=== PATIENT | male | born 1955 | race Caucasian/White ===

== ENCOUNTER 2016-12-24 23:19 | Inpatient (IN) ==
[2016-12-25 00:11] LABS: Hematocrit 37.5 % (37.5-50.1); Hemoglobin 12.4 g/dL (12.9-16.9); Mean Corpuscular HGB Conc 33.1 g/dL (31.6-35.5); Mean Corpuscular Hemoglobin 27.1 pg (28.0-33.3); Mean Corpuscular Volume 82.1 fL (83.0-100.0); Platelet Count 209 K/mcL (140-400); Red Blood Count 4.57 M/mcL (4.19-5.50); Red Cell Distribution Width 14.5 % (11.5-14.5)
[2016-12-25 00:23] LABS: BUN/Creatinine Ratio 11 (6-26); Blood Urea Nitrogen 16 mg/dL (8-26); Calcium 9.5 mg/dL (8.6-10.8); Carbon Dioxide 25 mEq/L (19-29); Chloride 90 mEq/L (98-109); Osmolality,Calculated 300 (280-300); Potassium 3.7 mEq/L (3.5-4.5); Sodium 126 mEq/L (136-145); eGFR For African Americans > 60 (> 60); eGFR For Non-African Americans 50 (> 60)
[2016-12-25 00:27] LABS: Glucose 763 mg/dL (70-99)
[2016-12-25] MEDS ORDERED: 0.9 % Sodium Chloride 1,000 ML IVC ONE ×3 (00:30→02:14)
[2016-12-25 00:31] LABS: Lymphocytes # 2.2 K/mcL (0.6-4.6); Monocytes # 1.8 K/mcL (0.0-1.3); Neutrophils # 14.2 K/mcL (1.6-8.9); Platelet Estimate Normal (Normal)
[2016-12-25 00:37] LABS: Bilirubin,Urine Negative (Negative); Blood,Urine Small (Negative); Clarity,Urine Cloudy (Clear); Color,Urine Yellow (Yellow); Glucose,Urine (UA) >=1000 mg/dL (Normal); Ketones,Urine Negative (Negative); Leukocyte Esterase,Urine Moderate (Negative); Nitrite,Urine Positive (Negative); Protein,Urine 30 mg/dL (Neg-Trace); Specific Gravity,Urine > 1.030 (1.010-1.025); Urobilinogen,Urine Normal (Normal)
[2016-12-25 00:40] LABS: Bacteria,Urine Many per hpf (None-Few); Hyaline Casts,Urine None Seen per lpf (None-Few); Squamous Epithelial Cell,Urine Many per lpf (None-Few); WBC,Urine TNTC per hpf (0-3)
--- NOTE | 2016-12-25 00:43 | Emergency Department Note ---
Disposition Clinical Impression: Candidiasis of scrotum, Candidiasis of perineum, Diabetic ketosis, Acute renal insufficiency Postoperative wound infection Qualifiers: Encounter type: initial encounter Qualified Code(s): T81.4XXA - Infection following a procedure, initial encounter UTI (urinary tract infection) Qualifiers: Urinary tract infection type: acute cystitis Hematuria presence: with hematuria Qualified Code(s): N30.01 - Acute cystitis with hematuria Disposition: Admitted As Inpatient Condition: Fair Referrals: NO,PCP [Primary Care Provider] - Forms: ED Satisfaction Letter Extremity Problem HPI - General Chief complaint: ED Extremity Problem,Nontraumatic Stated complaint: R Heel Pain s/p surgery 2 weeks w/Dr Drake Time Seen by Provider: 12/24/16 23:32 Source: patient Mode of arrival: private vehicle Limitations: no limitations Nursing Notes Reviewed: Yes Vital Signs Reviewed: Yes - History of Present Illness Pt Subjective Complaint: extremity pain Onset (ago): day(s) Consistency: constant Injury Location: right Pain Scale: 9 Quality: aching, dull Radiation: none Improves with: medication Worsens with: weight bearing, walking, palpation Associated symptoms: Denies: chest pain, shortness of breath, abdominal pain, back pain, fever, myalgias, arthralgias, rash, change in appearance, swelling, redness Context: recent surgery/procedure (12/14/16 Dr. Drake removed the toenail from the right great toe because of a fungal infection), history of peripheral vascular disease, other (Patient c/o increasing pain in his great toe for the past 3 days. He also has hx of urethral stricture and reconstruction and has noticed a change in his urine stream lately. ) - Related Data Previous Rx's Medication Instructions Recorded Cephalexin 500 mg PO QID #40 tablet 11/27/16 Sulfamethoxazole/Trimeth DS 1 each PO BID #20 tablet 11/27/16 [Bactrim DS] Allergies Allergy/AdvReac Type Severity Reaction Status Date / Time codeine Allergy Mild See Verified 12/24/16 23:22 Comments All systems ED: reviewed and negative except as stated. Constitutional: Denies: fever, chills, weakness, weight change, night sweats Eyes: Denies: eye pain, eye discharge, vision change ENT ED: Denies: ear pain, throat pain, congestion, dysphagia Cardiovascular: Denies: chest pain, palpitations, dyspnea on exertion, orthopnea , edema, syncope Respiratory: Denies: cough, dyspnea, wheezes Gastrointestinal: Denies: abdominal pain, nausea, vomiting, diarrhea, constipation Genitourinary: Reports: dysuria. Denies: urgency, frequency, hematuria, discharge, testicular pain, testicular mass, genital lesions Musculoskeletal: Denies: back pain, neck pain, joint swelling, arthralgia Integumentary: Denies: rash, abrasion, lesions Neurological: Denies: headache, weakness, numbness, paresthesias Endocrine: Denies: fatigue Hematological/Lymphatic: Denies: easy bleeding, easy bruising, lymphadenopathy Allergic/Immunologic: Denies: facial swelling, urticaria, itchy eyes Past Medical History - Past Medical History Attestation: Yes The following information was validated with the patient. Source: patient Medical history: Reports: coronary artery disease, diabetes, myocardial infarction, other Psychiatric history: Reports: no psych history - Social History Smoking Status: Current every day smoker Smokeless Tobacco Status: No Alcohol use: Reports: none Drug use: Reports: none Physical Exam - General Limitations: no limitations General appearance: alert, in no apparent distress - Head Head exam: atraumatic, normocephalic, normal inspection - Eye Eye exam: Present: normal appearance, PERRL. Absent: scleral icterus, conjunctival injection, periorbital swelling - ENT ENT exam: normal exam, mucous membranes moist - Neck Neck exam: Present: normal inspection, full ROM, trachea midline - Chest Chest inspection: Present: normal inspection, symmetric chest wall rise - Respiratory Respiratory exam: Present: normal lung sounds bilaterally. Absent: respiratory distress, wheezes, stridor, accessory muscle use, prolonged expiratory phase - Cardiovascular Cardiovascular exam: Present: normal rhythm, tachycardia, normal heart sounds - Abdominal Exam Abdominal exam: Present: soft, Non-Tender. Absent: distention, guarding, rebound, rigidity, mass - Female Paper Conservator present during exam: Yes (Dr. Conde present during exam) - Male exam: Present: normal testicular lie, circumcised, erythema (scrotal and bilateral inguinal areas ), other (severe candidal appearing infection in groin - scrotum and bilateral inguinal areas - no rash on penis). Absent: phimosis, paraphimosis, penile swelling, balanitis, priapism, ulcerations, inguinal lymphadenopathy, testicular tenderness, scrotal swelling - Extremities Exam Extremities exam: Present: full ROM, tenderness, normal capillary refill - Expanded Lower Extremity Exam Lower leg exam: Present: normal inspection, Achilles tendon intact. Absent: tenderness, swelling, Homans' sign Ankle exam: Present: normal inspection, full ROM. Absent: tenderness, swelling Foot/toe exam: Present: full ROM, tenderness (tip of right great toe). Absent: swelling, erythema 1 - tender, 1cm area of skin desquammation and slight blanching 2 - post-op changes - mild granulation tissue, no edema, minimal tenderness Neurovascular/Tendon exam: Present: normal capillary refill. Absent: pulse deficit, motor deficit, sensory deficit, tendon deficit, extremity cold to touch , pallor, foot drop Gait: antalgic - Neurological Exam Neurological exam: Present: alert, oriented X3, CN II-XII intact - Psychiatric Psychiatric exam: Present: normal affect, normal mood - Skin Skin exam: Present: warm, dry, normal color Course Course Narrative: Patient presents for evaluation of right great toe pain. He had his toe nail removed 11 days ago as treatment of a fungal infection, and has a follow up appointment with Dr. Drake tomorrow. The pain has increased significantly over the past 3 days however so he came in for evaluation. He also has had dysuria and a change in his urine stream. This concerns him because he had a urethral reconstruction done two years ago. He has had no complications since then. Patient is a type II diabetic who takes metformin only. He has been out of this medication for 4 days. On exam, he is tachycardic, mildly hypotensive, but is able to ambulate, is polite and conversant, A&Ox3. He was initially accompanied by his daughter. She is no longer here. PAtient has poor dentition and sub-optimal hygiene. He has significant perineal and scrotal candidiasis. He states that it always looks this bad and that it does not hurt. He does not appear to be tender. His abdominal exam is normal. The exam is normal except for the skin rash. He has exquisite tenderness to palpation of the distal tip of the right great toe. There is a small area of blanched skin and desquammation. There is some granulation tissue in the nail bed. There is no bleeding, no cellulitis, no lymphangitis and no edema. Patient has a glucose >700 with high serum ketones, normal gap. His WBC count is >18 with a bandemia. He has acute renal insufficiency. Lactic acid is normal. U/A is positive for nitrates, WBC's RBC's and Bacteria. Blood cultures have been drawn. Vanc and Zosyn have been started and pain meds given. Xray does not show osteomyelitis or other abnormality. Patient has also received 3 liters of NS so far. Insulin has been ordered - [address] Conde. Patient will require admission. Hospitalist has accepted. Case was staffed with Dr. Conde - ED attending. He has examined the patient, reviewed all test results , and agrees with the plan to admit. Vital Signs Temperature 98.2 F 12/24/16 23:22 Pulse Rate 124 12/24/16 23:22 Respiratory Rate 20 12/24/16 23:22 Blood Pressure 94/68 12/24/16 23:22 O2 Sat by Pulse Oximetry 96 12/24/16 23:22 Temperature 98.2 F 12/24/16 23:22 Pulse Rate 124 12/24/16 23:22 Respiratory Rate 20 12/24/16 23:22 Blood Pressure 94/68 12/24/16 23:22 O2 Sat by Pulse Oximetry 96 12/24/16 23:22 Oxygen Delivery Oxygen Delivery Room Air Extremity Problem, Nontraumati - Medical Records Medical records reviewed: Yes I reviewed the patient's medical records. - Lab Data Lab results reviewed: Yes I reviewed the patient's lab results. Lab results narrative: Laboratory Last Values WBC 18.2 K/mcL (4.3-11.1) H 12/25/16 00:03 RBC 4.57 M/mcL (4.19-5.50) 12/25/16 00:03 Hgb 12.4 g/dL (12.9-16.9) L 12/25/16 00:03 Hct 37.5 % (37.5-50.1) 12/25/16 00:03 MCV 82.1 fL (83.0-100.0) L 12/25/16 00:03 MCH 27.1 pg (28.0-33.3) L 12/25/16 00:03 MCHC 33.1 g/dL (31.6-35.5) 12/25/16 00:03 RDW 14.5 % (11.5-14.5) 12/25/16 00:03 Plt Count 209 K/mcL (140-400) 12/25/16 00:03 MPV 10.0 fL (9.4-12.4) 12/25/16 00:03 Seg Neutrophils % 50.0 % 12/25/16 00:03 Band Neutrophils % 28.0 % (0-4) H 12/25/16 00:03 Lymphocytes % 12.0 % 12/25/16 00:03 Monocytes % 10.0 % 12/25/16 00:03 Neutrophils # 14.2 K/mcL (1.6-8.9) H 12/25/16 00:03 Lymphocytes # 2.2 K/mcL (0.6-4.6) 12/25/16 00:03 Monocytes # 1.8 K/mcL (0.0-1.3) H 12/25/16 00:03 Platelet Estimate Normal (Normal) 12/25/16 00:03 Sodium 126 mEq/L (136-145) L 12/25/16 00:03 Potassium 3.7 mEq/L (3.5-4.5) 12/25/16 00:03 Chloride 90 mEq/L (98-109) L 12/25/16 00:03 Carbon Dioxide 25 mEq/L (19-29) 12/25/16 00:03 BUN 16 mg/dL (8-26) 12/25/16 00:03 Creatinine 1.45 mg/dL (0.72-1.25) H 12/25/16 00:03 Est GFR ( Amer) > 60 (> 60) 12/25/16 00:03 Est GFR (Non-Af Amer) 50 (> 60) L 12/25/16 00:03 BUN/Creatinine Ratio 11 (6-26) 12/25/16 00:03 Glucose 763 mg/dL (70-99) H* 12/25/16 00:03 Calculated Osmolality 300 (280-300) 12/25/16 00:03 Lactic Acid 1.5 mmol/L (0.5-2.2) 12/25/16 00:30 Calcium 9.5 mg/dL (8.6-10.8) 12/25/16 00:03 Beta-Hydroxybutyric Acd 0.93 mmol/L (0.02-0.27) H 12/25/16 00:03 Urine Color Yellow (Yellow) 12/25/16 00:30 Urine Clarity Cloudy (Clear) A 12/25/16 00:30 Urine pH 6.0 pH Units (5.0-8.0) 12/25/16 00:[address] [place] > 1.030 (1.010-1.025) H 12/25/16 00:30 Urine Protein 30 mg/dL (Neg-Trace) H 12/25/16 00:30 Urine Glucose (UA) >=1000 mg/dL (Normal) H 12/25/16 00:30 Urine Ketones Negative mg/dL (Negative) 12/25/16 00:30 Urine Blood Small (Negative) H 12/25/16 00:30 Urine Nitrite Positive (Negative) A 12/25/16 00:30 Urine Bilirubin Negative (Negative) 12/25/16 00:30 Urine Urobilinogen Normal mg/dL (Normal) 12/25/16 00:30 Ur Leukocyte Esterase Moderate (Negative) H 12/25/16 00:30 Urine Microscopic RBC 5-15 per hpf (0-3) H 12/25/16 00:30 Urine Microscopic WBC TNTC per hpf (0-3) H 12/25/16 00:30 Ur Squamous Epith Cells Many per lpf (None-Few) H 12/25/16 00:30 Urine Bacteria Many per hpf (None-Few) H 12/25/16 00:30 Hyaline Casts None Seen per lpf (None-Few) 12/25/16 00:30 Urine Yeast Few per hpf (None Seen) H 12/25/16 00:30 Ur Culture Indicated? YES (NO) A 12/25/16 00:30 Result diagrams: 12/25/16 00:03 12/25/16 00:03 Lab Results 12/25/16 12/25/16 Range/Units 00:03 00:03 WBC 18.2 H (4.3-11.1) K/mcL RBC 4.57 (4.19-5.50) M/mcL Hgb 12.4 L (12.9-16.9) g/dL Hct 37.5 (37.5-50.1) % MCV 82.1 L (83.0-100.0) fL MCH 27.1 L (28.0-33.3) pg MCHC 33.1 (31.6-35.5) g/dL RDW 14.5 (11.5-14.5) % Plt Count 209 (140-400) K/mcL MPV 10.0 (9.4-12.4) fL Seg Neutrophils % 50.0 % Band Neutrophils % 28.0 H (0-4) % Lymphocytes % 12.0 % Monocytes % 10.0 % Neutrophils # 14.2 H (1.6-8.9) K/mcL Lymphocytes # 2.2 (0.6-4.6) K/mcL Monocytes # 1.8 H (0.0-1.3) K/mcL Platelet Estimate Normal (Normal) Sodium 126 L (136-145) mEq/L Potassium 3.7 (3.5-4.5) mEq/L Chloride 90 L (98-109) mEq/L Carbon Dioxide 25 (19-29) mEq/L BUN 16 (8-26) mg/dL Creatinine 1.45 H (0.72-1.25) mg/dL Est GFR ( Amer) > 60 (> 60) Est GFR (Non-Af Amer) 50 L (> 60) BUN/Creatinine Ratio 11 (6-26) Glucose 763 H* (70-99) mg/dL Calculated Osmolality 300 (280-300) Calcium 9.5 (8.6-10.8) mg/dL - Radiology Data Radiology results reviewed: Yes I reviewed the patient's radiology results. Foot X-Ray 12/24/16 23:44 IMPRESSION: No acute or focal bony abnormality. D/ / Katelynn Lea Cha, MD / Katelynn Lea Cha, MD Interpreting Provider: Katelynn Lea Cha, MD
[2016-12-25 00:49] LABS: Yeast,Urine Few per hpf (None Seen)
[2016-12-25] MEDS ORDERED: traMADol 50 MG TABLET PO ONE (00:52)
[2016-12-25 01:01] LABS: Beta-Hydroxybutyric Acid 0.93 mmol/L (0.02-0.27)
[2016-12-25] MEDS ORDERED: Clotrimazole 1% CRM 15 GM TUBE TP ONE (02:14)
[2016-12-25] MEDS ORDERED: Vancomycin 1,000 MG in D5% in Water 250 ML IVPB ONE (02:14)
[2016-12-25] MEDS ORDERED: Piperacillin/Tazobactam 3.375 GM in D5% in Water (Mini-Bag+) 100 ML IVPB ONE (02:14)
[2016-12-25] MEDS ORDERED: *HR* Morphine 2 MG/ML SYRINGE IVP ONE (02:14)
[2016-12-25] MEDS: Ondansetron 4 MG/2 ML VIAL IVP ONE (02:26)
[2016-12-25] MEDS ORDERED: Insulin Human Regular 10 UNIT in 0.9 % Sodium Chloride 10 ML IV ONE (02:27)
[2016-12-25] MEDS ORDERED: Insulin Regular, Human 100 UNIT/ML ONE (02:40)
[2016-12-25] MEDS ORDERED: Fluconazole 100 MG TABLET PO ONE (03:05)
[2016-12-25] MEDS ORDERED: *HR* HYDROcodone/Acet 5/325 mg TABLET PO PRN (04:00)
[2016-12-25] MEDS ORDERED: Naloxone 0.4 MG/ML INJ IVP PRN (04:00)
[2016-12-25] MEDS ORDERED: Acetaminophen 325 MG TABLET PO PRN (04:00)
[2016-12-25] MEDS ORDERED: *HR* Dextrose 50 % in Water (Syg) 50 ML SYRINGE IVP PRN (04:10)
[2016-12-25] MEDS ORDERED: Dextrose Gel 15 GM PO PRN ×2 (04:10)
[2016-12-25] MEDS ORDERED: D5% in Water 1,000 ML IVC PRN (04:10)
[2016-12-25] MEDS ORDERED: Insulin LISPRO 300 UNITS/3 ML VIAL SQ ONE (04:15)
--- NOTE | 2016-12-25 04:28 | Internal Med History&Physical ---
Date of Encounter: 12/25/16 Time of Encounter: 03:00 Assessment and Plan (1) Sepsis Current visit: Yes Status: Acute Patient has elevated white count and tachycardia. With foot infection and UTI. Meet criteria of sepsis. - Early goal directed resuscitation started in ER - Continue IV fluid. - Initial Lactate 1.5, no need to follow. - Continue antibiotic treatment. Patient is at high risk because of he is on vancomycin, need close monitoring Qualifiers: Sepsis type: sepsis due to unspecified organism Qualified Code(s): A41.9 - Sepsis, unspecified organism (2) Uncontrolled diabetes mellitus Current visit: Yes Status: Acute Patient has hyperglycemia up to 700. AG 11, Osmo 300. - Glu get down to 460 after 10 units insulin iv by ER. - Another 10 units insulin lispro sc - We will place patient on basal and sliding-scale insulin. - Closely monitor patient - Continue IV fluid with potassium because expecting potassium will decrease when hyperglycemia corrected by insulin. Qualifiers: Diabetes mellitus type: type 2 Diabetes mellitus complication status: without complication Diabetes mellitus detention insulin use: without detention use Qualified Code(s): E11.65 - Type 2 diabetes mellitus with hyperglycemia (3) Postoperative wound infection Current visit: Yes Status: Acute We will continue antibiotic treatment. Podiatry consult. Qualifiers: Encounter type: initial encounter Qualified Code(s): T81.4XXA - Infection following a procedure, initial encounter (4) UTI (urinary tract infection) Current visit: Yes Status: Acute Continue antibiotic treatment. Follow urine culture. Qualifiers: Urinary tract infection type: acute cystitis Hematuria presence: without hematuria Qualified Code(s): N30.00 - Acute cystitis without hematuria (5) Acute renal insufficiency Current visit: Yes Status: Acute Continue IV fluid and follow-up renal function. (6) DVT prophylaxis Current visit: Yes Status: Acute Heparin subcutaneously Internal Medicine - H&P: HPI Chief complaint: Right toe pain Admitted From: Home Plans for Post Hospital Care: Home History of present illness: Mr. Bolden is a 61 year old male with history of diabetes, CAD S/P CABG, presented to ER for right toe pain for one week. Patient has right toe infection, seen by podiatry and did nail removal 1 week ago. Patient feels the pain is getting worse. He denies fever, shortness of breath, chest pain, abdominal pain, nausea, vomiting, or diarrhea. Patient also has history of urethral stenosis and a urinary through a changed way. He complained of dysuria and burning. In emergency room, he also was found glucose high to 700s. Patient was on metformin 1,000 mg by mouth twice a day. He said he ran out of medication for 3 days. Patient was admitted for foot infection, UTI, and uncontrolled diabetes. I discussed the CODE STATUS with patient, he is a full code. Past Med Surg Social Fam HX - Past Medical History Medical history: coronary artery disease, diabetes, myocardial infarction, other Psychiatric history: no psych history - Social History Smoking Status: Current every day smoker Smokeless Tobacco Status: No Alcohol use: none Drug use: none Internal Medicine - H&P: Meds Cephalexin 500 mg PO QID #40 tablet 11/27/16 [Rx] Sulfamethoxazole/Trimeth DS [Bactrim DS] 1 each PO BID #20 tablet 11/27/16 [Rx] Allergies codeine Allergy (Mild, Verified 12/24/16 23:22) See Comments chest heaviness All Systems PM: A 10-system review of systems was performed and is negative for pertinent findings except as documented above in the HPI. - Constitutional Vitals: Temp Pulse Resp BP Pulse Ox 98.6 F 98 18 99/64 95 12/25/16 04:20 12/25/16 04:20 12/25/16 04:20 12/25/16 04:20 12/25/16 04:20 General appearance: Present: A&O X 3, no acute distress, answers questions appropriately - Head Head exam: Present: atraumatic, normocephalic - Eye Eye exam: Present: PERRL, conjuntiva pink, sclera anicteric Pupils: Present: PERRL - Neck Neck exam general surgery: Present: supple, trachea midline. Absent: lymphadenopathy - Respiratory Respiratory exam: Present: CTAB. Absent: accessory muscle use, rales, rhonchi, wheezes - Cardiovascular Cardiovascular exam: Present: RRR, +S1, +S2. Absent: diastolic murmur, gallop, rubs, systolic murmur - GI/Abdominal GI/Abdominal exam: Present: normal bowel sounds, soft, no peritoneal signs. Absent: distended, tenderness - Extremities Exam Extremities exam: Present: warm, radial pulses palpable and symetrical. Absent : calf tenderness, cyanotic, pedal edema Additional comments: Right toe infection with ulcer - Neurological Exam Neurological exam: Present: CN II-XII intact, oriented X3, no focal deficits. Absent: pronater drift, facial droop, speech deficit - Skin Skin exam: Present: dry, intact Internal Med - H&P Results - Labs CBC & Chem 7: 12/25/16 00:03 12/25/16 00:03
[2016-12-25] MEDS: *HR* Heparin 5,000 UNIT/ML VIAL SQ SCH ×2 (05:13→16:34)
[2016-12-25 05:49] LABS: Basophils % 0.3 %; Eosinophils % 0.1 %; Hematocrit 31.6 % (37.5-50.1); Immature Granulocytes % 0.4 % (0-4); Lymphocytes # 0.7 K/mcL (0.6-4.6); Lymphocytes % 4.9 %; Mean Corpuscular HGB Conc 33.5 g/dL (31.6-35.5); Mean Corpuscular Volume 83.4 fL (83.0-100.0); Mean Platelet Volume 10.2 fL (9.4-12.4); Monocytes # 0.5 K/mcL (0.0-1.3); Monocytes % 3.1 %; Platelet Count 187 K/mcL (140-400); Red Blood Count 3.79 M/mcL (4.19-5.50); Red Cell Distribution Width 14.6 % (11.5-14.5); Segmented Neutrophils % 91.2 %
[2016-12-25 05:59] LABS: BUN/Creatinine Ratio 13 (6-26); Blood Urea Nitrogen 14 mg/dL (8-26); Calcium 8.4 mg/dL (8.6-10.8); Carbon Dioxide 23 mEq/L (19-29); Chloride 99 mEq/L (98-109); Glucose 453 mg/dL (70-99); Osmolality,Calculated 290 (280-300); Potassium 3.9 mEq/L (3.5-4.5); Sodium 130 mEq/L (136-145); eGFR For African Americans > 60 (> 60); eGFR For Non-African Americans > 60 (> 60)
[2016-12-25] MEDS ORDERED: Vancomycin 1,500 MG in D5% in Water 250 ML IVPB SCH (06:00)
[2016-12-25] MEDS: 0.9 % Sodium Chloride w KCl 40 MEQ/1,000 ML MLS IVC SCH ×3 (06:01→21:10)
[2016-12-25 06:02] LABS: BUN/Creatinine Ratio 12 (6-26); Blood Urea Nitrogen 14 mg/dL (8-26); Calcium 8.3 mg/dL (8.6-10.8); Carbon Dioxide 25 mEq/L (19-29); Chloride 99 mEq/L (98-109); Chol/HDL Ratio 5.9 (0-4.9); Cholesterol 112 mg/dL (< 200); Glucose 446 mg/dL (70-99); HDL Cholesterol 19 mg/dL (40-59); LDL Cholesterol,Calculated 42 mg/dL (0-99); Magnesium 1.1 mg/dL (1.6-2.6); Osmolality,Calculated 294 (280-300); Phosphorous 2.7 mg/dL (2.3-4.7); Potassium 3.9 mEq/L (3.5-4.5); Sodium 132 mEq/L (136-145); Triglycerides 255 mg/dL (< 150); eGFR For African Americans > 60 (> 60); eGFR For Non-African Americans > 60 (> 60)
[2016-12-25 06:10] LABS: Estimated Average Glucose > 355 mg/dl; Hemoglobin A1C >= 14.1 %
[2016-12-25 06:14] LABS: Basophils # 0.1 K/mcL (0.0-0.2); Hemoglobin 10.6 g/dL (12.9-16.9); Neutrophils # 13.9 K/mcL (1.6-8.9)
[2016-12-25 06:15] LABS: Platelet Estimate Normal (Normal)
[2016-12-25] MEDS: Insulin LISPRO 300 UNITS/3 ML VIAL SQ SCH ×4 (07:50→21:21)
[2016-12-25] MEDS: Nystatin POWDER 30 GM BOTTLE TP SCH ×2 (07:50→21:11)
[2016-12-25] MEDS: Insulin DETEMIR 100 UNIT/ML X5UNITS SQ SCH (07:50)
[2016-12-25] MEDS ORDERED: Aminoglycoside Consult 1 EACH MC ONE (12:00)
--- NOTE | 2016-12-25 12:40 | Event Note ---
Date of Encounter: 12/25/16 Time of Encounter: 12:02 Patient admitted for sepsis secondary to right great toe infection, status post removal of the great toenail of the right foot by podiatry. Also has evidence of UTI. Blood sugar noted to be more than 700, and A1c more than 14. Patient was seen in the bedside, complaining of severe pain on the right foot, unable to bear weight. He has temperature 102, leukocytosis with tachycardia. He has been started on Vanco and Zosyn yesterday, serology was positive for staph aureus on November and was taking Bactrim at home. Will continue vancomycin and Zosyn, follow cultures, podiatry has been consulted. Will follow recommendations from podiatry. History of the foot did not show any bony instructions or signs of osteomyelitis. We will also consult wound care.
[2016-12-25 12:56] LABS: BUN/Creatinine Ratio 13 (6-26); Blood Urea Nitrogen 13 mg/dL (8-26); Calcium 8.2 mg/dL (8.6-10.8); Carbon Dioxide 22 mEq/L (19-29); Chloride 104 mEq/L (98-109); Glucose 110 mg/dL (70-99); Osmolality,Calculated 279 (280-300); Sodium 134 mEq/L (136-145); eGFR For African Americans > 60 (> 60); eGFR For Non-African Americans > 60 (> 60)
[2016-12-25] MEDS: Piperacillin/Tazobactam 3.375 GM in D5% in Water (Mini-Bag+) 100 ML IVPB SCH ×2 (13:27→21:09)
[2016-12-25] MEDS: Vancomycin 1,000 MG in D5% in Water 250 ML IVPB SCH (14:50)
[2016-12-25 17:32] LABS: blaKPC Carbapenem-Resist Gene Not Detected (Not Detect)
[2016-12-25 17:33] LABS: Acinetobacter baumannii by PCR Not Detected (Not Detect); Candida albicans by PCR Not Detected (Not Detect); Candida glabrata by PCR Not Detected (Not Detect); Candida krusei by PCR Not Detected (Not Detect); Candida parapsilosis by PCR Not Detected (Not Detect); Candida tropicalis by PCR Not Detected (Not Detect); Enterococcus by PCR Not Detected (Not Detect); Escherichia coli by PCR Not Detected (Not Detect); Klebsiella oxytoca by PCR Not Detected (Not Detect); Klebsiella pneumoniae by PCR Not Detected (Not Detect); Pseudomonas aeruginosa by PCR Not Detected (Not Detect); Serratia marcescens by PCR ***DETECTED*** (Not Detect); Staphylococcus aureus by PCR Not Detected (Not Detect); Streptococcus agalactiae(B)PCR Not Detected (Not Detect); Streptococcus by PCR Not Detected (Not Detect); Streptococcus pneumoniae PCR Not Detected (Not Detect); Streptococcus pyogenes (A) PCR Not Detected (Not Detect)
--- NOTE | 2016-12-25 17:51 | Arterial Study Report ---
LE Arterial Physiologic Study Patient Name:Inocencio Bolden Order Number:[id number] Procedure Date:12/25/2016 Date:1955ge:61 yrs Gender:Male Lt BP:115 / mmHg Location:[facility] Room #: 2A62 Sock Lining Examiner:Margoth Rahman, STEPHANIE Referring MD:Wyatt Tang DPM sliver cutter:None Reading MD:Miky Gomes MD , FACS Primary Indications:Wound Right Foot Risk Factors Yes/No Diabetes Yes Smoking Current Yes Impressions: 1) Bilateral lower extremities waveform demonstrates moderately diminished hemodynamics. 2) Bilateral Ankle Brachial Index demonstrates moderately occlusive disease. Recommendations: Preliminary noted in pt EMR. Findings LE Arterial Physiologic Exam: Segmental Pressures: Right: The right above knee pressure is 102 mmHg with an index of 0.89. The right below knee pressure is 87 mmHg with an index of 0.76. The right posterior tibial pressure is 78 mmHg with an index of 0.68. The right dorsalis pedis pressure is 77 mmHg with an index of 0.67. Left: The left above knee pressure is 153 mmHg with an index of 1.33. The left below knee pressure is 94 mmHg with an index of 0.82. The left posterior tibial pressure is 83 mmHg with an index of 0.72. The left dorsalis pedis pressure is 82 mmHg with an index of 0.71. PVR: Right: The PVR waveforms are mildly diminished in the right lower thigh and moderately diminished in the right calf and right ankle. Left: The PVR waveforms are normal in the left lower thigh, mildly diminished in the left calf and moderately diminished in the left ankle. Prior Study: No prior study available for comparison. Segmental Pressures Side Location Pressure Index Result Right Above Knee 102 0.89 Mildly Diminished Right Below Knee 87 0.76 Moderately Diminished Right Posterior Tibial 78 0.68 Moderately Diminished Right Dorsalis Pedis 77 0.67 Moderately Diminished Left Above Knee 153 1.33 Normal Left Below Knee 94 0.82 Mildly Diminished Left Posterior Tibial 83 0.72 Moderately Diminished Left Dorsalis Pedis 82 0.71 Moderately Diminished Ankle Brachial Index Right Systolic Diastolic LANDRY Brachial 0.68 Dorsalis Pedis 77 0.67 Posterior Tibial 78 0.68 Left Systolic Diastolic LANDRY Brachial 115 0.72 Dorsalis Pedis 82 0.71 Posterior Tibial 83 0.72 Updated by Miky Gomes MD, FACS on 12/25/2016 5:44:33 PM with Status of Final Miky Gomes MD electronically signed on 12/25/2016 5:45:08 PM with status of Final
[2016-12-25] MEDS: *HR* OxyCODONE/APAP 7.5/325 TABLET PO PRN (21:09)
--- NOTE | 2016-12-25 22:11 | Podiatry Consult Note ---
Date of Encounter: 12/25/16 Time of Encounter: 13:00 Assessment and Plan (1) Cellulitis of toe of right foot Current visit: Yes Status: Acute see above A/P History of Present Illness HPI: Mr. Bolden is a 61 year old diabetic male who came to the ER with right great toe pain. He presented to our office two weeks ago with an infected ingrown toenail which was lifted off the nail bed with drainage underneath and the distal aspect of the nail was encompassed by a superficial blister. The nail was avulsed in the office and flushed out with saline. He was on keflex and bactrim at that time and says he continued it. He reports still having bactrim left at home which he did not take. He did not get the drops prescribed to put on the toe. denies feeling like he had f/c/n/v/sob/cp. he has had one recorded fever since he has been in the hospital. His A1c is over 14%. He currently has a UTI. He is an active smoker. A/P hallux is not impressively cellulitic, no signs of osteomyelitis on the xray, there is no edema of the hallux. is concern for vascular compromise of the toe causing his pain vs diabetic neuropathic pain. holli/pvr b/l and toe pressures on the right were ordered. there was some drainage on the dorsal surface of the nail bed which was cultured and given to the nurse to be sent for aerobic culture and gram stain. c/w antibiotics per primary team. betadine applied to hallux with a small amount of asportive silver dressing. ordered surgical shoe. encouraged smoking cessation. will follow. Past Med Surg Social Fam HX - Past Medical History Medical history: coronary artery disease, diabetes, myocardial infarction, other Psychiatric history: no psych history - Social History Smoking Status: Current every day smoker Packs per day: 1 Smokeless Tobacco Status: No Alcohol use: none Drug use: none - Family History Mother Family Member Ethnicity: Non- Living Status: Age at : 54 Cause of : Cancer Hx Family Cancer: Yes Hx Family Endocrine Disorder: Yes (Diabetic) Father Family Member Ethnicity: Non- Living Status: Age at : 56 Cause of : Heart Attack Hx Family Cardiac Disorders: Yes ([place]) Medications and Allergies Aspirin 81 mg PO DAILY 12/25/16 [History] Metformin HCl [Glucophage] 1,000 mg PO BID 12/25/16 [History] Tramadol HCl [Ultram] 50 mg PO TID PRN 12/25/16 [History] Allergies codeine Allergy (Mild, Verified 12/24/16 23:22) See Comments chest heaviness All Systems Reviewed: A 10-system review of systems was performed and is negative for pertinent findings except as documented above in the HPI. Physical Exam - Constitutional Vitals: Temp Pulse Resp BP Pulse Ox 98.3 F 97 18 111/62 96 12/25/16 21:18 12/25/16 21:18 12/25/16 21:18 12/25/16 21:18 12/25/16 21:18 General appearance: no acute distress - Ankle & Foot Exam: foot is cool to touch as are all digits of the right foot. CFT is about 3 sec on the right hallux. macerated dorsal aspect of the nail bed with clear drainage. no purulence expressed. there is no fluctuance, there is some minimal non-intense erythema of the distal hallux, no ascending erythema. no edema. no increase in temp of hallux compared to adjacent digits. diminished protective sensation. pain with palpation of the right hallux distal phalanx. x-ray-no erosive changes or cortical destruction of the hallux. Results - Labs Result Diagrams: 12/25/16 05:27 12/25/16 12:27 Labs: Abnormal lab results WBC 15.2 K/mcL (4.3-11.1) H 12/25/16 05:27 RBC 3.79 M/mcL (4.19-5.50) L 12/25/16 05:27 Hgb 10.6 g/dL (12.9-16.9) L D 12/25/16 05:27 Hct 31.6 % (37.5-50.1) L 12/25/16 05:27 RDW 14.6 % (11.5-14.5) H 12/25/16 05:27 Band Neutrophils % 28.0 % (0-4) H 12/25/16 00:03 Neutrophils # 13.9 K/mcL (1.6-8.9) H 12/25/16 05:27 Sodium 134 mEq/L (136-145) L 12/25/16 12:27 Glucose 110 mg/dL (70-99) H 12/25/16 12:27 POC Glucose 178 (58-89) H 12/25/16 21:15 Hemoglobin A1c >= 14.1 % (-5.6) H 12/25/16 05:27 Calculated Osmolality 279 (280-300) L 12/25/16 12:27 Calcium 8.2 mg/dL (8.6-10.8) L 12/25/16 12:27 Magnesium 1.1 mg/dL (1.6-2.6) L 12/25/16 05:27 Triglycerides 255 mg/dL (< 150) H 12/25/16 05:27 VLDL Cholesterol, Calc 51 mg/dL (< 31) H 12/25/16 05: HDL Cholesterol 19 mg/dL (40-59) L 12/25/16 05: Cholesterol/HDL Ratio 5.9 (0-4.9) H 12/25/16 05:27 Beta-Hydroxybutyric Acd 0.93 mmol/L (0.02-0.27) H 12/25/16 00:03 Urine Clarity Cloudy (Clear) A 12/25/16 00:30 Ur Specific [place] > 1.030 (1.010-1.025) H 12/25/16 00:30 Urine Protein 30 mg/dL (Neg-Trace) H 12/25/16 00:30 Urine Glucose (UA) >=1000 mg/dL (Normal) H 12/25/16 00:30 Urine Blood Small (Negative) H 12/25/16 00:30 Urine Nitrite Positive (Negative) A 12/25/16 00:30 Ur Leukocyte Esterase Moderate (Negative) H 12/25/16 00:30 Urine Microscopic RBC 5-15 per hpf (0-3) H 12/25/16 00:30 Urine Microscopic WBC TNTC per hpf (0-3) H 12/25/16 00:30 Ur Squamous Epith Cells Many per lpf (None-Few) H 12/25/16 00:30 Urine Bacteria Many per hpf (None-Few) H 12/25/16 00:30 Urine Yeast Few per hpf (None Seen) H 12/25/16 00:30 Ur Culture Indicated? YES (NO) A 12/25/16 00:30 Enterobacteriac sp PCR DETECTED (Not Detect) A 12/25/16 00:03 Serratia marcescens PCR DETECTED (Not Detect) A 12/25/16 00:03 H & H 12/25/16 Range/Units 05:27 Hgb 10.6 L D (12.9-16.9) g/dL Hct 31.6 L (37.5-50.1) % All other labs normal. Consult Discharge Plan - Plan Referrals: NO,PCP [Primary Care Provider] -
[2016-12-26] MEDS: Vancomycin 1,000 MG in D5% in Water 250 ML IVPB SCH (02:14)
[2016-12-26] MEDS ORDERED: Vancomycin 1,000 MG in D5% in Water 250 ML IVPB SCH (05:00)
[2016-12-26] MEDS: 0.9 % Sodium Chloride w KCl 40 MEQ/1,000 ML MLS IVC SCH (05:42)
[2016-12-26] MEDS: *HR* OxyCODONE/APAP 7.5/325 TABLET PO PRN ×4 (05:42→22:53)
[2016-12-26] MEDS: Piperacillin/Tazobactam 3.375 GM in D5% in Water (Mini-Bag+) 100 ML IVPB SCH ×3 (05:43→22:53)
[2016-12-26] MEDS: *HR* Heparin 5,000 UNIT/ML VIAL SQ SCH ×2 (05:43→17:50)
[2016-12-26] MEDS: Insulin DETEMIR 100 UNIT/ML X5UNITS SQ SCH (07:56)
[2016-12-26] MEDS: Nystatin POWDER 30 GM BOTTLE TP SCH (07:57)
[2016-12-26] MEDS: Insulin LISPRO 300 UNITS/3 ML VIAL SQ SCH ×4 (07:57→21:00)
[2016-12-26 11:52] LABS: BUN/Creatinine Ratio 16 (6-26); Blood Urea Nitrogen 15 mg/dL (8-26); Calcium 7.6 mg/dL (8.6-10.8); Carbon Dioxide 20 mEq/L (19-29); Chloride 107 mEq/L (98-109); Glucose 278 mg/dL (70-99); Osmolality,Calculated 285 (280-300); Potassium 4.4 mEq/L (3.5-4.5); Sodium 132 mEq/L (136-145); eGFR For African Americans > 60 (> 60); eGFR For Non-African Americans > 60 (> 60)
[2016-12-26 13:03] LABS: Basophils % 0.6 %; Eosinophils # 0.1 K/mcL (0.0-0.6); Hematocrit 31.4 % (37.5-50.1); Hemoglobin 10.2 g/dL (12.9-16.9); Immature Granulocytes % 0.4 % (0-4); Lymphocytes # 0.8 K/mcL (0.6-4.6); Lymphocytes % 15.5 %; Mean Corpuscular HGB Conc 32.5 g/dL (31.6-35.5); Mean Corpuscular Hemoglobin 27.6 pg (28.0-33.3); Mean Corpuscular Volume 84.9 fL (83.0-100.0); Mean Platelet Volume 9.8 fL (9.4-12.4); Monocytes # 0.4 K/mcL (0.0-1.3); Monocytes % 7.4 %; Neutrophils # 3.9 K/mcL (1.6-8.9); Platelet Count 154 K/mcL (140-400); Red Cell Distribution Width 14.9 % (11.5-14.5); Segmented Neutrophils % 75.1 %
--- NOTE | 2016-12-26 14:41 | Podiatry Progress Note ---
Date of Encounter: 12/26/16 Time of Encounter: 02:45 - Assessment and Plan (1) Cellulitis of toe of right foot Current Visit: Yes Status: Acute erythema of the digit not very impressive for an infection. his gram stain is GPCs which could be skin dina. His toe is not swollen. I think a lot of his symptoms specifically the pain he has in the toe could be vascular in nature. (2) PVD (peripheral vascular disease) Current Visit: Yes Status: Acute LANDRY/PVR results reviewed and discussed with patient. he has some early dusky/ necrosis at the distal tip of the right hallux. His toe is not overly impressive for infection and his pain improves when the foot is in a dependent position. encouraged smoking sessation. ambulate in surgical shoe. vascular () Dr. Gomes) called will see patient. Subjective Interval history: patient has bandage on right big toe. He says the pain is the same. He says when he hangs his foot off the bed the pain is less but it still hurts. Objective - Vital Signs Vital Signs: Vital Signs Temp Pulse Resp BP Pulse Ox 12/26/16 11:29 98.2 F 78 16 112/71 97 12/26/16 07:33 98.2 F 81 15 118/70 96 12/26/16 05:59 97.2 F L 86 18 111/62 96 12/26/16 01:38 98.5 F 81 18 98/62 95 12/25/16 21:18 98.3 F 97 18 111/62 96 12/25/16 15:25 98.4 F 80 15 101/64 98 Intake and Output 12/25/16 12/26/16 12/26/16 23:59 07:59 15:59 Intake Total 1164 / 1164 477 / 477 315 / 315 Balance 1164 / 1164 477 / 477 315 / 315 Intake: IV Fluids 1164 / 1164 477 / 477 KCl 40mEq in 0.9% Sodium 814 / 814 127 / 127 Chloride 40 meq In 1,000 ml @ 125 mls/hr IVC .Q8H NAKUL Rx#:[id number] Zosyn 3.375 GM In 100 / 100 100 / 100 Dextrose 5% (Minibag+) 100 ML 100 ML @ 25 mls/hr IVPB Q8H NAKUL Rx#: [id number] Vancocin 1,000 MG In 250 / 250 250 / 250 Dextrose 5% 250 ML @ 166. 667 mls/hr IVPB Q12H NAKUL Rx#:[id number] Oral 315 / 315 Other: Meal Lunch Percent of Meal Consumed 95% # Voids 1 1 1 Weight 73.437 kg Blood Glucose* 178 280 310 Patient Weight 12/26/16 23:59 Weight 73.437 kg - Lab Result Diagrams: 12/26/16 12:44 12/26/16 11:32 Labs: Abnormal lab results RBC 3.70 M/mcL (4.19-5.50) L 12/26/16 12:44 Hgb 10.2 g/dL (12.9-16.9) L 12/26/16 12:44 Hct 31.4 % (37.5-50.1) L 12/26/16 12:44 MCH 27.6 pg (28.0-33.3) L 12/26/16 12:44 RDW 14.9 % (11.5-14.5) H 12/26/16 12:44 Band Neutrophils % 28.0 % (0-4) H 12/25/16 00:03 Sodium 132 mEq/L (136-145) L 12/26/16 11:32 Glucose 278 mg/dL (70-99) H 12/26/16 11:32 POC Glucose 178 (58-89) H 12/25/16 21:15 Hemoglobin A1c >= 14.1 % (-5.6) H 12/25/16 05:27 Calcium 7.6 mg/dL (8.6-10.8) L 12/26/16 11:32 Magnesium 1.1 mg/dL (1.6-2.6) L 12/25/16 05:27 Triglycerides 255 mg/dL (< 150) H 12/25/16 05:27 VLDL Cholesterol, Calc 51 mg/dL (< 31) H 12/25/16 05:27 HDL Cholesterol 19 mg/dL (40-59) L 12/25/16 05:27 Cholesterol/HDL Ratio 5.9 (0-4.9) H 12/25/16 05:27 Beta-Hydroxybutyric Acd 0.93 mmol/L (0.02-0.27) H 12/25/16 00:03 Urine Clarity Cloudy (Clear) A 12/25/16 00:30 Ur Specific [place] > 1.030 (1.010-1.025) H 12/25/16 00:30 Urine Protein 30 mg/dL (Neg-Trace) H 12/25/16 00:30 Urine Glucose (UA) >=1000 mg/dL (Normal) H 12/25/16 00:30 Urine Blood Small (Negative) H 12/25/16 00:30 Urine Nitrite Positive (Negative) A 12/25/16 00:30 Ur Leukocyte Esterase Moderate (Negative) H 12/25/16 00:30 Urine Microscopic RBC 5-15 per hpf (0-3) H 12/25/16 00:30 Urine Microscopic WBC TNTC per hpf (0-3) H 12/25/16 00:30 Ur Squamous Epith Cells Many per lpf (None-Few) H 12/25/16 00:30 Urine Bacteria Many per hpf (None-Few) H 12/25/16 00:30 Urine Yeast Few per hpf (None Seen) H 12/25/16 00:30 Ur Culture Indicated? YES (NO) A 12/25/16 00:30 Enterobacteriac sp PCR DETECTED (Not Detect) A 12/25/16 00:03 Serratia marcescens PCR DETECTED (Not Detect) A 12/25/16 00:03 Microbiology, Last 48 Hours 12/25/16 13:00 Gram Stain - Preliminary Right Great Toe absent DP/PT. sluggish capillary refill time 3-4 seconds right hallux. right hallux very mild erythema. it is slightly warmer to touch than yesterday but there is a dusky area of possible early necrosis at the distal tip of the right hallux. absent sensation. pain with palpation of the hallux. dorsal nail bed of the hallux appears dry. no purulence expressed. LANDRY/PVR reviewed. Consult Discharge Plan - Plan Referrals: NO,PCP [Primary Care Provider] -
--- NOTE | 2016-12-26 16:13 | Internal Med Progress Note ---
Date of Encounter: 12/26/16 Time of Encounter: 16:07 - Assessment and plan (1) UTI (urinary tract infection) Current Visit: Yes Status: Acute Assessment and plan: urine cx grwoing gram neg rods. will contnue zosyn for now until final cx results. Qualifiers: Urinary tract infection type: acute cystitis Hematuria presence: without hematuria Qualified Code(s): N30.00 - Acute cystitis without hematuria (2) Sepsis Current Visit: Yes Status: Acute Assessment and plan: has bacteremia possible 2/2 UTI, culture growing gram-negative rods. No fever spike today, white count has improved. Will continue Zosyn, DC Vanco today. Clinically improving, given bacteremia, will need IV antibiotics for 2 weeks after negative set of blood cultures. will repeat blood cx tomm. Qualifiers: Sepsis type: sepsis due to unspecified organism Qualified Code(s): A41.9 - Sepsis, unspecified organism (3) Uncontrolled diabetes mellitus Current Visit: Yes Status: Acute Assessment and plan: Continue long-acting and insulin sliding scale. Qualifiers: Diabetes mellitus type: type 2 Diabetes mellitus complication status: without complication Diabetes mellitus long-term insulin use: without long-term use Qualified Code(s): E11.65 - Type 2 diabetes mellitus with hyperglycemia (4) Cellulitis of toe of right foot Current Visit: Yes Status: Acute Assessment and plan: as per podiatry, erythema of the digit not very impressive for an infection . his gram stain is GPCs which could be skin dina. His toe is not swollen. his symptoms specifically the pain he has in the toe could be vascular in nature. vascular has been consulted, will follow recommendation (5) PVD (peripheral vascular disease) Current Visit: Yes Status: Acute Assessment and plan: will follow vascular recommnedtaion continue pain meds for current pain ocntrol. - Time Spent With Patient 25 - 35 minutes - Subjective Interval history: Patient seen at the bedside reports that the pain on the right foot is much better than yesterday. Reports burning micturition, denies nausea or vomiting. - Constitutional Vitals: Temp Pulse Resp BP Pulse Ox 98.0 F 79 14 134/85 97 12/26/16 15:17 12/26/16 15:17 12/26/16 15:17 12/26/16 15:17 12/26/16 15:17 General appearance: Present: A&O X 3, no acute distress, answers questions appropriately Exam: Head exam: Present: atraumatic, normocephalic - Eye Eye exam: Present: PERRL, conjuntiva pink, sclera anicteric Pupils: Present: PERRL - Neck Neck exam general surgery: Present: supple, trachea midline. Absent: lymphadenopathy - Respiratory Respiratory exam: Present: CTAB. Absent: accessory muscle use, rales, rhonchi, wheezes - Cardiovascular Cardiovascular exam: Present: RRR, +S1, +S2. Absent: diastolic murmur, gallop, rubs, systolic murmur - GI/Abdominal GI/Abdominal exam: Present: normal bowel sounds, soft, no peritoneal signs. Absent: distended, tenderness - Extremities Exam Extremities exam: Present: warm, radial pulses palpable and symetrical, mild erythema Absent: calf tenderness, cyanotic, pedal edema - Neurological Exam Neurological exam: Present: CN II-XII intact, oriented X3, no focal deficits. Absent: pronater drift, facial droop, speech deficit - Skin Skin exam: Present: dry, intact Internal Medicine: Result - Labs CBC & Chem 7: 12/26/16 12:44 12/26/16 11:32 Labs: Short CBC 12/26/16 Range/Units 12:44 WBC 5.2 D (4.3-11.1) K/mcL Hgb 10.2 L (12.9-16.9) g/dL Hct 31.4 L (37.5-50.1) % Plt Count 154 (140-400) K/mcL Neutrophils # 3.9 (1.6-8.9) K/mcL BMP 12/26/16 11:32 Sodium 132 L Potassium 4.4 Chloride 107 Carbon Dioxide 20 BUN 15 Creatinine 0.96 Glucose 278 H Calcium 7.6 L Consult Discharge Plan - Plan Referrals: NO,PCP [Primary Care Provider] -
--- NOTE | 2016-12-26 18:04 | Vascular/Endovasc Consult Note ---
Date of Encounter: 12/26/16 Time of Encounter: 18:01 Assessment and Plan (1) PAD (peripheral artery disease) Current Visit: Yes Status: Acute Patient has absent popliteal and pedal pulses and abnormal noninvasive exam in light of a ischemic toe and infection. Patient has risk factors of diabetes is poorly controlled and tobacco abuse. He also status post open heart bypass grafting approximately 9 years ago. Because of these issues I recommended the patient undergo angiography with possible right lower extremity endovascular intervention tomorrow. The potential risks and benefits as well as complications and alternatives were reviewed with the patient. He agrees to proceed as recommended. (2) Cellulitis of toe of right foot Current Visit: Yes Status: Acute Patient is receiving intravenous antibiotics. - History of Present Illness Consult date: 12/26/16 Requesting physician: Wyatt Tang Consult reason: Ischemic right first toe Chief complaint: Right toe and foot pain History of present illness: Mr. Bolden is a 61 year old male Who was admitted on Saturday evening via the emergency room with significant right foot pain and a right toe ulceration. Patient had a great deal of difficulty walking on his foot. He is status post a ingrown toenail removal removal about [address] Drake. He had had purulent drainage from the toenail at that time. When he was admitted he was found to have an elevated white count and findings to suggest sepsis. He was then placed on intravenous antibiotics and was also discovered to have a urinary tract infection. The patient states that he has been having "soreness" in the toe for at least 3- 4 weeks. His overall ambulation is limited for a distance of about 1 block. He has a dull sensation in his back that causes him to stop as well as a cramping sensation in his calf. He also has nocturnal cramps. He has risk factors of long -term diabetes and long-term tobacco abuse. He has no family history of vascular disease. Patient has a history of open heart bypass grafting that was performed in [facility] in 2007. Recent noninvasive testing performed yesterday shows an ankle-brachial index of 0.68 on the right and 0.72 on the left. The patient also has diminished waveforms of both lower extremities. Past Med Surg Social Fam HX - Past Medical History Medical history: coronary artery disease, diabetes, myocardial infarction, other Psychiatric history: no psych history - Past Surgical History Surgical History: coronary bypass (CABG) (Status post open heart bypass grafting in [facility] 2007) - Social History Smoking Status: Current every day smoker Packs per day: 1 Smokeless Tobacco Status: No Alcohol use: none Drug use: none - Family History Mother Family Member Ethnicity: Non- Living Status: Age at : 54 Cause of : Cancer Hx Family Cancer: Yes Hx Family Endocrine Disorder: Yes (Diabetic) Father Family Member Ethnicity: Non- Living Status: Age at : 56 Cause of : Heart Attack Hx Family Cardiac Disorders: Yes ([place]) Medications and Allergies Aspirin 81 mg PO DAILY 12/25/16 [History] Metformin HCl [Glucophage] 1,000 mg PO BID 12/25/16 [History] Tramadol HCl [Ultram] 50 mg PO TID PRN 12/25/16 [History] Allergies codeine Allergy (Mild, Verified 12/24/16 23:22) See Comments chest heaviness All Systems Review: A 10-system review of systems was performed and is negative for pertinent findings except as documented above in the HPI. Exam Vital Signs, Last 4 Hours Temp Pulse Resp BP Pulse Ox 12/26/16 15:17 98.0 F 79 14 134/85 97 General: Present: Conversant, No Apparent Distress, Well developed, Well nourished HEENT: Present: Atraumatic, Normocephaly, Trachea midline Neck: Absent: JVD, Lymphadenopathy, Left Carotid bruit, Right Carotid bruit, Midline deformity, Tracheal deviation Cardiac: Present: Reg Rate and Rhythm, Normal S1 and S2 Lungs: Present: Normal Breath Sounds Neuro: Present: Alert and responsive, No focal deficits noted, Cranial nerves grossly intact Abdomen: Present: Soft, Non-tender. Absent: Hepatosplenomegaly, Masses Vascular: Present: Capillary refill delayed, Bruit (Bilateral femoral bruits.), Pulse, absent (Absent popliteal and pedal pulses bilaterally.), Edema (Low- grade edema both lower extremities.), Other (Skin is dry and scaly. There is loss of hair on the dorsum of the foot and toes.There is an ulceration on the distal aspect of the right first toe. This toe is pale with a grade 2 brown discoloration of the distal phalanx. The toenail is absent and he has an open wound at the nail bed. The patient has markedly thickened nails over the left first toe as well.) Skin: Present: No rashes noted on visualized skin Consult Discharge Plan - Plan Referrals: NO,PCP [Primary Care Provider] -
[2016-12-27] MEDS: *HR* OxyCODONE/APAP 7.5/325 TABLET PO PRN ×3 (02:50→18:59)
[2016-12-27 05:43] LABS: INR 1.1; Prothrombin Time 12.2 Seconds (9.4-12.1)
[2016-12-27 05:46] LABS: Activated Partial Thrombo Time 27.2 Seconds (26.0-36.0)
[2016-12-27] MEDS: *HR* Heparin 5,000 UNIT/ML VIAL SQ SCH ×2 (05:55→17:10)
[2016-12-27] MEDS: Piperacillin/Tazobactam 3.375 GM in D5% in Water (Mini-Bag+) 100 ML IVPB SCH ×3 (05:55→21:37)
[2016-12-27] MEDS: Nystatin POWDER 30 GM BOTTLE TP SCH ×3 (07:26→21:39)
[2016-12-27] MEDS ORDERED: *HR* Heparin 10,000 UNIT/10 ML VIAL ONE ×2 (07:28→10:09)
[2016-12-27] MEDS ORDERED: Heparin 1,000 UNITS/500 mL NS 500 ML ONE ×2 (07:28→09:45)
[2016-12-27] MEDS ORDERED: 0.9 % Sodium Chloride 1,000 ML ONE ×2 (07:28→07:59)
[2016-12-27] MEDS: Insulin LISPRO 300 UNITS/3 ML VIAL SQ SCH ×4 (07:46→21:40)
[2016-12-27] MEDS ORDERED: *HR* FentaNYL (PF) 100 MCG/2 ML VIAL ONE ×4 (07:58→09:13)
[2016-12-27] MEDS ORDERED: *HR* Midazolam HCl 2 MG/2 ML VIAL ONE ×3 (07:59→09:01)
--- NOTE | 2016-12-27 08:03 | Pre-Sedation Evaluation ---
Pre-sedation evaluation - Pre-sedation checklist Date of procedure: 12/27/16 Procedure: RLE Angiogram Recent Vitals: Last Vital Signs Temp 98.3 F 12/27/16 05:40 Pulse 79 12/27/16 05:40 Resp 16 12/27/16 05:40 BP 109/67 12/27/16 05:40 Pulse Ox 98 12/27/16 05:40 H&P (including ROS) documented in medical record: Yes Previous reaction to sedatives/anesthetics: No Dietary Status: NPO after Midnight Dentition: No loose teeth or bridges Possible difficult airway: No ASA Classification *see protocol: CLASS III-Severe systemic disease Plan of Care: Pt appropriate candidate for procedure/moderate/conscious sedation , Risks/benefits of procedure/sedation discussed w/ patient/family
[2016-12-27] MEDS ORDERED: *HR* OxyCODONE/APAP 5/325 TABLET PO PRN (10:07)
[2016-12-27] MEDS ORDERED: Ondansetron 4 MG/2 ML VIAL IVP PRN (10:07)
--- NOTE | 2016-12-27 10:07 | Procedure Note ---
Date of procedure: 12/27/16 Pre-op diagnosis: Ischemic right foot/PAD Post-op diagnosis: same Procedure: Abdominal aortogram Aortogram with bilateral lower extremity runoff Right superficial femoral artery SOCIAL MEDIA ANALYST balloon angioplasty with 3 and 6 mm diameter balloons Right tibial peroneal trunk balloon angioplasty with 3 mm diameter balloon Anesthesia: MAC Surgeon: Miky Gomes Condition: stable Disposition: floor
[2016-12-27] MEDS: Insulin DETEMIR 100 UNIT/ML X5UNITS SQ SCH (10:41)
[2016-12-27 11:32] LABS: Basophils % 0.3 %; Eosinophils % 0.5 %; Hematocrit 31.8 % (37.5-50.1); Hemoglobin 10.3 g/dL (12.9-16.9); Immature Granulocytes % 0.7 % (0-4); Lymphocytes # 0.7 K/mcL (0.6-4.6); Lymphocytes % 11.2 %; Mean Corpuscular HGB Conc 32.4 g/dL (31.6-35.5); Mean Corpuscular Volume 83.5 fL (83.0-100.0); Mean Platelet Volume 9.2 fL (9.4-12.4); Monocytes # 0.3 K/mcL (0.0-1.3); Platelet Count 156 K/mcL (140-400); Red Blood Count 3.81 M/mcL (4.19-5.50); Segmented Neutrophils % 82.3 %
--- NOTE | 2016-12-27 11:41 | Invasive Diagnostic Lab ---
Name: Inocencio Hernandezover Date of Study: 12/26/2016 Date: 1955 Ht: 165.0 in Medical Record#: [id number] Age: 61 Wt: 73 lb Gender: Male BSA: 1.8 Order #: [id number] Fluoro: 207 mGy BMI: 26.81 Procedure MD: Miky Gomes MD, FACS Referring MD: Wyatt Tang DPM Referring MD: Nely Stock CNP Procedures Performed: AORTOGRAPHY, ABDOMINAL S\T\I AORTOGRAPHY EXT Bilat S\T\I TIB/PER REVASC W/TLA FEM/POPL REVAS W/TLA Indications: Peripheral Vasc Disease Impressions: The Abdominal aorta is normal in appearance and free of obstructive disease. The bilateral renals have non-significant disease. The Left Common Iliac, Right Common Iliac, Left External Iliac, and Right External Iliac are normal in appearance and patent. The right Superficial Femoral and left Superficial Femoral are occluded. The Right Tibioperoneal Trunk has significant, flow limiting disease. The Right Ant. Tibial and Right Dorsalis Pedis are occluded. Recommendations: Optimize medical therapy of patient's disease, including DM . Aggressive risk factor modification to include, tobacco abuse. 75 mg Plavix PO daily. Patient recommended for percutaneous intervention of Left SFA occlusion as outpatient. History/ Risk Factors: Diabetes Recent CT Technique: The puncture of the left groin was difficult and required Doppler-tipped smart-needle in order to identify the femoral vessel and advance the wire. After informed consent was obtained the patient was placed on the angiographic table. The access areas were prepped and draped in the usual sterile fashion. A timeout protocol was observed. Access was obtained in the left femoral artery. The catheter was advanced over a wire to the suprarenal aorta and an abdominal aortogram was obtained. The injection catheter was then repositioned at the distal infrarenal aorta. An aortogram with bilateral lower extremity runoff was then performed. Critical lesions were seen on the angiogram and a decision was made to proceed to intervention. Diagnostic sheath was exchanged for a 6 Fr. 45 cm. A wire was advanced through the sheath and successfully advanced through the right SFA MINING CAPTAIN lesion. Heparin was administered. 3 mm x 100 and 6 mm x 200 and 6 x 40 mm balloons were advanced over a wire and placed in the right SFA MINING CAPTAIN lesion. Several inflations were then made. A completion angiogram was performed which demonstrated successful results. The wire was repositioned and an angiogram performed of the right calf. A significant right TPT stenosis was identified. A 3 x 100 mm balloon was positioned in the TPT vessel and several inflations were then made. A completion angiogram was performed which demonstrated successful results. The sheath will be removed once an appropriate ACT is achieved. Vessel Findings: * Lower Extremity Arteries There is a lesion present with 100% stenosis, in the Right Superficial Femoral. The lesion has mild calcification present. An intervention was performed on the Right Superficial Femoral, with a final stenosis of 0%. There were no complications in the vessel segment during the procedure. There is a lesion present with 75% stenosis, in the Proximal Right Tibioperoneal Trunk. The lesion has no calcification noted. An intervention was performed on the Right Tibioperoneal Trunk, with a final stenosis of 0%. There were no complications in the vessel segment during the procedure. There is a lesion present with 100% stenosis, in the Distal Right Ant. Tibial. No intervention was performed on this Lesion. There is a lesion present with 100% stenosis, in the Left Superficial Femoral. The lesion has moderate calcification present. No intervention was performed on this Lesion. Lesions: Left Superficial Femoral Stenosis: 100% Right Superficial Femoral Stenosis: 100% Residual Stenosis: 0% Proximal Right Tibioperoneal Trunk Stenosis: 75% Residual Stenosis: 0% Distal Right Ant. Tibial Stenosis: 100% Total Contrast: Isovue 300- 150ml 97mls Updated by Miky Gomes MD, FACS on 12/27/2016 11:31:36 AM Miky Gomes MD electronically signed on 12/27/2016 12:07:13 PM with status of Final
[2016-12-27] MEDS: *HR* Morphine 2 MG/ML SYRINGE IVP PRN ×3 (11:42→21:40)
[2016-12-27 11:43] LABS: BUN/Creatinine Ratio 11 (6-26); Blood Urea Nitrogen 10 mg/dL (8-26); Calcium 7.7 mg/dL (8.6-10.8); Carbon Dioxide 20 mEq/L (19-29); Chloride 105 mEq/L (98-109); Glucose 201 mg/dL (70-99); Osmolality,Calculated 281 (280-300); Sodium 133 mEq/L (136-145); eGFR For African Americans > 60 (> 60); eGFR For Non-African Americans > 60 (> 60)
--- NOTE | 2016-12-27 11:52 | Invasive Diagnostic Lab Proc ---
Name: Inocencio Bolden Date of Study: 12/27/2016 Date: 1955 Ht: 165.1 in Medical Record#: [id number] Age: 61 Wt: 73.1 lb Gender: Male BSA: 1.8 Order #: [id number] BMI: 26.81 Physicians Performing MD: Miky Gomes MD, FACS Referring MD: Wyatt Tang DPM Referring MD: Nely Stock CNP Staff Name Position Time In Crystal Sarmiento RT (R) Scrub Marie Pabon RN Director Fraud Kimberly Pérez RN Monitor Indications Peripheral Vasc Disease Procedures Performed AORTOGRAPHY, ABDOMINAL S\\T\\I AORTOGRAPHY EXT Bilat S\\T\\I TIB/PER REVASC W/TLA FEM/POPL REVAS W/TLA Pre-Procedure Checklist Informed consent is complete signed and on chart. H\\T\\P is on chart. ID band is on and ID verified with patient. Patient NPO for procedure The procedure was described for the patient and questions were answered. Blood Pressure: 137/71 ECG is on chart. Rhythm: NSR Plan of Care Patient will tolerate the procedure without complications. Adequate level of comfort will be maintained. Hemodynamics will remain stable Patient will recover from procedure without complications. Respiratory function will be maintained. Cardiac rhythm will remain stable. Patient temperature will be maintained. Patient and/or family have verbalized understanding of the procedure. Patient Education Chief Complaint/Reason for Test: Peripheral angiogram Developmental Category: Geriatric (65+ years) Learning Barriers: None Education Needs: Procedure Education Method: Verbal Information Taught: Peripheral angiogram Educational Evaluation: Able to repeat information Intravenous Access Time IV Size Location DC'd Fluid/Drip Rate Units RN 07:52 22g 1" Patent On Arrival Rt Wrist 0.9NaCl 25 ml/hr Afsaneh Alvarez RN Allergies codeine Vital Signs Time BP Systolic BP Diastolic HR O2 Sats ASA 08:08 AM 08:08 AM 08:24 AM 08:39 AM 08:54 AM 09:09 AM 09:24 AM 09:39 AM 09:54 AM 10:09 AM 08:15 AM 137 71 91 96 08:20 AM 143 85 94 99 08:25 AM 146 79 94 99 08:30 AM 149 83 99 98 08:35 AM 143 74 91 97 08:40 AM 150 77 99 97 08:45 AM 144 82 100 97 08:50 AM 144 81 94 97 08:55 AM 144 67 96 97 09:00 AM 157 81 98 99 09:55 AM 158 90 104 91 10:00 AM 160 84 103 89 10:05 AM 162 84 102 90 10:10 AM 158 88 102 91 08:05 AM 153 80 95 96 08:10 AM 146 80 94 97 09:05 AM 151 81 91 97 09:10 AM 152 92 94 97 09:15 AM 146 85 92 96 09:20 AM 149 80 93 95 09:25 AM 169 90 97 91 09:30 AM 157 93 97 89 09:35 AM 163 93 104 90 09:40 AM 160 89 102 90 09:45 AM 158 89 100 90 09:50 AM 168 90 103 90 Procedure Medications Time Medication Dose Units Method Route 08:09 AM Versed 1 mg Intravenous 08:09 AM Fentanyl 50 mcg Intravenous 08:19 AM Versed 1 mg Intravenous 08:19 AM Fentanyl 50 mcg Intravenous 08:21 AM Lidocaine 2% 10 ml Subcutaneous 08:24 AM Lidocaine 2% 10 ml Subcutaneous 08:30 AM Fentanyl 50 mcg Intravenous 08:40 AM Versed 1 mg Intravenous 08:47 AM Versed 1 mg Intravenous 08:52 AM Heparin 5000 units Intravenous 08:57 AM Fentanyl 100 mcg Intravenous 09:01 AM Versed 1 mg Intravenous 09:14 AM Fentanyl 100 mcg Intravenous 09:17 AM Benadryl 50 mg Intravenous 09:25 AM Oxygen 4 L/min nasal cannula 09:50 AM Versed 1 mg Intravenous 10:05 AM Plavix 150 mg Orally 10:08 AM Heparin 1000 units Intravenous ASA Classification: CLASS III- Severe systemic disease (i.e. prior AMI, diabetes with vascular complications, morbid obesity) Jorge Score Preprocedure Postprocedure Activity 2- Moves 4 extremities sustained head lift Activity 2- Moves 4 extremities sustained head lift Circulation 2- SBP +/= 20 points of pre-anesthetic level Circulation 2- SBP +/= 20 points of pre-anesthetic level Consciousness 2- Awake and alert oriented x 3 Consciousness 2- Awake and alert oriented x 3 O2 Saturation 2- Able to maintain O2 satruation of 92% on room air O2 Saturation 2- Able to maintain O2 satruation of 92% on room air Respiratory 2- Able to deep breathe and cough well Respiratory 2- Able to deep breathe and cough well Total Score 10 Total Score 10 Contrast: Isovue 300- 150ml Contrast Amount: 97 ml Fluoro Dose: 207 mGy Procedure Log Time Note Entered By 08:04 AM Pt arrived to laboratory apparatus glass blower 1 at 08:04 [email or web address] 08:05 AM Crystal Sarmiento RT (R) Position: Scrub Time in: 08:05 [email or web address] 08:05 AM Marie Pabon RN Position: Director Fraud Time in: 08:05 [email or web address] 08:05 AM Case delayed: No [email or web address] 08:05 AM Hair removed from procedure site in procedure lab using clippers. Bilateral groin prepped with Chloraprep by Marie Pabon RN, safety strap applied then patient was draped. Skin intact. [email or web address] 08:05 AM Physician arrived 08:05 [email or web address] 08:05 AM ASA Class CLASS III- Severe systemic disease (i.e. prior AMI, diabetes with vascular complications, morbid obesity) [email or web address] 08:05 AM Meet and greet completed [email or web address] 08:05 AM Sign in performed according to hospital policy. [email or web address] 08:05 AM Procedure start 08:05 [email or web address] 08:06 AM Kimberly Pérez RN Position: Monitor Time in: 08:06 [email or web address] 08:08 AM Time: 08:08 Is patient comfortable and pain free?: Yes scoates 08:08 AM Time: 08:08LOC: 5 = Fully awake and oriented or at pre-proc level scoates 08:09 AM 08:09 Versed 1 mg Intravenous Given by Marie Pabon RN scoates 08:09 AM 08:09 Fentanyl 50 mcg Intravenous Given by Marie Pabon RN scoates 08:11 AM ASA Class CLASS III- Severe systemic disease (i.e. prior AMI, diabetes with vascular complications, morbid obesity) scoates 08:12 AM Patient charges- Angio tray pack, Pulse Oximetry and ACIST tubing and transducer scoates 08:19 AM 08:19 Versed 1 mg Intravenous Given by Marie Pabon RN scoates 08:19 AM 08:19 Fentanyl 50 mcg Intravenous Given by Marie Pabon RN scoates 08:21 AM 08:21 10 ml Lidocaine 2% to right groin Subcutaneous Given By Miky Gomes MD, FACS scoates 08:23 AM Time: 08:08 Is patient comfortable and pain free?: Yes scoates 08:24 AM Time: 08:08LOC: 4 = Oriented but drowsy scoates 08:24 AM 08:24 10 ml Lidocaine 2% to left groin Subcutaneous Given By Miky Gomes MD, DELMY scoates 08:24 AM Unsuccessful access attempt # 1 into the left Femoral artery. Manual pressure applied to achieve hemostasis.. scoates 08:24 AM Smart Needle utilized for vascular access at this time scoates 08:27 AM Access obtained in the left femoral artery by percutaneous puncture. 5 Fr. 10 cm Terumo [place] sheath placed in left femoral artery scoates 08:28 AM 5Fr Short pigtail catheter inserted scoates 08:28 AM 5mls of contrast hand injected scoates 08:30 AM 08:30 Fentanyl 50 mcg Intravenous Given by Marie Pabon RN scoates 08:31 AM Abdominal aorta angiography performed in AP contrast injected 10/25 mls. scoates 08:33 AM Abdominal angiogram with runoff completed: 6 ml/sec for a total of 60 mls scoates 08:34 AM Setting up for stepping scoates 08:39 AM Time: 08:23 Is patient comfortable and pain free?: Yes scoates 08:39 AM Time: 08:24LOC: 4 = Oriented but drowsy scoates 08:39 AM Catheter removed scoates 08:40 AM 5Fr Omniflush catheter inserted scoates 08:40 AM 08:40 Versed 1 mg Intravenous Given by Marie Pabon RN scoates 08:40 AM Catheter removed scoates 08:41 AM Sheath exchanged for a 6 Fr 45 cm Terumo [place]ination sheath inserted into left femoral artery scoates 08:46 AM 4Fr 100cm Glidecath Non-Taper Angle guide catheter advanced to target vessel scoates 08:47 AM 0.035 Glidewire Angled 260cm guidewire advanced. Rt. SFA scoates 08:47 AM 3mls of contrast hand injected in to the Rt. SFA scoates 08:48 AM 08:47 Versed 1 mg Intravenous Given by Marie Pabon RN scoates 08:51 AM glide wire remove intact scoates 08:52 AM 1ml contrast hand injected scoates 08:52 AM glide wire reinserted scoates 08:52 AM 08:52 Heparin 5000 units Intravenous by Marie Pabon RN scoates 08:54 AM Time: 08:39LOC: 4 = Oriented but drowsy scoates 08:54 AM Time: 08:39 Is patient comfortable and pain free?: Yes scoates 08:57 AM 6 mm x 200 mm Weed Control Inspector balloon catheter placed into right superficial femoral scoates 08:57 AM Diagram Region: Lower Extremity Arteries Anatomical Region: [id number]% Lesion in Proximal Left Superficial Femoral Intervention done: 0 (1=yes, 0=no) scoates 08:57 AM Diagram Region: Lower Extremity Arteries Anatomical Region: [id number]% Lesion in Proximal Right Superficial Femoral Intervention done: 1 (1=yes, 0=no) scoates 08:58 AM 08:57 Fentanyl 100 mcg Intravenous Given by Marie Pabon RN scoates 09:00 AM Inflation device scoates 09:00 AM Balloon inflated @ 8 blake for 60 seconds scoates 09:02 AM 09:01 Versed 1 mg Intravenous Given by Marie Pabon RN scoates 09:02 AM Balloon removed intact scoates 09:03 AM 3 mm x 100 mm Weed Control Inspector balloon catheter placed into right superficial femoral scoates 09:05 AM Balloon inflated @ 12 blake for 60 seconds scoates 09:08 AM Balloon removed intact scoates 09:09 AM Time: 08:54 Is patient comfortable and pain free?: Yes scoates 09:09 AM Time: 08:54LOC: 4 = Oriented but drowsy scoates 09:09 AM glide catheter reinserted scoates 09:10 AM .014 Journey 300cm guidewire advanced to target vessel. scoates 09:11 AM Journey removed scoates 09:12 AM 0.035 260cm J-wire wire utilized to assist with catheter placement scoates 09:13 AM glide catheter removed intact scoates 09:13 AM 3x100 balloon reinserted to rt SFA scoates 09:14 AM 09:14 Fentanyl 100 mcg Intravenous Given by Marie Pabon RN scoates 09:15 AM Balloon inflated @ 14 blake for 60 seconds scoates 09:17 AM balloon repositioned to the more proximal portion of the SFA scoates 09:18 AM 09:17 Benadryl 50 mg Intravenous Given by Marie Pabon RN scoates 09:19 AM balloon removed intact scoates 09:20 AM 6x200 balloon reinserted to the rt SFA scoates 09:23 AM Balloon inflated @ 10 blake for 120 seconds scoates 09:24 AM Time: 09:09LOC: 4 = Oriented but drowsy scoates 09:24 AM Time: 09:09 Is patient comfortable and pain free?: Yes scoates 09:25 AM 09:25 Oxygen at 4 L/min per nasal cannula by Marie Pabon RN scoates 09:26 AM balloon removed intact scoates 09:30 AM 5mls of contrast hand injected scoates 09:30 AM 6 mm x 40 mm Weed Control Inspector balloon catheter placed into right SFA scoates 09:34 AM Balloon inflated @ 12 blake for 120 seconds scoates 09:37 AM 3mls of contrast hand injected scoates 09:37 AM glide catheter reinserted scoates 09:39 AM wire removed intact scoates 09:39 AM Time: 09:24 Is patient comfortable and pain free?: Yes scoates 09:39 AM Time: 09:24LOC: 4 = Oriented but drowsy scoates 09:40 AM glide wire reinserted scoates 09:43 AM 4mls of contrast hand injected scoates 09:44 AM 4mls of contrast hand injected scoates 09:42 AM wire removed intact scoates 09:47 AM 3mls of contrast hand injected scoates 09:49 AM glide wire reinserted for repositioning of glide catheter scoates 09:48 AM 3mls of contrast hand injected into the tibials scoates 09:50 AM 09:50 Versed 1 mg Intravenous Given by Marie Pabon RN scoates 09:51 AM glide catheter removed intact scoates 09:52 AM 3.0x100 balloon reinserted to the proximal right tibial-peroneal trunk scoates 09:54 AM Time: 09:39 Is patient comfortable and pain free?: Yes scoates 09:54 AM Time: 09:39LOC: 4 = Oriented but drowsy scoates 09:54 AM Balloon inflated @ 12 blake for 120 seconds scoates 09:57 AM balloon removed intact scoates 09:58 AM 3mls of contrast hand injected scoates 10:02 AM Procedure completed at 10:02 scoates 10:03 AM Sign Out completed: Radiation Dose 207 mGy Fluoro Time: 17.6 minutes. Isovue 300- 150ml contrast 97 ml given by Mkiy Gomes MD, FACS. Complications: None. Confirmed administered medications:Yes scoates 10:03 AM Isovue 300- 150ml,2 bottle(s) used. scoates 10:04 AM Sheath left in place to be pulled on floor/holding area scoates 10:04 AM Post Blood Pressure: 160/84 scoates 10:04 AM Post EKG: NSR scoates 10:04 AM 10:04 Post Pulses: Bilateral DP \\T\\ PT 2+. scoates 10:05 AM Time: 10:05 Plavix 150 mg Orally Given by Marie Pabon RN scoates 10:06 AM Information taught: Peripheral angiogram and RETAIL ASSOCIATE MANAGER BILINGUAL scoates 10:06 AM Education needs: Procedure, Plan of Care, and Responsibilities of Patient in Care scoates 10:06 AM Learning barriers: None scoates 10:06 AM Education methods: Verbal scoates 10:06 AM Education evaluation: Able to repeat information scoates 10:06 AM Patient pain level 0/10 scoates 10:06 AM Site status No bleeding/hematoma - Lt Groin as reported by Crystal Sarmiento RT (R) at 10:06 scoates 10:06 AM Opsite applied scoates 10:06 AM Delay to floor: No scoates 10:06 AM Pt taken to 2N Room# 2 scoates 10:06 AM no family present at this time scoates 10:06 AM Complications: None scoates 10:07 AM Isovue 300- 150ml contrast 97 ml given by Miky Gomes MD, FACS scoates 10:07 AM Radiation Dose 207 mGy scoates 10:08 AM Diagram Region: Lower Extremity Arteries Anatomical Region: [id number]% Lesion in Proximal Left Peroneal- tibial trunk Intervention done: 1 (1=yes, 0=no) scoates 10:08 AM 10:08 Heparin 1000 units Intravenous by Marie Pabon RN scoates 10:09 AM Diagram Region: Lower Extremity Arteries Anatomical Region: [id number]% Lesion in Distal Left Ant. Tibial Intervention done: 0 (1=yes, 0=no) scoates 10:09 AM Time: 09:54LOC: 4 = Oriented but drowsy scoates 10:09 AM Time: 09:54 Is patient comfortable and pain free?: Yes scoates 10:13 AM Report given to nitza SPENCE Pt taken to , Room # 2 10:13 scoates 10:26 AM Time: 10:09 Is patient comfortable and pain free?: Yes scoates 10:26 AM Time: 10:09LOC: 5 = Fully awake and oriented or at pre-proc level scoates 10:20 AM Patient out of room 10:20 scoates 08:04 AM PVIStat 08:04 AM Vitals capture started with the following parameters, Patient=Adult, Interval=5 min, Initial Ojovqcdz=731 mmHg, Deflation Rate=5 mmHg, Cuff placed on Left Leg 08:05 AM HR=95 bpm, ODRB=727/80 mmhg, SpO2=96.0 %, Resp=16 B/min, Comment=sr 08:10 AM HR=94 bpm, FZEN=312/80 mmhg, SpO2=97.0 %, Resp=21 B/min, Comment=sr 08:15 AM HR=91 bpm, HSVP=111/71 mmhg, SpO2=96.0 %, Resp=19 B/min, Comment=sr 08:20 AM HR=94 bpm, HMJV=503/85 mmhg, SpO2=99.0 %, Resp=20 B/min, Comment=sr 08:25 AM HR=94 bpm, WOLF=173/79 mmhg, SpO2=99.0 %, Resp=12 B/min, Comment=sr 08:30 AM HR=99 bpm, EVQQ=792/83 mmhg, SpO2=98.0 %, Resp=13 B/min, Comment=sr 08:31 AM Recorded Pressure: Ao, HR=97, Condition=Condition 1 (Aorta) Ao 160/76/110 08:33 AM Recorded Pressure: Ao, HR=99, Condition=Condition 1 (Aorta) Ao 150/79/110 08:35 AM HR=91 bpm, WCXL=225/74 mmhg, SpO2=97.0 %, Resp=19 B/min, Comment=sr 08:40 AM HR=99 bpm, JTDO=498/77 mmhg, SpO2=97.0 %, Resp=10 B/min, Comment=sr 08:45 AM JV=378 bpm, FAYI=610/82 mmhg, SpO2=97.0 %, Resp=19 B/min, Comment=sr 08:50 AM HR=94 bpm, TAWS=339/81 mmhg, SpO2=97.0 %, Resp=12 B/min, Comment=sr 08:55 AM HR=96 bpm, ZWOJ=780/67 mmhg, SpO2=97.0 %, Resp=13 B/min, Comment=sr 09:00 AM HR=98 bpm, JINV=749/81 mmhg, SpO2=99.0 %, Resp=20 B/min, Comment=sr 09:05 AM HR=91 bpm, WSRB=370/81 mmhg, SpO2=97.0 %, Resp=13 B/min, Comment=sr 09:10 AM HR=94 bpm, AEFJ=660/92 mmhg, SpO2=97.0 %, Resp=18 B/min, Comment=sr 09:15 AM HR=92 bpm, UZBU=326/85 mmhg, SpO2=96.0 %, Resp=18 B/min, Comment=sr 09:20 AM HR=93 bpm, ZKPD=594/80 mmhg, SpO2=95.0 %, Resp=22 B/min, Comment=sr 09:25 AM HR=97 bpm, NHCE=711/90 mmhg, SpO2=91.0 %, Resp=25 B/min, Comment=sr 09:30 AM HR=97 bpm, YQLF=724/93 mmhg, SpO2=89.0 %, Resp=19 B/min, Comment=sr 09:35 AM AU=922 bpm, UWGC=722/93 mmhg, SpO2=90.0 %, Resp=25 B/min, Comment=sr 09:40 AM JW=566 bpm, THYZ=324/89 mmhg, SpO2=90.0 %, Resp=15 B/min, Comment=sr 09:45 AM TO=537 bpm, XSIR=319/89 mmhg, SpO2=90.0 %, Resp=31 B/min, Comment=sr 09:50 AM KG=306 bpm, CLYL=831/90 mmhg, SpO2=90.0 %, Resp=13 B/min, Comment=sr 09:55 AM ET=455 bpm, WTAV=587/90 mmhg, SpO2=91.0 %, Resp=22 B/min, Comment=sr 10:00 AM PQ=143 bpm, UKVC=280/84 mmhg, SpO2=89.0 %, Resp=19 B/min 10:05 AM VR=134 bpm, IPHZ=977/84 mmhg, SpO2=90 %, Resp=20 B/min 10:10 AM WB=609 bpm, IWGB=992/88 mmhg, SpO2=91.0 %, Resp=22 B/min, Comment=sr Hemodynamic Results Site Systolic Diastolic Mean Location Timing Ao 160 76 110 Ao 150 79 110 Peripheral Anatomy Vessel Pathology Lesion Stenosis Aneurysm Diameter Thrombus Type Left Superficial Femoral Lesion 100 Right Superficial Femoral Lesion 100 Right Tibioperoneal Trunk Lesion 75 Right Ant. Tibial Lesion 100 Peripheral Intervention Anatomical Region:LE-Art Vessel Segment:Undefined Bookmark: [email or web address] Pathology Type:Lesion Pre-Stenosis:100 Post-Stenosis:0 Peripheral Intervention Anatomical Region:LE-Art Vessel Segment:Undefined Bookmark: [email or web address] Pathology Type:Lesion Pre-Stenosis:75 Post-Stenosis:0 Post Procedure Information Blood Pressure: 160/84 mmHg Rhythm: NSR Post procedure instructions given Site Checks Time Location Status Staff Sheath In? Note 10:06:00 AM Crystal Mishra (R) Pulses Time Site Pre Procedure Post Procedure Note 12/27/2016 7:52:00 AM Bilateral DP \\T\\ PT Doppler 10:04:00 AM Bilateral DP \\T\\ PT 2+ Updated by RT Jabier (R) on 12/27/2016 11:39:00 AM RT Leah electronically signed on 12/27/2016 11:47:18 AM with status of Final
--- NOTE | 2016-12-27 15:50 | Internal Med Progress Note ---
Date of Encounter: 12/27/16 Time of Encounter: 15:46 - Assessment and plan (1) UTI (urinary tract infection) Current Visit: Yes Status: Acute Assessment and plan: urine cx grwoing gram neg rods, serratia will contnue zosyn . Qualifiers: Urinary tract infection type: acute cystitis Hematuria presence: without hematuria Qualified Code(s): N30.00 - Acute cystitis without hematuria (2) Sepsis Current Visit: Yes Status: Acute Assessment and plan: has bacteremia possible 2/2 UTI, culture growing serratia No fever spike today, white count has improved. Will continue Zosyn, Clinically improving, given bacteremia, will need IV antibiotics for 2 weeks after negative set of blood cultures. will repeat blood cx today Qualifiers: Sepsis type: sepsis due to unspecified organism Qualified Code(s): A41.9 - Sepsis, unspecified organism (3) Uncontrolled diabetes mellitus Current Visit: Yes Status: Acute Assessment and plan: Continue long-acting and insulin sliding scale. Qualifiers: Diabetes mellitus type: type 2 Diabetes mellitus complication status: without complication Diabetes mellitus vermin exterminator insulin use: without residential use Qualified Code(s): E11.65 - Type 2 diabetes mellitus with hyperglycemia (4) Cellulitis of toe of right foot Current Visit: Yes Status: Acute Assessment and plan: as per podiatry, erythema of the digit not very impressive for an infection . his gram stain is GPCs which could be skin dina. His toe is not swollen. his symptoms specifically the pain he has in the toe could be vascular in nature. vascular has been consulted, s/p balloon angioplasty today with DR. Gomes. (5) PVD (peripheral vascular disease) Current Visit: Yes Status: Acute Assessment and plan: will follow vascular recommnedtaion continue pain meds for current pain ocntrol. - Time Spent With Patient 25 - 35 minutes - Subjective Interval history: Patient seen at the bedside , s/p Right superficial femoral artery BRAIDER TENDER balloon angioplasty and Right tibial peroneal trunk balloon angioplasty Reports improvement in pain , denies nausea or vomiting. - Constitutional Vitals: Temp Pulse Resp BP Pulse Ox 99.7 F H 99 21 156/78 96 12/27/16 10:40 12/27/16 13:00 12/27/16 11:00 12/27/16 13:00 12/27/16 13:00 General appearance: Present: A&O X 3, no acute distress, answers questions appropriately Exam: neck- supple chest- b/l clear, no added sounds CVS-s1 and s2, no mr//g abd-soft, non tender, bs are present ext- no edema, mild redness, rt. great toe wrapped in gauze. Internal Medicine: Result - Labs CBC & Chem 7: 12/27/16 11:21 12/27/16 11:21 Labs: Short CBC 12/27/16 Range/Units 11:21 WBC 6.1 (4.3-11.1) K/mcL Hgb 10.3 L (12.9-16.9) g/dL Hct 31.8 L (37.5-50.1) % Plt Count 156 (140-400) K/mcL Neutrophils # 5.0 (1.6-8.9) K/mcL BMP 12/27/16 11:21 Sodium 133 L Potassium 4.0 Chloride 105 Carbon Dioxide 20 BUN 10 Creatinine 0.87 Glucose 201 H Calcium 7.7 L - ABG Interpretation ABG results: PT/INR, D-dimer PT 12.2 Seconds (9.4-12.1) H 12/27/16 05:00 Consult Discharge Plan - Plan Referrals: NO,PCP [Primary Care Provider] - (Pt has an appointment on the with new physician. States that he should be receiving a packet in the mail soon.)
[2016-12-28] MEDS: *HR* OxyCODONE/APAP 7.5/325 TABLET PO PRN ×4 (01:33→20:04)
[2016-12-28 04:12] LABS: BUN/Creatinine Ratio 11 (6-26); Blood Urea Nitrogen 10 mg/dL (8-26); Calcium 7.9 mg/dL (8.6-10.8); Carbon Dioxide 19 mEq/L (19-29); Chloride 105 mEq/L (98-109); Glucose 164 mg/dL (70-99); Osmolality,Calculated 281 (280-300); Potassium 3.4 mEq/L (3.5-4.5); Sodium 134 mEq/L (136-145); eGFR For African Americans > 60 (> 60); eGFR For Non-African Americans > 60 (> 60)
[2016-12-28] MEDS: *HR* Heparin 5,000 UNIT/ML VIAL SQ SCH ×2 (06:41→16:29)
[2016-12-28] MEDS: Piperacillin/Tazobactam 3.375 GM in D5% in Water (Mini-Bag+) 100 ML IVPB SCH ×3 (06:41→22:25)
--- NOTE | 2016-12-28 07:59 | Podiatry Progress Note ---
Date of Encounter: 12/28/16 Time of Encounter: 07:40 - Assessment and Plan (1) Cellulitis of toe of right foot Current Visit: Yes Status: Acute erythema not impressive for cellulitis or infection and is likely vascular related, toe does not have drainage and is dry and can be covered with a bandaid at this point. ambulate in surgical shoe. (2) PVD (peripheral vascular disease) Current Visit: Yes Status: Acute he is s/p R angioplasty and foot and hallux is warmer to touch and patient reports more feeling and less pain in the right foot. will monitor right hallux , discussed with patient it is possible that the toe could require an amputation if it became infected or developed significant necrosis. spoke with Dr. Gomes patient will f/u with him in 3 weeks and should be discharged on plavix. he should follow up with me in 2 weeks. Will require pain control during this time due to ischemic pain and neuropathic pain. stable from a podiatric and vascular standpoint for discharge. management of UTI/bacteremia per medicine. Subjective Interval history: patient states his pain in the big toe is less after the procedure yesterday and that he has more feeling in his foot than he has had in a long time. he says his foot is less sore and painful to walk on. Objective - Vital Signs Vital Signs: Vital Signs Temp Pulse Pulse Resp BP Pulse Ox 12/28/16 04:35 76 12/28/16 04:09 99.3 F 79 14 125/65 95 12/27/16 23:55 88 12/27/16 23:21 98.2 F 91 18 133/64 97 12/27/16 19:40 104 12/27/16 19:17 99.8 F H 101 24 144/73 91 12/27/16 17:45 142/65 96 12/27/16 16:45 112 153/72 94 12/27/16 16:23 100.0 F H 94 18 153/72 92 12/27/16 15:45 97 160/93 95 12/27/16 15:16 97 12/27/16 14:45 167/82 94 12/27/16 13:45 91 151/70 94 12/27/16 13:30 91 22 147/73 95 12/27/16 13:15 87 152/73 97 12/27/16 13:00 99 156/78 96 12/27/16 12:46 96 156/78 93 12/27/16 12:41 146/78 12/27/16 12:31 144/73 12/27/16 12:26 90 90 144/79 96 12/27/16 12:20 91 91 144/73 96 12/27/16 12:15 92 92 146/73 96 12/27/16 12:07 91 91 137/71 98 12/27/16 12:05 92 92 142/78 12/27/16 12:00 142/68 12/27/16 11:45 140/71 12/27/16 11:30 89 89 140/71 96 12/27/16 11:15 147/71 12/27/16 11:00 94 94 21 142/84 94 12/27/16 10:45 92 92 18 137/74 94 12/27/16 10:40 99.7 F H 96 25 144/74 91 12/27/16 10:30 101 97 20 144/74 90 Intake and Output 12/27/16 12/27/16 12/28/16 15:59 23:59 07:59 Intake Total 420 / 420 100 / 100 Output Total 400 / 400 150 / 150 350 / 350 Balance -400 / -400 270 / 270 -250 / -250 Intake: IV Fluids 100 / 100 100 / 100 Zosyn 3.375 GM In 100 / 100 100 / 100 Dextrose 5% (Minibag+) 100 ML 100 ML @ 25 mls/hr IVPB Q8H [facility] Rx#: [id number] Oral 320 / 320 Output: Urine 400 / 400 150 / 150 350 / 350 Other: Meal Dinner Percent of Meal Consumed 75% # Voids 1 # Urine Diapers 1 Weight 72.6 kg Blood Glucose* 193 232 Patient Weight 12/28/16 23:59 Weight 72.6 kg - Exam Exam: foot feels warmer to touch than previous. tip of the distal hallux is dusky with possible early necrosis. CFT 3 sec x right hallux. no bleeding from the groin. less painful hallux ROM right foot. very mild erythema of the hallux. absent sensation to light touch. dorsal nail bed is dry, no drainage. no fluctuance and no purulence expressed. no edema. - Lab Result Diagrams: 12/27/16 11:21 12/28/16 02:57 Labs: Abnormal lab results RBC 3.81 M/mcL (4.19-5.50) L 12/27/16 11:21 Hgb 10.3 g/dL (12.9-16.9) L 12/27/16 11:21 Hct 31.8 % (37.5-50.1) L 12/27/16 11:21 MCH 27.0 pg (28.0-33.3) L 12/27/16 11:21 RDW 15.0 % (11.5-14.5) H 12/27/16 11:21 MPV 9.2 fL (9.4-12.4) L 12/27/16 11:21 Band Neutrophils % 28.0 % (0-4) H 12/25/16 00:03 PT 12.2 Seconds (9.4-12.1) H 12/27/16 05:00 Sodium 134 mEq/L (136-145) L 12/28/16 02:57 Potassium 3.4 mEq/L (3.5-4.5) L 12/28/16 02:57 Glucose 164 mg/dL (70-99) H 12/28/16 02:57 POC Glucose 232 (58-89) H 12/27/16 20:18 Hemoglobin A1c >= 14.1 % (-5.6) H 12/25/16 05:27 Calcium 7.9 mg/dL (8.6-10.8) L 12/28/16 02:57 Magnesium 1.1 mg/dL (1.6-2.6) L 12/25/16 05:27 Triglycerides 255 mg/dL (< 150) H 12/25/16 05:27 VLDL Cholesterol, Calc 51 mg/dL (< 31) H 12/25/16 05:27 HDL Cholesterol 19 mg/dL (40-59) L 12/25/16 05:27 Cholesterol/HDL Ratio 5.9 (0-4.9) H 12/25/16 05:27 Beta-Hydroxybutyric Acd 0.93 mmol/L (0.02-0.27) H 12/25/16 00:03 Urine Clarity Cloudy (Clear) A 12/25/16 00:30 Ur Specific Vancleave > 1.030 (1.010-1.025) H 12/25/16 00:30 Urine Protein 30 mg/dL (Neg-Trace) H 12/25/16 00:30 Urine Glucose (UA) >=1000 mg/dL (Normal) H 12/25/16 00:30 Urine Blood Small (Negative) H 12/25/16 00:30 Urine Nitrite Positive (Negative) A 12/25/16 00:30 Ur Leukocyte Esterase Moderate (Negative) H 12/25/16 00:30 Urine Microscopic RBC 5-15 per hpf (0-3) H 12/25/16 00:30 Urine Microscopic WBC TNTC per hpf (0-3) H 12/25/16 00:30 Ur Squamous Epith Cells Many per lpf (None-Few) H 12/25/16 00:30 Urine Bacteria Many per hpf (None-Few) H 12/25/16 00:30 Urine Yeast Few per hpf (None Seen) H 12/25/16 00:30 Ur Culture Indicated? YES (NO) A 12/25/16 00:30 Enterobacteriac sp PCR DETECTED (Not Detect) A 12/25/16 00:03 Serratia marcescens PCR DETECTED (Not Detect) A 12/25/16 00:03 Microbiology, Last 48 Hours 12/25/16 13:00 Wound Culture - Preliminary Right Great Toe Staphylococcus epidermidis Yeast Species 12/25/16 13:00 Gram Stain - Final Right Great Toe Consult Discharge Plan - Plan Referrals: NO,PCP [Primary Care Provider] - (Pt has an appointment on the with new physician. States that he should be receiving a packet in the mail soon.)
[2016-12-28] MEDS: Insulin LISPRO 300 UNITS/3 ML VIAL SQ SCH ×4 (08:35→22:25)
[2016-12-28] MEDS: Nystatin POWDER 30 GM BOTTLE TP SCH (08:35)
[2016-12-28] MEDS: Insulin DETEMIR 100 UNIT/ML X5UNITS SQ SCH (08:35)
[2016-12-28] MEDS: *HR* Morphine 2 MG/ML SYRINGE IVP PRN ×2 (08:38→16:29)
--- NOTE | 2016-12-28 10:00 | Vascular/[facility] Progress Note ---
Date of Encounter: 12/28/16 Time of Encounter: 09:58 - Assessment and plan (1) PAD (peripheral artery disease) Current Visit: Yes Status: Acute Patient has absent popliteal and pedal pulses and abnormal noninvasive exam in light of a ischemic toe and infection. Patient has risk factors of diabetes is poorly controlled and tobacco abuse. He also status post open heart bypass grafting approximately 9 years ago. Because of these issues I recommended the patient undergo angiography with possible right lower extremity endovascular intervention tomorrow. The potential risks and benefits as well as complications and alternatives were reviewed with the patient. He agrees to proceed as recommended. S/p right SFA SHOTBLASTER. Right foot is well perfused. Foot is warm and pink. (2) Cellulitis of toe of right foot Current Visit: Yes Status: Acute Patient is receiving intravenous antibiotics. - Subjective Interval history: no complaints Vital Signs, Last 4 Hours Temp Pulse Resp BP Pulse Ox 12/28/16 08:45 78 12/28/16 08:00 97.7 F 84 16 145/74 97 - Physical Examination General: Present: Conversant, No Apparent Distress Vascular: Present: Normal capillary refill, Pulse, normal. Absent: Cyanosis, Edema Results 12/27/16 11:21 12/28/16 02:57 Lab Results, Last 24 hours 12/27/16 12/27/16 12/28/16 11:21 11:21 02:57 WBC 6.1 Hgb 10.3 L Hct 31.8 L Plt Count 156 Sodium 133 L 134 L Potassium 4.0 3.4 L Chloride 105 105 Carbon Dioxide 20 19 BUN 10 10 Creatinine 0.87 0.91 Glucose 201 H 164 H Calcium 7.7 L 7.9 L Consult Discharge Plan - Plan Referrals: NO,PCP [Primary Care Provider] - (Pt has an appointment on the with new physician. States that he should be receiving a packet in the mail soon.) Miky Gomes MD [Partnered Physician] - 01/16/17 11:45 am
--- NOTE | 2016-12-28 13:37 | Internal Med Progress Note ---
Date of Encounter: 12/28/16 Time of Encounter: 13:34 - Assessment and plan (1) UTI (urinary tract infection) Current Visit: Yes Status: Acute Assessment and plan: urine cx grwoing gram neg rods, serratia will contnue zosyn .unitl repeat blood cx comes back negative Qualifiers: Urinary tract infection type: acute cystitis Hematuria presence: without hematuria Qualified Code(s): N30.00 - Acute cystitis without hematuria (2) Sepsis Current Visit: Yes Status: Acute Assessment and plan: has bacteremia possible 2/2 UTI, culture growing serratia No fever spike , white count has improved. Will continue Zosyn until repeat blood cx is negative Clinically improving, given bacteremia, will need IV antibiotics for 2 weeks after negative set of blood cultures. can dc on IV ceftriaxone 1 gram bid once ready Qualifiers: Sepsis type: sepsis due to unspecified organism Qualified Code(s): A41.9 - Sepsis, unspecified organism (3) Uncontrolled diabetes mellitus Current Visit: Yes Status: Acute Assessment and plan: Continue long-acting and insulin sliding scale. Qualifiers: Diabetes mellitus type: type 2 Diabetes mellitus complication status: without complication Diabetes mellitus adjunct faculty for medical terminology insulin use: without detention use Qualified Code(s): E11.65 - Type 2 diabetes mellitus with hyperglycemia (4) Cellulitis of toe of right foot Current Visit: Yes Status: Acute Assessment and plan: as per podiatry, erythema of the digit not very impressive for an infection . his gram stain is GPCs which could be skin dina. His toe is not swollen. his symptoms specifically the pain he has in the toe could be vascular in nature. vascular has been consulted, s/p balloon angioplasty today with DR. Gomes. (5) PVD (peripheral vascular disease) Current Visit: Yes Status: Acute Assessment and plan: will follow vascular recommnedtaion, perfusion better, pain and sensation better today. continue pain meds for current pain ocntrol. - Subjective Interval history: Patient seen at the bedside , s/p Right superficial femoral artery STATEMENT DISTRIBUTION CLERK balloon angioplasty and Right tibial peroneal trunk balloon angioplasty Reports improvement in pain and feelling much better, denies nausea or vomiting. - Constitutional Vitals: Temp Pulse Resp BP Pulse Ox 97.5 F L 82 18 140/69 98 12/28/16 11:21 12/28/16 11:21 12/28/16 11:21 12/28/16 11:21 12/28/16 11:21 General appearance: Present: A&O X 3, no acute distress, answers questions appropriately Exam: neck- supple chest- b/l clear, no added sounds CVS-s1 and s2, no mr//g abd-soft, non tender, bs are present ext- no edema, mild redness, rt. great toe wrapped in gauze. Internal Medicine: Result - Labs CBC & Chem 7: 12/27/16 11:21 12/28/16 02:57 Labs: BMP 12/28/16 02:57 Sodium 134 L Potassium 3.4 L Chloride 105 Carbon Dioxide 19 BUN 10 Creatinine 0.91 Glucose 164 H Calcium 7.9 L - ABG Interpretation ABG results: PT/INR, D-dimer PT 12.2 Seconds (9.4-12.1) H 12/27/16 05:00 Consult Discharge Plan - Plan Referrals: NO,PCP [Primary Care Provider] - (Pt has an appointment on the with new physician. States that he should be receiving a packet in the mail soon.) Miky Gomes MD [Partnered Physician] - 01/16/17 11:45 am
[2016-12-29] MEDS: Nystatin POWDER 30 GM BOTTLE TP SCH ×3 (00:05→20:20)
[2016-12-29] MEDS: *HR* OxyCODONE/APAP 7.5/325 TABLET PO PRN ×5 (00:12→20:20)
[2016-12-29] MEDS: Piperacillin/Tazobactam 3.375 GM in D5% in Water (Mini-Bag+) 100 ML IVPB SCH ×3 (06:32→22:29)
[2016-12-29] MEDS: *HR* Heparin 5,000 UNIT/ML VIAL SQ SCH ×2 (06:32→17:05)
[2016-12-29] MEDS: Insulin LISPRO 300 UNITS/3 ML VIAL SQ SCH ×4 (08:07→20:22)
[2016-12-29] MEDS: Insulin DETEMIR 100 UNIT/ML X5UNITS SQ SCH (08:59)
[2016-12-29 09:20] LABS: Basophils % 0.8 %; Eosinophils # 0.1 K/mcL (0.0-0.6); Eosinophils % 2.5 %; Hematocrit 32.1 % (37.5-50.1); Hemoglobin 10.4 g/dL (12.9-16.9); Immature Granulocytes % 0.2 % (0-4); Lymphocytes # 1.1 K/mcL (0.6-4.6); Lymphocytes % 21.2 %; Mean Corpuscular HGB Conc 32.4 g/dL (31.6-35.5); Mean Corpuscular Hemoglobin 27.2 pg (28.0-33.3); Mean Platelet Volume 9.4 fL (9.4-12.4); Monocytes # 0.4 K/mcL (0.0-1.3); Monocytes % 8.1 %; Neutrophils # 3.5 K/mcL (1.6-8.9); Platelet Count 185 K/mcL (140-400); Red Blood Count 3.82 M/mcL (4.19-5.50); Red Cell Distribution Width 14.8 % (11.5-14.5); Segmented Neutrophils % 67.2 %
[2016-12-29 09:33] LABS: Platelet Estimate Normal (Normal); Reactive Lymphocytes Present (Not Present)
[2016-12-29 09:34] LABS: BUN/Creatinine Ratio 10 (6-26); Blood Urea Nitrogen 11 mg/dL (8-26); Carbon Dioxide 22 mEq/L (19-29); Chloride 103 mEq/L (98-109); Glucose 271 mg/dL (70-99); Osmolality,Calculated 287 (280-300); Potassium 3.4 mEq/L (3.5-4.5); Sodium 134 mEq/L (136-145); eGFR For African Americans > 60 (> 60); eGFR For Non-African Americans > 60 (> 60)
--- NOTE | 2016-12-29 09:47 | Vascular/[facility] Progress Note ---
Date of Encounter: 12/29/16 Time of Encounter: 09:45 - Assessment and plan (1) PAD (peripheral artery disease) Current Visit: Yes Status: Acute Right foot is warm and pink. The distal tip of the right first toe has a ischemic scab area. The foot itself is dramatically improved from prior to angioplasty. Patient will be discharged in the relatively near future. Patient was asked to follow up with me in 3 weeks and to continue his antiplatelet therapy with Plavix. Anticipate outpatient and a vascular intervention for left lower extremity superficial femoral artery disease. (2) Cellulitis of toe of right foot Current Visit: Yes Status: Acute Patient is receiving intravenous antibiotics. - Subjective Interval history: no complaints the patient is feeling well. The right foot is feeling better and has less pain. Vital Signs, Last 4 Hours Temp Pulse Resp BP Pulse Ox 12/29/16 08:02 98.7 F 77 18 136/83 97 12/29/16 08:00 79 12 136/83 96 - Physical Examination General: Present: Conversant, No Apparent Distress Vascular: Present: Normal capillary refill, Color/Temperature, Other (Patient has Doppler signals at left ankle particularly triphasic signals that are very strong at the posterior tibial artery.) Results 12/29/16 09:10 12/29/16 09:10 Lab Results, Last 24 hours 12/29/16 12/29/16 09:10 09:10 WBC 5.2 Hgb 10.4 L Hct 32.1 L Plt Count 185 Sodium 134 L Potassium 3.4 L Chloride 103 Carbon Dioxide 22 BUN 11 Creatinine 1.06 Glucose 271 H Calcium 8.0 L Consult Discharge Plan - Plan Referrals: NO,PCP [Primary Care Provider] - (Pt has an appointment on the with new physician. States that he should be receiving a packet in the mail soon.) Miky Gomes MD [Partnered Physician] - 01/16/17 11:45 am
[2016-12-29] MEDS: *HR* Morphine 2 MG/ML SYRINGE IVP PRN (22:31)
[2016-12-30] MEDS: *HR* OxyCODONE/APAP 7.5/325 TABLET PO PRN ×3 (01:22→10:24)
[2016-12-30] MEDS: *HR* Heparin 5,000 UNIT/ML VIAL SQ SCH (06:01)
[2016-12-30] MEDS: Piperacillin/Tazobactam 3.375 GM in D5% in Water (Mini-Bag+) 100 ML IVPB SCH (06:01)
--- NOTE | 2016-12-30 08:14 | Internal Med Progress Note ---
Date of Encounter: 12/30/16 Time of Encounter: 08:13 - Assessment and plan (1) UTI (urinary tract infection) Status: Acute Assessment and plan: urine cx grwoing gram neg rods, serratia will contnue zosyn . awaiting blood cx to come back negative, will dc tomm with IV ceftriaxone bid Qualifiers: Urinary tract infection type: acute cystitis Hematuria presence: without hematuria Qualified Code(s): N30.00 - Acute cystitis without hematuria (2) Sepsis Status: Acute Assessment and plan: has bacteremia possible 2/2 UTI, culture growing serratia No fever spike , white count has improved. repeat blood cx is pre griffith negative, will dc tomm with IV ceftriaxone q12 for 14 days starting the day from negative blood culture. Clinically improved. Qualifiers: Sepsis type: sepsis due to unspecified organism Qualified Code(s): A41.9 - Sepsis, unspecified organism (3) Uncontrolled diabetes mellitus Status: Acute Assessment and plan: Cgiven high a1c, will dc with levemir and metformin. Qualifiers: Diabetes mellitus type: type 2 Diabetes mellitus complication status: without complication Diabetes mellitus skilled nursing insulin use: without skilled nursing use Qualified Code(s): E11.65 - Type 2 diabetes mellitus with hyperglycemia (4) Cellulitis of toe of right foot Status: Acute Assessment and plan: as per podiatry, erythema of the digit not very impressive for an infection . his gram stain is GPCs which could be skin dina. His toe is not swollen. his symptoms specifically the pain he has in the toe could be vascular in nature. vascular has been consulted, s/p balloon angioplasty today with DR. Gomes. (5) PVD (peripheral vascular disease) Status: Acute Assessment and plan: will follow vascular recommnedtaion, perfusion better, pain and sensation better today. continue pain meds for current pain ocntrol. - Subjective Interval history: late entry for 12/29/16 Patient seen at the bedside , s/p Right superficial femoral artery DEVELOPMENT REPRESENTATIVE balloon angioplasty and Right tibial peroneal trunk balloon angioplasty Reports improvement in pain and feelling much better, denies nausea or vomiting. repeat blood cx negative - Constitutional Vitals: Temp Pulse Resp BP Pulse Ox 98.1 F 74 15 124/78 97 12/30/16 04:30 12/30/16 07:43 12/30/16 04:30 12/30/16 04:30 12/30/16 04:30 General appearance: Present: A&O X 3, no acute distress, answers questions appropriately Exam: neck- supple chest- b/l clear, no added sounds CVS-s1 and s2, no mr//g abd-soft, non tender, bs are present ext- no edema, mild redness, rt. great toe wrapped in gauze. Internal Medicine: Result - Labs CBC & Chem 7: 12/29/16 09:10 12/29/16 09:10 Labs: Short CBC 12/29/16 Range/Units 09:10 WBC 5.2 (4.3-11.1) K/mcL Hgb 10.4 L (12.9-16.9) g/dL Hct 32.1 L (37.5-50.1) % Plt Count 185 (140-400) K/mcL Neutrophils # 3.5 (1.6-8.9) K/mcL BMP 12/29/16 09:10 Sodium 134 L Potassium 3.4 L Chloride 103 Carbon Dioxide 22 BUN 11 Creatinine 1.06 Glucose 271 H Calcium 8.0 L - ABG Interpretation ABG results: PT/INR, D-dimer PT 12.2 Seconds (9.4-12.1) H 12/27/16 05:00 Consult Discharge Plan - Plan Instructions: Urinary Tract Infection in Men (DC), Cellulitis (DC), Peripheral Vascular Disorders (DC), Sepsis (DC) Referrals: NO,PCP [Primary Care Provider] - (Pt has an appointment on the with new physician. States that he should be receiving a packet in the mail soon.) Miky Gomes MD [Partnered Physician] - 01/16/17 11:45 am Prescriptions: OxyCODONE/APAP 7.5/325 [Percocet 7.5/325 MG] 1 each PO Q4HR PRN #60 tablet PRN Reason: Moderate Pain Ceftriaxone Sodium [Ceftriaxone] 1 gm IV Q12H 11 Days Clopidogrel [Plavix] 75 mg PO DAILY #30 tablet Insulin DETEMIR [Levemir] 10 unit SQ DAILY 30 Days Simvastatin [Zocor] 20 mg PO QPM #30 tablet
--- NOTE | 2016-12-30 08:17 | Discharge Summary ---
Date of Encounter: 12/30/16 Time of Encounter: 08:14 - Discharge Diagnosis (1) UTI (urinary tract infection) Priority: Primary Status: Acute Qualifiers: Urinary tract infection type: acute cystitis Hematuria presence: without hematuria Qualified Code(s): N30.00 - Acute cystitis without hematuria (2) Sepsis Priority: Primary Status: Acute Qualifiers: Sepsis type: sepsis due to unspecified organism Qualified Code(s): A41.9 - Sepsis, unspecified organism (3) Uncontrolled diabetes mellitus Priority: Secondary Status: Acute Qualifiers: Diabetes mellitus type: type 2 Diabetes mellitus complication status: without complication Diabetes mellitus terminal gauger supervisor insulin use: without terminal gauger supervisor use Qualified Code(s): E11.65 - Type 2 diabetes mellitus with hyperglycemia (4) Cellulitis of toe of right foot Priority: Primary Status: Acute (5) PVD (peripheral vascular disease) Priority: Secondary Status: Acute - Discharge Medications Prescriptions: OxyCODONE/APAP 7.5/325 [Percocet 7.5/325 MG] 1 each PO Q4HR PRN #60 tablet PRN Reason: Moderate Pain Ceftriaxone Sodium [Ceftriaxone] 1 gm IV Q12H 11 Days Clopidogrel [Plavix] 75 mg PO DAILY #30 tablet Insulin DETEMIR [Levemir] 10 unit SQ DAILY 30 Days Simvastatin [Zocor] 20 mg PO QPM #30 tablet Home Medications: Aspirin 81 mg PO DAILY 12/25/16 [History] Metformin HCl [Glucophage] 1,000 mg PO BID 12/25/16 [History] Tramadol HCl [Ultram] 50 mg PO TID PRN 12/25/16 [History] Ceftriaxone Sodium [Ceftriaxone] 1 gm IV Q12H 11 Days 12/30/16 [Rx] Clopidogrel [Plavix] 75 mg PO DAILY #30 tablet 12/30/16 [Rx] Insulin DETEMIR [Levemir] 10 unit SQ DAILY 30 Days 12/30/16 [Rx] OxyCODONE/APAP 7.5/325 [Percocet 7.5/325 MG] 1 each PO Q4HR PRN #60 tablet 12/30 [Rx] Simvastatin [Zocor] 20 mg PO QPM #30 tablet 12/30/16 [Rx] Allergies/Adverse Reactions: Allergies codeine Allergy (Mild, Verified 12/24/16 23:22) See Comments chest heaviness Date of admission: 12/25/16 04:10 Primary care physician: PCP NO Consults: 12/25/16 04:21 Consult to Podiatry [CONS] Routine Consulting Provider: Podiatrana cristina [facility] Reason for Consult: Right toe infection Call Completed: No 12/25/16 13:40 Consult to Wound Care [CONS] Routine Reason for Consult: rt. foot wound, please evaluate and advise Call Completed: No 12/26/16 14:48 Consult to Vascular Surgery [CONS] Routine Consulting Provider: Vascular Surgery [facility] Reason for Consult: moderate vascular disease R LE, pain hallux. non- invasive vascular tests done. Call Completed: Yes 12/27/16 10:53 Consult to Invasive Line Access Team [CONS] Routine Reason for Consult: LIMITED IV ACCESS Line Type: EPIV Discharging clinician: Juliette Colby Anticipated date of discharge: 12/30/16 - Patient Status Disposition: Transfer SNF Condition: Fair Functional capacity at discharge: uses cane/walker Overall status at discharge: patient is progressing back to baseline - Discharge Instructions Instructions: Urinary Tract Infection in Men (DC), Cellulitis (DC), Peripheral Vascular Disorders (DC), Sepsis (DC) Follow Up With: NO,PCP [Primary Care Provider] - (Pt has an appointment on the with new physician. States that he should be receiving a packet in the mail soon.) Miky Gomes MD [Partnered Physician] - 01/16/17 11:45 am - Diet and Activity Activity: as per physical therapy Diet: diabetic diet Interval History: Mr. Bolden is a 61 year old male Who was admitted with significant right foot pain and a right toe ulceration. Patient had a great deal of difficulty walking on his foot. He is status post a ingrown toenail removal removal about [address] Drake. He had had purulent drainage from the toenail at that time. When he was admitted he was found to have an elevated white count and findings to suggest sepsis. He was then placed on intravenous antibiotics and was also discovered to have a urinary tract infection. podiatry was consulted and they thought the pain is more from possible vascular insufficiency than infection, vascular sx was consulted. Recent noninvasive testing performed yesterday shows an ankle-brachial index of 0.68 on the right and 0.72 on the left. The patient also has diminished waveforms of both lower extremities.Patient has risk factors of diabetes is poorly controlled and tobacco abuse. He also status post open heart bypass grafting approximately 9 years ago HE underwent angiogram and Right superficial femoral artery ECONOMICS DEPARTMENT CHAIR balloon angioplasty with 3 and 6 mm diameter balloons Right tibial peroneal trunk balloon angioplasty with 3 mm diameter balloon post procedure he did well, he was also noted to be bacteremic most likely secondary to UTI, urine culture growing Serratia. He was initially treated with vancomycin and Zosyn, vancomycin was discontinued and he was continued on Zosyn. The final culture results showed sensitivity to ceftriaxone, patient is being discharged to senior care facility. At this time we will discharge him with IV antibiotics given bacteremia, will treat for 14 days starting the last year negative blood culture. Patient is being discharged in stable condition. Patient will follow-up with vascular surgery as outpatient Hospital course: Mr. Bolden is a 61 year old male Time spent discussing smoking cessation with patient: more than 10 minutes - Time Spent with Patient Total time spent providing and/or coordinating discharge services: Greater than 30 minutes - Constitutional Vitals: Temp Pulse Resp BP Pulse Ox 98.1 F 74 15 124/78 97 12/30/16 04:30 12/30/16 07:43 12/30/16 04:30 12/30/16 04:30 12/30/16 04:30 General appearance: Present: A&O X 3, no acute distress, answers questions appropriately Exam: neck- supple chest- b/l clear, no added sounds CVS-s1 and s2, no mr//g abd-soft, non tender, bs are present ext- no edema, mild redness, rt. great toe wrapped in gauze.
[2016-12-30 08:44] VITALS: BP 141/76
[2016-12-30] MEDS: Insulin DETEMIR 100 UNIT/ML X5UNITS SQ SCH (08:58)
[2016-12-30] MEDS: Nystatin POWDER 30 GM BOTTLE TP SCH (08:58)
[2016-12-30] MEDS: Insulin LISPRO 300 UNITS/3 ML VIAL SQ SCH (08:58)
--- NOTE | 2016-12-30 10:51 | Physician Discharge Referral ---
ExtendedCare Referral Info Transfer To: SNF Provider in Charge: jennifer caballero Institutional Level of Care: Intermediate - MR - Diagnosis (1) UTI (urinary tract infection) Status: Acute (2) Sepsis Status: Acute (3) Uncontrolled diabetes mellitus Status: Acute (4) Cellulitis of toe of right foot Status: Acute (5) PVD (peripheral vascular disease) Status: Acute - Transfer Medications Prescriptions: OxyCODONE/APAP 7.5/325 [Percocet 7.5/325 MG] 1 each PO Q4HR PRN #60 tablet PRN Reason: Moderate Pain Ceftriaxone Sodium [Ceftriaxone] 1 gm IV Q12H 11 Days Clopidogrel [Plavix] 75 mg PO DAILY #30 tablet Insulin DETEMIR [Levemir] 10 unit SQ DAILY 30 Days Simvastatin [Zocor] 20 mg PO QPM #30 tablet Home Medications: Aspirin 81 mg PO DAILY 12/25/16 [History] Metformin HCl [Glucophage] 1,000 mg PO BID 12/25/16 [History] Tramadol HCl [Ultram] 50 mg PO TID PRN 12/25/16 [History] Ceftriaxone Sodium [Ceftriaxone] 1 gm IV Q12H 11 Days 12/30/16 [Rx] Clopidogrel [Plavix] 75 mg PO DAILY #30 tablet 12/30/16 [Rx] Insulin DETEMIR [Levemir] 10 unit SQ DAILY 30 Days 12/30/16 [Rx] OxyCODONE/APAP 7.5/325 [Percocet 7.5/325 MG] 1 each PO Q4HR PRN #60 tablet 12/30 [Rx] Simvastatin [Zocor] 20 mg PO QPM #30 tablet 12/30/16 [Rx] Allergies/Adverse Reactions: Allergies codeine Allergy (Mild, Verified 12/24/16 23:22) See Comments chest heaviness - Respiratory Orders Smoking Cessation: Smoking cessation has been advised. For more information, call the [place] Tobacco Quit Line at 0-072-IVSR-NOW. - Advance Directives Code Status: Full Code - Mobility Orders Ambulate - Rehabiliation Orders Rehab Potential: Fair Rehab Orders: Evaluation for Physical Therapy, Evaluation for Occupational Therapy - Diet Orders Regular, No Concentrated Sweets CERTIFICATION: I certify that the transfer of the above named patient to an Extended Care Facility is necessary for the continuing treatment of the diagnosis listed. The above information is true and accurate reflection of patient's current condition. Confidential - Redisclosure prohibited without a patient's written consent.
== END 2016-12-30 11:40 | DRG 854 ==
LOC: 2NNU 23:19 → EMEROO 23:19 → 2ANU 12-25 03:39 → 2NNU 12-27 10:25
PROVIDERS: ADMIT Internal Medicine; ATTEND Internal Medicine

== ENCOUNTER 2017-11-28 18:39 | Inpatient (IN) ==
--- NOTE | 2017-11-28 18:47 | Emergency Department Note ---
Disposition Clinical Impression: Cellulitis of perineum, Sepsis Disposition: Admitted As Inpatient Condition: Good General Adult HPI - General Chief complaint: ED Fever Stated complaint: fever Time Seen by Provider: 11/28/17 18:42 - Related Data Home Medications Medication Instructions Recorded Confirmed Gabapentin [Neurontin] 300 mg PO 11/28/17 Tramadol HCl [Ultram] 50 mg PO 11/28/17 Allergies Allergy/AdvReac Type Severity Reaction Status Date / Time codeine Allergy Mild See Verified 05/03/17 09:56 Comments Past Medical History - Past Medical History Medical history: Reports: coronary artery disease, diabetes, myocardial infarction, other (urethral stricture) Surgical history: Reports: coronary bypass (CABG) (Status post open heart bypass grafting in [facility] 2007), other (urethral reconstruction) Psychiatric history: Reports: no psych history - Social History Smoking Status: Current every day smoker Smokeless Tobacco Status: No Alcohol use: Reports: none Drug use: Reports: none Course Vital Signs Temperature 102.5 F H 11/28/17 18:46 Pulse Rate 120 11/28/17 18:46 Respiratory Rate 16 11/28/17 18:46 Blood Pressure 142/68 11/28/17 18:46 O2 Sat by Pulse Oximetry 100 11/28/17 18:46 Temperature 102.5 F H 11/28/17 18:46 Pulse Rate 120 11/28/17 18:46 Respiratory Rate 16 11/28/17 18:46 Blood Pressure 142/68 11/28/17 18:46 O2 Sat by Pulse Oximetry 100 11/28/17 18:46 Oxygen Delivery Oxygen Delivery Room Air Medical Decision Making - Lab Data Result diagrams: 11/28/17 20:13 11/28/17 20:13 Lab Results 11/28/17 11/28/17 11/28/17 Range/Units 20:13 20:13 20:13 WBC 13.2 H (4.3-11.1) K/mcL RBC 4.38 (4.19-5.50) M/mcL Hgb 11.4 L (12.9-16.9) g/dL Hct 34.5 L (37.5-50.1) % MCV 78.8 L (83.0-100.0) fL MCH 26.0 L (28.0-33.3) pg MCHC 33.0 (31.6-35.5) g/dL RDW 15.6 H (11.5-14.5) % Plt Count 340 (140-400) K/mcL MPV 9.3 L (9.4-12.4) fL Immature Gran % 0.4 (0-4) % Seg Neutrophils % 89.1 % Lymphocytes % 6.0 % Monocytes % 4.2 % Eosinophils % 0.1 % Basophils % 0.2 % Neutrophils # 11.8 H (1.6-8.9) K/mcL Lymphocytes # 0.8 (0.6-4.6) K/mcL Monocytes # 0.6 (0.0-1.3) K/mcL Eosinophils # 0.0 (0.0-0.6) K/mcL Basophils # 0.0 (0.0-0.2) K/mcL PT 14.7 H (9.4-12.1) Seconds INR 1.4 Sodium 130 L (136-145) mEq/L Potassium 3.4 L (3.5-5.1) mEq/L Chloride 97 L (98-107) mEq/L Carbon Dioxide 24 (23-29) mEq/L BUN 16 (8-23) mg/dL Creatinine 1.10 (0.70-1.30) mg/dL Est GFR ( Amer) > 60 (> 60) Est GFR (Non-Af Amer) > 60 (> 60) BUN/Creatinine Ratio 15 (6-26) Glucose 272 H (70-105) mg/dL Calculated Osmolality 281 (280-300) Lactic Acid (0.5-2.2) mmol/L Calcium 8.8 (8.6-10.3) mg/dL Magnesium 1.5 L (1.6-2.6) mg/dL Total Bilirubin 0.3 (0.3-1.0) mg/dL Direct Bilirubin 0.2 (0.0-0.2) mg/dL Indirect Bilirubin 0.1 (0.0-1.2) mg/dL AST 12 L (13-39) Units/L ALT 13 (7-52) Units/L Alkaline Phosphatase 116 H (34-104) Units/L Serum Total Protein 7.3 (6.4-8.9) g/dL Albumin 3.2 L (3.5-5.7) g/dL Globulin 4.1 H (2.4-3.5) g/dL Albumin/Globulin Ratio 0.8 L (1.1-2.2) Ur Specimen Adequacy Urine Color (Yellow) Urine Clarity (Clear) Urine pH (5.0-8.0) pH Units Ur Specific [place] (1.010-1.025) Urine Protein (Neg-Trace) mg/dL Urine Glucose (UA) (Normal) mg/dL Urine Ketones (Negative) mg/dL Urine Blood (Negative) Urine Nitrite (Negative) Urine Bilirubin (Negative) Urine Urobilinogen (Normal) mg/dL Ur Leukocyte Esterase (Negative) Urine Microscopic RBC (0-3) per hpf Urine Microscopic WBC (0-3) per hpf Ur Squamous Epith Cells (None-Few) per lpf Urine Bacteria (None-Few) per hpf Hyaline Casts (None-Few) per lpf Urine Yeast (None Seen) per hpf Ur Culture Indicated? (NO) 11/28/17 11/28/17 Range/Units 20:13 21:42 WBC (4.3-11.1) K/mcL RBC (4.19-5.50) M/mcL Hgb (12.9-16.9) g/dL Hct (37.5-50.1) % MCV (83.0-100.0) fL MCH (28.0-33.3) pg MCHC (31.6-35.5) g/dL RDW (11.5-14.5) % Plt Count (140-400) K/mcL MPV (9.4-12.4) fL Immature Gran % (0-4) % Seg Neutrophils % % Lymphocytes % % Monocytes % % Eosinophils % % Basophils % % Neutrophils # (1.6-8.9) K/mcL Lymphocytes # (0.6-4.6) K/mcL Monocytes # (0.0-1.3) K/mcL Eosinophils # (0.0-0.6) K/mcL Basophils # (0.0-0.2) K/mcL PT (9.4-12.1) Seconds INR Sodium (136-145) mEq/L Potassium (3.5-5.1) mEq/L Chloride (98-107) mEq/L Carbon Dioxide (23-29) mEq/L BUN (8-23) mg/dL Creatinine (0.70-1.30) mg/dL Est GFR ( Amer) (> 60) Est GFR (Non-Af Amer) (> 60) BUN/Creatinine Ratio (6-26) Glucose (70-105) mg/dL Calculated Osmolality (280-300) Lactic Acid 1.0 (0.5-2.2) mmol/L Calcium (8.6-10.3) mg/dL Magnesium (1.6-2.6) mg/dL Total Bilirubin (0.3-1.0) mg/dL Direct Bilirubin (0.0-0.2) mg/dL Indirect Bilirubin (0.0-1.2) mg/dL AST (13-39) Units/L ALT (7-52) Units/L Alkaline Phosphatase (34-104) Units/L Serum Total Protein (6.4-8.9) g/dL Albumin (3.5-5.7) g/dL Globulin (2.4-3.5) g/dL Albumin/Globulin Ratio (1.1-2.2) Ur Specimen Adequacy See below A Urine Color Yellow (Yellow) Urine Clarity Turbid A (Clear) Urine pH 5.0 (5.0-8.0) pH Units Ur Specific [place] 1.027 H (1.010-1.025) Urine Protein >=300 H (Neg-Trace) mg/dL Urine Glucose (UA) 100 H (Normal) mg/dL Urine Ketones Trace H (Negative) mg/dL Urine Blood Large H (Negative) Urine Nitrite Negative (Negative) Urine Bilirubin Negative (Negative) Urine Urobilinogen Normal (Normal) mg/dL Ur Leukocyte Esterase Large H (Negative) Urine Microscopic RBC TNTC H (0-3) per hpf Urine Microscopic WBC TNTC H (0-3) per hpf Ur Squamous Epith Cells Many H (None-Few) per lpf Urine Bacteria Many H (None-Few) per hpf Hyaline Casts None Seen (None-Few) per lpf Urine Yeast Many H (None Seen) per hpf Ur Culture Indicated? NO. (NO) Critical Care Time Critical Care Time: Yes Total Critical Care Time: 30 Attestation: The high probability of a clinically significant, sudden or life threatening deterioration of the [] system(s) required my full and direct attention, intervention and personal management. The aggregate critical care time was [] minutes. This time is in addition to time spent performing reported procedures but includes the following: [] Data Review and interpretation [] Patient assessment and monitoring of vital signs [] Documentation [] Medication orders and management Attestation Statement - Attestation Attestation: I examined this patient and my medical decision-making was reviewed with the Resident Physician. I agree with the documented findings, disposition and treatment plan as described except to the extent set forth below. [id number] time provided Patient arrives by EMS with fever and tachycardia. He verbally reports he feels as if he has a urinary tract infection. Concern for Sirs/sepsis. Workup initiated 20:45: The patient has a friable, erythematous perineum. There is visible purulent drainage. There is excoriation in his inguinal creases. I suspect this to be the source of the patient's fever. We will discuss this with on- call urology and admitted to medicine for broad-spectrum antibiotics
--- NOTE | 2017-11-28 18:55 | Emergency Department Note ---
Disposition Clinical Impression: Cellulitis of perineum Sepsis Qualifiers: Sepsis type: sepsis due to unspecified organism Qualified Code(s): A41.9 - Sepsis, unspecified organism Disposition: Admitted As Inpatient Condition: Good Referrals: Nely Stock CNP [Primary Care Provider] - Forms: ED Satisfaction Letter Time of Disposition: 20:51 General Adult HPI - General Chief complaint: ED Fever Stated complaint: fever Time Seen by Provider: 11/28/17 18:42 Nursing Notes Reviewed: Yes Vital Signs Reviewed: Yes - History of Present Illness HPI Narrative: Mr. Bolden is a very pleasant 62-year-old gentleman with past history of hypertension, CAD, diabetes, tobacco abuse and history of urethral reconstruction who presents to the [facility] emergency department with a chief complaint of weakness and dysuria for 1 day duration. He arrived via EMS that reports he had a fever and was tachycardic in the 110s en route. Patient states that his symptoms started this morning. He reports that he has been unable to void throughout the day and when he does feel like he has to void, he often is not able to the bathroom in time. Roughly 3 years ago up at [facility], he underwent urethral reduction surgery for unknown reasons. Since his surgery, he has multiple UTIs. No recent hospitalizations. He is getting an adequate amount of water. He is a current everyday smoker of 4-5 cigarettes per day for the last 30-40 years. He denies any abdominal pain, nocturia, flank pain. - Related Data Home Medications Medication Instructions Recorded Confirmed Gabapentin [Neurontin] 300 mg PO 11/28/17 Tramadol HCl [Ultram] 50 mg PO 11/28/17 Allergies Allergy/AdvReac Type Severity Reaction Status Date / Time codeine Allergy Mild See Verified 05/03/17 09:56 Comments Review of Systems: Constitutional: fever Vision: No blurred vision ENT: No rhinorrhea Respiratory: No cough Cardiovascular: No chest pain Allergic: No allergies : No blood in urine GI: No blood in stool Hematologic: No bruising Dermatologic: No skin rash Musculoskeletal: No pain in the extremities Neuro: No numbness of the extremities Past Medical History - Past Medical History Medical history: Reports: coronary artery disease, diabetes, myocardial infarction, other (urethral stricture) Surgical history: Reports: coronary bypass (CABG) (Status post open heart bypass grafting in [facility] 2007), other (urethral reconstruction) Psychiatric history: Reports: no psych history - Social History Smoking Status: Current every day smoker Smokeless Tobacco Status: No Alcohol use: Reports: none Drug use: Reports: none Physical Exam CONSTITUTIONAL: Alert and oriented X3 in no apparent distress HEAD: Normocephalic; atraumatic. EYES: Ocular movements grossly intact Oropharynx: pink/moist, poor dentition RESP: NRD without use of accessory musculature, CTA b/l with no wheezes/rales/ rhonchi CARD: Regular rhythm, without murmurs, rubs, or gallop ABD: grossly normal, soft, non-tender, no guarding/distention/rigidity SKIN: normal appearance, no pallor/diaphoresis,mottling,jaundice,cyanosis PSYCH: appropriate mood/affect Course Course Narrative: Patient was seen and examined at 1840. Patient appears nontoxic and is in no acute distress. Vitals were reviewed and show pulse of 120 with temperature of 102.5. High suspicion for UTI with possible sepsis given his SIRS criteria. Initial workup was started with BMP, CBC, hepatic panel, lactic, blood cultures , chest x-ray, EKG, UA and mag. Tylenol and fluid bolus was given. Disposition pending. 2030: CXR with no acute process. CBC showing mild leukocytosis of 13.2. Hepatic panel, UA, Lactic acid and BMP pending. Offered further pain control with fentanyl. 2039: Patient attempted to urinate and on examination of perineum, there was extensive erythema with fissuring and friabiliaty. There is purulent drainage. I suspect this the reason for his fever and will admit via medicine for perineal cellulitis, sepsis and consult urology. Spoke with Dr. Calero who will come in to see patient. Started on Vanc and Zosyn and Diflucan for broad coverage. 2129: Spoke with Hospitalist, Dr. Bhatti who accepted patient for hospital admission for perineal cellulitis and sepsis. Patient aware and agrees to plan. 2209: Dr. Calero performed SP tube placement successfully. Vital Signs Temperature 102.5 F H 11/28/17 18:46 Pulse Rate 120 11/28/17 18:46 Respiratory Rate 16 11/28/17 18:46 Blood Pressure 142/68 11/28/17 18:46 O2 Sat by Pulse Oximetry 100 11/28/17 18:46 Temperature 102.5 F H 11/28/17 18:46 Pulse Rate 120 11/28/17 18:46 Respiratory Rate 16 11/28/17 18:46 Blood Pressure 142/68 11/28/17 18:46 O2 Sat by Pulse Oximetry 100 11/28/17 18:46 Oxygen Delivery Oxygen Delivery Room Air Medical Decision Making - Medical Records Medical records reviewed: Yes I reviewed the patient's medical records. - Lab Data Lab results reviewed: Yes I reviewed the patient's lab results. Result diagrams: 11/28/17 20:13 11/28/17 20:13 Lab Results 11/28/17 11/28/17 11/28/17 Range/Units 20:13 20:13 20:13 WBC 13.2 H (4.3-11.1) K/mcL RBC 4.38 (4.19-5.50) M/mcL Hgb 11.4 L (12.9-16.9) g/dL Hct 34.5 L (37.5-50.1) % MCV 78.8 L (83.0-100.0) fL MCH 26.0 L (28.0-33.3) pg MCHC 33.0 (31.6-35.5) g/dL RDW 15.6 H (11.5-14.5) % Plt Count 340 (140-400) K/mcL MPV 9.3 L (9.4-12.4) fL Immature Gran % 0.4 (0-4) % Seg Neutrophils % 89.1 % Lymphocytes % 6.0 % Monocytes % 4.2 % Eosinophils % 0.1 % Basophils % 0.2 % Neutrophils # 11.8 H (1.6-8.9) K/mcL Lymphocytes # 0.8 (0.6-4.6) K/mcL Monocytes # 0.6 (0.0-1.3) K/mcL Eosinophils # 0.0 (0.0-0.6) K/mcL Basophils # 0.0 (0.0-0.2) K/mcL PT 14.7 H (9.4-12.1) Seconds INR 1.4 Sodium 130 L (136-145) mEq/L Potassium 3.4 L (3.5-5.1) mEq/L Chloride 97 L (98-107) mEq/L Carbon Dioxide 24 (23-29) mEq/L BUN 16 (8-23) mg/dL Creatinine 1.10 (0.70-1.30) mg/dL Est GFR ( Amer) > 60 (> 60) Est GFR (Non-Af Amer) > 60 (> 60) BUN/Creatinine Ratio 15 (6-26) Glucose 272 H (70-105) mg/dL Calculated Osmolality 281 (280-300) Lactic Acid (0.5-2.2) mmol/L Calcium 8.8 (8.6-10.3) mg/dL Magnesium 1.5 L (1.6-2.6) mg/dL Total Bilirubin 0.3 (0.3-1.0) mg/dL Direct Bilirubin 0.2 (0.0-0.2) mg/dL Indirect Bilirubin 0.1 (0.0-1.2) mg/dL AST 12 L (13-39) Units/L ALT 13 (7-52) Units/L Alkaline Phosphatase 116 H (34-104) Units/L Serum Total Protein 7.3 (6.4-8.9) g/dL Albumin 3.2 L (3.5-5.7) g/dL Globulin 4.1 H (2.4-3.5) g/dL Albumin/Globulin Ratio 0.8 L (1.1-2.2) Ur Specimen Adequacy Urine Color (Yellow) Urine Clarity (Clear) Urine pH (5.0-8.0) pH Units Ur Specific [place] (1.010-1.025) Urine Protein (Neg-Trace) mg/dL Urine Glucose (UA) (Normal) mg/dL Urine Ketones (Negative) mg/dL Urine Blood (Negative) Urine Nitrite (Negative) Urine Bilirubin (Negative) Urine Urobilinogen (Normal) mg/dL Ur Leukocyte Esterase (Negative) Urine Microscopic RBC (0-3) per hpf Urine Microscopic WBC (0-3) per hpf Ur Squamous Epith Cells (None-Few) per lpf Urine Bacteria (None-Few) per hpf Hyaline Casts (None-Few) per lpf Urine Yeast (None Seen) per hpf Ur Culture Indicated? (NO) 11/28/17 11/28/17 Range/Units 20:13 21:42 WBC (4.3-11.1) K/mcL RBC (4.19-5.50) M/mcL Hgb (12.9-16.9) g/dL Hct (37.5-50.1) % MCV (83.0-100.0) fL MCH (28.0-33.3) pg MCHC (31.6-35.5) g/dL RDW (11.5-14.5) % Plt Count (140-400) K/mcL MPV (9.4-12.4) fL Immature Gran % (0-4) % Seg Neutrophils % % Lymphocytes % % Monocytes % % Eosinophils % % Basophils % % Neutrophils # (1.6-8.9) K/mcL Lymphocytes # (0.6-4.6) K/mcL Monocytes # (0.0-1.3) K/mcL Eosinophils # (0.0-0.6) K/mcL Basophils # (0.0-0.2) K/mcL PT (9.4-12.1) Seconds INR Sodium (136-145) mEq/L Potassium (3.5-5.1) mEq/L Chloride (98-107) mEq/L Carbon Dioxide (23-29) mEq/L BUN (8-23) mg/dL Creatinine (0.70-1.30) mg/dL Est GFR ( Amer) (> 60) Est GFR (Non-Af Amer) (> 60) BUN/Creatinine Ratio (6-26) Glucose (70-105) mg/dL Calculated Osmolality (280-300) Lactic Acid 1.0 (0.5-2.2) mmol/L Calcium (8.6-10.3) mg/dL Magnesium (1.6-2.6) mg/dL Total Bilirubin (0.3-1.0) mg/dL Direct Bilirubin (0.0-0.2) mg/dL Indirect Bilirubin (0.0-1.2) mg/dL AST (13-39) Units/L ALT (7-52) Units/L Alkaline Phosphatase (34-104) Units/L Serum Total Protein (6.4-8.9) g/dL Albumin (3.5-5.7) g/dL Globulin (2.4-3.5) g/dL Albumin/Globulin Ratio (1.1-2.2) Ur Specimen Adequacy See below A Urine Color Yellow (Yellow) Urine Clarity Turbid A (Clear) Urine pH 5.0 (5.0-8.0) pH Units Ur Specific [place] 1.027 H (1.010-1.025) Urine Protein >=300 H (Neg-Trace) mg/dL Urine Glucose (UA) 100 H (Normal) mg/dL Urine Ketones Trace H (Negative) mg/dL Urine Blood Large H (Negative) Urine Nitrite Negative (Negative) Urine Bilirubin Negative (Negative) Urine Urobilinogen Normal (Normal) mg/dL Ur Leukocyte Esterase Large H (Negative) Urine Microscopic RBC TNTC H (0-3) per hpf Urine Microscopic WBC TNTC H (0-3) per hpf Ur Squamous Epith Cells Many H (None-Few) per lpf Urine Bacteria Many H (None-Few) per hpf Hyaline Casts None Seen (None-Few) per lpf Urine Yeast Many H (None Seen) per hpf Ur Culture Indicated? NO. (NO) - Radiology Data Radiology results reviewed: Yes I reviewed the patient's radiology results. - EKG Data EKG #1 EKG attestation: Yes I reviewed and interpreted this EKG. EKG results narrative: Heart rate 117, OR 147, QRS 89, QTc 380 consistent with sinus tachycardia. There are no ischemic changes.
[2017-11-28] MEDS ORDERED: *HR* FentaNYL (PF) 100 MCG/2 ML VIAL IVP ONE ×2 (20:16→21:48)
[2017-11-28] MEDS: 0.9 % Sodium Chloride 1,000 ML IVC SCH (20:22)
[2017-11-28 20:25] LABS: Basophils % 0.2 %; Eosinophils % 0.1 %; Hematocrit 34.5 % (37.5-50.1); Hemoglobin 11.4 g/dL (12.9-16.9); Immature Granulocytes % 0.4 % (0-4); Lymphocytes # 0.8 K/mcL (0.6-4.6); Mean Corpuscular Volume 78.8 fL (83.0-100.0); Mean Platelet Volume 9.3 fL (9.4-12.4); Monocytes # 0.6 K/mcL (0.0-1.3); Monocytes % 4.2 %; Neutrophils # 11.8 K/mcL (1.6-8.9); Platelet Count 340 K/mcL (140-400); Red Blood Count 4.38 M/mcL (4.19-5.50); Red Cell Distribution Width 15.6 % (11.5-14.5); Segmented Neutrophils % 89.1 %
[2017-11-28 20:31] LABS: INR 1.4; Prothrombin Time 14.7 Seconds (9.4-12.1)
[2017-11-28 20:46] LABS: Alanine Aminotransferase 13 Units/L (7-52); Albumin 3.2 g/dL (3.5-5.7); Albumin/Globulin Ratio 0.8 (1.1-2.2); Alkaline Phosphatase 116 Units/L (34-104); Aspartate Amino Transferase 12 Units/L (13-39); BUN/Creatinine Ratio 15 (6-26); Bilirubin,Direct 0.2 mg/dL (0.0-0.2); Bilirubin,Indirect 0.1 mg/dL (0.0-1.2); Bilirubin,Total 0.3 mg/dL (0.3-1.0); Blood Urea Nitrogen 16 mg/dL (8-23); Calcium 8.8 mg/dL (8.6-10.3); Carbon Dioxide 24 mEq/L (23-29); Chloride 97 mEq/L (98-107); Globulin 4.1 g/dL (2.4-3.5); Glucose 272 mg/dL (70-105); Magnesium 1.5 mg/dL (1.6-2.6); Osmolality,Calculated 281 (280-300); Potassium 3.4 mEq/L (3.5-5.1); Sodium 130 mEq/L (136-145); Total Protein 7.3 g/dL (6.4-8.9); eGFR For African Americans > 60 (> 60); eGFR For Non-African Americans > 60 (> 60)
[2017-11-28 21:54] LABS: Bilirubin,Urine Negative (Negative); Blood,Urine Large (Negative); Color,Urine Yellow (Yellow); Glucose,Urine (UA) 100 mg/dL (Normal); Ketones,Urine Trace mg/dL (Negative); Leukocyte Esterase,Urine Large (Negative); Nitrite,Urine Negative (Negative); Protein,Urine >=300 mg/dL (Neg-Trace); Specific Gravity,Urine 1.027 (1.010-1.025); Urobilinogen,Urine Normal (Normal)
[2017-11-28 21:57] LABS: Clarity,Urine Turbid (Clear)
[2017-11-28 22:00] LABS: Bacteria,Urine Many per hpf (None-Few); Hyaline Casts,Urine None Seen per lpf (None-Few); RBC,Urine TNTC per hpf (0-3); Squamous Epithelial Cell,Urine Many per lpf (None-Few); WBC,Urine TNTC per hpf (0-3); Yeast,Urine Many per hpf (None Seen)
--- NOTE | 2017-11-28 22:50 | Urology - Consult Note ---
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 I attempted to place a Glidewire through what appeared to be the opening into his urethra this would not pass easily. Cellulitis is most likely secondary to chronic irritation from his drainage of urine through the area. The left inner thigh abscess area was opened using a 15 blade scalpel after numbing the area with 1% lidocaine. I was able to probe the area with no further pus draining. I packed the area with a 4 x 4 gauze. If this area continues to drain and the patient does not clinically improve will need to obtain CT pelvis followed by general surgery consultation. (2) Sepsis Current Visit: Yes Status: Acute Assessment and plan: Likely sepsis secondary to urinary bacteria. This should improve with drainage of his bladder as well as broad-spectrum antibiotics Qualifiers: Sepsis type: sepsis due to unspecified organism Qualified Code(s): A41.9 - Sepsis, unspecified organism (3) Acute renal insufficiency Current Visit: No Status: Acute Assessment and plan: Likely secondary to sepsis. Very mild at this time (4) Urethral stricture Current Visit: No Status: Acute Assessment and plan: Patient's urethral stricture has resulted in a watering pot perineum. I discussed with the patient options of suprapubic tube versus letting him continue to drain through his perineum. He states that he would like to have a suprapubic tube placed. Informed consent was obtained. Patient was prepped and draped in normal sterile fashion. I numbed the area using 1% lidocaine. Then using the Recurious suprapubic tube kit I was able to locate the bladder and place the catheter within the bladder lumen. Immediate return of pus urine was seen. The catheter was stitched in place. This will need to remain in place but will need to be exchanged for a larger suprapubic tube within the next 1-2 weeks. Qualifiers: Urethral stricture type: post-procedural Urethral stricture sex-location: male urethra-bulbous Qualified Code(s): 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, male Urology CN:MOOKIE Consult date: 11/28/17 Reason for consult Urology: Difficult Bernal (with sepsis) Requesting physician: Rios English History of present illness: Inocencio is a 62 y/o male with past medical history significant for significant urethral reconstruction surgery. This was done at [facility] followed by [place]. Patient had a urethroplasty performed which subsequently developed into a watering pot perineum. 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 Patient states that for 3 years he was stable until recently he developed fevers and feeling bad. He had significant amount of pus draining from his perineal area. Patient upon arrival to the emergency departments found to have a fever over 102. He did have some leukocytosis of 13 ,000. Patient states that he continuously drained urine from his perineum. Patient has been having some weakness and chills as well. He states that his legs were so weak that he was unable to walk Past [employer] [facility] HX - Past Medical History Medical history: coronary artery disease, diabetes, myocardial infarction, other (urethral stricture) Psychiatric history: no psych history - Past Surgical History Surgical History: coronary bypass (CABG) (Status post open heart bypass grafting in [facility] 2007), other (urethral reconstruction) - Social History Smoking Status: Current every day smoker Smokeless Tobacco Status: No Alcohol use: none Drug use: none - Family History Mother Family Member Ethnicity: Non- Living Status: Hx Family Cancer: Yes Hx Family Endocrine Disorder: Yes (Diabetic) Father Family Member Ethnicity: Non- Living Status: Hx Family Cardiac Disorders: Yes (SD) Medications and Allergies Gabapentin [Neurontin] 300 mg PO 11/28/17 [History] Tramadol HCl [Ultram] 50 mg PO 11/28/17 [History] 3 Allergy/AdvReac Type Severity Reaction Status Date / Time codeine Allergy Mild See Verified 05/03/17 09:56 Comments Review of Systems - Constitutional chills, fever(s), weakness - EENT Nose, mouth and throat: no dizziness, no dry mouth, no throat swelling - Cardiovascular diaphoresis, no chest pain - Respiratory no cough, no dyspnea - Gastrointestinal abdominal pain, nausea - Genitourinary as per HPI - Musculoskeletal no back pain, no numbness - Integumentary erythema, swelling - Neurological weakness, no confusion, no syncope - Psychiatric no anxiety, no confusion - Hematologic/Lymphatic no easy bleeding, no lymphadenopathy - Allergic/Immunologic no throat swelling, no wheezing Exam Initial Vital Signs Temp Pulse Resp BP Pulse Ox 102.5 F H 120 16 142/68 100 11/28/17 18:46 11/28/17 18:46 11/28/17 18:46 11/28/17 18:46 11/28/17 18:46 General/Neuological: alert and oriented x 3 in some moderate distress Eyes: normal pupils, non-icteric Neck: no lymphadenopathy noted, supple to touch Cardiovascular: Tachycardic rate with regular rhythm, no murmurs Respiratory: normal respiratory effort, clear bilaterally ABD: soft, with pain on palpation of lower abdomen, good bowel sounds. No masses noted Back: no pain on percussion bilaterally : normal phallus with some redness around the meatus, anterior scrotum appeared normal with normal testicles and epididymis bilaterally perineal area markedly indurated and erythematous. Area of fluctuance on the left inner thigh which drained pus upon pressing on it. Rectal: Not possible with patient's current discomfort level Skin: no rashes noted on arms or legs patient does have some scratching on his lower extremities Musculoskeletal: FROMx4 Urology Results - Labs 11/28/17 20:13 11/28/17 20:13 Abnormal lab results WBC 13.2 K/mcL (4.3-11.1) H 11/28/17 20:13 Hgb 11.4 g/dL (12.9-16.9) L 11/28/17 20:13 Hct 34.5 % (37.5-50.1) L 11/28/17 20:13 MCV 78.8 fL (83.0-100.0) L 11/28/17 20:13 MCH 26.0 pg (28.0-33.3) L 11/28/17 20:13 RDW 15.6 % (11.5-14.5) H 11/28/17 20:13 MPV 9.3 fL (9.4-12.4) L 11/28/17 20:13 Neutrophils # 11.8 K/mcL (1.6-8.9) H 11/28/17 20:13 PT 14.7 Seconds (9.4-12.1) H 11/28/17 20:13 Sodium 130 mEq/L (136-145) L 11/28/17 20:13 Potassium 3.4 mEq/L (3.5-5.1) L 11/28/17 20:13 Chloride 97 mEq/L (98-107) L 11/28/17 20:13 Glucose 272 mg/dL (70-105) H 11/28/17 20:13 Magnesium 1.5 mg/dL (1.6-2.6) L 11/28/17 20:13 AST 12 Units/L (13-39) L 11/28/17 20:13 Alkaline Phosphatase 116 Units/L (34-104) H 11/28/17 20:13 Albumin 3.2 g/dL (3.5-5.7) L 11/28/17 20:13 Globulin 4.1 g/dL (2.4-3.5) H 11/28/17 20:13 Albumin/Globulin Ratio 0.8 (1.1-2.2) L 11/28/17 20:13 Ur Specimen Adequacy See below A 11/28/17 21:42 Urine Clarity Turbid (Clear) A 11/28/17 21:42 Ur Specific [place] 1.027 (1.010-1.025) H 11/28/17 21:42 Urine Protein >=300 mg/dL (Neg-Trace) H 11/28/17 21:42 Urine Glucose (UA) 100 mg/dL (Normal) H 11/28/17 21:42 Urine Ketones Trace mg/dL (Negative) H 11/28/17 21:42 Urine Blood Large (Negative) H 11/28/17 21:42 Ur Leukocyte Esterase Large (Negative) H 11/28/17 21:42 Urine Microscopic RBC TNTC per hpf (0-3) H 11/28/17 21:42 Urine Microscopic WBC TNTC per hpf (0-3) H 11/28/17 21:42 Ur Squamous Epith Cells Many per lpf (None-Few) H 11/28/17 21:42 Urine Bacteria Many per hpf (None-Few) H 11/28/17 21:42 Urine Yeast Many per hpf (None Seen) H 11/28/17 21:42 All other labs normal. Consult Discharge Plan - Plan Referrals: Nely Stock, SOCIAL INSURANCE ANALYST [Primary Care Provider] -
[2017-11-28] MEDS: Fluconazole 100 MG/50 ML 100 MG/50 ML BAG IVPB SCH (23:27)
[2017-11-28] MEDS ORDERED: 0.9 % Sodium Chloride 1,000 ML ONE (23:57)
[2017-11-29] MEDS: 0.9 % Sodium Chloride 1,000 ML IVC SCH ×2 (00:03→02:25)
[2017-11-29] MEDS ORDERED: 0.9 % Sodium Chloride 1,000 ML IVC ONE (00:34)
[2017-11-29] MEDS: traMADol 50 MG TABLET PO SCH ×4 (00:35→21:07)
[2017-11-29] MEDS ORDERED: Naloxone 0.4 MG/ML INJ IVP PRN (00:36)
[2017-11-29] MEDS ORDERED: Dextrose Gel 15 GM/37.5 ML TUBE PO PRN ×2 (01:38)
[2017-11-29] MEDS ORDERED: D5% in Water 1,000 ML IVC PRN (01:38)
[2017-11-29] MEDS ORDERED: *HR* Dextrose 50 % in Water (Syg) 50 ML SYRINGE IVP PRN (01:38)
--- NOTE | 2017-11-29 01:52 | Internal Med History&Physical ---
Date of Encounter: 11/28/17 Time of Encounter: 23:00 Internal Medicine - H&P: HPI Chief complaint: Fever Admitted From: Home Plans for Post Hospital Care: Home History of present illness: Mr. Bolden is a 62 year old male presented to ER for fever for 2 days. Possible medical history is significant for diabetes, CAD, urethral stricture S/ P surgery. Patient has history of urethral stricture had surgery in [facility]. Patient has multiple previous UTI. 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 Patient developed fever since 2 days ago. With difficult urination. Patient denies shortness of breath, chest pain, cough, or abdominal pain. In the emergency room, urology consult saw patient and placed the suprapubic catheter. Pus like urine was drained out. Patient was admitted as UTI and urosepsis. I have discussed the CODE STATUS with patient. Patient is AAO 3 and clearly told me he does not want CPR or intubation. DNR DNI placed. Past Med Surg Social Fam HX - Past Medical History Medical history: coronary artery disease, diabetes, myocardial infarction, other Psychiatric history: no psych history - Past Surgical History Surgical History: coronary bypass (CABG), other - Social History Smoking Status: Current every day smoker Smokeless Tobacco Status: No Alcohol use: none Drug use: none - Family History Mother Family Member Ethnicity: Non- Living Status: Hx Family Cancer: Yes Hx Family Endocrine Disorder: Yes (Diabetic) Father Family Member Ethnicity: Non- Living Status: Hx Family Cardiac Disorders: Yes (OR) Internal Medicine - H&P: Meds Gabapentin [Neurontin] 300 mg PO 11/28/17 [History] Tramadol HCl [Ultram] 50 mg PO 11/28/17 [History] 3 Allergy/AdvReac Type Severity Reaction Status Date / Time codeine Allergy Mild See Verified 05/03/17 09:56 Comments All Systems PM: A 10-system review of systems was performed and is negative for pertinent findings except as documented above in the HPI. - Constitutional Vitals: Temp Pulse Resp BP Pulse Ox 98.0 F 93 18 121/63 100 11/29/17 00:15 11/29/17 00:15 11/29/17 00:15 11/29/17 00:15 11/29/17 00:15 General appearance: Present: mild distress, A&O X 3, answers questions appropriately - Head Head exam: Present: atraumatic, normocephalic - Eye Eye exam: Present: PERRL, conjuntiva pink, sclera anicteric Pupils: Present: PERRL - Neck Neck exam general surgery: Present: supple, trachea midline. Absent: lymphadenopathy - Respiratory Respiratory exam: Present: CTAB. Absent: accessory muscle use, rales, rhonchi, wheezes - Cardiovascular Cardiovascular exam: Present: RRR, +S1, +S2. Absent: diastolic murmur, gallop, rubs, systolic murmur - GI/Abdominal GI/Abdominal exam: Present: normal bowel sounds, soft, no peritoneal signs. Absent: distended, tenderness Additional comments: Suprapubic catheter in place. Perineal area redness and mild bleeding. - Extremities Exam Extremities exam: Present: warm, radial pulses palpable and symmetrical. Absent : calf tenderness, cyanotic, pedal edema - Neurological Exam Neurological exam: Present: CN II-XII intact, oriented X3, no focal deficits. Absent: pronater drift, facial droop, speech deficit - Skin Skin exam: Present: dry, intact Internal Med - H&P Results - Labs CBC & Chem 7: 11/28/17 20:13 11/28/17 20:13 - Assessment and plan (1) Diabetes mellitus Current Visit: Yes Status: Acute Assessment and plan: Place patient on sliding scale insulin coverage Qualifiers: Diabetes mellitus type: type 2 Diabetes mellitus group home insulin use: without group home use Diabetes mellitus complication status: without complication Qualified Code(s): E11.9 - Type 2 diabetes mellitus without complications (2) Cellulitis of perineum Current Visit: Yes Status: Acute Assessment and plan: Continue antibiotic with Vanco, Zosyn, and fluconazole. Follow-up blood culture results (3) Sepsis Current Visit: Yes Status: Acute Assessment and plan: Patient to meet sepsis criteria with leukocytosis, fever, and tachycardia, source of infection consider UTI - Early goal directed IV fluid resuscitation started the from ER, initial lactate acid level 1.0 - Antibiotics started in ER with broad-spectrum antibiotic - Follow up urine culture and blood culture Qualifiers: Sepsis type: sepsis due to unspecified organism Qualified Code(s): A41.9 - Sepsis, unspecified organism (4) UTI (urinary tract infection) Current Visit: No Status: Acute Assessment and plan: Management as above Qualifiers: Urinary tract infection type: acute cystitis Hematuria presence: without hematuria Qualified Code(s): N30.00 - Acute cystitis without hematuria (5) Urethral stricture Current Visit: No Status: Acute Assessment and plan: Had surgery of urethral reconstruction in [facility]. Now suprapubic catheter placed by urology. Continue follow-up with urology Qualifiers: Urethral stricture type: post-procedural Urethral stricture sex-location: male urethra-bulbous Qualified Code(s): 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, male - Time Spent With Patient Total time spent is greater than 50% in coordination of care (as documented) at patient's floor/unit and/or counseling patient: 40 min Greater than 35 minutes
[2017-11-29 05:20] LABS: Basophils % 0.2 %; Hematocrit 30.8 % (37.5-50.1); Hemoglobin 10.1 g/dL (12.9-16.9); Immature Granulocytes % 0.4 % (0-4); Lymphocytes # 0.7 K/mcL (0.6-4.6); Lymphocytes % 7.6 %; Mean Corpuscular HGB Conc 32.8 g/dL (31.6-35.5); Mean Corpuscular Hemoglobin 25.8 pg (28.0-33.3); Mean Corpuscular Volume 78.8 fL (83.0-100.0); Mean Platelet Volume 9.1 fL (9.4-12.4); Monocytes # 0.4 K/mcL (0.0-1.3); Monocytes % 4.5 %; Neutrophils # 7.5 K/mcL (1.6-8.9); Platelet Count 272 K/mcL (140-400); Red Blood Count 3.91 M/mcL (4.19-5.50); Red Cell Distribution Width 15.8 % (11.5-14.5); Segmented Neutrophils % 87.3 %
[2017-11-29 05:37] LABS: BUN/Creatinine Ratio 13 (6-26); Blood Urea Nitrogen 12 mg/dL (8-23); Carbon Dioxide 21 mEq/L (23-29); Chloride 103 mEq/L (98-107); Glucose 159 mg/dL (70-105); Magnesium 1.4 mg/dL (1.6-2.6); Osmolality,Calculated 277 (280-300); Potassium 3.2 mEq/L (3.5-5.1); Sodium 132 mEq/L (136-145); eGFR For African Americans > 60 (> 60); eGFR For Non-African Americans > 60 (> 60)
[2017-11-29] MEDS ORDERED: Piperacillin/Tazobactam 3.375 GM in 0.9 % Sodium Chloride Mini Bag 100 ML IVPB SCH (06:00)
--- NOTE | 2017-11-29 07:49 | Urology Progress Note ---
Date of Encounter: 11/29/17 Time of Encounter: 07:47 - Assessment and Plan (1) Cellulitis of perineum Current Visit: Yes Status: Acute Assessment and plan: We will have the packing changed twice daily. (2) Sepsis Current Visit: Yes Status: Acute Assessment and plan: Continue with broad-spectrum antibiotics until cultures return Qualifiers: Sepsis type: sepsis due to unspecified organism Qualified Code(s): A41.9 - Sepsis, unspecified organism (3) Acute renal insufficiency Current Visit: No Status: Acute Assessment and plan: Labs pending (4) Urethral stricture Current Visit: No Status: Acute Assessment and plan: Continue with current suprapubic tube. We will need to keep close eye on this as the small gauge can potentially clog. Qualifiers: Urethral stricture type: post-procedural Urethral stricture sex-location: male urethra-bulbous Qualified Code(s): 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, male Progress Note Narrative: Patient seen this morning. No further fevers upon arrival to the floor. Patient states that he feels better. Pain is slightly improved. Good drainage from suprapubic tube overnight with 700 mL's of total output Objective Initial Vital Signs Temp Pulse Resp BP Pulse Ox 102.5 F H 120 16 142/68 100 11/28/17 18:46 11/28/17 18:46 11/28/17 18:46 11/28/17 18:46 11/28/17 18:46 - General physical appearance Present: well developed, well nourished - Respiratory Present: normal expansion, normal respiratory effort - Abdomen Present: soft (Suprapubic tube draining clearer urine this morning then last night) - Genitourinary Present: other (Patient's left inner thigh abscess area is much softer than last night.) - Labs 11/29/17 05:03 11/29/17 05:03 Diabetes panel 11/29/17 Range/Units 05:03 Sodium 132 L (136-145) mEq/L Potassium 3.2 L (3.5-5.1) mEq/L Chloride 103 (98-107) mEq/L Carbon Dioxide 21 L (23-29) mEq/L BUN 12 (8-23) mg/dL Creatinine 0.90 (0.70-1.30) mg/dL Glucose 159 H (70-105) mg/dL Calcium 8.0 L (8.6-10.3) mg/dL Calcium panel 11/29/17 Range/Units 05:03 Calcium 8.0 L (8.6-10.3) mg/dL Pituitary panel 11/29/17 Range/Units 05:03 Sodium 132 L (136-145) mEq/L Potassium 3.2 L (3.5-5.1) mEq/L Chloride 103 (98-107) mEq/L Carbon Dioxide 21 L (23-29) mEq/L BUN 12 (8-23) mg/dL Creatinine 0.90 (0.70-1.30) mg/dL Glucose 159 H (70-105) mg/dL Calcium 8.0 L (8.6-10.3) mg/dL Adrenal panel 11/29/17 Range/Units 05:03 Sodium 132 L (136-145) mEq/L Potassium 3.2 L (3.5-5.1) mEq/L Chloride 103 (98-107) mEq/L Carbon Dioxide 21 L (23-29) mEq/L BUN 12 (8-23) mg/dL Creatinine 0.90 (0.70-1.30) mg/dL Glucose 159 H (70-105) mg/dL Calcium 8.0 L (8.6-10.3) mg/dL Consult Discharge Plan - Plan Referrals: Nely Stock, MATT [Primary Care Provider] -
[2017-11-29] MEDS: Insulin LISPRO 300 UNITS/3 ML VIAL SQ SCH ×4 (08:06→21:15)
[2017-11-29] MEDS: Fluconazole 100 MG/50 ML 100 MG/50 ML BAG IVPB SCH (09:47)
[2017-11-29] MEDS: Gabapentin 300 MG CAPSULE PO SCH ×3 (11:20→21:07)
[2017-11-29] MEDS: Clindamycin 600 MG/50 ML 600 MG/50 ML IV.SOLN IVPB SCH ×3 (12:03→23:34)
[2017-11-29] MEDS: cefTRIAXone 1,000 MG in Water for inj. (sterile) 20 ML 10 ML IVPB SCH (12:18)
--- NOTE | 2017-11-29 14:24 | Event Note ---
Date of Encounter: 11/29/17 Time of Encounter: 10:30 Subjective: patient denies fever, chills, nausea, vomiting. Patient admits to soreness perineum and inguinal region. Patient reports that he feels improved from his admission in terms of weakness, fever, chills. He is no other complaints. PE: Gen.: Vitals noted. No acute distress. AAOx3 HEENT: oropharynx clear, Normocephalic, atraumatic Cardiac: RRR, no murmur, +S1/S2 Pulmonary: CTA bilaterally, no wheezes, rales or rhonchi, equal chest expansion Abdomen: soft, nontender, Bowel sounds noted, no guarding skin: inguinal bilaterally erythematous, incision from s/p I&D, suprapubic catheter MSK: ROM intact, no joint swelling noted Extremities: no BLE edema, nontender calf, no cyanosis or clubbing Neuro: A&Ox3, moves all extremities, no focal deficits Psych: Appropriate mood and behavior A/P: 1. Sepsis secondary to cellulitis of perineum and UTI. At admission 102.5 F, tachycardic 120, WBC 13.2, lactic acid 1.0 resolved 98.3 F, WBC 8.5, tachycardic 98, lactic acid 0.6 -Blood culture pending -wound culture pending -start clindamycin -start Rocephin -continue fluconazole -stop Zosyn and vancomycin -continue IV fluids 2. cellulitis of perineum -cellulitis secondary to chronic irritation from the drainage of urine from the perineum -see antibiotics above 3. UTI -urinalysis: + leukocyte Esterase -suprapubic tube in place. Per urology note upon placement pus and urine came out. -urine culture pending -see antibiotics above 4. Urethral stricture -urology following and placed a suprapubic tube -history of urethral reconstruction at [facility] [address] 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 Diabetes -not taking medication at home 6.CAD history of CABG -not taking medication at home 7. DVT prophylaxis -EPCD
[2017-11-29] MEDS ORDERED: traMADol 50 MG TABLET PO ONE ×2 (14:58→21:00)
[2017-11-29] MEDS ORDERED: Aminoglycoside Consult 1 EACH MC ONE (18:16)
[2017-11-30 04:39] LABS: Basophils % 0.4 %; Eosinophils # 0.1 K/mcL (0.0-0.6); Eosinophils % 0.8 %; Hematocrit 30.2 % (37.5-50.1); Hemoglobin 9.9 g/dL (12.9-16.9); Immature Granulocytes % 0.5 % (0-4); Lymphocytes # 1.1 K/mcL (0.6-4.6); Mean Corpuscular HGB Conc 32.8 g/dL (31.6-35.5); Mean Corpuscular Hemoglobin 25.9 pg (28.0-33.3); Mean Corpuscular Volume 79.1 fL (83.0-100.0); Mean Platelet Volume 9.1 fL (9.4-12.4); Monocytes # 0.8 K/mcL (0.0-1.3); Monocytes % 8.9 %; Neutrophils # 6.6 K/mcL (1.6-8.9); Platelet Count 248 K/mcL (140-400); Red Blood Count 3.82 M/mcL (4.19-5.50); Red Cell Distribution Width 15.7 % (11.5-14.5); Segmented Neutrophils % 76.4 %
[2017-11-30 04:58] LABS: BUN/Creatinine Ratio 13 (6-26); Blood Urea Nitrogen 10 mg/dL (8-23); Calcium 7.8 mg/dL (8.6-10.3); Carbon Dioxide 21 mEq/L (23-29); Chloride 100 mEq/L (98-107); Glucose 138 mg/dL (70-105); Osmolality,Calculated 271 (280-300); Potassium 3.1 mEq/L (3.5-5.1); Sodium 130 mEq/L (136-145); eGFR For African Americans > 60 (> 60); eGFR For Non-African Americans > 60 (> 60)
[2017-11-30] MEDS: Gabapentin 300 MG CAPSULE PO SCH ×3 (09:11→21:24)
[2017-11-30] MEDS: cefTRIAXone 1,000 MG in Water for inj. (sterile) 20 ML 10 ML IVPB SCH (09:11)
[2017-11-30] MEDS: Clindamycin 600 MG/50 ML 600 MG/50 ML IV.SOLN IVPB SCH ×2 (09:11→16:52)
[2017-11-30] MEDS: 0.9 % Sodium Chloride 1,000 ML IVC SCH ×2 (09:12→16:54)
[2017-11-30] MEDS: Insulin LISPRO 300 UNITS/3 ML VIAL SQ SCH ×4 (09:13→21:24)
--- NOTE | 2017-11-30 09:22 | Urology Progress Note ---
Date of Encounter: 11/30/17 Time of Encounter: 09:20 - Assessment and Plan (1) Cellulitis of perineum Current Visit: Yes Status: Acute Assessment and plan: Recommend to continue broad-spectrum antibiotics until final cultures return. (2) Sepsis Current Visit: Yes Status: Acute Qualifiers: Sepsis type: sepsis due to unspecified organism Qualified Code(s): A41.9 - Sepsis, unspecified organism (3) Acute renal insufficiency Current Visit: No Status: Acute Assessment and plan: Stable (4) Urethral stricture Current Visit: No Status: Acute Assessment and plan: Continue with suprapubic tube at this time. Patient scheduled on to go to the operating room for upsizing of his superpubic tube. Qualifiers: Urethral stricture type: post-procedural Urethral stricture sex-location: male urethra-bulbous Qualified Code(s): 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, male Progress Note Narrative: Patient seen this morning. States that he is feeling better. Still with some discomfort in his perineal and lower abdomen region. Low-grade fevers overnight. Urine culture returned fungus. Objective Initial Vital Signs Temp Pulse Resp BP Pulse Ox 102.5 F H 120 16 142/68 100 11/28/17 18:46 11/28/17 18:46 11/28/17 18:46 11/28/17 18:46 11/28/17 18:46 - General physical appearance Present: well developed, well nourished. Absent: no distress - Abdomen Present: soft, tender (Suprapubic tube in place draining clearer urine) - Genitourinary Present: other (Perineal area still red and irritated. No obvious fluctuant pocket. I did probe the inner thigh area on the left side with no further pus seen.) - Labs 11/30/17 04:00 11/30/17 04:00 Diabetes panel 11/30/17 Range/Units 04:00 Sodium 130 L (136-145) mEq/L Potassium 3.1 L (3.5-5.1) mEq/L Chloride 100 (98-107) mEq/L Carbon Dioxide 21 L (23-29) mEq/L BUN 10 (8-23) mg/dL Creatinine 0.79 (0.70-1.30) mg/dL Glucose 138 H (70-105) mg/dL Calcium 7.8 L (8.6-10.3) mg/dL Calcium panel 11/30/17 Range/Units 04:00 Calcium 7.8 L (8.6-10.3) mg/dL Pituitary panel 11/30/17 Range/Units 04:00 Sodium 130 L (136-145) mEq/L Potassium 3.1 L (3.5-5.1) mEq/L Chloride 100 (98-107) mEq/L Carbon Dioxide 21 L (23-29) mEq/L BUN 10 (8-23) mg/dL Creatinine 0.79 (0.70-1.30) mg/dL Glucose 138 H (70-105) mg/dL Calcium 7.8 L (8.6-10.3) mg/dL Adrenal panel 11/30/17 Range/Units 04:00 Sodium 130 L (136-145) mEq/L Potassium 3.1 L (3.5-5.1) mEq/L Chloride 100 (98-107) mEq/L Carbon Dioxide 21 L (23-29) mEq/L BUN 10 (8-23) mg/dL Creatinine 0.79 (0.70-1.30) mg/dL Glucose 138 H (70-105) mg/dL Calcium 7.8 L (8.6-10.3) mg/dL - VTE Documentation of Mechanical Device: Intermittent pneumatic compression device Consult Discharge Plan - Plan Referrals: Nely Stock, MANUFACTURING SR ENGINEER [Primary Care Provider] -
[2017-11-30] MEDS: traMADol 50 MG TABLET PO SCH ×2 (09:32→21:24)
[2017-11-30] MEDS: Fluconazole 100 MG/50 ML 100 MG/50 ML BAG IVPB SCH (10:46)
--- NOTE | 2017-11-30 11:44 | Internal Med Progress Note ---
<Artem Sky - Last Filed: 11/30/17 11:40> Date of Encounter: 11/30/17 Time of Encounter: 11:40 - Assessment and plan (1) Sepsis Current Visit: Yes Status: Acute Assessment and plan: Sepsis secondary to cellulitis of perineum and UTI. At admission 102.5 F, tachycardic 120, WBC 13.2, lactic acid 1.0 - resolved Plan: -Blood culture preliminary NO GROWTH -wound culture pending - Urine Culture: Yeast species -Continue abx: IV Clindamycin, Rocephin and Diflucan Day #2 Qualifiers: Sepsis type: sepsis due to unspecified organism Qualified Code(s): A41.9 - Sepsis, unspecified organism (2) UTI (urinary tract infection) Current Visit: No Status: Acute Assessment and plan: Yeast species growing, Followed by Urology - On Fluconazole 100mg IV daily Qualifiers: Urinary tract infection type: acute cystitis Hematuria presence: without hematuria Qualified Code(s): N30.00 - Acute cystitis without hematuria (3) Urethral stricture Current Visit: No Status: Acute Assessment and plan: -urology following and placed a suprapubic tube plans to switch out with larger bore catheter further on in care plan per Urology. -history of urethral reconstruction at [facility] [address] 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, male (4) Cellulitis of perineum Current Visit: Yes Status: Acute Assessment and plan: -cellulitis secondary to chronic irritation from the drainage of urine from the perineum -see antibiotics above (5) DVT prophylaxis Current Visit: No Status: Acute Assessment and plan: SCDs (6) Diabetes mellitus Current Visit: Yes Status: Acute Assessment and plan: Place patient on sliding scale insulin coverage Qualifiers: Diabetes mellitus type: type 2 Diabetes mellitus intermodal customer service insulin use: without intermodal customer service use Diabetes mellitus complication status: without complication Qualified Code(s): E11.9 - Type 2 diabetes mellitus without complications - Time Spent With Patient Total time spent is greater than 50% in coordination of care (as documented) at patient's floor/unit and/or counseling patient: - Subjective Interval history: Seen and evaluated at patient bedside. He is alert awake and interactive in no acute distress. He denies an subjective fever, chills, diaphoresis. He has groin discomfort which he says is tolerable currently. He had seen the urologist this am and understands the plan for continued antibiotics and larger bore suprapubic catheter per Urology. He has no further questions at this time. - Constitutional Vitals: Temp Pulse Resp BP Pulse Ox 99.1 F 82 17 112/60 95 11/30/17 07:58 11/30/17 07:58 11/30/17 07:58 11/30/17 07:58 11/30/17 07:58 General appearance: Present: mild distress, A&O X 3, answers questions appropriately Exam: GEN: Alert, Awake, Oriented x3, no acute distress HEENT: NC/AT, oral mucosa moist. Neck supple Cardiac: RRR, +S1,S2 Resp: CTABL Abdomen soft, nontender to palpation, +BS Groin:inguinal bilaterally erythematous, incision from s/p I&D, suprapubic catheter Extremities: no BLE edema, nontender calf, no cyanosis or clubbing Internal Medicine: Result - Labs CBC & Chem 7: 11/30/17 04:00 11/30/17 04:00 Labs: Short CBC 11/30/17 Range/Units 04:00 WBC 8.6 (4.3-11.1) K/mcL Hgb 9.9 L (12.9-16.9) g/dL Hct 30.2 L (37.5-50.1) % Plt Count 248 (140-400) K/mcL Neutrophils # 6.6 (1.6-8.9) K/mcL BMP 11/30/17 04:00 Sodium 130 L Potassium 3.1 L Chloride 100 Carbon Dioxide 21 L BUN 10 Creatinine 0.79 Glucose 138 H Calcium 7.8 L - ABG Interpretation ABG results: PT/INR, D-dimer PT 14.7 Seconds (9.4-12.1) H 11/28/17 20:13 - VTE Documentation of Mechanical Device: Intermittent pneumatic compression device Consult Discharge Plan - Plan Referrals: Nely Stock, RN ORTHO [Primary Care Provider] - <Guillermo Huynh - Last Filed: 11/30/17 14:54> Date of Encounter: 11/30/17 - Assessment and plan (1) UTI (urinary tract infection) Current Visit: No Status: Acute Qualifiers: Urinary tract infection type: acute cystitis Hematuria presence: without hematuria Qualified Code(s): N30.00 - Acute cystitis without hematuria (2) Sepsis Current Visit: Yes Status: Acute Qualifiers: Sepsis type: sepsis due to unspecified organism Qualified Code(s): A41.9 - Sepsis, unspecified organism (3) DVT prophylaxis Current Visit: No Status: Acute (4) Urethral stricture Current Visit: No Status: Acute Qualifiers: Urethral stricture type: post-procedural Urethral stricture sex-location: male urethra-bulbous Qualified Code(s): 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, male (5) Cellulitis of perineum Current Visit: Yes Status: Acute (6) Diabetes mellitus Current Visit: Yes Status: Acute Qualifiers: Diabetes mellitus type: type 2 Diabetes mellitus intermodal customer service insulin use: without intermodal customer service use Diabetes mellitus complication status: without complication Qualified Code(s): E11.9 - Type 2 diabetes mellitus without complications - Time Spent With Patient Total time spent is greater than 50% in coordination of care (as documented) at patient's floor/unit and/or counseling patient: - Constitutional Vitals: Temp Pulse Resp BP Pulse Ox 98.2 F 73 16 147/83 97 11/30/17 12:18 11/30/17 12:18 11/30/17 12:18 11/30/17 12:18 11/30/17 12:18 Internal Medicine: Result - Labs CBC & Chem 7: 11/30/17 04:00 11/30/17 04:00 Labs: Short CBC 11/30/17 Range/Units 04:00 WBC 8.6 (4.3-11.1) K/mcL Hgb 9.9 L (12.9-16.9) g/dL Hct 30.2 L (37.5-50.1) % Plt Count 248 (140-400) K/mcL Neutrophils # 6.6 (1.6-8.9) K/mcL BMP 11/30/17 04:00 Sodium 130 L Potassium 3.1 L Chloride 100 Carbon Dioxide 21 L BUN 10 Creatinine 0.79 Glucose 138 H Calcium 7.8 L - ABG Interpretation ABG results: PT/INR, D-dimer PT 14.7 Seconds (9.4-12.1) H 11/28/17 20:13 - Attending Attestation Sepsis secondary to cellulitis/abscess of perineum and UTI ( yeasts growing), Status post draining by urology Continue Rocephin, clindamycin and fluconazole I examined this patient and my medical decision-making was reviewed with the Resident Physician. I agree with the documented findings, disposition and treatment plan as described except to the extent set forth below.
[2017-12-01] MEDS: Clindamycin 600 MG/50 ML 600 MG/50 ML IV.SOLN IVPB SCH ×4 (00:30→23:40)
[2017-12-01] MEDS: 0.9 % Sodium Chloride 1,000 ML IVC SCH ×3 (03:11→23:42)
[2017-12-01 05:52] LABS: Basophils % 0.6 %; Eosinophils # 0.2 K/mcL (0.0-0.6); Eosinophils % 3.6 %; Hematocrit 30.6 % (37.5-50.1); Hemoglobin 9.9 g/dL (12.9-16.9); Immature Granulocytes % 0.5 % (0-4); Lymphocytes # 1.1 K/mcL (0.6-4.6); Lymphocytes % 17.4 %; Mean Corpuscular HGB Conc 32.4 g/dL (31.6-35.5); Mean Corpuscular Hemoglobin 25.6 pg (28.0-33.3); Mean Corpuscular Volume 79.3 fL (83.0-100.0); Mean Platelet Volume 9.1 fL (9.4-12.4); Monocytes # 0.7 K/mcL (0.0-1.3); Monocytes % 10.4 %; Neutrophils # 4.3 K/mcL (1.6-8.9); Platelet Count 264 K/mcL (140-400); Red Blood Count 3.86 M/mcL (4.19-5.50); Red Cell Distribution Width 15.9 % (11.5-14.5); Segmented Neutrophils % 67.5 %
[2017-12-01 06:16] LABS: Alanine Aminotransferase 21 Units/L (7-52); Albumin 2.4 g/dL (3.5-5.7); Albumin/Globulin Ratio 0.7 (1.1-2.2); Alkaline Phosphatase 99 Units/L (34-104); Aspartate Amino Transferase 23 Units/L (13-39); BUN/Creatinine Ratio 15 (6-26); Bilirubin,Total 0.2 mg/dL (0.3-1.0); Blood Urea Nitrogen 11 mg/dL (8-23); Calcium 7.7 mg/dL (8.6-10.3); Carbon Dioxide 23 mEq/L (23-29); Chloride 103 mEq/L (98-107); Globulin 3.6 g/dL (2.4-3.5); Glucose 148 mg/dL (70-105); Osmolality,Calculated 276 (280-300); Potassium 3.4 mEq/L (3.5-5.1); Sodium 132 mEq/L (136-145); eGFR For African Americans > 60 (> 60); eGFR For Non-African Americans > 60 (> 60)
--- NOTE | 2017-12-01 07:12 | Discharge Summary ---
Orders not resulted at time of discharge: Pending orders 11/29/17 03:00 Culture,Urine [RM] Stat 11/29/17 12:20 Culture,Wound [RM] Stat Date of Encounter: 12/01/17 Time of Encounter: 07:11 - Discharge Diagnosis (1) Sepsis Priority: Primary Status: Acute Qualifiers: Sepsis type: sepsis due to unspecified organism Qualified Code(s): A41.9 - Sepsis, unspecified organism (2) UTI (urinary tract infection) Priority: Primary Status: Acute Qualifiers: Urinary tract infection type: acute cystitis Hematuria presence: without hematuria Qualified Code(s): N30.00 - Acute cystitis without hematuria (3) Urethral stricture Priority: Primary Status: Acute Qualifiers: Urethral stricture type: post-procedural Urethral stricture sex-location: male urethra-bulbous Qualified Code(s): 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 Bolden is a 62 year old male - Time Spent with Patient Total time spent providing and/or coordinating discharge services: - Discharge Medications Home Medications: Gabapentin [Neurontin] 300 mg PO TID 11/28/17 [History] Tramadol HCl [Ultram] 100 mg PO QAM 11/28/17 [History] Tramadol HCl [Ultram] 150 mg PO HS 11/29/17 [History] Allergies/Adverse Reactions: 3 Allergy/AdvReac Type Severity Reaction Status Date / Time codeine Allergy Mild See Verified 05/03/17 09:56 Comments Date of admission: 11/29/17 00:36 Primary care physician: Nely Stock CNP - Constitutional Vitals: Temp Pulse Resp BP Pulse Ox 98.3 F 89 14 130/78 94 12/01/17 04:03 12/01/17 04:03 12/01/17 04:03 12/01/17 04:03 12/01/17 04:03 General appearance: Present: mild distress, A&O X 3, answers questions appropriately - Patient Status Condition: Good - Discharge Instructions Follow Up With: Nely Stock H[employer] [Primary Care Provider] - - VTE Documentation of Mechanical Device: Intermittent pneumatic compression device
--- NOTE | 2017-12-01 07:19 | Urology Progress Note ---
Date of Encounter: 12/01/17 Time of Encounter: 07:17 - Assessment and Plan (1) Cellulitis of perineum Current Visit: Yes Status: Acute Assessment and plan: continue with IV abx until at least tomorrow. patient not quite ready to go home (2) Sepsis Current Visit: Yes Status: Acute Qualifiers: Sepsis type: sepsis due to unspecified organism Qualified Code(s): A41.9 - Sepsis, unspecified organism (3) Acute renal insufficiency Current Visit: No Status: Acute Assessment and plan: resolved. (4) Urethral stricture Current Visit: No Status: Acute Assessment and plan: continue with SPT. draining well at this time. patient ok to shower today. Patient scheduled for in the OR for SPT upsizing. Hopeful discharge tomorrow (saturday) on po abx and return as outpatient on for surgery. 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 feeling better today, but not quite there. Objective Initial Vital Signs Temp Pulse Resp BP Pulse Ox 102.5 F H 120 16 142/68 100 11/28/17 18:46 11/28/17 18:46 11/28/17 18:46 11/28/17 18:46 11/28/17 18:46 - General physical appearance Present: well developed, well nourished - Abdomen Present: soft. Absent: tender - Genitourinary Present: other (perineal area still markedly irritated and painful) - Labs 12/01/17 05:23 12/01/17 05:23 Diabetes panel 12/01/17 Range/Units 05:23 Sodium 132 L (136-145) mEq/L Potassium 3.4 L (3.5-5.1) mEq/L Chloride 103 (98-107) mEq/L Carbon Dioxide 23 (23-29) mEq/L BUN 11 (8-23) mg/dL Creatinine 0.74 (0.70-1.30) mg/dL Glucose 148 H (70-105) mg/dL Calcium 7.7 L (8.6-10.3) mg/dL AST 23 (13-39) Units/L ALT 21 (7-52) Units/L Alkaline Phosphatase 99 (34-104) Units/L Albumin 2.4 L (3.5-5.7) g/dL Calcium panel 12/01/17 Range/Units 05:23 Calcium 7.7 L (8.6-10.3) mg/dL Albumin 2.4 L (3.5-5.7) g/dL Pituitary panel 12/01/17 Range/Units 05:23 Sodium 132 L (136-145) mEq/L Potassium 3.4 L (3.5-5.1) mEq/L Chloride 103 (98-107) mEq/L Carbon Dioxide 23 (23-29) mEq/L BUN 11 (8-23) mg/dL Creatinine 0.74 (0.70-1.30) mg/dL Glucose 148 H (70-105) mg/dL Calcium 7.7 L (8.6-10.3) mg/dL Adrenal panel 12/01/17 Range/Units 05:23 Sodium 132 L (136-145) mEq/L Potassium 3.4 L (3.5-5.1) mEq/L Chloride 103 (98-107) mEq/L Carbon Dioxide 23 (23-29) mEq/L BUN 11 (8-23) mg/dL Creatinine 0.74 (0.70-1.30) mg/dL Glucose 148 H (70-105) mg/dL Calcium 7.7 L (8.6-10.3) mg/dL Total Bilirubin 0.2 L (0.3-1.0) mg/dL AST 23 (13-39) Units/L ALT 21 (7-52) Units/L Alkaline Phosphatase 99 (34-104) Units/L Albumin 2.4 L (3.5-5.7) g/dL - VTE Documentation of Mechanical Device: Intermittent pneumatic compression device Consult Discharge Plan - Plan Referrals: Nely Stock, TO[facility] PATROLMAN [Primary Care Provider] -
[2017-12-01] MEDS: cefTRIAXone 1,000 MG in Water for inj. (sterile) 20 ML 10 ML IVPB SCH (08:50)
[2017-12-01] MEDS: traMADol 50 MG TABLET PO SCH ×2 (08:51→20:36)
[2017-12-01] MEDS: Gabapentin 300 MG CAPSULE PO SCH ×3 (08:51→20:36)
[2017-12-01] MEDS: Insulin LISPRO 300 UNITS/3 ML VIAL SQ SCH ×4 (08:51→20:37)
[2017-12-01] MEDS: Fluconazole 100 MG/50 ML 100 MG/50 ML BAG IVPB SCH (09:02)
--- NOTE | 2017-12-01 09:13 | Internal Med Progress Note ---
<Artem Sky - Last Filed: 12/01/17 10:04> Date of Encounter: 12/01/17 Time of Encounter: 09:12 - Assessment and plan (1) Sepsis Current Visit: Yes Status: Acute Assessment and plan: Sepsis secondary to cellulitis of perineum and UTI. At admission 102.5 F, tachycardic 120, WBC 13.2, lactic acid 1.0 - resolved Plan: -Blood culture preliminary NO GROWTH -wound culture pending - Urine Culture: Yeast species -Continue abx: IV Clindamycin, Rocephin and Diflucan Day #3 Plan for possible discharge tomorrow with PO antibiotics. Qualifiers: Sepsis type: sepsis due to unspecified organism Qualified Code(s): A41.9 - Sepsis, unspecified organism (2) UTI (urinary tract infection) Current Visit: No Status: Acute Assessment and plan: Yeast species growing, Followed by Urology - On Fluconazole 100mg IV daily Qualifiers: Urinary tract infection type: acute cystitis Hematuria presence: without hematuria Qualified Code(s): N30.00 - Acute cystitis without hematuria (3) Urethral stricture Current Visit: No Status: Acute Assessment and plan: -urology following and placed a suprapubic tube plans to switch out with larger bore catheter further on in care plan per Urology. -history of urethral reconstruction at [facility] [address] 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, male (4) Cellulitis of perineum Current Visit: Yes Status: Acute Assessment and plan: -cellulitis secondary to chronic irritation from the drainage of urine from the perineum -see antibiotics above (5) Diabetes mellitus Current Visit: Yes Status: Acute Assessment and plan: Place patient on sliding scale insulin coverage Qualifiers: Diabetes mellitus type: type 2 Diabetes mellitus residential insulin use: without residential use Diabetes mellitus complication status: without complication Qualified Code(s): E11.9 - Type 2 diabetes mellitus without complications (6) DVT prophylaxis Current Visit: No Status: Acute Assessment and plan: SCDs (7) Otitis externa of right ear Current Visit: Yes Status: Acute Assessment and plan: Patient has pain in his right ear, erythema to the external ear canal - Ciprofloxacin eardrops 4 drops twice a day total of 7 days - Time Spent With Patient Total time spent is greater than 50% in coordination of care (as documented) at patient's floor/unit and/or counseling patient: - Subjective Interval history: Seen and evaluated at patient bedside. He is alert awake and interactive in no acute distress. He denies an subjective fever, chills, diaphoresis. He has groin discomfort which is improving compared to yesterday. He continues to have some mild drainage from his perineal region but feels that the erythema and tenderness is improved. He had some mild chills overnight but states that he has otherwise without fevers, diaphoresis, nausea or vomiting. He is agreeable to 1 more day of antibiotics for potential discharge tomorrow if he is stable with oral antibiotics. He does have some discomfort in his right ear is described as mild dull pain that is constant. - Constitutional Vitals: Temp Pulse Resp BP Pulse Ox 98.7 F 86 16 134/76 96 12/01/17 07:44 12/01/17 07:44 12/01/17 07:44 12/01/17 07:44 12/01/17 07:44 General appearance: Present: mild distress, A&O X 3, answers questions appropriately Exam: GEN: Alert, Awake, Oriented x3, no acute distress HEENT: NC/AT, oral mucosa moist. Neck supple, Right external ear canal with mild erythema, left with ear wax. Cardiac: RRR, +S1,S2 Resp: CTABL Abdomen soft, nontender to palpation, +BS Groin:inguinal bilaterally erythematous, incision from s/p I&D, suprapubic catheter Extremities: no BLE edema, nontender calf, no cyanosis or clubbing Internal Medicine: Result - Labs CBC & Chem 7: 12/01/17 05:23 12/01/17 05:23 Labs: Short CBC 12/01/17 Range/Units 05:23 WBC 6.3 (4.3-11.1) K/mcL Hgb 9.9 L (12.9-16.9) g/dL Hct 30.6 L (37.5-50.1) % Plt Count 264 (140-400) K/mcL Neutrophils # 4.3 (1.6-8.9) K/mcL BMP 12/01/17 05:23 Sodium 132 L Potassium 3.4 L Chloride 103 Carbon Dioxide 23 BUN 11 Creatinine 0.74 Glucose 148 H Calcium 7.7 L Liver Function 12/01/17 Range/Units 05:23 Total Bilirubin 0.2 L (0.3-1.0) mg/dL AST 23 (13-39) Units/L ALT 21 (7-52) Units/L Alkaline Phosphatase 99 (34-104) Units/L Albumin 2.4 L (3.5-5.7) g/dL - ABG Interpretation ABG results: PT/INR, D-dimer PT 14.7 Seconds (9.4-12.1) H 11/28/17 20:13 - VTE Documentation of Mechanical Device: Intermittent pneumatic compression device Consult Discharge Plan - Plan Referrals: Nely Stock CNP [Primary Care Provider] - <Guillermo Huynh H - Last Filed: 12/01/17 11:21> Date of Encounter: 12/01/17 - Assessment and plan (1) UTI (urinary tract infection) Current Visit: No Status: Acute Qualifiers: Urinary tract infection type: acute cystitis Hematuria presence: without hematuria Qualified Code(s): N30.00 - Acute cystitis without hematuria (2) Sepsis Current Visit: Yes Status: Acute Qualifiers: Sepsis type: sepsis due to unspecified organism Qualified Code(s): A41.9 - Sepsis, unspecified organism (3) DVT prophylaxis Current Visit: No Status: Acute (4) Urethral stricture Current Visit: No Status: Acute Qualifiers: Urethral stricture type: post-procedural Urethral stricture sex-location: male urethra-bulbous Qualified Code(s): 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, male (5) Cellulitis of perineum Current Visit: Yes Status: Acute (6) Diabetes mellitus Current Visit: Yes Status: Acute Qualifiers: Diabetes mellitus type: type 2 Diabetes mellitus cutting and boning supervisor insulin use: without cutting and boning supervisor use Diabetes mellitus complication status: without complication Qualified Code(s): E11.9 - Type 2 diabetes mellitus without complications (7) Otitis externa of right ear Current Visit: Yes Status: Acute - Time Spent With Patient Total time spent is greater than 50% in coordination of care (as documented) at patient's floor/unit and/or counseling patient: - Constitutional Vitals: Temp Pulse Resp BP Pulse Ox 98.7 F 86 16 134/76 96 12/01/17 07:44 12/01/17 07:44 12/01/17 07:44 12/01/17 07:44 12/01/17 07:44 Internal Medicine: Result - Labs CBC & Chem 7: 12/01/17 05:23 12/01/17 05:23 Labs: Short CBC 12/01/17 Range/Units 05:23 WBC 6.3 (4.3-11.1) K/mcL Hgb 9.9 L (12.9-16.9) g/dL Hct 30.6 L (37.5-50.1) % Plt Count 264 (140-400) K/mcL Neutrophils # 4.3 (1.6-8.9) K/mcL BMP 12/01/17 05:23 Sodium 132 L Potassium 3.4 L Chloride 103 Carbon Dioxide 23 BUN 11 Creatinine 0.74 Glucose 148 H Calcium 7.7 L Liver Function 12/01/17 Range/Units 05:23 Total Bilirubin 0.2 L (0.3-1.0) mg/dL AST 23 (13-39) Units/L ALT 21 (7-52) Units/L Alkaline Phosphatase 99 (34-104) Units/L Albumin 2.4 L (3.5-5.7) g/dL - ABG Interpretation ABG results: PT/INR, D-dimer PT 14.7 Seconds (9.4-12.1) H 11/28/17 20:13 - Attending Attestation Sepsis secondary to cellulitis/abscess of perineum and UTI ( yeasts and GPR growing), Status post draining by urology Continue Rocephin, clindamycin and fluconazole day #3 right otitis externa , start otic ciprofloxacin I examined this patient and my medical decision-making was reviewed with the Resident Physician. I agree with the documented findings, disposition and treatment plan as described except to the extent set forth below.
[2017-12-01] MEDS: Ciprofloxacin/Dex *EAR* Susp 7.5 ML BOTTLE RIGHT EAR SCH ×2 (10:46→20:37)
[2017-12-01] MEDS: Acetaminophen 325 MG TABLET PO PRN ×2 (15:43→23:51)
[2017-12-02 01:27] LABS: Basophils % 0.5 %; Eosinophils # 0.3 K/mcL (0.0-0.6); Eosinophils % 4.4 %; Hemoglobin 9.8 g/dL (12.9-16.9); Immature Granulocytes % 0.6 % (0-4); Lymphocytes # 1.6 K/mcL (0.6-4.6); Lymphocytes % 25.9 %; Mean Corpuscular HGB Conc 32.7 g/dL (31.6-35.5); Mean Corpuscular Hemoglobin 26.1 pg (28.0-33.3); Mean Corpuscular Volume 79.8 fL (83.0-100.0); Mean Platelet Volume 9.4 fL (9.4-12.4); Monocytes # 0.5 K/mcL (0.0-1.3); Monocytes % 8.6 %; Neutrophils # 3.7 K/mcL (1.6-8.9); Platelet Count 290 K/mcL (140-400); Red Blood Count 3.76 M/mcL (4.19-5.50); Red Cell Distribution Width 15.9 % (11.5-14.5)
[2017-12-02 01:45] LABS: Alanine Aminotransferase 20 Units/L (7-52); Albumin 2.4 g/dL (3.5-5.7); Albumin/Globulin Ratio 0.7 (1.1-2.2); Alkaline Phosphatase 93 Units/L (34-104); Aspartate Amino Transferase 19 Units/L (13-39); BUN/Creatinine Ratio 16 (6-26); Bilirubin,Total 0.2 mg/dL (0.3-1.0); Blood Urea Nitrogen 15 mg/dL (8-23); Calcium 7.9 mg/dL (8.6-10.3); Carbon Dioxide 23 mEq/L (23-29); Chloride 105 mEq/L (98-107); Globulin 3.5 g/dL (2.4-3.5); Glucose 160 mg/dL (70-105); Osmolality,Calculated 282 (280-300); Potassium 3.7 mEq/L (3.5-5.1); Sodium 134 mEq/L (136-145); Total Protein 5.9 g/dL (6.4-8.9); eGFR For African Americans > 60 (> 60); eGFR For Non-African Americans > 60 (> 60)
--- NOTE | 2017-12-02 07:31 | Urology Progress Note ---
Date of Encounter: 12/02/17 Time of Encounter: 07:29 - Assessment and Plan (1) Cellulitis of perineum Current Visit: Yes Status: Acute Assessment and plan: Improving. Upon discussion with the patient this morning he states that he has no money to pay for any outpatient medication. It is imperative that the patient remain on antimicrobials (Diflucan) through his operation which is scheduled . No plan to move up surgery because leaving the existing suprapubic tube in until allows better establishment of the tract. 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 Patient has been clinically improving on IV Diflucan. He states that when he got up yesterday to try to get in the shower he became dizzy. Objective Initial Vital Signs Temp Pulse Resp BP Pulse Ox 102.5 F H 120 16 142/68 100 11/28/17 18:46 11/28/17 18:46 11/28/17 18:46 11/28/17 18:46 11/28/17 18:46 - General physical appearance Present: well developed, well nourished - Respiratory Present: normal expansion, normal respiratory effort - Abdomen Present: soft - Genitourinary Present: other (Improving irritation in the perineal area but was still quite irritated.) - Labs 12/02/17 00:54 12/02/17 00:54 Diabetes panel 12/02/17 Range/Units 00:54 Sodium 134 L (136-145) mEq/L Potassium 3.7 (3.5-5.1) mEq/L Chloride 105 (98-107) mEq/L Carbon Dioxide 23 (23-29) mEq/L BUN 15 (8-23) mg/dL Creatinine 0.91 (0.70-1.30) mg/dL Glucose 160 H (70-105) mg/dL Calcium 7.9 L (8.6-10.3) mg/dL AST 19 (13-39) Units/L ALT 20 (7-52) Units/L Alkaline Phosphatase 93 (34-104) Units/L Albumin 2.4 L (3.5-5.7) g/dL Calcium panel 12/02/17 Range/Units 00:54 Calcium 7.9 L (8.6-10.3) mg/dL Albumin 2.4 L (3.5-5.7) g/dL Pituitary panel 12/02/17 Range/Units 00:54 Sodium 134 L (136-145) mEq/L Potassium 3.7 (3.5-5.1) mEq/L Chloride 105 (98-107) mEq/L Carbon Dioxide 23 (23-29) mEq/L BUN 15 (8-23) mg/dL Creatinine 0.91 (0.70-1.30) mg/dL Glucose 160 H (70-105) mg/dL Calcium 7.9 L (8.6-10.3) mg/dL Adrenal panel 12/02/17 Range/Units 00:54 Sodium 134 L (136-145) mEq/L Potassium 3.7 (3.5-5.1) mEq/L Chloride 105 (98-107) mEq/L Carbon Dioxide 23 (23-29) mEq/L BUN 15 (8-23) mg/dL Creatinine 0.91 (0.70-1.30) mg/dL Glucose 160 H (70-105) mg/dL Calcium 7.9 L (8.6-10.3) mg/dL Total Bilirubin 0.2 L (0.3-1.0) mg/dL AST 19 (13-39) Units/L ALT 20 (7-52) Units/L Alkaline Phosphatase 93 (34-104) Units/L Albumin 2.4 L (3.5-5.7) g/dL - VTE Documentation of Mechanical Device: Intermittent pneumatic compression device Consult Discharge Plan - Plan Referrals: Nely Stock, [employer] [facility] [Primary Care Provider] -
[2017-12-02] MEDS: Ciprofloxacin/Dex *EAR* Susp 7.5 ML BOTTLE RIGHT EAR SCH (08:11)
[2017-12-02] MEDS: cefTRIAXone 1,000 MG in Water for inj. (sterile) 20 ML 10 ML IVPB SCH (08:12)
[2017-12-02] MEDS: traMADol 50 MG TABLET PO SCH (08:13)
[2017-12-02] MEDS: Insulin LISPRO 300 UNITS/3 ML VIAL SQ SCH ×2 (08:13→11:45)
[2017-12-02] MEDS: Clindamycin 600 MG/50 ML 600 MG/50 ML IV.SOLN IVPB SCH (08:14)
[2017-12-02] MEDS: 0.9 % Sodium Chloride 1,000 ML IVC SCH (08:14)
[2017-12-02] MEDS: Gabapentin 300 MG CAPSULE PO SCH (08:14)
[2017-12-02] MEDS: Fluconazole 100 MG/50 ML 100 MG/50 ML BAG IVPB SCH (09:12)
[2017-12-02 10:24] VITALS: BP 144/83
[2017-12-02] MEDS: Acetaminophen 325 MG TABLET PO PRN (10:58)
--- NOTE | 2017-12-02 11:28 | Discharge Summary ---
<Amy Myers - Last Filed: 12/02/17 14:10> Orders not resulted at time of discharge: Pending orders 11/29/17 03:00 Culture,Urine [RM] Stat 11/29/17 12:20 Culture,Wound [RM] Stat Date of Encounter: 12/02/17 Time of Encounter: 14:10 - Discharge Diagnosis (1) UTI (urinary tract infection) Priority: Secondary Status: Acute Qualifiers: Urinary tract infection type: acute cystitis Hematuria presence: without hematuria Qualified Code(s): N30.00 - Acute cystitis without hematuria (2) Sepsis Priority: Primary Status: Acute Qualifiers: Sepsis type: sepsis due to unspecified organism Qualified Code(s): A41.9 - Sepsis, unspecified organism (3) DVT prophylaxis Priority: Secondary Status: Acute (4) Urethral stricture Priority: Secondary Status: Acute Qualifiers: Urethral stricture type: post-procedural Urethral stricture sex-location: male urethra-bulbous Qualified Code(s): 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 Bolden is a 62 year old male presented to ER for fever for 2 days. Possible medical history is significant for diabetes, CAD, urethral stricture S/ P surgery. Patient has history of urethral stricture had surgery in [facility]. Patient has multiple previous UTI. 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 Patient developed fever since 2 days ago. With difficult urination. Patient denies shortness of breath, chest pain, cough , or abdominal pain. In the emergency room, urology consult saw patient and placed the suprapubic catheter. Pus like urine was drained out. Patient was admitted as UTI and sepsis. Sepsis secondary to cellulitis of perineum and UTI. At admission 102.5 F, tachycardic 120, WBC 13.2, lactic acid 1.0. Blood cultures had no growth. Urine grew yeast. History of urethral reconstruction at [facility] [address] 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 During the course of his submission urology continue to follow. He is found to also have an otitis externa right ear and was given ciprofloxacin eardrops. The patient reported that he cannot afford his oral antibiotics of social work was consulted and was able to help the patient to get his antibiotics to be discharged on. He was discharged on cefdinir, fluconazole, clindamycin. He will have home health for wound care. Follow up with urology for operation on . Return to ED if you should develop fever, chills, nausea, vomiting. Follow up with PCP in a week or 2. Upon discharge she was afebrile, white blood cell count within normal limits. He is alert and oriented times 3 full capacity stated clear understanding of the treatment plan. Discharge discussed with: patient - Time Spent with Patient Total time spent providing and/or coordinating discharge services: Greater than 30 minutes - Discharge Medications Prescriptions: Cefdinir [Omnicef] 300 mg PO DAILY #7 capsule Ciprofloxacin/Dex *EAR* Susp [Ciprodex *EAR* Susp] 4 drop RIGHT EAR BID 5 Days # 1 bottle Clindamycin HCl [Cleocin HCl] 300 mg PO TID #21 cap Fluconazole [Diflucan] 100 mg PO DAILY #7 tablet Home Medications: Gabapentin [Neurontin] 300 mg PO TID 11/28/17 [History] Tramadol HCl [Ultram] 100 mg PO QAM 11/28/17 [History] Tramadol HCl [Ultram] 150 mg PO HS 11/29/17 [History] Cefdinir [Omnicef] 300 mg PO DAILY #7 capsule 12/02/17 [Rx] Ciprofloxacin/Dex *EAR* Susp [Ciprodex *EAR* Susp] 4 drop RIGHT EAR BID 5 Days # 1 bottle 12/02/17 [Rx] Clindamycin HCl [Cleocin HCl] 300 mg PO TID #21 cap 12/02/17 [Rx] Fluconazole [Diflucan] 100 mg PO DAILY #7 tablet 12/02/17 [Rx] Allergies/Adverse Reactions: 3 Allergy/AdvReac Type Severity Reaction Status Date / Time codeine Allergy Mild See Verified 05/03/17 09:56 Comments Date of admission: 11/29/17 00:36 Primary care physician: Nely Stock CNP Discharging clinician: Guillermo Huynh Anticipated date of discharge: 12/02/17 - Constitutional Vitals: Temp Pulse Resp BP Pulse Ox 97.9 F 87 16 144/83 96 12/02/17 09:50 12/02/17 09:50 12/02/17 09:50 12/02/17 09:50 12/02/17 09:50 General appearance: Present: mild distress, A&O X 3, answers questions appropriately Exam: Gen.: Vitals noted. No acute distress. AAOx3 HEENT: oropharynx clear, Normocephalic, atraumatic Cardiac: RRR, no murmur, +S1/S2 Pulmonary: CTA bilaterally, no wheezes, rales or rhonchi, equal chest expansion Abdomen: soft, nontender, Bowel sounds noted, no guarding, suprapubic catheter in place Extremities: no BLE edema, nontender calf, no cyanosis or clubbing Neuro: A&Ox3, moves all extremities, no focal deficits Psych: Appropriate mood and behavior - Patient Status Disposition: Home Health Service Condition: Good Functional capacity at discharge: independent ambulation Overall status at discharge: patient is back to baseline - Discharge Instructions Follow Up With: Nely Stock CNP [Primary Care Provider] - Additional Instructions: finish antibiotics as prescribed use antibiotics for ear for 5 more days follow up with urology for operation on return to ED if you should develop fever, chills, nausea, vomiting follow up with PCP in a week or 2 - Diet and Activity Activity: resume usual activities as tolerated Diet: advance to your usual diet - VTE Documentation of Mechanical Device: Intermittent pneumatic compression device <Guillermo Huynh - Last Filed: 12/02/17 14:33> Orders not resulted at time of discharge: Pending orders 11/29/17 03:00 Culture,Urine [RM] Stat 11/29/17 12:20 Culture,Wound [RM] Stat Date of Encounter: 12/02/17 - Discharge Diagnosis (1) UTI (urinary tract infection) Status: Acute Qualifiers: Urinary tract infection type: acute cystitis Hematuria presence: without hematuria Qualified Code(s): N30.00 - Acute cystitis without hematuria (2) Sepsis Status: Acute Qualifiers: Sepsis type: sepsis due to unspecified organism Qualified Code(s): A41.9 - Sepsis, unspecified organism (3) DVT prophylaxis Status: Acute (4) Urethral stricture Status: Acute Qualifiers: Urethral stricture type: post-procedural Urethral stricture sex-location: male urethra-bulbous Qualified Code(s): 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 Bolden is a 62 year old male - Time Spent with Patient Total time spent providing and/or coordinating discharge services: Date of admission: 11/29/17 00:36 Primary care physician: Nely Stock CNP - Constitutional Vitals: Temp Pulse Resp BP Pulse Ox 97.9 F 87 16 144/83 96 12/02/17 09:50 12/02/17 09:50 12/02/17 09:50 12/02/17 09:50 12/02/17 09:50 - Attending Attestation Sepsis secondary to cellulitis/abscess of perineum and UTI ( yeasts and GPR growing), Status post draining by urology Continue Cefdinir, clindamycin and fluconazole right otitis externa , continue otic ciprofloxacin follow up with urology on to replace Bernal ( larger) time spent : 40 min I examined this patient and my medical decision-making was reviewed with the Resident Physician. I agree with the documented findings, disposition and treatment plan as described except to the extent set forth below.
--- NOTE | 2017-12-02 14:30 | Physician Discharge Referral ---
Home Health/Hosp Referral Info Transfer to: Home Health Provider in Charge Post Discharge: PCP - Diagnosis (1) UTI (urinary tract infection) Status: Acute (2) Sepsis Status: Acute (3) DVT prophylaxis Status: Acute (4) Urethral stricture Status: Acute (5) Cellulitis of perineum Status: Acute (6) Diabetes mellitus Status: Acute (7) Otitis externa of right ear Status: Acute - Respiratory Orders None Smoking Cessation: Smoking cessation has been advised. For more information, call the [place] Tobacco Quit Line at 1-235-QLYT-NOW. - Diet/Nutrition Diet/Nutrition Orders: Regular - Activity Activity Orders: Up ad amber, Ambulate - Services Needed Following services are medically necessary services: Home Health Aide Home Care Orders: Wound care - Transfer Medications Prescriptions: Cefdinir [Omnicef] 300 mg PO DAILY #7 capsule Ciprofloxacin/Dex *EAR* Susp [Ciprodex *EAR* Susp] 4 drop RIGHT EAR BID 5 Days # 1 bottle Clindamycin HCl [Cleocin HCl] 300 mg PO TID #21 cap Fluconazole [Diflucan] 100 mg PO DAILY #7 tablet Home Medications: Gabapentin [Neurontin] 300 mg PO TID 11/28/17 [History] Tramadol HCl [Ultram] 100 mg PO QAM 11/28/17 [History] Tramadol HCl [Ultram] 150 mg PO HS 11/29/17 [History] Cefdinir [Omnicef] 300 mg PO DAILY #7 capsule 12/02/17 [Rx] Ciprofloxacin/Dex *EAR* Susp [Ciprodex *EAR* Susp] 4 drop RIGHT EAR BID 5 Days # 1 bottle 12/02/17 [Rx] Clindamycin HCl [Cleocin HCl] 300 mg PO TID #21 cap 12/02/17 [Rx] Fluconazole [Diflucan] 100 mg PO DAILY #7 tablet 12/02/17 [Rx] Allergies/Adverse Reactions: 3 Allergy/AdvReac Type Severity Reaction Status Date / Time codeine Allergy Mild See Verified 05/03/17 09:56 Comments Certification: Further, I certify that my clinical findings support that this patient is homebound (i.e. absences from home require considerable and taxing effort and are for medical reasons or gnosticism services or infrequently or short duration when for other reasons) because: Homebound Reason: Leaving home requires considerable and taxing effort due to condition Attestation: My signature below is to certify that this patient is under my care and that I, or nurse practitioner, or a physician's assistant professor of psychology working with me, has a face-to -face encounter with this patient. Dr. Amy Myers
--- NOTE | 2017-12-06 08:20 | Electrocardiograph Report ---
[place] [id number] Test Date: 2017-11-28 Pat Name: Formerly Named [facility] Department: 103 Room: [facility] Gender: M Bar Pointer: IMMANUEL : 1955 Requested By: Josep Arreguin Order Number: [id number] Reading MD: Patrick Russell Measurements Intervals [place] Rate: 117 P: 78 TN: 147 QRS: -15 QRSD: 89 T: 75 QT: 311 QTc: 380 Interpretive Statements SINUS TACHYCARDIA Electronically Signed On 12-06-2017 8:19:15 EDT by Patrick Russell
== END 2017-12-02 18:17 | disposition home health service (06) | DRG 872 ==
LOC: 3NENU 18:39 → EMEROO 18:39 → 3NENU 23:33
PROVIDERS: ADMIT Pediatrics; ATTEND Internal Medicine

== ENCOUNTER 2019-01-02 19:58 | Inpatient (IN) ==
--- NOTE | 2019-01-02 20:18 | Emergency Department Note ---
Disposition Clinical Impression: Febrile illness UTI (urinary tract infection) Qualifiers: Urinary tract infection type: acute cystitis Hematuria presence: with hematuria Qualified Code(s): N30.01 - Acute cystitis with hematuria Leukocytosis Qualifiers: Leukocytosis type: other Qualified Code(s): D72.828 - Other elevated white blood cell count Disposition: Admitted As Inpatient Time of Disposition: 01:02 General Adult HPI - General Chief complaint: ED Fever Stated complaint: Poss UTI Time Seen by Provider: 01/02/19 20:04 Source: patient Mode of arrival: ambulatory Limitations: no limitations Nursing Notes Reviewed: Yes - History of Present Illness HPI Narrative: Mr. Benson is a 63 year old male with history of type II diabetes, CAD, PVD, tobacco use, and suprapubic catheter for the last 3 years because was unable to reverse due to urinary obstruction unspecified. Patient reports that starting this morning has felt overall weakness overall and fatigue. Unable to specify any further. Patient denies fevers, chills, sweats, nausea, vomiting, h eadaches, lightheadedness or dizziness, changes in vision, chest pain, palpitations, shortness of breath, abdominal pain, changes in bowels, diarrhea or constipation, blood in stools, dysuria, hematuria, loss of sensation, or rash. - Related Data Home Medications Medication Instructions Recorded Confirmed Gabapentin [Neurontin] 600 mg PO TID 11/28/17 01/02/19 Tramadol HCl [Ultram] 100 mg PO QAM 11/28/17 01/02/19 Tramadol HCl [Ultram] 150 mg PO HS 11/29/17 01/02/19 metFORMIN 01/02/19 Allergies Allergy/AdvReac Type Severity Reaction Status Date / Time codeine AdvReac Mild See Verified 01/02/19 20:10 Comments Review of Systems: As Per HPI Past Medical History - Past Medical History Medical history: Reports: coronary artery disease, diabetes, myocardial infarction, other (suprapubic catheter) Surgical history: Reports: coronary bypass (CABG), other Psychiatric history: Reports: no psych history - Social History Smoking Status: Current every day smoker Smokeless Tobacco Status: No Alcohol use: Reports: none Drug use: Reports: none Physical Exam - General Limitations: no limitations General appearance: alert, in no apparent distress - Head Head exam: atraumatic, normocephalic, normal inspection - Eye Eye exam: Present: normal appearance, PERRL, EOMI - ENT ENT exam: normal exam, normal oropharynx, mucous membranes moist - Neck Neck exam: Present: normal inspection, full ROM, trachea midline. Absent: lymphadenopathy - Chest Chest inspection: Present: normal inspection, symmetric chest wall rise - Respiratory Respiratory exam: Present: normal lung sounds bilaterally - Cardiovascular Cardiovascular exam: Present: regular rate, normal rhythm, normal heart sounds - Abdominal Exam Abdominal exam: Present: soft, Non-Tender, normal bowel sounds, other (suprapubic cather in place with some irritation around site without drainage). Absent: distention, guarding, rebound, rigidity - Extremities Exam Extremities exam: Present: normal inspection, full ROM, normal capillary refill. Absent: tenderness, pedal edema - Back Exam Back exam: Present: normal inspection, full ROM. Absent: CVA tenderness (R), CVA tenderness (L) - Neurological Exam Neurological exam: Present: alert, oriented X3, CN II-XII intact, reflexes no rmal - Psychiatric Psychiatric exam: Present: flat affect - Skin Skin exam: Present: warm, dry, intact, normal color. Absent: rash, diaphoresis, erythema Course - Reevaluation(s) Reevaluation #1: Urine was pus-like. Sent to lab. Ordered on Cefepime. Pending results before admission. Heart rate to normal, temp decrease. Patient reports feeling bett er. Time: 23:00 Reevaluation #2: Urine revealing obvious UTI. Will discuss admission with hospitalist. Time: 23:44 Reevaluation #3: Spoke with Admitter, consult urology for any additional considerations. Spoke with Urology, may consider a CT abd/pelvis if suspicion for kidney stone, otherwise can consult in morning if think theres any surgical needs. Time: 00:08 Additional Reevaluation(s): 00:[address] abd/pelvis for consideration possible abscess and add vancomycin per hospitalist. Vital Signs Temperature 103.2 F H 01/02/19 20:14 Pulse Rate 117 01/02/19 20:14 Respiratory Rate 22 01/02/19 20:14 Blood Pressure 132/61 01/02/19 20:14 O2 Sat by Pulse Oximetry 96 01/02/19 20:14 Temperature 100.6 F H 01/02/19 21:27 Pulse Rate 82 01/03/19 00:14 Respiratory Rate 18 01/03/19 00:14 Blood Pressure 130/64 01/03/19 00:14 O2 Sat by Pulse Oximetry 97 01/03/19 00:14 Oxygen Delivery Oxygen Delivery Room Air Medical Decision Making - [facility] Narrative Medical decision making narrative: 63 year old with generalized weakness for the last < 24 hours and on ROS otherwise negative and febrile to 103.2F, and tachycardic. Meets SIRS, likely source UTI, change out suprapubic catheter. Ddx including but not limited to hyperglycemia, ACS, UTI, pnueumonia, UTI. Will obtain labs and imaging, ekg, administer tylenol and fluids 2L at 30cc/kg recommendation for sepsis. - Lab Data Result diagrams: 01/02/19 20:36 01/02/19 20:36 Lab Results 01/02/19 01/02/19 01/02/19 Range/Units 20:36 20:36 20:36 WBC 17.0 H (4.3-11.1) K/mcL RBC 4.27 (4.19-5.50) M/mcL Hgb 12.0 L (12.9-16.9) g/dL Hct 36.4 L (37.5-50.1) % MCV 85.2 (83.0-100.0) fL MCH 28.1 (28.0-33.3) pg MCHC 33.0 (31.6-35.5) g/dL RDW 15.3 H (11.5-14.5) % Plt Count 180 (140-400) K/mcL MPV 9.9 (9.4-12.4) fL Immature Gran % 0.6 (0-4) % Seg Neutrophils % 88.4 % Lymphocytes % 3.8 % Monocytes % 6.9 % Eosinophils % 0.1 % Basophils % 0.2 % Neutrophils # 15.0 H (1.6-8.9) K/mcL Lymphocytes # 0.6 (0.6-4.6) K/mcL Monocytes # 1.2 (0.0-1.3) K/mcL Eosinophils # 0.0 (0.0-0.6) K/mcL Basophils # 0.0 (0.0-0.2) K/mcL Sodium 133 L (136-145) mEq/L Potassium 4.0 (3.5-5.1) mEq/L Chloride 106 (98-107) mEq/L Carbon Dioxide 22 L (23-29) mEq/L BUN 25 H (8-23) mg/dL Creatinine 1.24 (0.70-1.30) mg/dL Est GFR ( Amer) > 60 (> 60) Est GFR (Non-Af Amer) 59 L (> 60) BUN/Creatinine Ratio 20 (6-26) Glucose 271 H (70-105) mg/dL Calculated Osmolality 290 (280-300) Lactic Acid 0.8 (0.5-2.2) mmol/L Calcium 8.4 L (8.6-10.3) mg/dL Total Bilirubin 0.6 (0.3-1.0) mg/dL AST 16 (13-39) Units/L ALT 25 (7-52) Units/L Alkaline Phosphatase 109 H (34-104) Units/L Troponin I 0.03 (< 0.04) ng/mL Serum Total Protein 6.6 (6.4-8.9) g/dL Albumin 3.4 L (3.5-5.7) g/dL Globulin 3.2 (2.4-3.5) g/dL Albumin/Globulin Ratio 1.1 (1.1-2.2) Urine Color (Yellow) Urine Clarity (Clear) Urine pH (5.0-8.0) pH Units Ur Specific [place] (1.010-1.025) Urine Protein (Neg-Trace) mg/dL Urine Glucose (UA) (Normal) mg/dL Urine Ketones (Negative) mg/dL Urine Blood (Negative) Urine Nitrite (Negative) Urine Bilirubin (Negative) Urine Urobilinogen (Normal) mg/dL Ur Leukocyte Esterase (Negative) Urine Microscopic RBC (0-3) per hpf Urine Microscopic WBC (0-3) per hpf Ur Squamous Epith Cells (None-Few) per lpf Ur Renal Epithelial Cell (None-Few) per hpf Urine Bacteria (None-Few) per hpf Ur Culture Indicated? (NO) 01/02/19 Range/Units 22:52 WBC (4.3-11.1) K/mcL RBC (4.19-5.50) M/mcL Hgb (12.9-16.9) g/dL Hct (37.5-50.1) % MCV (83.0-100.0) fL MCH (28.0-33.3) pg MCHC (31.6-35.5) g/dL RDW (11.5-14.5) % Plt Count (140-400) K/mcL MPV (9.4-12.4) fL Immature Gran % (0-4) % Seg Neutrophils % % Lymphocytes % % Monocytes % % Eosinophils % % Basophils % % Neutrophils # (1.6-8.9) K/mcL Lymphocytes # (0.6-4.6) K/mcL Monocytes # (0.0-1.3) K/mcL Eosinophils # (0.0-0.6) K/mcL Basophils # (0.0-0.2) K/mcL Sodium (136-145) mEq/L Potassium (3.5-5.1) mEq/L Chloride (98-107) mEq/L Carbon Dioxide (23-29) mEq/L BUN (8-23) mg/dL Creatinine (0.70-1.30) mg/dL Est GFR ( Amer) (> 60) Est GFR (Non-Af Amer) (> 60) BUN/Creatinine Ratio (6-26) Glucose (70-105) mg/dL Calculated Osmolality (280-300) Lactic Acid (0.5-2.2) mmol/L Calcium (8.6-10.3) mg/dL Total Bilirubin (0.3-1.0) mg/dL AST (13-39) Units/L ALT (7-52) Units/L Alkaline Phosphatase (34-104) Units/L Troponin I (< 0.04) ng/mL Serum Total Protein (6.4-8.9) g/dL Albumin (3.5-5.7) g/dL Globulin (2.4-3.5) g/dL Albumin/Globulin Ratio (1.1-2.2) Urine Color Yellow (Yellow) Urine Clarity Turbid A (Clear) Urine pH 5.5 (5.0-8.0) pH Units Ur Specific [place] 1.012 (1.010-1.025) Urine Protein 100 H (Neg-Trace) mg/dL Urine Glucose (UA) 250 H (Normal) mg/dL Urine Ketones Negative (Negative) mg/dL Urine Blood Large H (Negative) Urine Nitrite Negative (Negative) Urine Bilirubin Negative (Negative) Urine Urobilinogen Normal (Normal) mg/dL Ur Leukocyte Esterase Large H (Negative) Urine Microscopic RBC TNTC H (0-3) per hpf Urine Microscopic WBC TNTC H (0-3) per hpf Ur Squamous Epith Cells Many H (None-Few) per lpf Ur Renal Epithelial Cell Few (None-Few) per hpf Urine Bacteria Moderate H (None-Few) per hpf Ur Culture Indicated? YES A (NO) - Radiology Data Radiology results reviewed: Yes I reviewed the patient's radiology results. Chest X-Ray 01/02/19 20:14 IMPRESSION: No acute findings. D/ / Elsa Prescott MD / Elsa Prescott MD Interpreting Provider: Elsa Prescott MD - EKG Data EKG #1 EKG attestation: Yes I reviewed and interpreted this EKG. EKG shows normal: sinus rhythm Rate: tachycardia (120bpm) [place]/QRS: normal Interpretation: no acute changes
[2019-01-02] MEDS ORDERED: 0.9 % Sodium Chloride 1,000 ML IVC ONE ×2 (20:24→21:21)
[2019-01-02 20:59] LABS: Basophils % 0.2 %; Eosinophils % 0.1 %; Hematocrit 36.4 % (37.5-50.1); Immature Granulocytes % 0.6 % (0-4); Lymphocytes # 0.6 K/mcL (0.6-4.6); Lymphocytes % 3.8 %; Mean Corpuscular Hemoglobin 28.1 pg (28.0-33.3); Mean Corpuscular Volume 85.2 fL (83.0-100.0); Mean Platelet Volume 9.9 fL (9.4-12.4); Monocytes # 1.2 K/mcL (0.0-1.3); Monocytes % 6.9 %; Platelet Count 180 K/mcL (140-400); Red Blood Count 4.27 M/mcL (4.19-5.50); Red Cell Distribution Width 15.3 % (11.5-14.5); Segmented Neutrophils % 88.4 %
[2019-01-02 21:33] LABS: Alanine Aminotransferase 25 Units/L (7-52); Albumin 3.4 g/dL (3.5-5.7); Albumin/Globulin Ratio 1.1 (1.1-2.2); Alkaline Phosphatase 109 Units/L (34-104); Aspartate Amino Transferase 16 Units/L (13-39); BUN/Creatinine Ratio 20 (6-26); Bilirubin,Total 0.6 mg/dL (0.3-1.0); Blood Urea Nitrogen 25 mg/dL (8-23); Calcium 8.4 mg/dL (8.6-10.3); Carbon Dioxide 22 mEq/L (23-29); Chloride 106 mEq/L (98-107); Globulin 3.2 g/dL (2.4-3.5); Glucose 271 mg/dL (70-105); Osmolality,Calculated 290 (280-300); Sodium 133 mEq/L (136-145); Total Protein 6.6 g/dL (6.4-8.9); eGFR For Non-African Americans 59 (> 60)
[2019-01-02 21:48] LABS: Troponin I 0.03 ng/mL (< 0.04)
[2019-01-02] MEDS ORDERED: traMADol 50 MG TABLET PO ONE (22:16)
[2019-01-02] MEDS ORDERED: Cefepime HCl 2,000 MG in Water for inj. (sterile) 20 ML 20 ML IVP ONE (23:00)
[2019-01-02 23:35] LABS: Bilirubin,Urine Negative (Negative); Blood,Urine Large (Negative); Clarity,Urine Turbid (Clear); Color,Urine Yellow (Yellow); Glucose,Urine (UA) 250 mg/dL (Normal); Ketones,Urine Negative (Negative); Leukocyte Esterase,Urine Large (Negative); Nitrite,Urine Negative (Negative); PH,Urine 5.5 pH Units (5.0-8.0); Protein,Urine 100 mg/dL (Neg-Trace); Specific Gravity,Urine 1.012 (1.010-1.025); Urobilinogen,Urine Normal (Normal)
[2019-01-02 23:36] LABS: RBC,Urine TNTC per hpf (0-3); Squamous Epithelial Cell,Urine Many per lpf (None-Few); WBC,Urine TNTC per hpf (0-3)
[2019-01-02 23:40] LABS: Bacteria,Urine Moderate per hpf (None-Few); Renal Epithelial Cells,Urine Few per hpf (None-Few)
--- NOTE | 2019-01-02 23:40 | Emergency Department Note ---
Disposition Clinical Impression: UTI (urinary tract infection), Febrile illness, Leukocytosis Disposition: Admitted As Inpatient Referrals: NONE,PCP [Non-Partnered Physician] - Forms: ED Satisfaction Letter General Adult HPI - General Chief complaint: ED Fever Stated complaint: Poss UTI Time Seen by Provider: 01/02/19 20:04 Source: patient Mode of arrival: ambulatory Limitations: no limitations - History of Present Illness Pain Scale: 0 - Related Data Home Medications Medication Instructions Recorded Confirmed Gabapentin [Neurontin] 300 mg PO TID 11/28/17 12/05/17 Tramadol HCl [Ultram] 100 mg PO QAM 11/28/17 12/05/17 Tramadol HCl [Ultram] 150 mg PO HS 11/29/17 12/05/17 Previous Rx's Medication Instructions Recorded Cefdinir [Omnicef] 300 mg PO DAILY #7 capsule 12/02/17 Ciprofloxacin/Dex *EAR* Susp 4 drop RIGHT EAR BID 5 Days #1 12/02/17 [Ciprodex *EAR* Susp] bottle Clindamycin HCl [Cleocin HCl] 300 mg PO TID #21 cap 12/02/17 Fluconazole [Diflucan] 100 mg PO DAILY #7 tablet 12/02/17 HYDROcodone/Acet 5/325 mg [[place] 2 tab PO Q4H PRN 2 Days #8 tablet 12/05/17 5-325 mg] Allergies Allergy/AdvReac Type Severity Reaction Status Date / Time codeine AdvReac Mild See Verified 01/02/19 20:10 Comments Past Medical History - Past Medical History Medical history: Reports: coronary artery disease, diabetes, myocardial infarction, other (suprapubic catheter) Surgical history: Reports: coronary bypass (CABG), other Psychiatric history: Reports: no psych history - Social History Smoking Status: Current every day smoker Smokeless Tobacco Status: No Alcohol use: Reports: rarely Drug use: Reports: none Physical Exam - General Limitations: no limitations General appearance: alert, in no apparent distress Course Vital Signs Temperature 103.2 F H 01/02/19 20:14 Pulse Rate 117 01/02/19 20:14 Respiratory Rate 22 01/02/19 20:14 Blood Pressure 132/61 01/02/19 20:14 O2 Sat by Pulse Oximetry 96 01/02/19 20:14 Temperature 100.6 F H 01/02/19 21:27 Pulse Rate 90 01/02/19 22:31 Respiratory Rate 18 01/02/19 22:31 Blood Pressure 123/67 01/02/19 22:31 O2 Sat by Pulse Oximetry 98 01/02/19 22:31 Oxygen Delivery Oxygen Delivery Room Air Medical Decision Making - MDM Narrative Medical decision making narrative: 63-year-old male presented to the emergency room for fevers and generalized weakness and malaise. Patient has a suprapubic catheter this been in place for the past couple years. He states he started developing fevers today. He felt that his urine has been more cloudy and smelly more than normal for him. He was concerned himself about a urinary tract infection. He has had these before from the suprapubic catheter. He denies any significant cough. No vomiting or diarrhea. Upon arrival, patient had a fever of 103 and was tachycardic. We started him on a 30 mL/kg bolus of normal saline. Blood cultures were obtained. Concerns for urinary tract infection. We did order him cefepime. Patient had a elevated white count as well. We did exchange out his suprapubic catheter in place to a new one. This was done by the nurse without any problems. Patient will be admitted to the hospitalist. Continued IV antibiotic therapy. He looks and feels much better at this time. - Lab Data Result diagrams: 01/02/19 20:36 01/02/19 20:36 Lab Results 01/02/19 01/02/19 01/02/19 Range/Units 20:36 20:36 20:36 WBC 17.0 H (4.3-11.1) K/mcL RBC 4.27 (4.19-5.50) M/mcL Hgb 12.0 L (12.9-16.9) g/dL Hct 36.4 L (37.5-50.1) % MCV 85.2 (83.0-100.0) fL MCH 28.1 (28.0-33.3) pg MCHC 33.0 (31.6-35.5) g/dL RDW 15.3 H (11.5-14.5) % Plt Count 180 (140-400) K/mcL MPV 9.9 (9.4-12.4) fL Immature Gran % 0.6 (0-4) % Seg Neutrophils % 88.4 % Lymphocytes % 3.8 % Monocytes % 6.9 % Eosinophils % 0.1 % Basophils % 0.2 % Neutrophils # 15.0 H (1.6-8.9) K/mcL Lymphocytes # 0.6 (0.6-4.6) K/mcL Monocytes # 1.2 (0.0-1.3) K/mcL Eosinophils # 0.0 (0.0-0.6) K/mcL Basophils # 0.0 (0.0-0.2) K/mcL Sodium 133 L (136-145) mEq/L Potassium 4.0 (3.5-5.1) mEq/L Chloride 106 (98-107) mEq/L Carbon Dioxide 22 L (23-29) mEq/L BUN 25 H (8-23) mg/dL Creatinine 1.24 (0.70-1.30) mg/dL Est GFR ( Amer) > 60 (> 60) Est GFR (Non-Af Amer) 59 L (> 60) BUN/Creatinine Ratio 20 (6-26) Glucose 271 H (70-105) mg/dL Calculated Osmolality 290 (280-300) Lactic Acid 0.8 (0.5-2.2) mmol/L Calcium 8.4 L (8.6-10.3) mg/dL Total Bilirubin 0.6 (0.3-1.0) mg/dL AST 16 (13-39) Units/L ALT 25 (7-52) Units/L Alkaline Phosphatase 109 H (34-104) Units/L Troponin I 0.03 (< 0.04) ng/mL Serum Total Protein 6.6 (6.4-8.9) g/dL Albumin 3.4 L (3.5-5.7) g/dL Globulin 3.2 (2.4-3.5) g/dL Albumin/Globulin Ratio 1.1 (1.1-2.2) Urine Color (Yellow) Urine Clarity (Clear) Urine pH (5.0-8.0) pH Units Ur Specific [place] (1.010-1.025) Urine Protein (Neg-Trace) mg/dL Urine Glucose (UA) (Normal) mg/dL Urine Ketones (Negative) mg/dL Urine Blood (Negative) Urine Nitrite (Negative) Urine Bilirubin (Negative) Urine Urobilinogen (Normal) mg/dL Ur Leukocyte Esterase (Negative) 01/02/19 Range/Units 22:52 WBC (4.3-11.1) K/mcL RBC (4.19-5.50) M/mcL Hgb (12.9-16.9) g/dL Hct (37.5-50.1) % MCV (83.0-100.0) fL MCH (28.0-33.3) pg MCHC (31.6-35.5) g/dL RDW (11.5-14.5) % Plt Count (140-400) K/mcL MPV (9.4-12.4) fL Immature Gran % (0-4) % Seg Neutrophils % % Lymphocytes % % Monocytes % % Eosinophils % % Basophils % % Neutrophils # (1.6-8.9) K/mcL Lymphocytes # (0.6-4.6) K/mcL Monocytes # (0.0-1.3) K/mcL Eosinophils # (0.0-0.6) K/mcL Basophils # (0.0-0.2) K/mcL Sodium (136-145) mEq/L Potassium (3.5-5.1) mEq/L Chloride (98-107) mEq/L Carbon Dioxide (23-29) mEq/L BUN (8-23) mg/dL Creatinine (0.70-1.30) mg/dL Est GFR ( Amer) (> 60) Est GFR (Non-Af Amer) (> 60) BUN/Creatinine Ratio (6-26) Glucose (70-105) mg/dL Calculated Osmolality (280-300) Lactic Acid (0.5-2.2) mmol/L Calcium (8.6-10.3) mg/dL Total Bilirubin (0.3-1.0) mg/dL AST (13-39) Units/L ALT (7-52) Units/L Alkaline Phosphatase (34-104) Units/L Troponin I (< 0.04) ng/mL Serum Total Protein (6.4-8.9) g/dL Albumin (3.5-5.7) g/dL Globulin (2.4-3.5) g/dL Albumin/Globulin Ratio (1.1-2.2) Urine Color Yellow (Yellow) Urine Clarity Turbid A (Clear) Urine pH 5.5 (5.0-8.0) pH Units Ur Specific [place] 1.012 (1.010-1.025) Urine Protein 100 H (Neg-Trace) mg/dL Urine Glucose (UA) 250 H (Normal) mg/dL Urine Ketones Negative (Negative) mg/dL Urine Blood Large H (Negative) Urine Nitrite Negative (Negative) Urine Bilirubin Negative (Negative) Urine Urobilinogen Normal (Normal) mg/dL Ur Leukocyte Esterase Large H (Negative) Attestation Statement - Attestation Attestation: I examined this patient and my medical [facility] I agree with the documented findings, disposition and treatment plan as described except to the extent set forth below.
[2019-01-02] MEDS: 0.9 % Sodium Chloride 1,000 ML IVC SCH (23:41)
[2019-01-03] MEDS ORDERED: Naloxone 0.4 MG/ML INJ IVP PRN (03:34)
[2019-01-03] MEDS ORDERED: D5% in Water 1,000 ML IVC PRN (03:36)
[2019-01-03] MEDS ORDERED: *HR* Dextrose 50 % in Water (Syg) 50 ML SYRINGE IVP PRN (03:36)
[2019-01-03] MEDS ORDERED: Dextrose Gel 15 GM/37.5 ML TUBE PO PRN ×2 (03:36)
--- NOTE | 2019-01-03 03:49 | Internal Med History&Physical ---
<Teresa López E - Last Filed: 01/03/19 05:14> Date of Encounter: 01/03/19 Time of Encounter: 03:15 Internal Medicine - H&P: HPI Chief complaint: Generalized weakness Admitted From: Home Plans for Post Hospital Care: Home History of present illness: Mr. Bolden is a 63 year old male with history of diabetes, suprapubic catheter due to urethral stricture, CAD, PVD. Patient stated that for the last day he has felt very weak and has had pain in his penis. He states that he has noticed his urine has been smelling strong and has been cloudy he also states he started to have diarrhea today. He denies any fevers or chills. He denies any chest pain, abdominal pain, nausea, vomiting, cold-like symptoms, Shortness of breath. Labs on admission included white blood cell count of 17, hemoglobin of 12, hematocrit of 36.4, neutrophil predominance of 15, sodium of 133, BUN of 25, creatinine 1.24, GFR of 59, glucose of 271, calcium if 8.4, alkaline phosphatase 109, lactic acid of 0.8. Urinalysis showed turbid yellow urine pH of 5.5, specific gravity 1.012, 100 protein, 250 glucose, large blood, large leukocyte esterase, too numerous to count red blood cells and white blood cells, many squamous epithelial cells, moderate bacteria with culture indicated and reflexed Chest x-ray showed no acute findings CT abdomen pelvis with no contrast showed severe wall thickening of the bladder with pericystic fat stranding inflammatory changes as well as fluid inflammatory changes surrounding the tract of the suprapubic catheter suggesting cystitis and suprapubic catheter infection. No evidence of abscess or focal drainable fluid collection. Nonobstructing bilateral nephrolithiasis no hydronephrosis or obstructive uropathy. Small amount of perihepatic ascites extending into the right paracolic gutter. Stool throughout the colon which can be seen with constipation in the proper clinical setting. Urology was consulted from the ED and they stated they would see the patient in the morning and if there was concern for obstructing stone to do a CT. Suprapubic catheter was switched out in the ED Past Med Surg Social Fam HX - Past Medical History Medical history: coronary artery disease, diabetes, myocardial infarction, other Psychiatric history: no psych history - Past Surgical History Surgical History: coronary bypass (CABG), other Additional surgical history: toe surgery, urethral reconstruction, superpubic cath - Social History Smoking Status: Current every day smoker Smokeless Tobacco Status: No Alcohol use: rarely Drug use: none - Family History Mother Family Member Ethnicity: Non- Living Status: Hx Family Cancer: No Hx Family Endocrine Disorder: Yes (Diabetic) Father Family Member Ethnicity: Non- Living Status: Hx Family Cardiac Disorders: Yes Internal Medicine - H&P: Meds Gabapentin [Neurontin] 600 mg PO TID 11/28/17 [History] Tramadol HCl [Ultram] 100 mg PO QAM 11/28/17 [History] Tramadol HCl [Ultram] 150 mg PO HS 11/29/17 [History] metFORMIN 01/02/19 [History] Allergy/AdvReac Type Severity Reaction Status Date / Time codeine AdvReac Mild See Verified 01/02/19 20:10 Comments All Systems PM: A 10-system review of systems was performed and is negative for pertinent findings except as documented above in the HPI. - Constitutional Constitutional: fatigue, weakness, no chills, no fever(s) - EENT Eyes: no change in vision Nose, mouth and throat: no nasal congestion, no nasal discharge, no sinus pain, no sinus pressure, no sore throat - Cardiovascular Cardiovascular ROS IM: no chest pain, no dyspnea, no edema, no irregular heart rhythm, no palpitations, no syncope - Respiratory Respiratory: no cough, no dyspnea, no dyspnea on exertion - Gastrointestinal Gastrointestinal: loose stools (This started within the last 24 hours), no nausea, no vomiting - Genitourinary Genitourinary ROS male: genital pain, no penile discharge, no scrotal swelling, no testicular pain - Musculoskeletal Musculoskeletal ROS IM: no arthralgias, no back pain - Integumentary Integumentary IM: erythema (Of the suprapubic catheter site as well as the scrotum), no new lesions - Neurological Neurological ROS: weakness - Constitutional Vitals: Temp Pulse Resp BP Pulse Ox 100.6 F H 98 20 122/64 100 01/02/19 21:27 01/03/19 01:24 01/03/19 01:24 01/03/19 01:24 01/03/19 01:24 Exam: General: AAO 3, moderate distress, answers questions appropriately Head: normocephalic, atraumatic Eyes: DU, no icterus Neck: Trachea midline, no lymphadenopathy Cardio: RRR, no mumurs, rubs, or gallops Respiratory: CTAB, no wheezing, rhonchi, rales Abd: normal bowel sounds, no guarding or rigidity Genitals: Scrotal sac erythematous, tender to palpation, no penile discharge. Site of suprapubic catheter erythematous, macerated, tender to palpation with some focal drainage of purulent looking fluid. Extremities: no pedal edema, pulses equal bilaterally, warm Skin: warm, dry, intact Internal Med - H&P Results - Labs CBC & Chem 7: 01/02/19 20:36 01/02/19 20:36 Labs: Short CBC 01/02/19 Range/Units 20:36 WBC 17.0 H (4.3-11.1) K/mcL Hgb 12.0 L (12.9-16.9) g/dL Hct 36.4 L (37.5-50.1) % Plt Count 180 (140-400) K/mcL Neutrophils # 15.0 H (1.6-8.9) K/mcL BMP 01/02/19 20:36 Sodium 133 L Potassium 4.0 Chloride 106 Carbon Dioxide 22 L BUN 25 H Creatinine 1.24 Glucose 271 H Calcium 8.4 L Cardiac Enzymes 01/02/19 Range/Units 20:36 Troponin I 0.03 (< 0.04) ng/mL Liver Function 01/02/19 Range/Units 20:36 Total Bilirubin 0.6 (0.3-1.0) mg/dL AST 16 (13-39) Units/L ALT 25 (7-52) Units/L Alkaline Phosphatase 109 H (34-104) Units/L Albumin 3.4 L (3.5-5.7) g/dL Urine 01/02/19 Range/Units 22:52 Urine Color Yellow (Yellow) Urine Clarity Turbid A (Clear) Urine pH 5.5 (5.0-8.0) pH Units Ur Specific [place] 1.012 (1.010-1.025) Urine Protein 100 H (Neg-Trace) mg/dL Urine Glucose (UA) 250 H (Normal) mg/dL - Impressions ITS Impressions Chest X-Ray 01/02/19 20:14 IMPRESSION: No acute findings. D/ / Elsa Prescott MD / Elsa Prescott MD Interpreting Provider: Elsa Prescott MD Abdomen/Pelvis CT 01/03/19 00:22 IMPRESSION: Severe wall thickening of the bladder with pericystic fat stranding inflammatory changes as well as fluid inflammatory changes surrounding the tract of the suprapubic catheter suggesting cystitis and suprapubic catheter infection. No evidence of abscess or focal drainable fluid collection. Nonobstructing bilateral nephrolithiasis. No hydronephrosis or obstructive uropathy. Small amount of perihepatic ascites extending into the right paracolic gutter. Stool throughout the colon which can be seen with constipation in the proper clinical setting. D/ / Richard Riggs MD / Richard Riggs MD Interpreting Provider: Richard Riggs MD - Assessment and Plan (1) Sepsis Current Visit: Yes Status: Acute Assessment and plan: Patient met SIRS criteria with fever 103.2, tachycardia, source of infection possibly the suprapubic catheter/UTI Fluid resuscitation was started in the ED Blood cultures were drawn and pending Urine culture pending Patient started on vancomycin and cefepime Qualifiers: Sepsis type: sepsis due to unspecified organism Qualified Code(s): A41.9 - Sepsis, unspecified organism (2) UTI (urinary tract infection) Current Visit: Yes Status: Acute Assessment and plan: UA showed turbid yellow urine with a pH of 5.5 and specific gravity 1.012, 100 protein, 250 glucose, large blood, large leukocyte esterase, too numerous to count microscopic red blood cells and microscopic white blood cells, many squamous epithelial cells, moderate bacteria with reflex culture Patient has a chronic indwelling suprapubic catheter Suprapubic catheter was replaced placed in the ED Patient has had previous infections of the suprapubic catheter CT showed possible cystitis and infection of the suprapubic catheter Urology has been consulted we appreciate recommendations Patient on cefepime and vancomycin Qualifiers: Urinary tract infection type: acute cystitis Hematuria presence: with hematuria Qualified Code(s): N30.01 - Acute cystitis with hematuria (3) Diabetes mellitus Current Visit: No Status: Acute Assessment and plan: Patient is a known type II diabetic Patient takes metformin at home Patient will be started on a sliding scale insulin low-dose corrective Before meals at bedtime Accu-Cheks Continue to monitor her blood glucose and adjust sliding scale insulin as needed Qualifiers: Diabetes mellitus type: type 2 Diabetes mellitus adjunct faculty for medical terminology insulin use: without adjunct faculty for medical terminology use Diabetes mellitus complication status: without complication Qualified Code(s): E11.9 - Type 2 diabetes mellitus without complications (4) Soft tissue infection Current Visit: Yes Status: Acute Assessment and plan: Infection surrounding the suprapubic catheter is suspected CT shows persistent fat stranding and inflammatory changes as well as fluid inflammatory changes surrounding the tract of the suprapubic catheter Patient started on vancomycin and cefepime We will consult infectious disease for further recommendations (5) Candidiasis of scrotum Current Visit: No Status: Acute Assessment and plan: Patient has history of candidiasis of the scrotum Scrotum is erythematous and tender to palpation on admission Started on fluconazole 200 mg every 24 as per pharmacy recommendation (6) DVT prophylaxis Current Visit: No Status: Acute Assessment and plan: Subcutaneous heparin - Time Spent With Patient Total time spent is greater than 50% in coordination of care (as documented) at patient's floor/unit and/or counseling patient: <Cheri Ellis A - Last Filed: 01/03/19 07:18> Date of Encounter: 01/03/19 Internal Medicine - H&P: HPI History of present illness: Mr. Bolden is a 63 year old male All Systems PM: A 10-system review of systems was performed and is negative for pertinent findings except as documented above in the HPI. - Constitutional Vitals: Temp Pulse Resp BP Pulse Ox 98.7 F 82 16 134/73 97 01/03/19 07:07 01/03/19 07:07 01/03/19 07:07 01/03/19 07:07 01/03/19 07:07 Internal Med - H&P Results - Labs CBC & Chem 7: 01/02/19 20:36 01/02/19 20:36 Labs: Short CBC 01/02/19 Range/Units 20:36 WBC 17.0 H (4.3-11.1) K/mcL Hgb 12.0 L (12.9-16.9) g/dL Hct 36.4 L (37.5-50.1) % Plt Count 180 (140-400) K/mcL Neutrophils # 15.0 H (1.6-8.9) K/mcL BMP 01/02/19 20:36 Sodium 133 L Potassium 4.0 Chloride 106 Carbon Dioxide 22 L BUN 25 H Creatinine 1.24 Glucose 271 H Calcium 8.4 L Cardiac Enzymes 01/02/19 Range/Units 20:36 Troponin I 0.03 (< 0.04) ng/mL Liver Function 01/02/19 Range/Units 20:36 Total Bilirubin 0.6 (0.3-1.0) mg/dL AST 16 (13-39) Units/L ALT 25 (7-52) Units/L Alkaline Phosphatase 109 H (34-104) Units/L Albumin 3.4 L (3.5-5.7) g/dL Urine 01/02/19 Range/Units 22:52 Urine Color Yellow (Yellow) Urine Clarity Turbid A (Clear) Urine pH 5.5 (5.0-8.0) pH Units Ur Specific [place] 1.012 (1.010-1.025) Urine Protein 100 H (Neg-Trace) mg/dL Urine Glucose (UA) 250 H (Normal) mg/dL - Impressions ITS Impressions Chest X-Ray 01/02/19 20:14 IMPRESSION: No acute findings. D/ / Elsa Prescott MD / Elsa Prescott MD Interpreting Provider: Elsa Prescott MD Abdomen/Pelvis CT 01/03/19 00:22 IMPRESSION: Severe wall thickening of the bladder with pericystic fat stranding inflammatory changes as well as fluid inflammatory changes surrounding the tract of the suprapubic catheter suggesting cystitis and suprapubic catheter infection. No evidence of abscess or focal drainable fluid collection. Nonobstructing bilateral nephrolithiasis. No hydronephrosis or obstructive uropathy. Small amount of perihepatic ascites extending into the right paracolic gutter. Stool throughout the colon which can be seen with constipation in the proper clinical setting. D/ / Richard Riggs MD / Richard Riggs MD Interpreting Provider: Richard Riggs MD - Time Spent With Patient Total time spent is greater than 50% in coordination of care (as documented) at patient's floor/unit and/or counseling patient: - Attending Attestation I performed a history and physical examination of the patient and discussed his management with the resident. I reviewed the resident's note and agree with the documented plan of care. In short patient is a 63-year-old male with a past medical history of diabetes and chronic suprapubic catheter due to urethral stri cture who presented to the ED due to foul-smelling urine and diarrhea. On arrival patient was noted to have a fever of 103.2 and leukocytosis of 17. Foul-smelling urine was noted on physical examination and there was some evidence of purulent drainage around the suprapubic catheter insertion site. Catheter was replaced in the ED by nursing staff. Urine sample suggestive of UTI. Patient was started on broad-spectrum antibiotics with cefepime and vancomycin. CT scan was obtained showing severe wall thickening of the bladder and pericystic fat stranding and inflammatory changes as well as a fluid inflammatory change surrounding the tract of the suprapubic catheter suggesting cystitis and suprapubic catheter infection. No evidence of an abscess or focal drainable fluid collection. Continue antibiotics. Follow-up blood and urine cultures. Will obtain urology and infectious disease consult for aid in management of complicated UTI.
[2019-01-03] MEDS ORDERED: traMADol 50 MG TABLET PO ONE (05:00)
[2019-01-03] MEDS: Fluconazole 200 MG/100 ML 200 MG/100 ML BAG IVPB SCH (05:10)
[2019-01-03] MEDS: *HR* Heparin 5,000 UNIT/ML VIAL SQ SCH ×2 (06:42→16:51)
[2019-01-03 07:37] LABS: Basophils # 0.1 K/mcL (0.0-0.2); Basophils % 0.3 %; Eosinophils % 0.1 %; Hematocrit 33.8 % (37.5-50.1); Immature Granulocytes % 0.5 % (0-4); Lymphocytes # 0.7 K/mcL (0.6-4.6); Lymphocytes % 3.9 %; Mean Corpuscular HGB Conc 32.5 g/dL (31.6-35.5); Mean Corpuscular Hemoglobin 28.5 pg (28.0-33.3); Mean Corpuscular Volume 87.6 fL (83.0-100.0); Mean Platelet Volume 10.3 fL (9.4-12.4); Monocytes % 5.8 %; Neutrophils # 15.6 K/mcL (1.6-8.9); Platelet Count 177 K/mcL (140-400); Red Blood Count 3.86 M/mcL (4.19-5.50); Red Cell Distribution Width 15.4 % (11.5-14.5); Segmented Neutrophils % 89.4 %
[2019-01-03 07:55] LABS: Alanine Aminotransferase 21 Units/L (7-52); Albumin 3.3 g/dL (3.5-5.7); Albumin/Globulin Ratio 1.3 (1.1-2.2); Alkaline Phosphatase 99 Units/L (34-104); Aspartate Amino Transferase 15 Units/L (13-39); BUN/Creatinine Ratio 20 (6-26); Bilirubin,Total 0.6 mg/dL (0.3-1.0); Blood Urea Nitrogen 22 mg/dL (8-23); Calcium 8.2 mg/dL (8.6-10.3); Carbon Dioxide 18 mEq/L (23-29); Chloride 106 mEq/L (98-107); Globulin 2.6 g/dL (2.4-3.5); Glucose 267 mg/dL (70-105); Magnesium 1.6 mg/dL (1.6-2.6); Osmolality,Calculated 287 (280-300); Phosphorous 1.8 mg/dL (2.7-4.5); Potassium 4.2 mEq/L (3.5-5.1); Sodium 132 mEq/L (136-145); Total Protein 5.9 g/dL (6.4-8.9); eGFR For Non-African Americans > 60 (> 60)
[2019-01-03] MEDS: Gabapentin 300 MG CAPSULE PO SCH ×3 (08:27→20:14)
[2019-01-03] MEDS: Insulin LISPRO 300 UNITS/3 ML VIAL SQ SCH ×4 (08:27→20:17)
--- NOTE | 2019-01-03 08:58 | Urology - Consult Note ---
Date of Encounter: 01/03/19 Time of Encounter: 08:57 - Assessment and Plan (1) UTI (urinary tract infection) Current Visit: Yes Status: Acute Assessment and plan: 63-year-old gentleman with a history of urethral stricture disease and a suprapubic tube. He has a urinary tract infection with fever. He has been admitted for IV antibiotics. We will await the results of the urine culture. I reviewed his CT scan. There is no concerning abscess or obstructing stone. We will monitor his clinical course. His urine is draining well out the new suprapubic tube. Appreciate internal medicine support. Urology will follow along. Qualifiers: Urinary tract infection type: acute cystitis Hematuria presence: with hematuria Qualified Code(s): N30.01 - Acute cystitis with hematuria (2) Febrile illness Current Visit: Yes Status: Acute Urology CN:HPI Consult date: 01/03/19 Reason for consult Urology: Other (UTI, suprapubic tube) History of present illness: 63-year-old gentleman presents with concern for fevers. He began to notice weakness and lower abdominal pain. The pain was mild to moderate. He is due for SP tube change. He noted that his urine became foul-smelling and cloudy. He came to the emergency department for further evaluation. He was noted to be febrile in the emergency department. His urinalysis appeared infected. A CT scan showed a thickened bladder wall and fatty stranding around the bladder. There was no evidence of obstructing ureteral stone. His suprapubic tube was changed out the emergency room. He was admitted for further care. He has a long-standing history of urethral stricture disease. The suprapubic tube was placed to manage that. Past Med Surg Social Fam HX - Past Medical History Medical history: coronary artery disease, diabetes, myocardial infarction, other Psychiatric history: no psych history - Past Surgical History Surgical History: coronary bypass (CABG), other Additional surgical history: toe surgery, urethral reconstruction, superpubic cath - Social History Smoking Status: Current every day smoker Smokeless Tobacco Status: No Alcohol use: rarely Drug use: none - Family History Mother Family Member Ethnicity: Non- Living Status: Hx Family Cancer: No Hx Family Endocrine Disorder: Yes (Diabetic) Father Family Member Ethnicity: Non- Living Status: Hx Family Cardiac Disorders: Yes Medications and Allergies Gabapentin [Neurontin] 600 mg PO TID 11/28/17 [History] Tramadol HCl [Ultram] 100 mg PO QAM 11/28/17 [History] Tramadol HCl [Ultram] 150 mg PO HS 11/29/17 [History] metFORMIN 01/02/19 [History] Allergy/AdvReac Type Severity Reaction Status Date / Time codeine AdvReac Mild See Verified 01/02/19 20:10 Comments Review of Systems - Constitutional chills, fever(s) - EENT Nose, mouth and throat: no dizziness - Cardiovascular no chest pain - Respiratory no dyspnea - Gastrointestinal no nausea, no vomiting - Genitourinary genital pain, no flank pain, no hematuria - Musculoskeletal no back pain - Integumentary no erythema, no rash - Neurological weakness - Psychiatric no suicidal ideation - Hematologic/Lymphatic no easy bleeding - Allergic/Immunologic no wheezing Exam Initial Vital Signs Temp Pulse Resp BP Pulse Ox 103.2 F H 117 22 132/61 96 01/02/19 20:14 01/02/19 20:14 01/02/19 20:14 01/02/19 20:14 01/02/19 20:14 - General physical appearance Present: well developed, well nourished, no distress - Eyes Absent: icteric - ENT Present: normal nares - Neck Present: trachea midline - Respiratory Present: normal respiratory effort - Cardiovascular Cardiovascular exam IM: RRR - Abdomen Abdomen: Present: soft, non tender (Suprapubic tube in place with a 22-Polish catheter. Urine is clear to cloudy. There is mild erythema around the suprapubic tube insertion site.) - Genitourinary normal penis with no external lesions - Integumentary Present: no rash - Neurologic Present: normal coordination - Musculoskeletal Present: other (Upright in bed) Urology Results - Labs 01/03/19 06:58 01/03/19 06:58 Abnormal lab results WBC 17.5 K/mcL (4.3-11.1) H 01/03/19 06:58 RBC 3.86 M/mcL (4.19-5.50) L 01/03/19 06:58 Hgb 11.0 g/dL (12.9-16.9) L 01/03/19 06:58 Hct 33.8 % (37.5-50.1) L 01/03/19 06:58 RDW 15.4 % (11.5-14.5) H 01/03/19 06:58 15.6 K/mcL (1.6-8.9) H 01/03/19 06:58 Sodium 132 mEq/L (136-145) L 01/03/19 06:58 Carbon Dioxide 18 mEq/L (23-29) L 01/03/19 06:58 BUN 25 mg/dL (8-23) H 01/02/19 20:36 Est GFR (Non-Af Amer) 59 (> 60) L 01/02/19 20:36 Glucose 267 mg/dL (70-105) H 01/03/19 06:58 Calcium 8.2 mg/dL (8.6-10.3) L 01/03/19 06:58 Phosphorus 1.8 mg/dL (2.7-4.5) L 01/03/19 06:58 109 Units/L (34-104) H 01/02/19 20:36 5.9 g/dL (6.4-8.9) L 01/03/19 06:58 3.3 g/dL (3.5-5.7) L 01/03/19 06:58 Turbid (Clear) A 01/02/19 22:52 100 mg/dL (Neg-Trace) H 01/02/19 22:52 250 mg/dL (Normal) H 01/02/19 22:52 Large (Negative) H 01/02/19 22:52 Ur Leukocyte Esterase Large (Negative) H 01/02/19 22:52 TNTC per hpf (0-3) H 01/02/19 22:52 TNTC per hpf (0-3) H 01/02/19 22:52 Ur Squamous Epith Cells Many per lpf (None-Few) H 01/02/19 22:52 Moderate per hpf (None-Few) H 01/02/19 22:52 Ur Culture Indicated? YES (NO) A 01/02/19 22:52 Diabetes panel 01/02/19 01/03/19 Range/Units 20:36 06:58 Sodium 133 L 132 L (136-145) mEq/L Potassium 4.0 4.2 (3.5-5.1) mEq/L Chloride 106 106 (98-107) mEq/L Carbon Dioxide 22 L 18 L (23-29) mEq/L BUN 25 H 22 (8-23) mg/dL Creatinine 1.24 1.08 (0.70-1.30) mg/dL Glucose 271 H 267 H (70-105) mg/dL Calcium 8.4 L 8.2 L (8.6-10.3) mg/dL AST 16 15 (13-39) Units/L ALT 25 21 (7-52) Units/L Alkaline Phosphatase 109 H 99 (34-104) Units/L Albumin 3.4 L 3.3 L (3.5-5.7) g/dL Calcium panel 01/02/19 01/03/19 Range/Units 20:36 06:58 Calcium 8.4 L 8.2 L (8.6-10.3) mg/dL Phosphorus 1.8 L (2.7-4.5) mg/dL Albumin 3.4 L 3.3 L (3.5-5.7) g/dL Pituitary panel 01/02/19 01/03/19 Range/Units 20:36 06:58 Sodium 133 L 132 L (136-145) mEq/L Potassium 4.0 4.2 (3.5-5.1) mEq/L Chloride 106 106 (98-107) mEq/L Carbon Dioxide 22 L 18 L (23-29) mEq/L BUN 25 H 22 (8-23) mg/dL Creatinine 1.24 1.08 (0.70-1.30) mg/dL Glucose 271 H 267 H (70-105) mg/dL Calcium 8.4 L 8.2 L (8.6-10.3) mg/dL Adrenal panel 01/02/19 01/03/19 Range/Units 20:36 06:58 Sodium 133 L 132 L (136-145) mEq/L Potassium 4.0 4.2 (3.5-5.1) mEq/L Chloride 106 106 (98-107) mEq/L Carbon Dioxide 22 L 18 L (23-29) mEq/L BUN 25 H 22 (8-23) mg/dL Creatinine 1.24 1.08 (0.70-1.30) mg/dL Glucose 271 H 267 H (70-105) mg/dL Calcium 8.4 L 8.2 L (8.6-10.3) mg/dL Total Bilirubin 0.6 0.6 (0.3-1.0) mg/dL AST 16 15 (13-39) Units/L ALT 25 21 (7-52) Units/L Alkaline Phosphatase 109 H 99 (34-104) Units/L Albumin 3.4 L 3.3 L (3.5-5.7) g/dL All other labs normal. - Imaging CT scan - abdomen: report reviewed, image reviewed CT scan - pelvis: report reviewed, image reviewed Consult Discharge Plan - Plan Referrals: Nely Stock, CONTROL OFFICER MANAGER [Primary Care Provider] -
[2019-01-03] MEDS ORDERED: traMADol 50 MG TABLET PO SCH ×2 (09:00→21:00)
--- NOTE | 2019-01-03 11:02 | Event Note ---
Date of Encounter: 01/03/19 Time of Encounter: 10:51 Patient was seen and examined earlier this am per hospitalist services . Seen by urology this morning with no concern for abscess or obstructing stones. Continue with IV therapy pending culture results. Urine is draining well from new suprapubic tube. Afebrile this morning continue with current antibiotic treatment. Denies any abdominal pain or discomfort at this time. Discussed her plan with the patient verbalized understanding.
[2019-01-03] MEDS: Cefepime HCl 2,000 MG in Water for inj. (sterile) 20 ML 20 ML IVP SCH ×2 (11:46→23:30)
[2019-01-03] MEDS: 0.9 % Sodium Chloride 1,000 ML IVC SCH ×3 (11:46→23:30)
[2019-01-03] MEDS ORDERED: *HR* HYDROcodone/Acet 5/325 mg TABLET PO PRN (13:37)
[2019-01-04] MEDS ORDERED: Acetaminophen 325 MG TABLET PO ONE (01:05)
[2019-01-04] MEDS: traMADol 50 MG TABLET PO PRN ×3 (01:15→23:17)
[2019-01-04] MEDS: Fluconazole 200 MG/100 ML 200 MG/100 ML BAG IVPB SCH (05:28)
[2019-01-04] MEDS: *HR* Heparin 5,000 UNIT/ML VIAL SQ SCH ×2 (05:28→16:26)
[2019-01-04] MEDS ORDERED: traMADol 50 MG TABLET PO SCH (09:00)
[2019-01-04] MEDS: Gabapentin 300 MG CAPSULE PO SCH ×3 (09:28→21:14)
[2019-01-04] MEDS: Insulin LISPRO 300 UNITS/3 ML VIAL SQ SCH ×4 (09:30→21:03)
[2019-01-04] MEDS: 0.9 % Sodium Chloride 1,000 ML IVC SCH ×2 (12:21→17:08)
[2019-01-04] MEDS: Cefepime HCl 2,000 MG in Water for inj. (sterile) 20 ML 20 ML IVP SCH ×2 (12:22→23:21)
[2019-01-04 12:27] LABS: Hemoglobin 10.5 g/dL (12.9-16.9); Mean Corpuscular HGB Conc 31.8 g/dL (31.6-35.5); Mean Corpuscular Hemoglobin 28.2 pg (28.0-33.3); Mean Corpuscular Volume 88.7 fL (83.0-100.0); Mean Platelet Volume 10.1 fL (9.4-12.4); Platelet Count 161 K/mcL (140-400); Red Blood Count 3.72 M/mcL (4.19-5.50); Red Cell Distribution Width 15.5 % (11.5-14.5)
[2019-01-04 12:42] LABS: Alanine Aminotransferase 15 Units/L (7-52); Albumin 3.1 g/dL (3.5-5.7); Alkaline Phosphatase 80 Units/L (34-104); Aspartate Amino Transferase 11 Units/L (13-39); BUN/Creatinine Ratio 17 (6-26); Bilirubin,Total 0.4 mg/dL (0.3-1.0); Blood Urea Nitrogen 18 mg/dL (8-23); Calcium 7.9 mg/dL (8.6-10.3); Carbon Dioxide 15 mEq/L (23-29); Chloride 111 mEq/L (98-107); Glucose 161 mg/dL (70-105); Osmolality,Calculated 287 (280-300); Potassium 3.9 mEq/L (3.5-5.1); Sodium 136 mEq/L (136-145); Total Protein 6.1 g/dL (6.4-8.9); eGFR For Non-African Americans > 60 (> 60)
[2019-01-04 13:19] LABS: Adenovirus F 40/41 PCR Not detected (Not detect); Astrovirus PCR Not detected (Not detect); C.difficile Toxin A/B Gene PCR Not detected (Not detect); Campylobacter by PCR Not detected (Not detect); Cryptosporidium by PCR Not detected (Not detect); Cyclospora cayetanensis PCR Not detected (Not detect); E. coli O157 by PCR Not detected (Not detect); Entamoeba histolytica PCR Not detected (Not detect); Enteroaggregative E.coli(EAEC) Not detected (Not detect); Enteropathogenic E.coli(EPEC) Not detected (Not detect); Enterotoxigenic E.coli (ETEC) Not detected (Not detect); Giardia lamblia PCR Not detected (Not detect); Norovirus GI/GII PCR Not detected (Not detect); Plesiomonas shigelloides PCR Not detected (Not detect); Rotavirus A PCR Not detected (Not detect); Salmonella PCR Not detected (Not detect); Sapovirus PCR Not detected (Not detect); Shig/EnteroinvasiveE coli EIEC Not detected (Not detect); Shigalike tox-prod E coli STEC Not detected (Not detect); Vibrio PCR Not detected (Not detect); Vibrio cholerae PCR Not detected (Not detect); Yersinia enterocolitica PCR Not detected (Not detect)
--- NOTE | 2019-01-04 14:24 | Internal Med Progress Note ---
Hospitalist Progress Note - Encounter Date of Encounter: 01/04/19 Time of Encounter: 14:22 - Subjective Interval History: Seen and examined at bedside. Patient is new to me, information obtained from chart review and patient report. Lying in bed, appears controlled. He actually has no complaints. - Exam Vitals: Temp Pulse Resp BP Pulse Ox 98.4 F 77 16 145/75 98 01/04/19 12:20 01/04/19 12:20 01/04/19 12:20 01/04/19 12:20 01/04/19 12:20 Exam: General: AAO 3, moderate distress, answers questions appropriately Head: normocephalic, atraumatic Eyes: DU, no icterus Neck: Trachea midline, no lymphadenopathy Cardio: RRR, no mumurs, rubs, or gallops Respiratory: CTAB, no wheezing, rhonchi, rales Abd: normal bowel sounds, no guarding or rigidity Genitals: Scrotal sac erythematous, tender to palpation, no penile discharge. Site of suprapubic catheter erythematous with scant amount of purulent drainage. Hematuria noted Extremities: no pedal edema, pulses equal bilaterally, warm Skin: warm, dry, intact - Assessment and Plan (1) UTI (urinary tract infection) Current Visit: Yes Status: Acute Assessment and Plan: UA grossly indicative of UTI. Has suprapubic catheter which was changed in the ED on admission. Urine culture with group B strep. Continue IV cefepime and Vanco for now. Follow urine culture and narrow accordingly. (2) Sepsis Current Visit: Yes Status: Acute Assessment and Plan: Met sepsis criteria on admission with fever, tachycardia, elevated WBC was suspected UTI. Blood and urine cultures were treated in the ER. Fluid resus citation and broad-spectrum IV ATB initiated on admission. Sepsis now resolved. No further tachycardia, WBC normalized. No hypotension (3) Candidiasis of scrotum Current Visit: No Status: Acute Assessment and Plan: cont IV fluconazole; day 2 (4) Diabetes Current Visit: Yes Status: Acute Assessment and Plan: per hx. apparently takes metformin at home however not on home medication list. Continue SSI. Monitor blood sugar and titrate PRN. Hgb A1c pending (5) Urethral stricture Current Visit: No Status: Acute Assessment and Plan: per hx. Has suprapubic catheter. Last changed on admission. Follow-up with urology as previously planned. (6) DVT prophylaxis Current Visit: No Status: Acute Assessment and Plan: heparin - Time Spent with Patient Total time spent is greater than 50% in coordination of care (as documented) at patient's floor/unit and/or counseling patient: Internal Medicine: Result - Labs CBC & Chem 7: 01/04/19 12:09 01/04/19 12:09 Labs: Short CBC 01/04/19 Range/Units 12:09 WBC 9.7 (4.3-11.1) K/mcL Hgb 10.5 L (12.9-16.9) g/dL Hct 33.0 L (37.5-50.1) % Plt Count 161 (140-400) K/mcL BMP 01/04/19 12:09 Sodium 136 Potassium 3.9 Chloride 111 H Carbon Dioxide 15 L BUN 18 Creatinine 1.08 Glucose 161 H Calcium 7.9 L Liver Function 01/04/19 Range/Units 12:09 Total Bilirubin 0.4 (0.3-1.0) mg/dL AST 11 L (13-39) Units/L ALT 15 (7-52) Units/L Alkaline Phosphatase 80 (34-104) Units/L Albumin 3.1 L (3.5-5.7) g/dL Consult Discharge Plan - Plan Referrals: Nely Stock, VIT[employer]O RETINAL SURGEON [Primary Care Provider] - (1) UTI (urinary tract infection) Qualifiers: Urinary tract infection type: acute cystitis Hematuria presence: with hematuria Qualified Code(s): N30.01 - Acute cystitis with hematuria (2) Sepsis Qualifiers: Sepsis type: sepsis due to unspecified organism Qualified Code(s): A41.9 - Sepsis, unspecified organism (4) Diabetes Qualifiers: Diabetes mellitus type: type 2 Diabetes mellitus snf insulin use: with termite control servicer use Diabetes mellitus complication status: without complication Qualified Code(s): E11.9 - Type 2 diabetes mellitus without complications; Z79.4 - medical terminologist (current) use of insulin (5) Urethral stricture Qualifiers: Urethral stricture type: post-procedural Urethral stricture sex-location: male urethra-bulbous Qualified Code(s): 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, male
[2019-01-05 06:18] LABS: Hematocrit 32.6 % (37.5-50.1); Hemoglobin 10.6 g/dL (12.9-16.9); Mean Corpuscular HGB Conc 32.5 g/dL (31.6-35.5); Mean Corpuscular Hemoglobin 28.3 pg (28.0-33.3); Mean Corpuscular Volume 87.2 fL (83.0-100.0); Mean Platelet Volume 9.8 fL (9.4-12.4); Platelet Count 186 K/mcL (140-400); Red Blood Count 3.74 M/mcL (4.19-5.50); Red Cell Distribution Width 15.2 % (11.5-14.5)
[2019-01-05] MEDS: Fluconazole 200 MG/100 ML 200 MG/100 ML BAG IVPB SCH (06:23)
[2019-01-05] MEDS: *HR* Heparin 5,000 UNIT/ML VIAL SQ SCH ×2 (06:28→17:44)
[2019-01-05 06:30] LABS: Alanine Aminotransferase 12 Units/L (7-52); Albumin 3.1 g/dL (3.5-5.7); Albumin/Globulin Ratio 1.1 (1.1-2.2); Alkaline Phosphatase 83 Units/L (34-104); Aspartate Amino Transferase 8 Units/L (13-39); BUN/Creatinine Ratio 16 (6-26); Bilirubin,Total 0.3 mg/dL (0.3-1.0); Blood Urea Nitrogen 15 mg/dL (8-23); Calcium 8.3 mg/dL (8.6-10.3); Carbon Dioxide 18 mEq/L (23-29); Chloride 109 mEq/L (98-107); Globulin 2.7 g/dL (2.4-3.5); Glucose 135 mg/dL (70-105); Osmolality,Calculated 285 (280-300); Potassium 3.5 mEq/L (3.5-5.1); Sodium 136 mEq/L (136-145); Total Protein 5.8 g/dL (6.4-8.9); eGFR For Non-African Americans > 60 (> 60)
[2019-01-05] MEDS: Insulin LISPRO 300 UNITS/3 ML VIAL SQ SCH ×4 (07:50→20:31)
[2019-01-05] MEDS: Gabapentin 300 MG CAPSULE PO SCH ×3 (07:56→20:35)
[2019-01-05] MEDS: traMADol 50 MG TABLET PO PRN ×2 (08:04→17:45)
--- NOTE | 2019-01-05 08:30 | Infectious Disease Consult ---
Infectious Disease-Consult - Encounter Date/Time Date of Encounter: 01/05/19 Time of Encounter: 09:45 - Data of Consult Patient: new to practice Reason for consult: UTI, SPT site infection Consult date: 01/05/19 Requesting Physician: Cheri Ellis MD Primary Care Provider: Nely Stock CNP - [facility] HPI: Mr. Bolden C3-year-old male with past medical history of diabetes, CAD, PVD, [place], and chronic suprapubic catheter secondary to urinary obstruction. The patient was admitted to the hospital 01/02/19 for fever, UTI, and leukocytosis. We are consulted 01/05/19 for further workup and treatment recommendations for UTI and possible suprapubic catheter site infection. Briefly, the patient is a 63-year-old male with a past medical history as stated above. The patient presented to the emergency department with complaints of generalized fatigue and weakness started on the day of admission. Upon arrival, he was febrile, tachycardic, tachypneic, and had leukocytosis with neutrophilic predominance. Renal function, LFTs, and lactic acid were normal. Urinalysis was obviously pyuria. Blood cultures were obtained 2 sets. Chest x-ray was negative. He was started empirically on IV cefepime and admitted to the hospital for further evaluation. Since admission, the patient continued to have fevers tachycardia through 01/03/19. He had a CT of the abdomen and pelvis showed severe wall thickening of the bladder with pericystic fat stranding inflammatory changes as well as fluid inflammatory changes surrounding the tract of the suprapubic catheter suggesting cystitis with suprapubic catheter infection. No evidence abscess or focal drainable fluid collection was noted. There was nonobstructing bilateral nephrolithiasis without hydronephrosis or obstructive uropathy. Also stool throughout the colon which can be seen with constipation the proper clinical setting. The concern for infection surrounding the superpubic catheter site, vancomycin was added to the patient's antibiotic regimen. He is also noted to have candidiasis of the scrotum so started on IV fluconazole. Urology was consu lted who agreed with the current treatment plan. Urine culture obtained in the emergency department came back positive for group B strep. On 01/04/19, the patient started having some diarrhea. GI panel and C. difficile were negative. Point, the patient's leukocytosis has resolved. He has been afebrile for over 24 hours. Currently, he is on cefepime, vancomycin, and fluconazole. We have been asked to evaluate and make further recommendations. Today, the patient endorses a history as stated above. He reports fevers of almost 103 with associated chills and rigors at home. Denies any headache or neck pain. Complained of generalized fatigue and weakness. Denies chest pain, shortness of breath, or cough. Denies nausea, vomiting, or constipation. Reports diarrhea that started yesterday. Denies abdominal pain or flank pain. Denies any back, joint, or extremity pain at this time. States he feels almost 100% better and is ready to go home. States his appetite is good. Denies any congestion, earache, or sore throat. The patient lives at home. He works as a reservations sales agent. He smokes half pack of cigarettes per day. Denies alcohol or illicit drug use. Denies any chronic infectious diseases. Denies any recent travel. - ROS Review of Systems: All systems reviewed and no additional remarkable complaints except as stated. - Results CBC & Chem 7: 01/06/19 00:33 01/06/19 00:33 - Exam Vitals: Temp Pulse Resp BP Pulse Ox 98.4 F 79 16 149/81 98 01/05/19 06:57 01/05/19 06:57 01/05/19 06:57 01/05/19 06:57 01/05/19 08:10 Exam: Head: Atraumatic, normal inspection, normocephalic. Eye: EOMI, PERRLA, no scleral icterus noted. ENT: Mucous membranes moist. No odontogenic infection noted. Neck: Normal inspection, no meningismus. Respiratory: Clear to auscultation. No rales, respiratory distress, rhonchi, or wheezes noted. Cardiovascular: Regular rate and rhythm, S1 and S2 audible. No murmurs, rubs, or gallops. GI: Soft, nondistended, normal bowel sounds. Extremities:No joint swelling, pedal edema, or tenderness noted. Back: Normal inspection. No vertebral tenderness noted. Neurological: Alert, oriented 3, no focal deficits. Psychiatric: normal affect, normal mood. Skin: Dry, intact, warm. Normal color. No rashes. Tramadol HCl [Ultram] 50 mg PO QID PRN 04/12/18 [History] Gabapentin 600 mg PO TID 01/03/19 [History] Meloxicam 15 mg PO DAILY 01/03/19 [History] Cephalexin [Keflex] 500 mg PO TID #24 capsule 01/06/19 [Rx] Doxycycline Hyclate 100 mg PO BID #16 tablet 01/06/19 [Rx] Nystatin Cream [Mycostatin Cream] 1 appl TP BID #1 tube 01/06/19 [Rx] Allergy/AdvReac Type Severity Reaction Status Date / Time codeine AdvReac Mild See Verified 01/02/19 20:10 Comments - Assessment and Plan (1) Sepsis Status: Acute The patient had 4 sepsis criteria on admission. Likely secondary to UTI and SPT site infection. Resolved. Afebrile. Leukocytosis resolved. No longer tachycardic or tachypneic. Blood cultures drawn 01/02/19 are no growth to date 2 sets. Qualifiers: Sepsis type: sepsis due to unspecified organism Qualified Code(s): A41.9 - Sepsis, unspecified organism SNOMED Code(s): 88770192 (2) Soft tissue infection Status: Acute Location: Suprapubic catheter site. Causative organism: Unclear. CT of the abdomen and pelvis showed severe wall thickening of the bladder with pericystic fat stranding inflammatory changes as well as fluid inflammatory changes surrounding the tract of the suprapubic catheter suggesting cystitis and suprapubic catheter infection. No evidence of abscess or focal drainable fluid collection was noted. Small amount of erythema persists around the SPT. Patient states this is normal for him. SPT replaced on admission. Urology consulted. Currently on vancomycin and cefepime. SNOMED Code(s): 40496394 (3) UTI (urinary tract infection) Status: Acute Causative organism: Group B strep. Complicated due to the presence of suprapubic catheter. CT of the abdomen and pelvis negative for obstructing nephrolithiasis or hydronephrosis or obstructive uropathy. Currently on vancomycin and cefepime. Qualifiers: Urinary tract infection type: acute cystitis Hematuria presence: with hem aturia Qualified Code(s): N30.01 - Acute cystitis with hematuria SNOMED Code(s): 46697082 (4) Candidiasis of scrotum Status: Acute Improved per patient report. Currently on IV fluconazole. SNOMED Code(s): 653534180, 119579046 (5) PVD (peripheral vascular disease) Status: Acute SNOMED Code(s): 177376736 (6) Diabetes Status: Acute Recommend aggressive glucose monitoring and control to promote wound healing and prevent reinfection. Management per the primary team. Qualifiers: Diabetes mellitus type: type 2 Diabetes mellitus long-term insulin use: with terminologist use Diabetes mellitus complication status: without complication Qualified Code(s): E11.9 - Type 2 diabetes mellitus without complications; Z79.4 - lobsterman (current) use of insulin SNOMED Code(s): 31590218 - Recommendations Recommendations: Await blood cultures to finalize. Suprapubic catheter management per the urology team. Discontinue fluconazole. Start topical nystatin cream for scrotal candidiasis. Continue Vancomycin IV. Pharmacy to dose. Goal trough ~15. Continue cefepime 2 grams IV Q12H. Duration of treatment depends on the clinical picture. Can transition to Bactrim DS 1 tab PO BID and keflex 500mg PO TID when ready for discharge to complete a total of 14 days. Monitor renal function and for drug toxicity and dose-adjust antibiotics. Past Med Surg Social Fam HX - Past Medical History Medical history: coronary artery disease, diabetes, myocardial infarction, other Psychiatric history: no psych history - Past Surgical History Surgical History: coronary bypass (CABG), other Additional surgical history: toe surgery, urethral reconstruction, superpubic cath - Social History Smoking Status: Current every day smoker Smokeless Tobacco Status: No Alcohol use: rarely Drug use: none - Family History Mother Family Member Ethnicity: Non- Living Status: Hx Family Cancer: No Hx Family Endocrine Disorder: Yes (Diabetic) Father Family Member Ethnicity: Non- Living Status: Hx Family Cardiac Disorders: Yes Consult Discharge Plan - Plan Instructions: Urinary Tract Infection in Men (DC) Referrals: Pablo Lopez MD [Partnered Physician] - 01/08/19 10:45 am Nely Stock CNP [Primary Care Provider] - 01/13/19 10:30 am Sandro Oh MD [Partnered Physician] - 01/15/19 8:45 am Prescriptions: Doxycycline Hyclate 100 mg PO BID #16 tablet Cephalexin [Keflex] 500 mg PO TID #24 capsule Nystatin Cream [Mycostatin Cream] 1 appl TP BID #1 tube - Attending Attestation I have personally performed a face to face evaluation on this patient. I have reviewed and agree with the care plan. History and Exam by me shows: Assessment and plan: 1.Sepsis secondary to urinary tract infection and suprapubic catheter site infection 2.Suprapubic catheter site infection/cellulitis causative organism not clear 3.Urinary tract infection causative organism group B streptococcus 4.Candidiasis of scrotum 5.Peripheral vascular disease 6.Diabetes mellitus type 2 ask Recommendations Await blood cultures to finalize. Suprapubic catheter management per the urology team. Discontinue fluconazole. Start topical nystatin cream for scrotal candidiasis. Continue Vancomycin IV. Pharmacy to dose. Goal trough ~15. Continue cefepime 2 grams IV Q12H. Duration of treatment depends on the clinical picture. Can transition to Bactrim DS 1 tab PO BID and keflex 500mg PO TID when ready for discharge to complete a total of 14 days. Monitor renal function and for drug toxicity and dose-adjust antibiotics.
--- NOTE | 2019-01-05 09:20 | Urology Progress Note ---
Date of Encounter: 01/05/19 Time of Encounter: 08:50 - Assessment and Plan (1) UTI (urinary tract infection) Current Visit: Yes Status: Acute Assessment and plan: Patient is a 63-year-old male who presents with a group B strep urinary tract infection and indwelling suprapubic catheter secondary to urethral stricture. S/P tube is in proper place and draining sufficiently. Vital signs are currently stable and afebrile. Clinically, patient appears improved. Patient is receiving IV cefepime and vancomycin. Infectious disease is following. Patient will require SP tube change within 4 weeks. Urology will sign off, but we are always available if needed. Qualifiers: Urinary tract infection type: acute cystitis Hematuria presence: with hematuria Qualified Code(s): N30.01 - Acute cystitis with hematuria Progress Note Subjective: no new complaints, feels better Narrative: Patient seen and examined sitting upright in bed in no apparent distress. S/P tube indwelling and draining transparent, dark yellow urine into bedside bag. Patient denies fever, chills, or flank pain. Objective Initial Vital Signs Temp Pulse Resp BP Pulse Ox 103.2 F H 117 22 132/61 96 01/02/19 20:14 01/02/19 20:14 01/02/19 20:14 01/02/19 20:14 01/02/19 20:14 - General physical appearance Present: well developed, no distress, no pain - Respiratory Present: normal expansion, normal respiratory effort - Abdomen Present: soft, non tender. Absent: distended - Genitourinary Urine Appearance: Present: Clear - Integumentary Present: no rash, no abnormal pigmentation - Musculoskeletal Present: normal posture - Psychiatric Present: oriented to time, oriented to person, oriented to place, speech is normal, memory intact - Labs 01/05/19 05:44 01/05/19 05:44 Diabetes panel 01/04/19 01/05/19 Range/Units 12:09 05:44 Sodium 136 136 (136-145) mEq/L Potassium 3.9 3.5 (3.5-5.1) mEq/L Chloride 111 H 109 H (98-107) mEq/L Carbon Dioxide 15 L 18 L (23-29) mEq/L BUN 18 15 (8-23) mg/dL Creatinine 1.08 0.95 (0.70-1.30) mg/dL Glucose 161 H 135 H (70-105) mg/dL Calcium 7.9 L 8.3 L (8.6-10.3) mg/dL AST 11 L 8 L (13-39) Units/L ALT 15 12 (7-52) Units/L Alkaline Phosphatase 80 83 (34-104) Units/L Albumin 3.1 L 3.1 L (3.5-5.7) g/dL Calcium panel 01/04/19 01/05/19 Range/Units 12:09 05:44 Calcium 7.9 L 8.3 L (8.6-10.3) mg/dL Albumin 3.1 L 3.1 L (3.5-5.7) g/dL Pituitary panel 01/04/19 01/05/19 Range/Units 12:09 05:44 Sodium 136 136 (136-145) mEq/L Potassium 3.9 3.5 (3.5-5.1) mEq/L Chloride 111 H 109 H (98-107) mEq/L Carbon Dioxide 15 L 18 L (23-29) mEq/L BUN 18 15 (8-23) mg/dL Creatinine 1.08 0.95 (0.70-1.30) mg/dL Glucose 161 H 135 H (70-105) mg/dL Calcium 7.9 L 8.3 L (8.6-10.3) mg/dL Adrenal panel 01/04/19 01/05/19 Range/Units 12:09 05:44 Sodium 136 136 (136-145) mEq/L Potassium 3.9 3.5 (3.5-5.1) mEq/L Chloride 111 H 109 H (98-107) mEq/L Carbon Dioxide 15 L 18 L (23-29) mEq/L BUN 18 15 (8-23) mg/dL Creatinine 1.08 0.95 (0.70-1.30) mg/dL Glucose 161 H 135 H (70-105) mg/dL Calcium 7.9 L 8.3 L (8.6-10.3) mg/dL Total Bilirubin 0.4 0.3 (0.3-1.0) mg/dL AST 11 L 8 L (13-39) Units/L ALT 15 12 (7-52) Units/L Alkaline Phosphatase 80 83 (34-104) Units/L Albumin 3.1 L 3.1 L (3.5-5.7) g/dL Consult Discharge Plan - Plan Referrals: Nely Stock, MATT [Primary Care Provider] -
--- NOTE | 2019-01-05 09:53 | Electrocardiograph Report ---
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
[2019-01-05] MEDS: Cefepime HCl 2,000 MG in Water for inj. (sterile) 20 ML 20 ML IVP SCH (12:21)
--- NOTE | 2019-01-05 15:03 | Internal Med Progress Note ---
Hospitalist Progress Note - Encounter Date of Encounter: 01/05/19 Time of Encounter: 12:15 - Subjective Interval History: Mr. Bolden is a 63 year old male with history of diabetes, chronic indwelling suprapubic catheter due to urethral stricture, CAD and PVD pt presented to ER with, he has noticed his urine has been smelling strong and has been cloudy. He denies any fevers or chills. He denies any chest pain, abdominal pain, nausea, vomiting, cold-like symptoms, Shortness of breath. In the ER he does have low garde temp and his UA was concerning for UTI. CT abdomen pelvis with no contrast showed severe wall thickening of the bladder with pericystic fat stranding inflammatory changes as well as fluid inflammatory changes surrounding the tract of the suprapubic catheter suggesting cystitis and suprapubic catheter infection. No evidence of abscess or focal drainable fluid collection. Nonobstructing bilateral nephrolithiasis no hydronephrosis or obstructive uropathy. Small amount of perihepatic ascites extending into the right paracoli c gutter. His suprapubic catheter was changed in the ER. He was admitted in the hospital and started him on empirical antibiotic IV Cefepime and Vancomycin. Pt is more alert, awake and O x 3. Denied any Abd pain. He does have mild erythema around the suprapubic catheter area. - Exam Vitals: Temp Pulse Resp BP Pulse Ox 98.4 F 81 16 136/73 97 01/05/19 11:47 01/05/19 11:47 01/05/19 11:47 01/05/19 11:47 01/05/19 11:47 Exam: Gen: Alert, awake, Oriented to time,place and person Chest: Diminished breath sounds B/L, No wheezing, No crackles, No rales Heart: S1S2+ RRR No murmurs Abd: Soft, NT, BS +, No organomegaly Ext: No edema, pulses are palpable, No calf tenderness : macerated skin and possible miriam inf noticed in the groin area. Mild erythema noticed around suprapubic catheter area. No active discharge / drainage noticed Neuro : chronic b.l LE weakness - Assessment and Plan (1) UTI (urinary tract infection) Current Visit: Yes Status: Acute Assessment and Plan: UA grossly indicative of UTI Urine cx - GBS ID is on board.. Currently on empirical antibiotic vancomycin and cefepime Will talk to ID about Deescalating antibiotics (2) Sepsis Current Visit: Yes Status: Acute Assessment and Plan: Met sepsis criteria on admission with fever, tachycardia, elevated WBC was suspected UTI. Blood culture was no growth urine culture was going group B strep (3) Candidiasis of scrotum Current Visit: No Status: Acute Assessment and Plan: cont IV fluconazole; day 3 also recommend topical nystatin powder (4) Urethral stricture Current Visit: No Status: Acute Assessment and Plan: chronic indwelling suprapubic catheter Changed it in the ER does not see any signs of inf around the cath site (5) Diabetes Current Visit: Yes Status: Acute Assessment and Plan: on ADA diet on ISS (6) DVT prophylaxis Current Visit: No Status: Acute Assessment and Plan: SQ heparin - Time Spent with Patient Total time spent is greater than 50% in coordination of care (as documented) at patient's floor/unit and/or counseling patient: Internal Medicine: Result - Labs CBC & Chem 7: 01/05/19 05:44 01/05/19 05:44 Labs: Short CBC 01/05/19 Range/Units 05:44 WBC 7.8 (4.3-11.1) K/mcL Hgb 10.6 L (12.9-16.9) g/dL Hct 32.6 L (37.5-50.1) % Plt Count 186 (140-400) K/mcL BMP 01/05/19 05:44 Sodium 136 Potassium 3.5 Chloride 109 H Carbon Dioxide 18 L BUN 15 Creatinine 0.95 Glucose 135 H Calcium 8.3 L Liver Function 01/05/19 Range/Units 05:44 Total Bilirubin 0.3 (0.3-1.0) mg/dL AST 8 L (13-39) Units/L ALT 12 (7-52) Units/L Alkaline Phosphatase 83 (34-104) Units/L Albumin 3.1 L (3.5-5.7) g/dL - Impressions Impressions Abdomen/Pelvis CT 01/03/19 00:22 IMPRESSION: Severe wall thickening of the bladder with pericystic fat stranding inflammatory changes as well as fluid inflammatory changes surrounding the tract of the suprapubic catheter suggesting cystitis and suprapubic catheter infection. No evidence of abscess or focal drainable fluid collection. Nonobstructing bilateral nephrolithiasis. No hydronephrosis or obstructive uropathy. Small amount of perihepatic ascites extending into the right paracolic gutter. Stool throughout the colon which can be seen with constipation in the proper clinical setting. D/ / 01/03/2019 09:15:21 Richard Riggs MD / tatyana Interpreting Provider: Richard Riggs MD Consult Discharge Plan - Plan Referrals: Nely Stock NURSING HOME ADMISSIONS DIRECTOR [Primary Care Provider] - 01/13/19 10:30 am (1) UTI (urinary tract infection) Qualifiers: Urinary tract infection type: acute cystitis Hematuria presence: with hematuria Qualified Code(s): N30.01 - Acute cystitis with hematuria (2) Sepsis Qualifiers: Sepsis type: sepsis due to unspecified organism Qualified Code(s): A41.9 - Sepsis, unspecified organism (4) Urethral stricture Qualifiers: Urethral stricture type: post-procedural Urethral stricture sex-location: male urethra-bulbous Qualified Code(s): 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, male (5) Diabetes Qualifiers: Diabetes mellitus type: type 2 Diabetes mellitus manager terminal insulin use: with manager terminal use Diabetes mellitus complication status: without complication Qualified Code(s): E11.9 - Type 2 diabetes mellitus without complications; Z79.4 - termite renewal inspector (current) use of insulin
[2019-01-05] MEDS: Nystatin Cream 15 GM TUBE TP SCH (20:35)
[2019-01-06] MEDS: Cefepime HCl 2,000 MG in Water for inj. (sterile) 20 ML 20 ML IVP SCH ×2 (00:08→11:42)
[2019-01-06 01:49] LABS: Hematocrit 30.9 % (37.5-50.1); Hemoglobin 10.4 g/dL (12.9-16.9); Mean Corpuscular HGB Conc 33.7 g/dL (31.6-35.5); Mean Corpuscular Hemoglobin 28.9 pg (28.0-33.3); Mean Corpuscular Volume 85.8 fL (83.0-100.0); Mean Platelet Volume 10.2 fL (9.4-12.4); Platelet Count 197 K/mcL (140-400); Red Cell Distribution Width 15.2 % (11.5-14.5)
[2019-01-06 02:10] LABS: Alanine Aminotransferase 11 Units/L (7-52); Albumin 3.2 g/dL (3.5-5.7); Albumin/Globulin Ratio 1.1 (1.1-2.2); Alkaline Phosphatase 89 Units/L (34-104); Aspartate Amino Transferase 8 Units/L (13-39); BUN/Creatinine Ratio 16 (6-26); Bilirubin,Total 0.2 mg/dL (0.3-1.0); Blood Urea Nitrogen 18 mg/dL (8-23); Calcium 8.7 mg/dL (8.6-10.3); Carbon Dioxide 21 mEq/L (23-29); Chloride 106 mEq/L (98-107); Glucose 238 mg/dL (70-105); Osmolality,Calculated 290 (280-300); Potassium 3.6 mEq/L (3.5-5.1); Sodium 135 mEq/L (136-145); Total Protein 6.2 g/dL (6.4-8.9); eGFR For Non-African Americans > 60 (> 60)
[2019-01-06] MEDS: traMADol 50 MG TABLET PO PRN ×2 (02:51→09:25)
[2019-01-06] MEDS: *HR* Heparin 5,000 UNIT/ML VIAL SQ SCH (05:13)
[2019-01-06] MEDS: Gabapentin 300 MG CAPSULE PO SCH (09:25)
[2019-01-06] MEDS: Insulin LISPRO 300 UNITS/3 ML VIAL SQ SCH ×2 (09:26→11:47)
[2019-01-06] MEDS: Nystatin Cream 15 GM TUBE TP SCH (09:27)
[2019-01-06 11:01] VITALS: BP 144/79
--- NOTE | 2019-01-06 11:45 | Discharge Summary ---
- NOTES TO OUTPATIENT PROVIDER Notes to Outpatient Provider: f/u with PCP in one week. f/u with Urology in 1-2 weeks. Your supra pubic catheter need to be changed every 4 weeks. Orders not resulted at time of discharge: Pending orders 01/02/19 20:42 Culture,Blood [BC] Stat 01/06/19 14:30 Vancomycin,Trough Timed 01/07/19 04:00 CMP [Comprehensive Metabolic Panel] AM 0400 Complete Blood Count w/o Diff [HEME] AM 0400 01/08/19 04:00 CMP [Comprehensive Metabolic Panel] AM 0400 Complete Blood Count w/o Diff [HEME] AM 0400 01/09/19 04:00 CMP [Comprehensive Metabolic Panel] AM 0400 Complete Blood Count w/o Diff [HEME] AM 0400 Date of Encounter: 01/06/19 Time of Encounter: 11:18 - Discharge Diagnosis (1) UTI (urinary tract infection) Priority: Primary Status: Acute Qualifiers: Urinary tract infection type: acute cystitis Hematuria presence: with hematuria Qualified Code(s): N30.01 - Acute cystitis with hematuria (2) Sepsis Priority: Primary Status: Acute Qualifiers: Sepsis type: sepsis due to unspecified organism Qualified Code(s): A41.9 - Sepsis, unspecified organism (3) Candidiasis of scrotum Priority: Primary Status: Acute (4) Urethral stricture Priority: Secondary Status: Chronic Qualifiers: Urethral stricture type: post-procedural Urethral stricture sex-location: male urethra-bulbous Qualified Code(s): 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, male (5) Diabetes Priority: Secondary Status: Acute Qualifiers: Diabetes mellitus type: type 2 Diabetes mellitus regional environmental manager insulin use: with [facility] use Diabetes mellitus complication status: without complication Qualified Code(s): E11.9 - Type 2 diabetes mellitus without complications; Z79.4 - senior living (current) use of insulin (6) DVT prophylaxis Priority: Secondary Status: Acute Hospital course: Mr. Bolden is a 63 year old male with history of diabetes, chronic indwelling suprapubic catheter due to urethral stricture, CAD and PVD pt presented to ER with, he has noticed his urine has been smelling strong and has been cloudy. He denies any fevers or chills. He denies any chest pain, abdominal pain, nausea, vomiting, cold-like symptoms, Shortness of breath. In the ER he does have low garde temp and his UA was concerning for UTI. CT abdomen pelvis with no contrast showed severe wall thickening of the bladder with pericystic fat stranding inflammatory changes as well as fluid inflammatory changes surrounding the tract of the suprapubic catheter suggesting cystitis and suprapubic catheter infection. No evidence of abscess or focal drainable fluid collection. Nonobstructing bilateral nephrolithiasis no hydronephrosis or obstructive uropathy. Small amount of perihepatic ascites extending into the right paracolic gutter. His suprapubic catheter was changed in the ER. He was admitted in the hospital and started him on empirical antibiotic IV Cefepime and Vancomycin. He did have mild erythema around the suprapubic catheter area which seems to be slowly improving. He did have possible yeast infection in the groin area too, which improved now with topical nystatin cream. His urine grew Group B Strep. Pt was evaluated by ID who recommend total 2 weeks of Abx and switched to PO Keflex and Doxy. - Time Spent with Patient Total time spent providing and/or coordinating discharge services: - Discharge Medications Prescriptions: New Doxycycline Hyclate 100 mg PO BID #16 tablet Cephalexin [Keflex] 500 mg PO TID #24 capsule Nystatin Cream [Mycostatin Cream] 1 appl TP BID #1 tube Continued Tramadol HCl [Ultram] 50 mg PO QID PRN PRN Reason: Pain Gabapentin 600 mg PO TID Meloxicam 15 mg PO DAILY Home Medications: Tramadol HCl [Ultram] 50 mg PO QID PRN 11/28/17 [History] Gabapentin 600 mg PO TID 01/03/19 [History] Meloxicam 15 mg PO DAILY 01/03/19 [History] Cephalexin [Keflex] 500 mg PO TID #24 capsule 01/06/19 [Rx] Doxycycline Hyclate 100 mg PO BID #16 tablet 01/06/19 [Rx] Nystatin Cream [Mycostatin Cream] 1 appl TP BID #1 tube 01/06/19 [Rx] Allergies/Adverse Reactions: Allergy/AdvReac Type Severity Reaction Status Date / Time codeine AdvReac Mild See Verified 01/02/19 20:10 Comments Date of admission: 01/03/19 04:38 Primary care physician: Nely Stock CNP Consults: 01/03/19 04:41 Consult to Infectious Diseases [CONS] Routine Consulting Provider: Infectious Disease [place] Reason for Consult: suprapubic catheter site infection Call Completed: No 01/03/19 04:42 Consult to Urology [CONS] Routine Consulting Provider: Urology [facility] Reason for Consult: suprapubic catheter site infection Call Completed: Yes - Constitutional Vitals: Temp Pulse Resp BP Pulse Ox 98.1 F 74 18 144/79 97 01/06/19 10:57 01/06/19 10:57 01/06/19 10:57 01/06/19 10:57 01/06/19 10:57 General appearance: Present: cooperative, A&O X 3, no acute distress, answers questions appropriately Exam: Gen: Alert, awake, Oriented to time,place and person Chest: Diminished breath sounds B/L, No wheezing, No crackles, No rales Heart: S1S2+ RRR No murmurs Abd: Soft, NT, BS +, No organomegaly Ext: No edema, pulses are palpable, No calf tenderness : macerated skin and possible miriam inf noticed in the groin area. Mild erythema noticed around suprapubic catheter area. No active discharge / drainage noticed Neuro : chronic b.l LE weakness - Patient Status Disposition: Home, Self-Care Condition: Good Overall status at discharge: patient is back to baseline - Discharge Instructions Follow Up With: Nely Stock CNP [Primary Care Provider] - 01/13/19 10:30 am Sandro Oh MD [Partnered Physician] - - Diet and Activity Activity: increase activity as tolerated Diet: low salt diet
== END 2019-01-06 13:47 | disposition home or self-care (01) | DRG 698 ==
LOC: EMEROOARM 19:58 → 3BNU 19:58 → SUATTDRO 01-03 04:38
PROVIDERS: ADMIT Internal Medicine; ATTEND Family Medicine

== ENCOUNTER 2020-04-06 22:17 | Inpatient (IN) ==
[2020-04-06 23:38] LABS: Bacteria,Urine Few per hpf (None-Few); Bilirubin,Urine Negative (Negative); Blood,Urine Small (Negative); Clarity,Urine Ex.Turbid (Clear); Color,Urine Yellow (Yellow); Glucose,Urine (UA) >=1000 mg/dL (Normal); Ketones,Urine Negative (Negative); Leukocyte Esterase,Urine Large (Negative); Mucus,Urine Many per lpf (None-Few); Nitrite,Urine Positive (Negative); PH,Urine 6.5 pH Units (5.0-8.0); Protein,Urine >=300 mg/dL (Neg-Trace); Specific Gravity,Urine 1.021 (1.010-1.025); Squamous Epithelial Cell,Urine Few per hpf (None-Few); Urobilinogen,Urine Normal (Normal); WBC,Urine TNTC per hpf (0-3)
[2020-04-06 23:45] LABS: Amphetamine Screen,Urine Negative ng/mL (Cutoff=1000); Barbiturate Screen,Urine Negative ng/mL (Cutoff=200); Benzodiazepines Screen,Urine Negative ng/mL (Cutoff=200); Cannabinoid Screen,Urine Negative ng/mL (Cutoff = 50); Cocaine Screen,Urine Negative ng/mL (Cutoff= 300); Opiate Screen,Urine Negative ng/mL (Cutoff=300); Phencyclidine Screen,Urine Negative ng/mL (Cutoff=25)
[2020-04-06] MEDS ORDERED: cefTRIAXone 1,000 MG in Water for inj. (sterile) 10 ML IVP ONE (23:55)
[2020-04-07 01:10] LABS: Basophils # 0.1 K/mcL (0.0-0.2); Basophils % 0.7 %; Eosinophils # 0.2 K/mcL (0.0-0.6); Eosinophils % 2.2 %; Hemoglobin 12.6 g/dL (12.9-16.9); Immature Granulocytes % 0.5 % (0-4); Lymphocytes # 2.1 K/mcL (0.6-4.6); Mean Corpuscular HGB Conc 31.5 g/dL (31.6-35.5); Mean Corpuscular Hemoglobin 27.9 pg (28.0-33.3); Mean Corpuscular Volume 88.7 fL (83.0-100.0); Mean Platelet Volume 9.6 fL (9.4-12.4); Monocytes # 0.5 K/mcL (0.0-1.3); Monocytes % 5.6 %; Neutrophils # 5.4 K/mcL (1.6-8.9); Platelet Count 225 K/mcL (140-400); Red Blood Count 4.51 M/mcL (4.19-5.50); Red Cell Distribution Width 14.3 % (11.5-14.5); White Blood Count 8.2 K/mcL (4.3-11.1)
[2020-04-07 01:21] LABS: INR 1.1; Prothrombin Time 12.3 Seconds (9.4-12.1)
[2020-04-07 01:25] LABS: Activated Partial Thrombo Time 31.6 Seconds (26.0-36.0)
[2020-04-07 01:26] LABS: Alanine Aminotransferase 10 Units/L (7-52); Albumin 3.2 g/dL (3.5-5.7); Alkaline Phosphatase 95 Units/L (34-104); Aspartate Amino Transferase 11 Units/L (13-39); BUN/Creatinine Ratio 10 (6-26); Bilirubin,Indirect 0.3 mg/dL (0.0-1.0); Bilirubin,Total 0.3 mg/dL (0.3-1.0); Blood Urea Nitrogen 11 mg/dL (8-23); Calcium 8.3 mg/dL (8.6-10.3); Carbon Dioxide 27 mEq/L (23-29); Chloride 99 mEq/L (98-107); Creatine Kinase 45 Units/L (30-223); Ethanol < 10 mg/dL (Less than 10); Globulin 3.2 g/dL (2.4-3.5); Glucose 302 mg/dL (70-105); Osmolality,Calculated 287 (280-300); Potassium 3.2 mEq/L (3.5-5.1); Sodium 133 mEq/L (136-145); Total Protein 6.4 g/dL (6.4-8.9); Troponin I 0.05 ng/mL (< 0.04); eGFR For African Americans > 60 (> 60); eGFR For Non-African Americans > 60 (> 60)
[2020-04-07 01:42] LABS: Thyroid Stimulating Hormone 2.112 mcIU/mL (0.340-5.600)
[2020-04-07] MEDS ORDERED: Aspirin 81 MG TAB.CHEW PO STA (01:52)
[2020-04-07] MEDS ORDERED: Naloxone 0.4 MG/ML INJ IVP PRN (02:43)
[2020-04-07] MEDS ORDERED: *HR* Dextrose 50 % in Water (Vial) 50 ML VIAL IVP PRN (04:37)
[2020-04-07] MEDS ORDERED: D5% in Water 1,000 ML IVC PRN (04:37)
[2020-04-07] MEDS ORDERED: Dextrose Gel 15 GM/37.5 ML TUBE PO PRN ×2 (04:37)
[2020-04-07] MEDS ORDERED: Potassium Chloride Elixir 20 MEQ/15 ML UDC PO ONE (04:57)
[2020-04-07] MEDS ORDERED: Perflutren Lipid Microsphere 1.3 ML in 0.9 % Sodium Chloride 8.7 ML IVP PRN (05:02)
[2020-04-07] MEDS: Insulin LISPRO 300 UNITS/3 ML VIAL SQ SCH ×4 (08:11→21:20)
[2020-04-07] MEDS: cefTRIAXone 1,000 MG in Water for inj. (sterile) 10 ML IVP SCH (08:11)
[2020-04-07 08:55] LABS: Estimated Average Glucose 361 mg/dl
[2020-04-07 09:12] LABS: Chol/HDL Ratio 5.3 (0-4.9); Magnesium 1.6 mg/dL (1.6-2.6)
[2020-04-07] MEDS ORDERED: Isovue-370 500 ML BOTTLE IVP ONE (11:29)
[2020-04-07] MEDS: Aspirin 81 MG TAB.CHEW PO SCH (11:53)
[2020-04-07] MEDS ORDERED: *HR* LORazepam 2 MG/ML VIAL IVP ONE (15:46)
[2020-04-07] MEDS: Thiamine (B-1) 100 MG in 0.9 % Sodium Chloride 50 ML IVPB SCH (15:49)
[2020-04-07] MEDS: *HR* Heparin 5,000 UNIT/ML VIAL SQ SCH (18:36)
[2020-04-07 20:26] LABS: Adenovirus Not Detected (Not Detect); Coronavirus 229E Not Detected (Not Detect); Coronavirus HKU1 Not Detected (Not Detect); Coronavirus NL63 Not Detected (Not Detect); Coronavirus OC43 Not Detected (Not Detect)
[2020-04-07 20:37] LABS: Bordetella Pertussis Not Detected (Not Detect); Chlamydophila pneumoniae Not Detected (Not Detect); Human Metapneumovirus Not Detected (Not Detect); Human Rhinovirus/Enterovirus Not Detected (Not Detect); Influenza A Subtype 2009 H1 Not Detected (Not Detect); Influenza B Not Detected (Not Detect); Mycoplasma pneumoniae Not Detected (Not Detect); Parainfluenza Virus 1 Not Detected (Not Detect); Parainfluenza Virus 2 Not Detected (Not Detect); Parainfluenza Virus 3 Not Detected (Not Detect); Parainfluenza Virus 4 Not Detected (Not Detect); Respiratory Syncytial Virus Not Detected (Not Detect)
[2020-04-08] MEDS ORDERED: Haloperidol Lactate 5 MG/ML VIAL IVP ONE (06:28)
[2020-04-08] MEDS ORDERED: Haloperidol Lactate 5 MG/ML VIAL ONE (06:29)
[2020-04-08] MEDS ORDERED: levETIRAcetam 1,000 MG in 0.9 % Sodium Chloride 100 ML IVPB ONE (06:35)
[2020-04-08] MEDS ORDERED: *HR* LORazepam 2 MG/ML VIAL IVP ONE ×2 (06:43→17:02)
[2020-04-08] MEDS ORDERED: *HR* LORazepam 2 MG/ML VIAL IVP PRN (06:50)
[2020-04-08] MEDS ORDERED: 0.9 % Sodium Chloride 1,000 ML IV STA (07:18)
[2020-04-08] MEDS ORDERED: 0.9 % Sodium Chloride 1,000 ML IVC ONE (07:28)
[2020-04-08] MEDS: *HR* Heparin 5,000 UNIT/ML VIAL SQ SCH ×2 (07:30→17:54)
[2020-04-08 09:08] LABS: Hematocrit 34.4 % (37.5-50.1); Mean Corpuscular HGB Conc 31.7 g/dL (31.6-35.5); Mean Corpuscular Hemoglobin 27.3 pg (28.0-33.3); Mean Corpuscular Volume 86.2 fL (83.0-100.0); Mean Platelet Volume 10.2 fL (9.4-12.4); Platelet Count 244 K/mcL (140-400); Red Blood Count 3.99 M/mcL (4.19-5.50); Red Cell Distribution Width 14.4 % (11.5-14.5)
[2020-04-08 09:10] LABS: Hemoglobin 10.9 g/dL (12.9-16.9); White Blood Count 14.4 K/mcL (4.3-11.1)
[2020-04-08] MEDS ORDERED: Gadolinium Contrast Agent (WT Based) IV PRN ×2 (09:17→14:58)
[2020-04-08 09:30] LABS: BUN/Creatinine Ratio 12 (6-26); Blood Urea Nitrogen 13 mg/dL (8-23); Calcium 7.9 mg/dL (8.6-10.3); Carbon Dioxide 21 mEq/L (23-29); Chloride 102 mEq/L (98-107); Glucose 334 mg/dL (70-105); Magnesium 1.9 mg/dL (1.6-2.6); Osmolality,Calculated 287 (280-300); Potassium 3.8 mEq/L (3.5-5.1); Sodium 132 mEq/L (136-145); eGFR For African Americans > 60 (> 60); eGFR For Non-African Americans > 60 (> 60)
[2020-04-08 09:51] LABS: Folate 16.4 ng/mL (3.0-16.0)
[2020-04-08] MEDS: Insulin LISPRO 300 UNITS/3 ML VIAL SQ SCH ×4 (12:14→21:40)
[2020-04-08] MEDS: Aspirin 81 MG TAB.CHEW PO SCH (12:14)
[2020-04-08] MEDS: cefTRIAXone 1,000 MG in Water for inj. (sterile) 10 ML IVP SCH (13:33)
[2020-04-08] MEDS: Thiamine (B-1) 100 MG in 0.9 % Sodium Chloride 50 ML IVPB SCH (13:34)
[2020-04-08] MEDS: Cyanocobalamin (B-12) 1,000 MCG/ML VIAL SQ SCH (13:34)
[2020-04-08 18:36] LABS: Hematocrit 35.1 % (37.5-50.1); Hemoglobin 11.5 g/dL (12.9-16.9); Mean Corpuscular HGB Conc 32.8 g/dL (31.6-35.5); Mean Corpuscular Hemoglobin 27.8 pg (28.0-33.3); Mean Corpuscular Volume 84.8 fL (83.0-100.0); Mean Platelet Volume 9.8 fL (9.4-12.4); Platelet Count 282 K/mcL (140-400); Red Blood Count 4.14 M/mcL (4.19-5.50); Red Cell Distribution Width 14.2 % (11.5-14.5)
[2020-04-08] MEDS: Insulin DETEMIR 100 UNIT/ML X5UNITS SQ SCH (21:45)
[2020-04-08] MEDS: levETIRAcetam 500 MG/5 ML UDC PO SCH (21:45)
[2020-04-09] MEDS: *HR* LORazepam 2 MG/ML VIAL IVP PRN (01:54)
[2020-04-09 03:56] LABS: Hematocrit 34.8 % (37.5-50.1); Hemoglobin 11.5 g/dL (12.9-16.9); Mean Corpuscular Hemoglobin 28.1 pg (28.0-33.3); Mean Corpuscular Volume 85.1 fL (83.0-100.0); Platelet Count 289 K/mcL (140-400); Red Blood Count 4.09 M/mcL (4.19-5.50); Red Cell Distribution Width 14.1 % (11.5-14.5); White Blood Count 12.2 K/mcL (4.3-11.1)
[2020-04-09 04:16] LABS: BUN/Creatinine Ratio 12 (6-26); Blood Urea Nitrogen 11 mg/dL (8-23); Calcium 8.3 mg/dL (8.6-10.3); Carbon Dioxide 22 mEq/L (23-29); Chloride 99 mEq/L (98-107); Glucose 114 mg/dL (70-105); Osmolality,Calculated 274 (280-300); Potassium 3.3 mEq/L (3.5-5.1); Sodium 132 mEq/L (136-145); eGFR For African Americans > 60 (> 60); eGFR For Non-African Americans > 60 (> 60)
[2020-04-09] MEDS: *HR* Heparin 5,000 UNIT/ML VIAL SQ SCH ×2 (05:26→17:38)
[2020-04-09] MEDS: Insulin LISPRO 300 UNITS/3 ML VIAL SQ SCH ×3 (07:59→16:38)
[2020-04-09 08:37] LABS: Hemoglobin 11.7 g/dL (12.9-16.9); Mean Corpuscular HGB Conc 33.4 g/dL (31.6-35.5); Mean Corpuscular Hemoglobin 28.3 pg (28.0-33.3); Mean Corpuscular Volume 84.5 fL (83.0-100.0); Mean Platelet Volume 9.6 fL (9.4-12.4); Platelet Count 285 K/mcL (140-400); Red Blood Count 4.14 M/mcL (4.19-5.50); Red Cell Distribution Width 14.3 % (11.5-14.5); White Blood Count 12.6 K/mcL (4.3-11.1)
[2020-04-09] MEDS: cefTRIAXone 1,000 MG in Water for inj. (sterile) 10 ML IVP SCH (10:08)
[2020-04-09] MEDS: Cyanocobalamin (B-12) 1,000 MCG/ML VIAL SQ SCH (10:09)
[2020-04-09] MEDS: Aspirin 81 MG TAB.CHEW PO SCH (10:10)
[2020-04-09] MEDS: Thiamine (B-1) 100 MG in 0.9 % Sodium Chloride 50 ML IVPB SCH (10:12)
[2020-04-09] MEDS: levETIRAcetam 500 MG/5 ML UDC PO SCH ×2 (10:13→20:10)
[2020-04-09 16:27] LABS: Hematocrit 40.9 % (37.5-50.1); Mean Corpuscular HGB Conc 33.3 g/dL (31.6-35.5); Mean Corpuscular Hemoglobin 28.8 pg (28.0-33.3); Mean Corpuscular Volume 86.5 fL (83.0-100.0); Mean Platelet Volume 9.6 fL (9.4-12.4); Platelet Count 304 K/mcL (140-400); Red Blood Count 4.73 M/mcL (4.19-5.50); Red Cell Distribution Width 14.1 % (11.5-14.5); White Blood Count 10.6 K/mcL (4.3-11.1)
[2020-04-09 16:28] LABS: Hemoglobin 13.6 g/dL (12.9-16.9)
[2020-04-09 20:02] LABS: Mean Corpuscular HGB Conc 32.7 g/dL (31.6-35.5); Mean Corpuscular Hemoglobin 28.2 pg (28.0-33.3); Mean Corpuscular Volume 86.2 fL (83.0-100.0); Mean Platelet Volume 9.3 fL (9.4-12.4); Platelet Count 246 K/mcL (140-400); Red Blood Count 3.83 M/mcL (4.19-5.50); Red Cell Distribution Width 14.3 % (11.5-14.5); White Blood Count 9.7 K/mcL (4.3-11.1)
[2020-04-09 20:03] LABS: Hemoglobin 10.8 g/dL (12.9-16.9)
[2020-04-09] MEDS: Gabapentin 300 MG CAPSULE PO SCH (20:10)
[2020-04-09] MEDS: Insulin DETEMIR 100 UNIT/ML X5UNITS SQ SCH (20:35)
[2020-04-10] MEDS: Insulin LISPRO 300 UNITS/3 ML VIAL SQ SCH ×4 (01:56→16:48)
[2020-04-10] MEDS: *HR* LORazepam 2 MG/ML VIAL IVP PRN (01:57)
[2020-04-10 03:51] LABS: Mean Corpuscular HGB Conc 33.3 g/dL (31.6-35.5); Mean Corpuscular Hemoglobin 27.6 pg (28.0-33.3); Mean Corpuscular Volume 82.9 fL (83.0-100.0); Mean Platelet Volume 10.1 fL (9.4-12.4); Platelet Count 297 K/mcL (140-400); Red Blood Count 4.34 M/mcL (4.19-5.50); Red Cell Distribution Width 14.3 % (11.5-14.5); White Blood Count 10.3 K/mcL (4.3-11.1)
[2020-04-10 04:02] LABS: BUN/Creatinine Ratio 13 (6-26); Blood Urea Nitrogen 12 mg/dL (8-23); Calcium 8.5 mg/dL (8.6-10.3); Carbon Dioxide 21 mEq/L (23-29); Chloride 104 mEq/L (98-107); Glucose 117 mg/dL (70-105); Osmolality,Calculated 285 (280-300); Potassium 3.6 mEq/L (3.5-5.1); Sodium 137 mEq/L (136-145); eGFR For African Americans > 60 (> 60); eGFR For Non-African Americans > 60 (> 60)
[2020-04-10] MEDS: *HR* Heparin 5,000 UNIT/ML VIAL SQ SCH ×2 (05:53→16:50)
[2020-04-10] MEDS: Gabapentin 300 MG CAPSULE PO SCH ×3 (08:47→20:32)
[2020-04-10] MEDS: cefTRIAXone 1,000 MG in Water for inj. (sterile) 10 ML IVP SCH (08:47)
[2020-04-10] MEDS: Cyanocobalamin (B-12) 1,000 MCG/ML VIAL SQ SCH (08:48)
[2020-04-10] MEDS: Aspirin 81 MG TAB.CHEW PO SCH (08:48)
[2020-04-10] MEDS: levETIRAcetam 500 MG/5 ML UDC PO SCH ×2 (08:50→20:31)
[2020-04-10] MEDS: Thiamine (B-1) 100 MG in 0.9 % Sodium Chloride 50 ML IVPB SCH (08:50)
[2020-04-10] MEDS ORDERED: Isovue-370 500 ML BOTTLE IVP ONE (11:47)
[2020-04-10] MEDS: Acetaminophen 325 MG TABLET PO PRN (20:32)
[2020-04-10] MEDS: Insulin DETEMIR 100 UNIT/ML X5UNITS SQ SCH (20:32)
[2020-04-11] MEDS: Insulin LISPRO 300 UNITS/3 ML VIAL SQ SCH ×4 (05:11→17:41)
[2020-04-11] MEDS: *HR* Heparin 5,000 UNIT/ML VIAL SQ SCH ×2 (06:28→17:42)
[2020-04-11] MEDS: Acetaminophen 325 MG TABLET PO PRN (08:10)
[2020-04-11] MEDS: levETIRAcetam 500 MG/5 ML UDC PO SCH (08:11)
[2020-04-11] MEDS: Aspirin 81 MG TAB.CHEW PO SCH (08:11)
[2020-04-11] MEDS: Thiamine (B-1) 100 MG in 0.9 % Sodium Chloride 50 ML IVPB SCH (08:11)
[2020-04-11] MEDS: Gabapentin 300 MG CAPSULE PO SCH ×2 (08:11→15:36)
[2020-04-11] MEDS: Cyanocobalamin (B-12) 1,000 MCG/ML VIAL SQ SCH (08:11)
[2020-04-11] MEDS: cefTRIAXone 1,000 MG in Water for inj. (sterile) 10 ML IVP SCH (08:12)
[2020-04-11] MEDS ORDERED: Lidocaine Viscous Oral Soln 15 ML SOLUTION MM PRN (09:53)
[2020-04-11] MEDS ORDERED: 0.9 % Sodium Chloride 500 ML IVC ONE (09:53)
[2020-04-11] MEDS: *HR* FentaNYL (PF) 100 MCG/2 ML VIAL IVP PRN ×5 (10:30→11:00)
[2020-04-11] MEDS: *HR* Midazolam HCl 5 MG/5 ML VIAL IVP PRN ×6 (10:30→11:00)
[2020-04-11 12:57] LABS: Hematocrit 38.6 % (37.5-50.1); Hemoglobin 12.2 g/dL (12.9-16.9); Mean Corpuscular HGB Conc 31.6 g/dL (31.6-35.5); Mean Corpuscular Hemoglobin 27.3 pg (28.0-33.3); Mean Corpuscular Volume 86.4 fL (83.0-100.0); Mean Platelet Volume 9.7 fL (9.4-12.4); Platelet Count 284 K/mcL (140-400); Red Blood Count 4.47 M/mcL (4.19-5.50); Red Cell Distribution Width 14.5 % (11.5-14.5); White Blood Count 7.1 K/mcL (4.3-11.1)
[2020-04-11 13:38] LABS: BUN/Creatinine Ratio 12 (6-26); Blood Urea Nitrogen 12 mg/dL (8-23); Calcium 8.3 mg/dL (8.6-10.3); Carbon Dioxide 18 mEq/L (23-29); Chloride 108 mEq/L (98-107); Glucose 96 mg/dL (70-105); Osmolality,Calculated 286 (280-300); Potassium 3.5 mEq/L (3.5-5.1); Sodium 138 mEq/L (136-145); eGFR For African Americans > 60 (> 60); eGFR For Non-African Americans > 60 (> 60)
[2020-04-11 14:54] VITALS: BP 152/75
[2020-04-12] MEDS ORDERED: Thiamine (B-1) 100 MG TABLET PO SCH (09:00)
[2020-04-12] MEDS ORDERED: Folic Acid 1 MG TABLET PO SCH (09:00)
[2020-04-12] MEDS ORDERED: Multivit/Ca/Min/Fe/FA 1 TAB TABLET PO SCH (09:00)
== END 2020-04-11 21:00 | disposition home health service (06) | DRG 65 ==
LOC: EMEROOARM 22:17 → 3ANU 22:17
PROVIDERS: ADMIT Internal Medicine; ATTEND Internal Medicine

== ENCOUNTER 2020-08-15 11:34 | Inpatient (IN) ==
[2020-08-15 13:09] LABS: Basophils % 0.2 %; Eosinophils % 0.1 %; Hematocrit 36.7 % (37.5-50.1); Hemoglobin 11.9 g/dL (12.9-16.9); Immature Granulocytes % 0.6 % (0-4); Lymphocytes % 6.3 %; Mean Corpuscular HGB Conc 32.4 g/dL (31.6-35.5); Mean Corpuscular Hemoglobin 27.9 pg (28.0-33.3); Mean Corpuscular Volume 85.9 fL (83.0-100.0); Mean Platelet Volume 8.9 fL (9.4-12.4); Monocytes # 0.8 K/mcL (0.0-1.3); Monocytes % 4.7 %; Neutrophils # 14.3 K/mcL (1.6-8.9); Platelet Count 428 K/mcL (140-400); Red Blood Count 4.27 M/mcL (4.19-5.50); Red Cell Distribution Width 14.5 % (11.5-14.5); Segmented Neutrophils % 88.1 %; White Blood Count 16.2 K/mcL (4.3-11.1)
[2020-08-15 13:26] LABS: BUN/Creatinine Ratio 15 (6-26); Blood Urea Nitrogen 17 mg/dL (8-23); C-Reactive Protein 167 mg/L (Less than 10); Calcium 9.1 mg/dL (8.6-10.3); Carbon Dioxide 23 mEq/L (23-29); Chloride 97 mEq/L (98-107); Glucose 320 mg/dL (70-105); Osmolality,Calculated 284 (280-300); Potassium 3.8 mEq/L (3.5-5.1); Sodium 130 mEq/L (136-145); eGFR For African Americans > 60 (> 60); eGFR For Non-African Americans > 60 (> 60)
[2020-08-15] MEDS ORDERED: *HR* FentaNYL (PF) 100 MCG/2 ML VIAL IVP ONE (13:41)
[2020-08-15] MEDS ORDERED: Piperacillin/Tazobactam 3.375 GM in 0.9 % Sodium Chloride Mini Bag 100 ML IVPB ONE (13:41)
[2020-08-15] MEDS ORDERED: 0.9 % Sodium Chloride 1,000 ML IVC ONE (14:28)
[2020-08-15] MEDS ORDERED: Acetaminophen 325 MG TABLET PO PRN (15:37)
[2020-08-15] MEDS ORDERED: Ondansetron 4 MG/2 ML VIAL IVP PRN (15:37)
[2020-08-15] MEDS ORDERED: Naloxone 0.4 MG/ML INJ IVP PRN (15:37)
[2020-08-15] MEDS ORDERED: Isovue-370 500 ML BOTTLE IVP ONE (15:41)
[2020-08-15 17:04] LABS: Estimated Average Glucose 315 mg/dl; Hemoglobin A1C 12.6 %
[2020-08-15] MEDS ORDERED: *HR* Dextrose 50 % in Water (Vial) 50 ML VIAL IVP PRN (17:09)
[2020-08-15] MEDS ORDERED: Dextrose Gel 15 GM/37.5 ML TUBE PO PRN ×2 (17:09)
[2020-08-15] MEDS ORDERED: D5% in Water 1,000 ML IVC PRN (17:09)
[2020-08-15] MEDS ORDERED: *HR* HYDROmorphone 2 MG/ML SYRINGE IVP PRN (17:13)
[2020-08-15] MEDS: 0.9 % Sodium Chloride 1,000 ML IVC SCH (17:52)
[2020-08-15] MEDS: *HR* HYDROmorphone (PF) 1 MG/ML SYRINGE IVP PRN (21:27)
[2020-08-15] MEDS: Piperacillin/Tazobactam 3.375 GM in 0.9 % Sodium Chloride Mini Bag 100 ML IVPB SCH (21:29)
[2020-08-15] MEDS: Gabapentin 300 MG CAPSULE PO SCH (21:29)
[2020-08-15] MEDS: Insulin DETEMIR 100 UNIT/ML X5UNITS SUBQ SCH (21:30)
[2020-08-16] MEDS: *HR* HYDROmorphone (PF) 1 MG/ML SYRINGE IVP PRN ×5 (01:43→19:56)
[2020-08-16 04:52] LABS: Basophils % 0.3 %; Eosinophils # 0.1 K/mcL (0.0-0.6); Eosinophils % 0.9 %; Hematocrit 35.7 % (37.5-50.1); Hemoglobin 11.3 g/dL (12.9-16.9); Immature Granulocytes % 0.5 % (0-4); Lymphocytes # 1.5 K/mcL (0.6-4.6); Lymphocytes % 13.4 %; Mean Corpuscular HGB Conc 31.7 g/dL (31.6-35.5); Mean Corpuscular Volume 85.2 fL (83.0-100.0); Mean Platelet Volume 8.9 fL (9.4-12.4); Monocytes # 0.8 K/mcL (0.0-1.3); Monocytes % 6.5 %; Platelet Count 408 K/mcL (140-400); Red Blood Count 4.19 M/mcL (4.19-5.50); Red Cell Distribution Width 14.5 % (11.5-14.5); Segmented Neutrophils % 78.4 %; White Blood Count 11.5 K/mcL (4.3-11.1)
[2020-08-16 05:12] LABS: BUN/Creatinine Ratio 15 (6-26); Blood Urea Nitrogen 14 mg/dL (8-23); Calcium 8.6 mg/dL (8.6-10.3); Carbon Dioxide 23 mEq/L (23-29); Chloride 105 mEq/L (98-107); Glucose 132 mg/dL (70-105); Magnesium 1.7 mg/dL (1.6-2.6); Osmolality,Calculated 282 (280-300); Potassium 3.4 mEq/L (3.5-5.1); Sodium 135 mEq/L (136-145); eGFR For African Americans > 60 (> 60); eGFR For Non-African Americans > 60 (> 60)
[2020-08-16] MEDS: Piperacillin/Tazobactam 3.375 GM in 0.9 % Sodium Chloride Mini Bag 100 ML IVPB SCH ×3 (06:20→22:43)
[2020-08-16] MEDS: Insulin LISPRO 300 UNITS/3 ML VIAL SUBQ SCH ×3 (07:50→16:14)
[2020-08-16] MEDS: 0.9 % Sodium Chloride 1,000 ML IVC SCH (07:59)
[2020-08-16] MEDS ORDERED: Nicotine 21 MG PATCH.TD24 TD SCH (09:00)
[2020-08-16] MEDS: Gabapentin 300 MG CAPSULE PO SCH ×3 (09:35→19:56)
[2020-08-16] MEDS ORDERED: Aspirin Enteric Coated 81 MG Tablet PO SCH (10:30)
[2020-08-16] MEDS: *HR* Heparin 5,000 UNIT/ML VIAL SQ SCH (17:50)
[2020-08-16] MEDS: Insulin DETEMIR 100 UNIT/ML X5UNITS SUBQ SCH (20:07)
[2020-08-17] MEDS: *HR* HYDROmorphone (PF) 1 MG/ML SYRINGE IVP PRN ×2 (00:17→05:24)
[2020-08-17] MEDS: *HR* Heparin 5,000 UNIT/ML VIAL SQ SCH ×2 (05:24→05:29)
[2020-08-17] MEDS: Piperacillin/Tazobactam 3.375 GM in 0.9 % Sodium Chloride Mini Bag 100 ML IVPB SCH ×2 (05:24→17:11)
[2020-08-17 06:00] LABS: Basophils % 0.3 %; Eosinophils # 0.1 K/mcL (0.0-0.6); Eosinophils % 0.5 %; Hematocrit 32.9 % (37.5-50.1); Hemoglobin 10.6 g/dL (12.9-16.9); Immature Granulocytes % 0.3 % (0-4); Lymphocytes # 1.1 K/mcL (0.6-4.6); Lymphocytes % 7.6 %; Mean Corpuscular HGB Conc 32.2 g/dL (31.6-35.5); Mean Corpuscular Hemoglobin 27.4 pg (28.0-33.3); Mean Platelet Volume 9.4 fL (9.4-12.4); Monocytes # 0.8 K/mcL (0.0-1.3); Monocytes % 5.5 %; Neutrophils # 12.3 K/mcL (1.6-8.9); Platelet Count 375 K/mcL (140-400); Red Blood Count 3.87 M/mcL (4.19-5.50); Red Cell Distribution Width 14.6 % (11.5-14.5); Segmented Neutrophils % 85.8 %; White Blood Count 14.3 K/mcL (4.3-11.1)
[2020-08-17 06:37] LABS: BUN/Creatinine Ratio 12 (6-26); Blood Urea Nitrogen 11 mg/dL (8-23); Calcium 8.7 mg/dL (8.6-10.3); Carbon Dioxide 19 mEq/L (23-29); Chloride 106 mEq/L (98-107); Glucose 110 mg/dL (70-105); Magnesium 1.6 mg/dL (1.6-2.6); Osmolality,Calculated 278 (280-300); Potassium 3.6 mEq/L (3.5-5.1); Sodium 134 mEq/L (136-145); eGFR For African Americans > 60 (> 60); eGFR For Non-African Americans > 60 (> 60)
[2020-08-17] MEDS: Insulin LISPRO 300 UNITS/3 ML VIAL SUBQ SCH ×2 (07:23→17:14)
[2020-08-17] MEDS ORDERED: *HR* Propofol 200 MG/20 ML VIAL IVP ONE (08:08)
[2020-08-17] MEDS ORDERED: Ondansetron 4 MG/2 ML VIAL ONE (08:08)
[2020-08-17] MEDS ORDERED: *HR* Midazolam HCl 2 MG/2 ML VIAL ONE (08:08)
[2020-08-17] MEDS ORDERED: *HR* Rocuronium Bromide 50 MG/5 ML VIAL ONE (08:08)
[2020-08-17] MEDS ORDERED: Dexamethasone 4 MG/ML VIAL ONE (08:08)
[2020-08-17] MEDS ORDERED: *HR* FentaNYL (PF) 100 MCG/2 ML VIAL ONE ×2 (08:08→11:01)
[2020-08-17] MEDS ORDERED: Lidocaine -MPF 2% 2 ML VIAL ONE ×2 (08:12→09:12)
[2020-08-17] MEDS ORDERED: Heparin 1,000 UNITS/500 mL 500 ML ONE (08:13)
[2020-08-17] MEDS ORDERED: *HR* Phenylephrine 10 MG/ML VIAL ONE (08:34)
[2020-08-17] MEDS ORDERED: Lidocaine -MPF 4% 5 ML AMPUL ONE (08:37)
[2020-08-17] MEDS ORDERED: Heparin 1,000 UNITS/500 mL 1,000 ML ONE (08:42)
[2020-08-17 09:01] LABS: Adenovirus Not Detected (Not Detect); Coronavirus 229E Not Detected (Not Detect); Coronavirus HKU1 Not Detected (Not Detect); Coronavirus NL63 Not Detected (Not Detect); Coronavirus OC43 Not Detected (Not Detect); SARS-CoV-2 Not Detected (Not Detect)
[2020-08-17 09:02] LABS: Bordetella Pertussis Not Detected (Not Detect); Chlamydophila pneumoniae Not Detected (Not Detect); Human Metapneumovirus Not Detected (Not Detect); Human Rhinovirus/Enterovirus Not Detected (Not Detect); Influenza A Subtype 2009 H1 Not Detected (Not Detect); Influenza B Not Detected (Not Detect); Mycoplasma pneumoniae Not Detected (Not Detect); Parainfluenza Virus 1 Not Detected (Not Detect); Parainfluenza Virus 2 Not Detected (Not Detect); Parainfluenza Virus 3 Not Detected (Not Detect); Parainfluenza Virus 4 Not Detected (Not Detect); Respiratory Syncytial Virus Not Detected (Not Detect)
[2020-08-17] MEDS ORDERED: *HR* Succinylcholine 200 MG/10 ML VIAL IVP ONE (10:12)
[2020-08-17] MEDS ORDERED: Acetaminophen IV 1,000 MG/100 ML BAG IVPB ONE (10:21)
[2020-08-17] MEDS ORDERED: Vancomycin 1,000 MG VIAL ONE (10:30)
[2020-08-17] MEDS ORDERED: *HR* PHENYLEPHRINE 1,000 MCG/10 ML SYRINGE IVP ONE (10:42)
[2020-08-17] MEDS ORDERED: EPHEDrine 50 MG/ML VIAL ONE (11:25)
[2020-08-17] MEDS ORDERED: Vancomycin 1,000 MG, Sodium Chloride IRRigation 1,000 ML IR ONE (12:45)
[2020-08-17] MEDS ORDERED: *HR* HYDROMORPHONE 2 MG/ML VIAL ONE (13:05)
[2020-08-17] MEDS ORDERED: *HR* Metoprolol 5 MG/5 ML VIAL IVP ONE (14:46)
[2020-08-17] MEDS ORDERED: *HR* HYDROmorphone PF 0.5 MG/0.5 ML SYRINGE IVP PRN (15:13)
[2020-08-17] MEDS ORDERED: Ondansetron 4 MG/2 ML VIAL IVP PRN ×2 (15:13→16:10)
[2020-08-17] MEDS ORDERED: *HR* Dextrose 50 % in Water (Vial) 50 ML VIAL IVP PRN (16:10)
[2020-08-17] MEDS ORDERED: Naloxone 0.4 MG/ML INJ IVP PRN (16:10)
[2020-08-17] MEDS ORDERED: Acetaminophen 325 MG TABLET PO PRN (16:10)
[2020-08-17] MEDS ORDERED: D5% in Water 1,000 ML IVC PRN (16:10)
[2020-08-17] MEDS ORDERED: 0.9 % Sodium Chloride 1,000 ML IVC SCH (16:10)
[2020-08-17] MEDS ORDERED: Dextrose Gel 15 GM/37.5 ML TUBE PO PRN ×2 (16:10)
[2020-08-17] MEDS ORDERED: *HR* Labetalol 20 MG/4 ML SYRINGE IVP PRN (16:10)
[2020-08-17] MEDS: *HR* HYDROcodone/Acet 5/325 mg TABLET PO PRN (18:17)
[2020-08-17] MEDS: Gabapentin 300 MG CAPSULE PO SCH (20:35)
[2020-08-17] MEDS: *HR* OxyCODONE Immed Rel 5 MG TABLET PO PRN (20:35)
[2020-08-17] MEDS: Insulin DETEMIR 100 UNIT/ML X5UNITS SUBQ SCH (20:36)
[2020-08-18] MEDS: Piperacillin/Tazobactam 3.375 GM in 0.9 % Sodium Chloride Mini Bag 100 ML IVPB SCH ×3 (00:25→16:59)
[2020-08-18] MEDS: *HR* Heparin 5,000 UNIT/ML VIAL SQ SCH ×2 (04:39→17:00)
[2020-08-18] MEDS: *HR* HYDROcodone/Acet 5/325 mg TABLET PO PRN ×2 (04:42→13:10)
[2020-08-18 05:47] LABS: Basophils # 0.1 K/mcL (0.0-0.2); Basophils % 0.3 %; Hematocrit 27.8 % (37.5-50.1); Immature Granulocytes % 0.4 % (0-4); Lymphocytes # 1.2 K/mcL (0.6-4.6); Lymphocytes % 6.8 %; Mean Corpuscular HGB Conc 31.7 g/dL (31.6-35.5); Mean Corpuscular Hemoglobin 27.8 pg (28.0-33.3); Mean Platelet Volume 9.4 fL (9.4-12.4); Monocytes # 1.1 K/mcL (0.0-1.3); Monocytes % 5.8 %; Neutrophils # 15.6 K/mcL (1.6-8.9); Platelet Count 313 K/mcL (140-400); Red Blood Count 3.16 M/mcL (4.19-5.50); Red Cell Distribution Width 14.6 % (11.5-14.5); Segmented Neutrophils % 86.7 %
[2020-08-18 05:48] LABS: Hemoglobin 8.8 g/dL (12.9-16.9)
[2020-08-18 06:04] LABS: BUN/Creatinine Ratio 13 (6-26); Blood Urea Nitrogen 14 mg/dL (8-23); Calcium 8.2 mg/dL (8.6-10.3); Carbon Dioxide 20 mEq/L (23-29); Chloride 106 mEq/L (98-107); Glucose 106 mg/dL (70-105); Osmolality,Calculated 283 (280-300); Potassium 3.9 mEq/L (3.5-5.1); Sodium 136 mEq/L (136-145); eGFR For African Americans > 60 (> 60); eGFR For Non-African Americans > 60 (> 60)
[2020-08-18 06:25] LABS: Magnesium 1.6 mg/dL (1.6-2.6)
[2020-08-18] MEDS: Insulin LISPRO 300 UNITS/3 ML VIAL SUBQ SCH ×3 (08:42→17:00)
[2020-08-18] MEDS: Aspirin Enteric Coated 81 MG Tablet PO SCH (09:02)
[2020-08-18] MEDS: Gabapentin 300 MG CAPSULE PO SCH ×3 (09:02→20:22)
[2020-08-18] MEDS: *HR* OxyCODONE Immed Rel 5 MG TABLET PO PRN ×2 (09:03→17:01)
[2020-08-18] MEDS: Nicotine 21 MG PATCH.TD24 TD SCH (09:04)
[2020-08-18] MEDS: Insulin DETEMIR 100 UNIT/ML X5UNITS SUBQ SCH (20:25)
[2020-08-19] MEDS: Piperacillin/Tazobactam 3.375 GM in 0.9 % Sodium Chloride Mini Bag 100 ML IVPB SCH ×3 (00:58→17:17)
[2020-08-19 04:47] LABS: BUN/Creatinine Ratio 12 (6-26); Blood Urea Nitrogen 16 mg/dL (8-23); Calcium 7.5 mg/dL (8.6-10.3); Carbon Dioxide 20 mEq/L (23-29); Chloride 108 mEq/L (98-107); Glucose 159 mg/dL (70-105); Osmolality,Calculated 285 (280-300); Potassium 3.1 mEq/L (3.5-5.1); Sodium 135 mEq/L (136-145); eGFR For African Americans > 60 (> 60); eGFR For Non-African Americans 52 (> 60)
[2020-08-19 04:53] LABS: Basophils % 0.3 %; Eosinophils % 0.3 %; Hematocrit 24.3 % (37.5-50.1); Hemoglobin 7.7 g/dL (12.9-16.9); Immature Granulocytes % 0.4 % (0-4); Lymphocytes # 1.1 K/mcL (0.6-4.6); Lymphocytes % 9.3 %; Mean Corpuscular HGB Conc 31.7 g/dL (31.6-35.5); Mean Corpuscular Hemoglobin 28.2 pg (28.0-33.3); Mean Platelet Volume 9.4 fL (9.4-12.4); Monocytes # 0.9 K/mcL (0.0-1.3); Neutrophils # 9.6 K/mcL (1.6-8.9); Platelet Count 272 K/mcL (140-400); Red Blood Count 2.73 M/mcL (4.19-5.50); Red Cell Distribution Width 14.9 % (11.5-14.5); Segmented Neutrophils % 81.7 %; White Blood Count 11.8 K/mcL (4.3-11.1)
[2020-08-19] MEDS: *HR* Heparin 5,000 UNIT/ML VIAL SQ SCH ×2 (05:56→17:18)
[2020-08-19] MEDS: *HR* OxyCODONE Immed Rel 5 MG TABLET PO PRN ×3 (06:00→21:20)
[2020-08-19] MEDS ORDERED: Iron Sucrose Complex 200 MG in 0.9 % Sodium Chloride 100 ML IVPB ONE (07:42)
[2020-08-19] MEDS: Insulin LISPRO 300 UNITS/3 ML VIAL SUBQ SCH ×3 (07:58→17:16)
[2020-08-19] MEDS: Gabapentin 300 MG CAPSULE PO SCH ×3 (08:09→20:18)
[2020-08-19] MEDS: Nicotine 21 MG PATCH.TD24 TD SCH (08:09)
[2020-08-19] MEDS: Aspirin Enteric Coated 81 MG Tablet PO SCH (08:09)
[2020-08-19] MEDS: *HR* HYDROcodone/Acet 5/325 mg TABLET PO PRN ×2 (13:01→16:50)
[2020-08-19] MEDS: Insulin DETEMIR 100 UNIT/ML X5UNITS SUBQ SCH (20:18)
[2020-08-20] MEDS: Piperacillin/Tazobactam 3.375 GM in 0.9 % Sodium Chloride Mini Bag 100 ML IVPB SCH ×4 (00:17→23:20)
[2020-08-20 02:02] LABS: Basophils # 0.1 K/mcL (0.0-0.2); Basophils % 0.5 %; Eosinophils # 0.2 K/mcL (0.0-0.6); Eosinophils % 1.3 %; Hematocrit 30.2 % (37.5-50.1); Hemoglobin 9.3 g/dL (12.9-16.9); Immature Granulocytes % 0.5 % (0-4); Lymphocytes # 1.6 K/mcL (0.6-4.6); Lymphocytes % 10.1 %; Mean Corpuscular HGB Conc 30.8 g/dL (31.6-35.5); Mean Corpuscular Hemoglobin 27.1 pg (28.0-33.3); Mean Platelet Volume 9.6 fL (9.4-12.4); Monocytes # 1.3 K/mcL (0.0-1.3); Monocytes % 8.3 %; Neutrophils # 12.2 K/mcL (1.6-8.9); Platelet Count 339 K/mcL (140-400); Red Blood Count 3.43 M/mcL (4.19-5.50); Red Cell Distribution Width 14.9 % (11.5-14.5); Segmented Neutrophils % 79.3 %; White Blood Count 15.4 K/mcL (4.3-11.1)
[2020-08-20 02:21] LABS: Calcium 8.4 mg/dL (8.6-10.3); Potassium 3.3 mEq/L (3.5-5.1)
[2020-08-20] MEDS: *HR* OxyCODONE Immed Rel 5 MG TABLET PO PRN ×3 (04:35→23:20)
[2020-08-20] MEDS: *HR* Heparin 5,000 UNIT/ML VIAL SQ SCH ×2 (04:36→17:32)
[2020-08-20] MEDS: Insulin LISPRO 300 UNITS/3 ML VIAL SUBQ SCH ×3 (07:54→17:33)
[2020-08-20] MEDS: Nicotine 21 MG PATCH.TD24 TD SCH (08:07)
[2020-08-20] MEDS: Aspirin Enteric Coated 81 MG Tablet PO SCH (08:07)
[2020-08-20] MEDS: Gabapentin 300 MG CAPSULE PO SCH ×3 (08:07→20:17)
[2020-08-20] MEDS ORDERED: 0.9 % Sodium Chloride 1,000 ML ONE (10:58)
[2020-08-20] MEDS ORDERED: 0.9 % Sodium Chloride 1,000 ML IVC SCH (11:00)
[2020-08-20] MEDS: *HR* HYDROcodone/Acet 5/325 mg TABLET PO PRN ×2 (13:11→21:22)
[2020-08-20] MEDS ORDERED: NIFEdipine XL (24 HR) 60 MG TAB.ER.24 PO SCH (17:00)
[2020-08-20] MEDS: Doxycycline 100 MG in 0.9 % Sodium Chloride Mini Bag 100 ML IVPB SCH (17:31)
[2020-08-20] MEDS: Insulin DETEMIR 100 UNIT/ML X5UNITS SUBQ SCH (20:17)
[2020-08-21 03:10] LABS: Basophils # 0.1 K/mcL (0.0-0.2); Basophils % 0.4 %; Eosinophils # 0.3 K/mcL (0.0-0.6); Eosinophils % 2.3 %; Hematocrit 26.4 % (37.5-50.1); Immature Granulocytes % 0.8 % (0-4); Lymphocytes # 1.7 K/mcL (0.6-4.6); Lymphocytes % 12.7 %; Mean Corpuscular HGB Conc 30.3 g/dL (31.6-35.5); Mean Corpuscular Hemoglobin 26.6 pg (28.0-33.3); Mean Corpuscular Volume 87.7 fL (83.0-100.0); Mean Platelet Volume 9.5 fL (9.4-12.4); Monocytes % 7.6 %; Neutrophils # 10.3 K/mcL (1.6-8.9); Platelet Count 300 K/mcL (140-400); Red Blood Count 3.01 M/mcL (4.19-5.50); Red Cell Distribution Width 14.9 % (11.5-14.5); Segmented Neutrophils % 76.2 %; White Blood Count 13.5 K/mcL (4.3-11.1)
[2020-08-21 03:31] LABS: BUN/Creatinine Ratio 9 (6-26); Blood Urea Nitrogen 12 mg/dL (8-23); Calcium 7.8 mg/dL (8.6-10.3); Carbon Dioxide 19 mEq/L (23-29); Chloride 112 mEq/L (98-107); Glucose 122 mg/dL (70-105); Osmolality,Calculated 285 (280-300); Sodium 137 mEq/L (136-145); eGFR For African Americans > 60 (> 60); eGFR For Non-African Americans 54 (> 60)
[2020-08-21] MEDS: *HR* HYDROcodone/Acet 5/325 mg TABLET PO PRN ×2 (03:43→12:43)
[2020-08-21] MEDS: Nicotine 21 MG PATCH.TD24 TD SCH (03:48)
[2020-08-21] MEDS: *HR* Heparin 5,000 UNIT/ML VIAL SQ SCH ×2 (06:03→17:08)
[2020-08-21] MEDS: Doxycycline 100 MG in 0.9 % Sodium Chloride Mini Bag 100 ML IVPB SCH ×2 (06:03→16:54)
[2020-08-21] MEDS: *HR* OxyCODONE Immed Rel 5 MG TABLET PO PRN (07:35)
[2020-08-21] MEDS: Gabapentin 300 MG CAPSULE PO SCH ×3 (07:35→20:10)
[2020-08-21] MEDS: amLODIPine 5 MG TABLET PO SCH (07:35)
[2020-08-21] MEDS: Aspirin Enteric Coated 81 MG Tablet PO SCH (07:35)
[2020-08-21] MEDS: Piperacillin/Tazobactam 3.375 GM in 0.9 % Sodium Chloride Mini Bag 100 ML IVPB SCH ×2 (07:36→18:31)
[2020-08-21] MEDS: Insulin LISPRO 300 UNITS/3 ML VIAL SUBQ SCH ×3 (08:07→16:52)
[2020-08-21] MEDS: *HR* OxyCODONE/APAP 5/325 TABLET PO SCH (15:52)
[2020-08-21] MEDS: Insulin DETEMIR 100 UNIT/ML X5UNITS SUBQ SCH (20:10)
[2020-08-21] MEDS: *HR* HYDROmorphone 2 MG/ML SYRINGE IVP PRN (22:29)
[2020-08-22] MEDS: *HR* OxyCODONE/APAP 5/325 TABLET PO SCH ×4 (00:38→23:48)
[2020-08-22] MEDS: Piperacillin/Tazobactam 3.375 GM in 0.9 % Sodium Chloride Mini Bag 100 ML IVPB SCH ×3 (00:38→19:44)
[2020-08-22] MEDS: *HR* HYDROmorphone 2 MG/ML SYRINGE IVP PRN ×3 (02:39→11:46)
[2020-08-22] MEDS: Nicotine 21 MG PATCH.TD24 TD SCH (04:57)
[2020-08-22] MEDS: Doxycycline 100 MG in 0.9 % Sodium Chloride Mini Bag 100 ML IVPB SCH ×2 (04:57→19:47)
[2020-08-22] MEDS: *HR* Heparin 5,000 UNIT/ML VIAL SQ SCH (04:58)
[2020-08-22 04:59] LABS: Basophils # 0.1 K/mcL (0.0-0.2); Basophils % 0.4 %; Eosinophils # 0.3 K/mcL (0.0-0.6); Hematocrit 26.1 % (37.5-50.1); Hemoglobin 8.3 g/dL (12.9-16.9); Immature Granulocytes % 0.6 % (0-4); Lymphocytes # 1.7 K/mcL (0.6-4.6); Lymphocytes % 10.4 %; Mean Corpuscular HGB Conc 31.8 g/dL (31.6-35.5); Mean Corpuscular Hemoglobin 27.9 pg (28.0-33.3); Mean Corpuscular Volume 87.9 fL (83.0-100.0); Mean Platelet Volume 9.5 fL (9.4-12.4); Monocytes # 1.2 K/mcL (0.0-1.3); Monocytes % 7.7 %; Neutrophils # 12.6 K/mcL (1.6-8.9); Platelet Count 326 K/mcL (140-400); Red Blood Count 2.97 M/mcL (4.19-5.50); Red Cell Distribution Width 14.7 % (11.5-14.5); Segmented Neutrophils % 78.9 %
[2020-08-22 05:21] LABS: BUN/Creatinine Ratio 8 (6-26); Blood Urea Nitrogen 9 mg/dL (8-23); Calcium 7.9 mg/dL (8.6-10.3); Carbon Dioxide 20 mEq/L (23-29); Chloride 109 mEq/L (98-107); Glucose 100 mg/dL (70-105); Osmolality,Calculated 281 (280-300); Potassium 3.5 mEq/L (3.5-5.1); Sodium 136 mEq/L (136-145); eGFR For African Americans > 60 (> 60); eGFR For Non-African Americans > 60 (> 60)
[2020-08-22] MEDS: amLODIPine 5 MG TABLET PO SCH (07:47)
[2020-08-22] MEDS: Gabapentin 300 MG CAPSULE PO SCH ×3 (07:47→19:46)
[2020-08-22] MEDS: Aspirin Enteric Coated 81 MG Tablet PO SCH (07:47)
[2020-08-22] MEDS: Insulin LISPRO 300 UNITS/3 ML VIAL SUBQ SCH ×3 (07:48→16:07)
[2020-08-22] MEDS ORDERED: Ondansetron 4 MG/2 ML VIAL IVP PRN ×3 (17:33→18:52)
[2020-08-22] MEDS ORDERED: *HR* OxyCODONE Immed Rel 5 MG TABLET PO PRN ×2 (17:33→18:52)
[2020-08-22] MEDS ORDERED: *HR* FentaNYL (PF) 100 MCG/2 ML VIAL ONE (18:00)
[2020-08-22] MEDS ORDERED: *HR* Propofol 200 MG/20 ML VIAL IVP ONE ×2 (18:01)
[2020-08-22] MEDS ORDERED: Lidocaine -MPF 2% 2 ML VIAL ONE (18:01)
[2020-08-22] MEDS ORDERED: Vancomycin 1,000 MG VIAL ONE (18:27)
[2020-08-22] MEDS ORDERED: Dextrose Gel 15 GM/37.5 ML TUBE PO PRN ×2 (18:52)
[2020-08-22] MEDS ORDERED: *HR* Dextrose 50 % in Water (Vial) 50 ML VIAL IVP PRN (18:52)
[2020-08-22] MEDS ORDERED: D5% in Water 1,000 ML IVC PRN (18:52)
[2020-08-22] MEDS ORDERED: *HR* Labetalol 20 MG/4 ML SYRINGE IVP PRN (18:52)
[2020-08-22] MEDS ORDERED: Naloxone 0.4 MG/ML INJ IVP PRN (18:52)
[2020-08-22] MEDS ORDERED: Acetaminophen 325 MG TABLET PO PRN (18:52)
[2020-08-22] MEDS: *HR* HYDROmorphone (PF) 1 MG/ML SYRINGE IVP PRN (19:43)
[2020-08-22] MEDS: Insulin DETEMIR 100 UNIT/ML X5UNITS SUBQ SCH (19:45)
[2020-08-22] MEDS ORDERED: Calcium Gluconate 1gm/50mL 1 GM/50 ML BAG IVPB SCH (20:00)
[2020-08-23] MEDS: *HR* HYDROmorphone (PF) 1 MG/ML SYRINGE IVP PRN ×5 (00:25→18:36)
[2020-08-23] MEDS: Piperacillin/Tazobactam 3.375 GM in 0.9 % Sodium Chloride Mini Bag 100 ML IVPB SCH ×4 (02:49→20:38)
[2020-08-23] MEDS: *HR* Heparin 5,000 UNIT/ML VIAL SQ SCH ×2 (04:30→17:17)
[2020-08-23 04:55] LABS: Campylobacter by PCR Not detected (Not detect)
[2020-08-23 05:00] LABS: Adenovirus F 40/41 PCR Not detected (Not detect); Astrovirus PCR Not detected (Not detect); C.difficile Toxin A/B Gene PCR DETECTED (Not detect); Cryptosporidium by PCR Not detected (Not detect); Cyclospora cayetanensis PCR Not detected (Not detect); E. coli O157 by PCR Not detected (Not detect); Entamoeba histolytica PCR Not detected (Not detect); Enteroaggregative E.coli(EAEC) Not detected (Not detect); Enteropathogenic E.coli(EPEC) Not detected (Not detect); Enterotoxigenic E.coli (ETEC) Not detected (Not detect); Giardia lamblia PCR Not detected (Not detect); Norovirus GI/GII PCR Not detected (Not detect); Plesiomonas shigelloides PCR Not detected (Not detect); Rotavirus A PCR Not detected (Not detect); Salmonella PCR Not detected (Not detect); Sapovirus PCR Not detected (Not detect); Shig/EnteroinvasiveE coli EIEC Not detected (Not detect); Shigalike tox-prod E coli STEC Not detected (Not detect); Vibrio PCR Not detected (Not detect); Vibrio cholerae PCR Not detected (Not detect); Yersinia enterocolitica PCR Not detected (Not detect)
[2020-08-23] MEDS: Doxycycline 100 MG in 0.9 % Sodium Chloride Mini Bag 100 ML IVPB SCH ×2 (06:41→18:06)
[2020-08-23 07:27] LABS: Basophils # 0.1 K/mcL (0.0-0.2); Basophils % 0.4 %; Eosinophils # 0.3 K/mcL (0.0-0.6); Eosinophils % 1.9 %; Hematocrit 28.7 % (37.5-50.1); Hemoglobin 8.8 g/dL (12.9-16.9); Immature Granulocytes % 0.6 % (0-4); Immature Platelets 1.7 % (1.1-6.1); Lymphocytes # 1.1 K/mcL (0.6-4.6); Lymphocytes % 6.7 %; Mean Corpuscular HGB Conc 30.7 g/dL (31.6-35.5); Mean Corpuscular Hemoglobin 26.7 pg (28.0-33.3); Mean Corpuscular Volume 87.2 fL (83.0-100.0); Mean Platelet Volume 9.3 fL (9.4-12.4); Monocytes # 1.3 K/mcL (0.0-1.3); Monocytes % 8.4 %; Platelet Count 433 K/mcL (140-400); Red Blood Count 3.29 M/mcL (4.19-5.50); Red Cell Distribution Width 14.9 % (11.5-14.5); White Blood Count 15.8 K/mcL (4.3-11.1)
[2020-08-23 07:28] LABS: BUN/Creatinine Ratio 10 (6-26); Blood Urea Nitrogen 11 mg/dL (8-23); Carbon Dioxide 20 mEq/L (23-29); Chloride 105 mEq/L (98-107); Glucose 193 mg/dL (70-105); Osmolality,Calculated 285 (280-300); Potassium 3.7 mEq/L (3.5-5.1); Sodium 135 mEq/L (136-145); eGFR For African Americans > 60 (> 60); eGFR For Non-African Americans > 60 (> 60)
[2020-08-23] MEDS: Nicotine 21 MG PATCH.TD24 TD SCH (08:04)
[2020-08-23] MEDS: amLODIPine 5 MG TABLET PO SCH (08:05)
[2020-08-23] MEDS: *HR* OxyCODONE/APAP 5/325 TABLET PO SCH ×3 (08:05→17:32)
[2020-08-23] MEDS: Gabapentin 300 MG CAPSULE PO SCH ×3 (08:06→20:39)
[2020-08-23] MEDS: Aspirin Enteric Coated 81 MG Tablet PO SCH (08:06)
[2020-08-23] MEDS: Vancomycin Oral Soln 125 MG/2.5 ML UDC PO SCH ×4 (08:10→20:40)
[2020-08-23] MEDS: Metoprolol XL (24 HR) Succ 50 MG TAB.ER.24H PO SCH (08:50)
[2020-08-23] MEDS: Insulin LISPRO 300 UNITS/3 ML VIAL SUBQ SCH ×3 (08:54→17:16)
[2020-08-23] MEDS: Insulin DETEMIR 100 UNIT/ML X5UNITS SUBQ SCH (20:40)
[2020-08-24] MEDS: *HR* OxyCODONE/APAP 5/325 TABLET PO SCH ×4 (00:24→17:43)
[2020-08-24 02:04] LABS: Basophils # 0.1 K/mcL (0.0-0.2); Basophils % 0.4 %; Eosinophils # 0.3 K/mcL (0.0-0.6); Eosinophils % 2.6 %; Hematocrit 24.3 % (37.5-50.1); Hemoglobin 7.8 g/dL (12.9-16.9); Immature Granulocytes % 0.7 % (0-4); Lymphocytes # 1.9 K/mcL (0.6-4.6); Mean Corpuscular HGB Conc 32.1 g/dL (31.6-35.5); Mean Corpuscular Hemoglobin 28.1 pg (28.0-33.3); Mean Corpuscular Volume 87.4 fL (83.0-100.0); Mean Platelet Volume 8.8 fL (9.4-12.4); Monocytes # 1.2 K/mcL (0.0-1.3); Monocytes % 9.6 %; Platelet Count 383 K/mcL (140-400); Red Blood Count 2.78 M/mcL (4.19-5.50); Red Cell Distribution Width 14.7 % (11.5-14.5); Segmented Neutrophils % 71.7 %; White Blood Count 12.9 K/mcL (4.3-11.1)
[2020-08-24 02:07] LABS: Neutrophils # 9.3 K/mcL (1.6-8.9)
[2020-08-24 02:23] LABS: BUN/Creatinine Ratio 8 (6-26); Blood Urea Nitrogen 9 mg/dL (8-23); Calcium 7.7 mg/dL (8.6-10.3); Carbon Dioxide 20 mEq/L (23-29); Chloride 107 mEq/L (98-107); Glucose 122 mg/dL (70-105); Osmolality,Calculated 284 (280-300); Platelet Estimate Normal (Normal); Potassium 3.1 mEq/L (3.5-5.1); Reactive Lymphocytes Present (Not Present); Sodium 137 mEq/L (136-145); eGFR For African Americans > 60 (> 60); eGFR For Non-African Americans > 60 (> 60)
[2020-08-24] MEDS: Doxycycline 100 MG in 0.9 % Sodium Chloride Mini Bag 100 ML IVPB SCH ×2 (05:26→17:43)
[2020-08-24] MEDS: *HR* Heparin 5,000 UNIT/ML VIAL SQ SCH ×2 (06:09→17:44)
[2020-08-24] MEDS: Piperacillin/Tazobactam 3.375 GM in 0.9 % Sodium Chloride Mini Bag 100 ML IVPB SCH ×3 (06:10→22:46)
[2020-08-24] MEDS: Gabapentin 300 MG CAPSULE PO SCH ×3 (08:28→21:26)
[2020-08-24] MEDS: Nicotine 21 MG PATCH.TD24 TD SCH (08:29)
[2020-08-24] MEDS: amLODIPine 5 MG TABLET PO SCH (08:29)
[2020-08-24] MEDS: Metoprolol XL (24 HR) Succ 50 MG TAB.ER.24H PO SCH (08:29)
[2020-08-24] MEDS: Aspirin Enteric Coated 81 MG Tablet PO SCH (08:29)
[2020-08-24] MEDS: Insulin LISPRO 300 UNITS/3 ML VIAL SUBQ SCH ×3 (08:30→17:44)
[2020-08-24] MEDS: Vancomycin Oral Soln 125 MG/2.5 ML UDC PO SCH ×4 (08:31→21:25)
[2020-08-24 10:01] LABS: Bacteria,Urine Few per hpf (None-Few); Bilirubin,Urine Negative (Negative); Blood,Urine Trace (Negative); Budding Yeast,Urine Few per hpf (None Seen); Clarity,Urine Turbid (Clear); Color,Urine Light-Yellow (Yellow); Glucose,Urine (UA) Normal (Normal); Ketones,Urine Negative (Negative); Leukocyte Esterase,Urine Large (Negative); Mucus,Urine Few per lpf (None-Few); Nitrite,Urine Negative (Negative); Protein,Urine 30 mg/dL (Neg-Trace); Squamous Epithelial Cell,Urine Few per hpf (None-Few); Urobilinogen,Urine Normal (Normal); WBC,Urine TNTC per hpf (0-3)
[2020-08-24 14:08] LABS: Hematocrit 30.5 % (37.5-50.1)
[2020-08-24 14:10] LABS: Hemoglobin 9.6 g/dL (12.9-16.9)
[2020-08-24] MEDS: Insulin DETEMIR 100 UNIT/ML X5UNITS SUBQ SCH (21:25)
[2020-08-25] MEDS: *HR* OxyCODONE/APAP 5/325 TABLET PO SCH ×3 (00:28→12:54)
[2020-08-25] MEDS: Doxycycline 100 MG in 0.9 % Sodium Chloride Mini Bag 100 ML IVPB SCH (05:19)
[2020-08-25] MEDS: *HR* Heparin 5,000 UNIT/ML VIAL SQ SCH (05:20)
[2020-08-25] MEDS: Piperacillin/Tazobactam 3.375 GM in 0.9 % Sodium Chloride Mini Bag 100 ML IVPB SCH ×2 (06:08→15:07)
[2020-08-25] MEDS: Insulin LISPRO 300 UNITS/3 ML VIAL SUBQ SCH ×2 (08:03→12:53)
[2020-08-25] MEDS: amLODIPine 5 MG TABLET PO SCH (08:09)
[2020-08-25] MEDS: Aspirin Enteric Coated 81 MG Tablet PO SCH (08:09)
[2020-08-25] MEDS: Gabapentin 300 MG CAPSULE PO SCH ×2 (08:09→15:07)
[2020-08-25] MEDS: Metoprolol XL (24 HR) Succ 50 MG TAB.ER.24H PO SCH (08:09)
[2020-08-25] MEDS: Nicotine 21 MG PATCH.TD24 TD SCH (08:09)
[2020-08-25] MEDS: Vancomycin Oral Soln 125 MG/2.5 ML UDC PO SCH ×2 (08:10→12:54)
[2020-08-25 15:47] VITALS: BP 129/63
== END 2020-08-25 17:17 | disposition home or self-care (01) | DRG 854 ==
LOC: 3ANU 11:34 → EMEROOARM 11:34 → SUATTDRO 15:00 → 3ANU 17:00 → 2NNU 08-17 11:04 → 2ANU 08-24 21:10
PROVIDERS: ADMIT Pharmacist; ATTEND Internal Medicine

== ENCOUNTER 2020-12-23 09:30 | Inpatient (IN) ==
[2020-12-23] MEDS ORDERED: Isovue-370 500 ML BOTTLE IVP ONE ×2 (09:49→17:32)
[2020-12-23] MEDS ORDERED: Ketorolac 15 MG/ML VIAL IVP ONE ×2 (09:50→13:15)
[2020-12-23] MEDS ORDERED: 0.9 % Sodium Chloride 1,000 ML IVC ONE (09:50)
[2020-12-23 10:14] LABS: Basophils # 0.1 K/mcL (0.0-0.2); Basophils % 0.4 %; Eosinophils % 0.3 %; Hematocrit 32.5 % (37.5-50.1); Immature Granulocytes % 0.4 % (0-4); Lymphocytes # 1.1 K/mcL (0.6-4.6); Lymphocytes % 7.8 %; Mean Corpuscular HGB Conc 30.8 g/dL (31.6-35.5); Mean Corpuscular Hemoglobin 25.4 pg (28.0-33.3); Mean Corpuscular Volume 82.7 fL (83.0-100.0); Mean Platelet Volume 9.8 fL (9.4-12.4); Monocytes # 0.9 K/mcL (0.0-1.3); Monocytes % 6.2 %; Neutrophils # 11.7 K/mcL (1.6-8.9); Platelet Count 343 K/mcL (140-400); Red Blood Count 3.93 M/mcL (4.19-5.50); Red Cell Distribution Width 15.8 % (11.5-14.5); Segmented Neutrophils % 84.9 %; White Blood Count 13.7 K/mcL (4.3-11.1)
[2020-12-23 10:21] LABS: VBG HCO3 24 mEq/L (21-27); VBG PCO2 42 mmHg (41-51); VBG PH 7.37 pH Units (7.32-7.42); VBG PO2 44 mmHg (25-50)
[2020-12-23 10:32] LABS: BUN/Creatinine Ratio 14 (6-26); Blood Urea Nitrogen 16 mg/dL (8-23); Calcium 8.9 mg/dL (8.6-10.3); Carbon Dioxide 22 mEq/L (23-29); Chloride 101 mEq/L (98-107); Glucose 283 mg/dL (70-105); Osmolality,Calculated 285 (280-300); Sodium 132 mEq/L (136-145); eGFR For African Americans > 60 (> 60); eGFR For Non-African Americans > 60 (> 60)
[2020-12-23 11:08] LABS: Bacteria,Urine Few per hpf (None-Few); Bilirubin,Urine Negative (Negative); Blood,Urine Moderate (Negative); Budding Yeast,Urine Many per hpf (None Seen); Clarity,Urine Ex.Turbid (Clear); Color,Urine Yellow (Yellow); Glucose,Urine (UA) 300 mg/dL (Normal); Ketones,Urine 10 mg/dL (Negative); Leukocyte Esterase,Urine Large (Negative); Mucus,Urine Few per lpf (None-Few); Nitrite,Urine Positive (Negative); PH,Urine 6.5 pH Units (5.0-8.0); Protein,Urine >=600 mg/dL (Neg-Trace); RBC,Urine TNTC per hpf (0-3); Specific Gravity,Urine 1.026 (1.010-1.025); Squamous Epithelial Cell,Urine Few per hpf (None-Few); Urobilinogen,Urine Normal (Normal); WBC,Urine TNTC per hpf (0-3)
[2020-12-23] MEDS ORDERED: cefTRIAXone 1,000 MG in Water for inj. (sterile) 10 ML IVP ONE (11:42)
[2020-12-23] MEDS ORDERED: Piperacillin/Tazobactam 3.375 GM in 0.9 % Sodium Chloride Mini Bag 100 ML IVPB ONE (12:03)
[2020-12-23] MEDS ORDERED: Naloxone 0.4 MG/ML INJ IVP PRN (13:19)
[2020-12-23 13:21] LABS: C-Reactive Protein 200 mg/L (Less than 10)
[2020-12-23] MEDS ORDERED: Dextrose Gel 15 GM/37.5 ML TUBE PO PRN ×2 (15:14)
[2020-12-23] MEDS ORDERED: D5% in Water 1,000 ML IVC PRN (15:14)
[2020-12-23] MEDS ORDERED: *HR* Dextrose 50 % in Water (Vial) 50 ML VIAL IVP PRN (15:14)
[2020-12-23] MEDS ORDERED: Insulin DETEMIR 100 UNIT/ML X5UNITS SUBQ ONE (15:20)
[2020-12-23] MEDS: Insulin LISPRO 300 UNITS/3 ML VIAL SUBQ SCH ×2 (16:30→20:59)
[2020-12-23] MEDS: Piperacillin/Tazobactam 3.375 GM in 0.9 % Sodium Chloride Mini Bag 100 ML IVPB SCH (20:58)
[2020-12-23] MEDS: Gabapentin 300 MG CAPSULE PO SCH (20:59)
[2020-12-24] MEDS: Piperacillin/Tazobactam 3.375 GM in 0.9 % Sodium Chloride Mini Bag 100 ML IVPB SCH ×3 (05:04→20:14)
[2020-12-24] MEDS: *HR* Enoxaparin 40 MG/0.4 ML SYRINGE SQ SCH (05:05)
[2020-12-24 06:14] LABS: Basophils # 0.1 K/mcL (0.0-0.2); Basophils % 0.6 %; Eosinophils # 0.3 K/mcL (0.0-0.6); Eosinophils % 2.9 %; Hematocrit 28.7 % (37.5-50.1); Hemoglobin 8.9 g/dL (12.9-16.9); Immature Granulocytes % 0.3 % (0-4); Lymphocytes # 0.9 K/mcL (0.6-4.6); Lymphocytes % 8.6 %; Mean Corpuscular Hemoglobin 25.6 pg (28.0-33.3); Mean Corpuscular Volume 82.5 fL (83.0-100.0); Mean Platelet Volume 9.6 fL (9.4-12.4); Monocytes # 0.8 K/mcL (0.0-1.3); Monocytes % 7.1 %; Neutrophils # 8.7 K/mcL (1.6-8.9); Platelet Count 308 K/mcL (140-400); Red Blood Count 3.48 M/mcL (4.19-5.50); Red Cell Distribution Width 15.9 % (11.5-14.5); Segmented Neutrophils % 80.5 %; White Blood Count 10.7 K/mcL (4.3-11.1)
[2020-12-24 06:22] LABS: INR 1.2; Prothrombin Time 13.8 Seconds (9.4-12.1)
[2020-12-24 06:41] LABS: BUN/Creatinine Ratio 15 (6-26); Blood Urea Nitrogen 17 mg/dL (8-23); Calcium 8.1 mg/dL (8.6-10.3); Carbon Dioxide 20 mEq/L (23-29); Chloride 109 mEq/L (98-107); Glucose 80 mg/dL (70-105); Osmolality,Calculated 285 (280-300); Potassium 3.3 mEq/L (3.5-5.1); Sodium 137 mEq/L (136-145); eGFR For African Americans > 60 (> 60); eGFR For Non-African Americans > 60 (> 60)
[2020-12-24 07:35] LABS: Estimated Average Glucose 223 mg/dl; Hemoglobin A1C 9.4 %
[2020-12-24] MEDS: Insulin LISPRO 300 UNITS/3 ML VIAL SUBQ SCH ×4 (08:19→20:48)
[2020-12-24] MEDS: Gabapentin 300 MG CAPSULE PO SCH ×3 (08:56→20:13)
[2020-12-24 14:59] LABS: Campylobacter by PCR Not detected (Not detect); Plesiomonas shigelloides PCR Not detected (Not detect); Salmonella PCR Not detected (Not detect); Vibrio PCR Not detected (Not detect); Vibrio cholerae PCR Not detected (Not detect); Yersinia enterocolitica PCR Not detected (Not detect)
[2020-12-24 15:00] LABS: Adenovirus F 40/41 PCR Not detected (Not detect); Astrovirus PCR Not detected (Not detect); Cryptosporidium by PCR Not detected (Not detect); Cyclospora cayetanensis PCR Not detected (Not detect); E. coli O157 by PCR Not detected (Not detect); Entamoeba histolytica PCR Not detected (Not detect); Enteroaggregative E.coli(EAEC) Not detected (Not detect); Enteropathogenic E.coli(EPEC) Not detected (Not detect); Enterotoxigenic E.coli (ETEC) Not detected (Not detect); Giardia lamblia PCR Not detected (Not detect); Norovirus GI/GII PCR Not detected (Not detect); Rotavirus A PCR Not detected (Not detect); Sapovirus PCR Not detected (Not detect); Shig/EnteroinvasiveE coli EIEC Not detected (Not detect); Shigalike tox-prod E coli STEC Not detected (Not detect)
[2020-12-24 15:26] LABS: C.difficile Toxin A/B Gene PCR DETECTED (Not detect)
[2020-12-24] MEDS: Vancomycin Oral Soln 125 MG/2.5 ML UDC PO SCH ×2 (18:18→20:13)
[2020-12-25 01:00] LABS: Basophils # 0.1 K/mcL (0.0-0.2); Basophils % 0.9 %; Eosinophils # 0.4 K/mcL (0.0-0.6); Eosinophils % 5.9 %; Hematocrit 28.8 % (37.5-50.1); Hemoglobin 8.9 g/dL (12.9-16.9); Immature Granulocytes % 0.3 % (0-4); Lymphocytes # 1.1 K/mcL (0.6-4.6); Mean Corpuscular HGB Conc 30.9 g/dL (31.6-35.5); Mean Corpuscular Hemoglobin 25.9 pg (28.0-33.3); Mean Platelet Volume 9.8 fL (9.4-12.4); Monocytes # 0.7 K/mcL (0.0-1.3); Monocytes % 10.1 %; Neutrophils # 4.4 K/mcL (1.6-8.9); Platelet Count 333 K/mcL (140-400); Red Blood Count 3.43 M/mcL (4.19-5.50); Red Cell Distribution Width 15.9 % (11.5-14.5); Segmented Neutrophils % 66.8 %; White Blood Count 6.6 K/mcL (4.3-11.1)
[2020-12-25 01:22] LABS: BUN/Creatinine Ratio 13 (6-26); Blood Urea Nitrogen 16 mg/dL (8-23); Calcium 8.3 mg/dL (8.6-10.3); Carbon Dioxide 21 mEq/L (23-29); Chloride 109 mEq/L (98-107); Chol/HDL Ratio 5.2 (0-4.9); Cholesterol 129 mg/dL (< 200); Glucose 120 mg/dL (70-105); HDL Cholesterol 25 mg/dL (40-59); LDL Cholesterol,Calculated 69 mg/dL (< 100); Magnesium 1.8 mg/dL (1.6-2.6); Osmolality,Calculated 286 (280-300); Phosphorous 2.6 mg/dL (2.7-4.5); Potassium 3.7 mEq/L (3.5-5.1); Sodium 137 mEq/L (136-145); Triglycerides 175 mg/dL (< 150); Vancomycin,Trough 19 mcg/mL (5-10); eGFR For African Americans > 60 (> 60); eGFR For Non-African Americans 57 (> 60)
[2020-12-25] MEDS: Piperacillin/Tazobactam 3.375 GM in 0.9 % Sodium Chloride Mini Bag 100 ML IVPB SCH ×3 (03:19→20:06)
[2020-12-25] MEDS: *HR* Enoxaparin 40 MG/0.4 ML SYRINGE SQ SCH (05:38)
[2020-12-25] MEDS: Aspirin Enteric Coated 81 MG Tablet PO SCH (07:42)
[2020-12-25] MEDS: Gabapentin 300 MG CAPSULE PO SCH ×3 (07:42→20:05)
[2020-12-25] MEDS: Insulin LISPRO 300 UNITS/3 ML VIAL SUBQ SCH ×4 (08:15→21:29)
[2020-12-25] MEDS: Vancomycin Oral Soln 125 MG/2.5 ML UDC PO SCH ×4 (10:28→20:05)
[2020-12-26 01:18] LABS: BUN/Creatinine Ratio 11 (6-26); Blood Urea Nitrogen 14 mg/dL (8-23); Calcium 8.1 mg/dL (8.6-10.3); Carbon Dioxide 20 mEq/L (23-29); Chloride 109 mEq/L (98-107); Glucose 106 mg/dL (70-105); Osmolality,Calculated 283 (280-300); Potassium 3.8 mEq/L (3.5-5.1); Sodium 136 mEq/L (136-145); eGFR For African Americans > 60 (> 60); eGFR For Non-African Americans 60 (> 60)
[2020-12-26] MEDS: Piperacillin/Tazobactam 3.375 GM in 0.9 % Sodium Chloride Mini Bag 100 ML IVPB SCH ×2 (04:06→12:25)
[2020-12-26] MEDS: *HR* Enoxaparin 40 MG/0.4 ML SYRINGE SQ SCH (05:51)
[2020-12-26] MEDS: Vancomycin Oral Soln 125 MG/2.5 ML UDC PO SCH ×3 (08:36→16:01)
[2020-12-26] MEDS: Gabapentin 300 MG CAPSULE PO SCH ×2 (08:36→16:01)
[2020-12-26] MEDS: Aspirin Enteric Coated 81 MG Tablet PO SCH (08:36)
[2020-12-26] MEDS: Insulin LISPRO 300 UNITS/3 ML VIAL SUBQ SCH ×3 (11:37→18:01)
[2020-12-26 14:52] VITALS: BP 122/70
[2020-12-26 16:45] LABS: Adenovirus Not Detected (Not Detect); Coronavirus 229E Not Detected (Not Detect); Coronavirus HKU1 Not Detected (Not Detect); Coronavirus NL63 Not Detected (Not Detect); Coronavirus OC43 Not Detected (Not Detect); Human Metapneumovirus Not Detected (Not Detect); Human Rhinovirus/Enterovirus Not Detected (Not Detect); Influenza A Subtype 2009 H1 Not Detected (Not Detect); SARS-CoV-2 Not Detected (Not Detect)
[2020-12-26 16:46] LABS: Bordetella Pertussis Not Detected (Not Detect); Chlamydophila pneumoniae Not Detected (Not Detect); Influenza B Not Detected (Not Detect); Mycoplasma pneumoniae Not Detected (Not Detect); Parainfluenza Virus 1 Not Detected (Not Detect); Parainfluenza Virus 2 Not Detected (Not Detect); Parainfluenza Virus 3 Not Detected (Not Detect); Parainfluenza Virus 4 Not Detected (Not Detect); Respiratory Syncytial Virus Not Detected (Not Detect)
[2020-12-26] MEDS ORDERED: Lactobacillus 1 EACH CAP.SPRINK PO SCH (21:00)
== END 2020-12-26 18:41 | disposition short-term general hospital (02) | DRG 698 ==
LOC: 3NENU 09:30 → EMEROOARM 09:30 → 3NENU 14:46
PROVIDERS: ADMIT Student in an Organized Health Care Education/Training Program; ATTEND Student in an Organized Health Care Education/Training Program

== ENCOUNTER 2021-05-05 15:49 | Inpatient (IN) ==
[2021-05-05] MEDS ORDERED: *HR* Dextrose 50 % in Water (Syg) 50 ML SYRINGE ONE (16:27)
[2021-05-05] MEDS ORDERED: *HR* Dextrose 50 % in Water (Syg) 50 ML SYRINGE IVP ONE (16:29)
[2021-05-05 16:46] LABS: Red Cell Distribution Width 15.9 % (11.5-14.5)
[2021-05-05 16:47] LABS: Hematocrit 24.2 % (37.5-50.1); Hemoglobin 7.8 g/dL (12.9-16.9); Mean Corpuscular HGB Conc 32.2 g/dL (31.6-35.5); Mean Corpuscular Hemoglobin 25.9 pg (28.0-33.3); Mean Corpuscular Volume 80.4 fL (83.0-100.0); Mean Platelet Volume 9.6 fL (9.4-12.4); Platelet Count 327 K/mcL (140-400); Red Blood Count 3.01 M/mcL (4.19-5.50); White Blood Count 29.7 K/mcL (4.3-11.1)
[2021-05-05 17:10] LABS: BUN/Creatinine Ratio 26 (6-26); Blood Urea Nitrogen 35 mg/dL (8-23); Calcium 9.2 mg/dL (8.6-10.3); Carbon Dioxide 26 mEq/L (23-29); Chloride 96 mEq/L (98-107); Glucose 34 mg/dL (70-105); Osmolality,Calculated 274 (280-300); Potassium 3.9 mEq/L (3.5-5.1); Sodium 130 mEq/L (136-145); Troponin I 0.06 ng/mL (< 0.04); eGFR For African Americans > 60 (> 60); eGFR For Non-African Americans 53 (> 60)
[2021-05-05 17:25] LABS: Lymphocytes # 0.6 K/mcL (0.6-4.6); Monocytes # 0.6 K/mcL (0.0-1.3); Neutrophils # 28.5 K/mcL (1.6-8.9)
[2021-05-05 17:26] LABS: Hypochromasia Present (Not Present); Platelet Estimate Normal (Normal)
[2021-05-05] MEDS ORDERED: Piperacillin/Tazobactam 3.375 GM in 0.9 % Sodium Chloride Mini Bag 100 ML IVPB ONE (18:22)
[2021-05-05] MEDS ORDERED: 0.9 % Sodium Chloride 1,000 ML IVC SCH ×2 (18:30→23:15)
[2021-05-05 18:45] LABS: Amorphous Sediment,Urine Few per hpf (None-Few); Bacteria,Urine Few per hpf (None-Few); Bilirubin,Urine Negative (Negative); Blood,Urine Small (Negative); Clarity,Urine Ex.Turbid (Clear); Color,Urine Yellow (Yellow); Glucose,Urine (UA) Normal (Normal); Ketones,Urine Negative (Negative); Leukocyte Esterase,Urine Large (Negative); Mucus,Urine Few per lpf (None-Few); Nitrite,Urine Negative (Negative); PH,Urine 7.5 pH Units (5.0-8.0); Protein,Urine 100 mg/dL (Neg-Trace); Specific Gravity,Urine 1.014 (1.010-1.025); Squamous Epithelial Cell,Urine Moderate per hpf (None-Few); Urobilinogen,Urine Normal (Normal); WBC,Urine TNTC per hpf (0-3)
[2021-05-05] MEDS ORDERED: Isovue-370 500 ML BOTTLE IVP ONE (18:50)
[2021-05-05] MEDS ORDERED: Melatonin 3 MG TABLET PO PRN (23:15)
[2021-05-05] MEDS ORDERED: Naloxone 0.4 MG/ML INJ IVP PRN (23:15)
[2021-05-05] MEDS ORDERED: Ondansetron 4 MG/2 ML VIAL IVP PRN (23:15)
[2021-05-05] MEDS ORDERED: Dextrose Gel 15 GM/37.5 ML TUBE PO PRN ×2 (23:17)
[2021-05-05] MEDS ORDERED: D5% in Water 1,000 ML IVC PRN (23:17)
[2021-05-05] MEDS ORDERED: *HR* Dextrose 50 % in Water (Syg) 50 ML SYRINGE IVP PRN (23:17)
[2021-05-05] MEDS ORDERED: Ipratropium 1 PUFF INHALER IH PRN (23:18)
[2021-05-06] MEDS: Acetaminophen 325 MG TABLET PO PRN ×2 (01:49→12:39)
[2021-05-06 04:04] LABS: Hematocrit 18.8 % (37.5-50.1); Mean Corpuscular HGB Conc 31.9 g/dL (31.6-35.5); Mean Corpuscular Hemoglobin 25.9 pg (28.0-33.3); Mean Platelet Volume 9.8 fL (9.4-12.4); Platelet Count 251 K/mcL (140-400); Red Blood Count 2.32 M/mcL (4.19-5.50); White Blood Count 22.4 K/mcL (4.3-11.1)
[2021-05-06 04:19] LABS: BUN/Creatinine Ratio 27 (6-26); Blood Urea Nitrogen 32 mg/dL (8-23); Calcium 7.6 mg/dL (8.6-10.3); Carbon Dioxide 20 mEq/L (23-29); Chloride 103 mEq/L (98-107); Glucose 144 mg/dL (70-105); Osmolality,Calculated 281 (280-300); Potassium 3.4 mEq/L (3.5-5.1); Sodium 131 mEq/L (136-145); eGFR For African Americans > 60 (> 60); eGFR For Non-African Americans > 60 (> 60)
[2021-05-06 04:54] LABS: Lymphocytes % 2.1 %; Platelet Count 241 K/mcL (140-400)
[2021-05-06 04:56] LABS: Basophils % 0.1 %; Hematocrit 18.7 % (37.5-50.1); Immature Granulocytes % 0.6 % (0-4); Mean Corpuscular HGB Conc 31.6 g/dL (31.6-35.5); Mean Corpuscular Hemoglobin 25.2 pg (28.0-33.3); Mean Corpuscular Volume 79.9 fL (83.0-100.0); Mean Platelet Volume 9.5 fL (9.4-12.4); Monocytes # 1.1 K/mcL (0.0-1.3); Monocytes % 5.2 %; Neutrophils # 19.7 K/mcL (1.6-8.9); Red Blood Count 2.34 M/mcL (4.19-5.50); Red Cell Distribution Width 15.8 % (11.5-14.5); White Blood Count 21.4 K/mcL (4.3-11.1)
[2021-05-06 05:03] LABS: Lymphocytes # 0.5 K/mcL (0.6-4.6)
[2021-05-06 05:04] LABS: Hemoglobin 5.9 g/dL (12.9-16.9)
[2021-05-06] MEDS ORDERED: Pantoprazole 40 MG VIAL IVP ONE (05:18)
[2021-05-06 05:32] LABS: Platelet Estimate Normal (Normal)
[2021-05-06] MEDS ORDERED: 0.9 % Sodium Chloride 250 ML ONE (05:39)
[2021-05-06] MEDS: D5% in 0.9% NACL 1,000 ML IVC SCH ×3 (06:52→22:59)
[2021-05-06] MEDS ORDERED: Iron Sucrose Complex 400 MG in 0.9 % Sodium Chloride 250 ML IVPB ONE (07:18)
[2021-05-06] MEDS: Piperacillin/Tazobactam 3.375 GM in 0.9 % Sodium Chloride Mini Bag 100 ML IVPB SCH ×3 (09:03→22:58)
[2021-05-06] MEDS ORDERED: Gabapentin 300 MG CAPSULE PO SCH (15:00)
[2021-05-06 15:17] LABS: Hematocrit 23.5 % (37.5-50.1); Hemoglobin 7.7 g/dL (12.9-16.9)
[2021-05-06 15:47] LABS: % Iron Saturation 174 % (20-55); Iron 309 mcg/dL (65-175); Transferrin 127 mg/dL (203-362)
[2021-05-06 15:58] LABS: Ferritin 122 ng/mL (20-250)
[2021-05-06 16:03] LABS: Folate 9.6 ng/mL (3.0-16.0)
[2021-05-06] MEDS: Gabapentin 300 MG CAPSULE PO SCH ×2 (17:03→21:00)
[2021-05-06] MEDS: Pantoprazole 40 MG VIAL IVP SCH (17:05)
[2021-05-06] MEDS ORDERED: Menthol 1 EACH LOZENGE PO PRN (20:48)
[2021-05-06 22:22] LABS: Hematocrit 28.6 % (37.5-50.1)
[2021-05-07] MEDS: Pantoprazole 40 MG VIAL IVP SCH ×2 (05:24→17:34)
[2021-05-07 05:57] LABS: Hematocrit 25.8 % (37.5-50.1); Hemoglobin 8.3 g/dL (12.9-16.9); Mean Corpuscular HGB Conc 32.2 g/dL (31.6-35.5); Mean Corpuscular Hemoglobin 25.8 pg (28.0-33.3); Mean Corpuscular Volume 80.1 fL (83.0-100.0); Mean Platelet Volume 9.3 fL (9.4-12.4); Platelet Count 235 K/mcL (140-400); Red Blood Count 3.22 M/mcL (4.19-5.50); Red Cell Distribution Width 15.6 % (11.5-14.5); White Blood Count 24.2 K/mcL (4.3-11.1)
[2021-05-07 06:10] LABS: BUN/Creatinine Ratio 18 (6-26); Blood Urea Nitrogen 22 mg/dL (8-23); Calcium 7.5 mg/dL (8.6-10.3); Carbon Dioxide 16 mEq/L (23-29); Chloride 109 mEq/L (98-107); Glucose 160 mg/dL (70-105); Osmolality,Calculated 287 (280-300); Potassium 3.9 mEq/L (3.5-5.1); Sodium 135 mEq/L (136-145); eGFR For African Americans > 60 (> 60); eGFR For Non-African Americans > 60 (> 60)
[2021-05-07] MEDS: Aspirin Enteric Coated 81 MG Tablet PO SCH (09:06)
[2021-05-07] MEDS: Cyanocobalamin (B-12) 1,000 MCG/ML VIAL SQ SCH (09:06)
[2021-05-07] MEDS: Gabapentin 300 MG CAPSULE PO SCH ×3 (09:06→20:08)
[2021-05-07] MEDS: Lactobacillus 1 EACH CAP.SPRINK PO SCH (09:06)
[2021-05-07] MEDS: Piperacillin/Tazobactam 3.375 GM in 0.9 % Sodium Chloride Mini Bag 100 ML IVPB SCH (09:09)
[2021-05-07] MEDS: D5% in 0.9% NACL 1,000 ML IVC SCH ×2 (09:10→20:04)
[2021-05-07] MEDS ORDERED: SODIUM CHLORIDE/NAHCO3/KCL/PEG 4,000 ML SOLN.RECON PO ONE (11:11)
[2021-05-07] MEDS: Ertapenem 1,000 MG in 0.9 % Sodium Chloride Mini Bag 100 ML IVPB SCH (14:17)
[2021-05-07] MEDS: *HR* Heparin 5,000 UNIT/ML VIAL SQ SCH (17:34)
[2021-05-07] MEDS: *HR* OxyCODONE/APAP 5/325 TABLET PO PRN (20:06)
[2021-05-08] MEDS: D5% in 0.9% NACL 1,000 ML IVC SCH ×3 (00:12→12:43)
[2021-05-08 00:59] LABS: Basophils % 0.1 %; Eosinophils % 0.2 %; Hematocrit 24.1 % (37.5-50.1); Hemoglobin 7.6 g/dL (12.9-16.9); Immature Granulocytes % 0.5 % (0-4); Lymphocytes # 0.7 K/mcL (0.6-4.6); Lymphocytes % 5.5 %; Mean Corpuscular HGB Conc 31.5 g/dL (31.6-35.5); Mean Corpuscular Hemoglobin 26.2 pg (28.0-33.3); Mean Corpuscular Volume 83.1 fL (83.0-100.0); Mean Platelet Volume 9.1 fL (9.4-12.4); Monocytes # 0.9 K/mcL (0.0-1.3); Monocytes % 6.6 %; Neutrophils # 11.3 K/mcL (1.6-8.9); Platelet Count 224 K/mcL (140-400); Red Cell Distribution Width 15.6 % (11.5-14.5); Segmented Neutrophils % 87.1 %
[2021-05-08 02:23] LABS: BUN/Creatinine Ratio 14 (6-26); Blood Urea Nitrogen 16 mg/dL (8-23); Calcium 7.2 mg/dL (8.6-10.3); Carbon Dioxide 19 mEq/L (23-29); Chloride 111 mEq/L (98-107); Glucose 153 mg/dL (70-105); Osmolality,Calculated 290 (280-300); Potassium 2.5 mEq/L (3.5-5.1); Sodium 138 mEq/L (136-145); eGFR For African Americans > 60 (> 60); eGFR For Non-African Americans > 60 (> 60)
[2021-05-08] MEDS ORDERED: Potassium Chloride Elixir 20 MEQ/15 ML UDC PO ONE (02:30)
[2021-05-08 02:56] LABS: Magnesium 1.3 mg/dL (1.6-2.6)
[2021-05-08] MEDS: *HR* OxyCODONE/APAP 5/325 TABLET PO PRN ×2 (03:37→14:43)
[2021-05-08] MEDS: *HR* Heparin 5,000 UNIT/ML VIAL SQ SCH ×2 (05:38→16:36)
[2021-05-08] MEDS: Pantoprazole 40 MG VIAL IVP SCH ×2 (05:38→16:36)
[2021-05-08] MEDS ORDERED: Potassium Chloride 40 MEQ, Lidocaine 1% 2 ML in 0.9 % Sodium Chloride 500 ML IVPB ONE (07:16)
[2021-05-08] MEDS: Aspirin Enteric Coated 81 MG Tablet PO SCH (08:03)
[2021-05-08] MEDS: Lactobacillus 1 EACH CAP.SPRINK PO SCH (08:03)
[2021-05-08] MEDS: Gabapentin 300 MG CAPSULE PO SCH ×3 (08:03→21:36)
[2021-05-08] MEDS: Cyanocobalamin (B-12) 1,000 MCG/ML VIAL SQ SCH (08:03)
[2021-05-08] MEDS: Ertapenem 1,000 MG in 0.9 % Sodium Chloride Mini Bag 100 ML IVPB SCH (08:04)
[2021-05-08] MEDS: Meropenem 1,000 MG in 0.9 % Sodium Chloride Mini Bag 100 ML IVPB SCH (14:35)
[2021-05-09] MEDS: Meropenem 1,000 MG in 0.9 % Sodium Chloride Mini Bag 100 ML IVPB SCH (00:36)
[2021-05-09 04:08] LABS: ABG Base Excess -4 mEq/L (-2 to 3); ABG HCO3 20 mEq/L (21-27); ABG Oxygen Saturation 93 % (95-98); ABG PCO2 34 mmHg (35-45); ABG PH 7.38 pH Units (7.32-7.45); ABG PO2 66 mmHg (85-104); ABG TCO2 21 mEq/L (20-26)
[2021-05-09] MEDS ORDERED: SODIUM CHLORIDE 0.9% IVPB ONE (04:30)
[2021-05-09] MEDS ORDERED: LEVETIRACETAM IVPB ONE (04:30)
[2021-05-09 04:42] LABS: Basophils % 0.1 %; Hematocrit 24.6 % (37.5-50.1); Hemoglobin 7.6 g/dL (12.9-16.9); Immature Granulocytes % 0.3 % (0-4); Lymphocytes # 0.5 K/mcL (0.6-4.6); Lymphocytes % 5.2 %; Mean Corpuscular HGB Conc 30.9 g/dL (31.6-35.5); Mean Corpuscular Hemoglobin 25.6 pg (28.0-33.3); Mean Corpuscular Volume 82.8 fL (83.0-100.0); Monocytes # 0.3 K/mcL (0.0-1.3); Neutrophils # 9.4 K/mcL (1.6-8.9); Platelet Count 243 K/mcL (140-400); Red Blood Count 2.97 M/mcL (4.19-5.50); Red Cell Distribution Width 16.1 % (11.5-14.5); Segmented Neutrophils % 91.4 %; White Blood Count 10.2 K/mcL (4.3-11.1)
[2021-05-09 04:58] LABS: Estimated Average Glucose 114 mg/dl; Hemoglobin A1C 5.6 %
[2021-05-09 05:11] LABS: Alanine Aminotransferase 20 Units/L (7-52); Albumin 2.3 g/dL (3.5-5.7); Albumin/Globulin Ratio 0.8 (1.1-2.2); Alkaline Phosphatase 119 Units/L (34-104); Aspartate Amino Transferase 23 Units/L (13-39); BUN/Creatinine Ratio 12 (6-26); Bilirubin,Total 0.2 mg/dL (0.3-1.0); Blood Urea Nitrogen 14 mg/dL (8-23); Calcium 7.3 mg/dL (8.6-10.3); Carbon Dioxide 19 mEq/L (23-29); Chloride 114 mEq/L (98-107); Globulin 2.8 g/dL (2.4-3.5); Glucose 147 mg/dL (70-105); Magnesium 2.1 mg/dL (1.6-2.6); Osmolality,Calculated 293 (280-300); Potassium 3.7 mEq/L (3.5-5.1); Sodium 140 mEq/L (136-145); Total Protein 5.1 g/dL (6.4-8.9); eGFR For African Americans > 60 (> 60); eGFR For Non-African Americans > 60 (> 60)
[2021-05-09] MEDS: *HR* Heparin 5,000 UNIT/ML VIAL SQ SCH ×2 (05:32→17:03)
[2021-05-09] MEDS: Pantoprazole 40 MG VIAL IVP SCH ×2 (05:32→17:02)
[2021-05-09] MEDS: Gabapentin 300 MG CAPSULE PO SCH ×3 (08:43→20:21)
[2021-05-09] MEDS: Lactobacillus 1 EACH CAP.SPRINK PO SCH (08:43)
[2021-05-09] MEDS: *HR* OxyCODONE/APAP 5/325 TABLET PO PRN ×2 (08:44→17:06)
[2021-05-09] MEDS: Aspirin Enteric Coated 81 MG Tablet PO SCH (08:44)
[2021-05-09] MEDS: Piperacillin/Tazobactam 3.375 GM in 0.9 % Sodium Chloride Mini Bag 100 ML IVPB SCH ×2 (08:53→15:19)
[2021-05-09] MEDS: Cyanocobalamin (B-12) 1,000 MCG/ML VIAL SQ SCH (09:00)
[2021-05-09] MEDS: Doxycycline 100 MG CAPSULE PO SCH ×2 (11:08→20:21)
[2021-05-09] MEDS ORDERED: Acetaminophen IV 1,000 MG/100 ML BAG IVPB ONE (23:03)
[2021-05-10] MEDS: Piperacillin/Tazobactam 3.375 GM in 0.9 % Sodium Chloride Mini Bag 100 ML IVPB SCH ×4 (00:18→23:23)
[2021-05-10] MEDS ORDERED: *HR* Metoprolol 5 MG/5 ML VIAL IVP ONE (00:30)
[2021-05-10 02:01] LABS: Albumin/Globulin Ratio 0.8 (1.1-2.2); Bilirubin,Total 0.2 mg/dL (0.3-1.0); Calcium 6.9 mg/dL (8.6-10.3); Globulin 2.5 g/dL (2.4-3.5); Potassium 4.2 mEq/L (3.5-5.1); Total Protein 4.5 g/dL (6.4-8.9)
[2021-05-10 02:52] LABS: Immature Granulocytes % 0.7 % (0-4); Red Cell Distribution Width 16.5 % (11.5-14.5)
[2021-05-10 02:54] LABS: Eosinophils % 0.1 %; Hematocrit 15.5 % (37.5-50.1); Lymphocytes % 9.3 %; Mean Corpuscular HGB Conc 29.7 g/dL (31.6-35.5); Mean Corpuscular Hemoglobin 25.8 pg (28.0-33.3); Mean Corpuscular Volume 87.1 fL (83.0-100.0); Mean Platelet Volume 9.8 fL (9.4-12.4); Monocytes # 0.5 K/mcL (0.0-1.3); Monocytes % 4.8 %; Platelet Count 239 K/mcL (140-400); Red Blood Count 1.78 M/mcL (4.19-5.50); Segmented Neutrophils % 85.1 %; White Blood Count 10.9 K/mcL (4.3-11.1)
[2021-05-10 03:00] LABS: Neutrophils # 9.3 K/mcL (1.6-8.9)
[2021-05-10 03:02] LABS: Hemoglobin 4.6 g/dL (12.9-16.9)
[2021-05-10 04:47] LABS: Basophils % 0.1 %; Eosinophils % 0.1 %; Lymphocytes # 1.2 K/mcL (0.6-4.6); Lymphocytes % 14.2 %; Mean Corpuscular HGB Conc 30.9 g/dL (31.6-35.5); Mean Corpuscular Hemoglobin 26.3 pg (28.0-33.3); Mean Corpuscular Volume 85.1 fL (83.0-100.0); Mean Platelet Volume 9.5 fL (9.4-12.4); Monocytes # 0.4 K/mcL (0.0-1.3); Monocytes % 4.8 %; Neutrophils # 6.5 K/mcL (1.6-8.9); Platelet Count 236 K/mcL (140-400); Red Blood Count 1.75 M/mcL (4.19-5.50); Red Cell Distribution Width 16.5 % (11.5-14.5); Segmented Neutrophils % 79.8 %; White Blood Count 8.2 K/mcL (4.3-11.1)
[2021-05-10 04:48] LABS: Hematocrit 14.9 % (37.5-50.1); Hemoglobin 4.6 g/dL (12.9-16.9)
[2021-05-10] MEDS: *HR* Heparin 5,000 UNIT/ML VIAL SQ SCH (05:16)
[2021-05-10] MEDS: Pantoprazole 40 MG in 0.9 % Sodium Chloride Mini Bag 100 ML IVC SCH ×2 (05:37→10:18)
[2021-05-10] MEDS ORDERED: 0.9 % Sodium Chloride 250 ML ONE ×4 (05:40→22:40)
[2021-05-10] MEDS: Cyanocobalamin (B-12) 1,000 MCG/ML VIAL SQ SCH (08:54)
[2021-05-10] MEDS: Lactobacillus 1 EACH CAP.SPRINK PO SCH (09:56)
[2021-05-10] MEDS: Aspirin Enteric Coated 81 MG Tablet PO SCH (09:56)
[2021-05-10] MEDS: Gabapentin 300 MG CAPSULE PO SCH (09:57)
[2021-05-10] MEDS: Doxycycline 100 MG CAPSULE PO SCH ×2 (09:57→20:30)
[2021-05-10 10:50] LABS: Hematocrit 16.5 % (37.5-50.1)
[2021-05-10] MEDS ORDERED: *HR* LORazepam 2 MG/ML VIAL IVP STA (10:52)
[2021-05-10] MEDS ORDERED: 0.9 % Sodium Chloride 1,000 ML IV ONE (10:57)
[2021-05-10] MEDS ORDERED: 0.9 % Sodium Chloride 1,000 ML ONE (10:59)
[2021-05-10 11:05] LABS: INR 1.9; Prothrombin Time 20.7 Seconds (9.4-12.1)
[2021-05-10 11:07] LABS: Hemoglobin 5.1 g/dL (12.9-16.9)
[2021-05-10] MEDS ORDERED: Octreotide 50 MCG/ML INJ IVP ONE (11:08)
[2021-05-10 11:35] LABS: Albumin 1.8 g/dL (3.5-5.7); Albumin/Globulin Ratio 0.9 (1.1-2.2); Bilirubin,Direct 0.1 mg/dL (0.0-0.2); Bilirubin,Indirect 0.3 mg/dL (0.0-1.0); Bilirubin,Total 0.4 mg/dL (0.3-1.0); Total Protein 3.8 g/dL (6.4-8.9)
[2021-05-10 12:15] LABS: Troponin I 0.04 ng/mL (< 0.04)
[2021-05-10] MEDS: Octreotide 400 MCG in 0.9 % Sodium Chloride 100 ML IVC SCH ×2 (12:37→20:33)
[2021-05-10 13:36] LABS: BUN/Creatinine Ratio 19 (6-26); Blood Urea Nitrogen 27 mg/dL (8-23); Calcium 6.6 mg/dL (8.6-10.3); Carbon Dioxide 20 mEq/L (23-29); Chloride 120 mEq/L (98-107); Glucose 202 mg/dL (70-105); Lactate Dehydrogenase 138 Units/L (140-271); Osmolality,Calculated 309 (280-300); Sodium 144 mEq/L (136-145); eGFR For African Americans > 60 (> 60); eGFR For Non-African Americans 50 (> 60)
[2021-05-10 16:11] LABS: Hematocrit 18.3 % (37.5-50.1); Hemoglobin 6.1 g/dL (12.9-16.9)
[2021-05-10] MEDS ORDERED: Lidocaine -MPF 1% 5 ML AMPUL INFILT ONE (16:17)
[2021-05-10] MEDS: Pantoprazole 40 MG VIAL IVP SCH (17:21)
[2021-05-10 22:00] LABS: Basophils % 0.1 %; Eosinophils % 0.1 %; Lymphocytes # 1.1 K/mcL (0.6-4.6); Lymphocytes % 12.4 %; Mean Corpuscular HGB Conc 33.5 g/dL (31.6-35.5); Mean Corpuscular Hemoglobin 28.9 pg (28.0-33.3); Mean Corpuscular Volume 86.5 fL (83.0-100.0); Mean Platelet Volume 9.5 fL (9.4-12.4); Monocytes # 0.4 K/mcL (0.0-1.3); Monocytes % 4.1 %; Neutrophils # 7.2 K/mcL (1.6-8.9); Platelet Count 158 K/mcL (140-400); Red Blood Count 2.66 M/mcL (4.19-5.50); Red Cell Distribution Width 15.9 % (11.5-14.5); Segmented Neutrophils % 82.3 %; White Blood Count 8.7 K/mcL (4.3-11.1)
[2021-05-10 22:01] LABS: Hemoglobin 7.7 g/dL (12.9-16.9)
[2021-05-10 22:15] LABS: BUN/Creatinine Ratio 24 (6-26); Blood Urea Nitrogen 32 mg/dL (8-23); Calcium 6.6 mg/dL (8.6-10.3); Carbon Dioxide 19 mEq/L (23-29); Chloride 119 mEq/L (98-107); Glucose 231 mg/dL (70-105); Osmolality,Calculated 312 (280-300); Potassium 3.3 mEq/L (3.5-5.1); Sodium 144 mEq/L (136-145); eGFR For African Americans > 60 (> 60); eGFR For Non-African Americans 53 (> 60)
[2021-05-11] MEDS ORDERED: 0.9 % Sodium Chloride 250 ML ONE (02:31)
[2021-05-11 03:08] LABS: Basophils % 0.1 %; Hematocrit 20.7 % (37.5-50.1); Hemoglobin 6.8 g/dL (12.9-16.9); Immature Granulocytes % 1.3 % (0-4); Lymphocytes # 1.3 K/mcL (0.6-4.6); Lymphocytes % 12.7 %; Mean Corpuscular HGB Conc 32.9 g/dL (31.6-35.5); Mean Corpuscular Hemoglobin 28.8 pg (28.0-33.3); Mean Corpuscular Volume 87.7 fL (83.0-100.0); Mean Platelet Volume 9.7 fL (9.4-12.4); Monocytes # 0.4 K/mcL (0.0-1.3); Neutrophils # 8.1 K/mcL (1.6-8.9); Platelet Count 174 K/mcL (140-400); Red Blood Count 2.36 M/mcL (4.19-5.50); Red Cell Distribution Width 15.7 % (11.5-14.5); Segmented Neutrophils % 81.9 %; White Blood Count 9.9 K/mcL (4.3-11.1)
[2021-05-11 03:23] LABS: Alanine Aminotransferase 15 Units/L (7-52); Alkaline Phosphatase 68 Units/L (34-104); Aspartate Amino Transferase 16 Units/L (13-39); BUN/Creatinine Ratio 25 (6-26); Bilirubin,Total 0.5 mg/dL (0.3-1.0); Blood Urea Nitrogen 35 mg/dL (8-23); Calcium 6.8 mg/dL (8.6-10.3); Carbon Dioxide 21 mEq/L (23-29); Chloride 120 mEq/L (98-107); Globulin 2.1 g/dL (2.4-3.5); Glucose 234 mg/dL (70-105); INR 1.7; Osmolality,Calculated 318 (280-300); Potassium 3.5 mEq/L (3.5-5.1); Prothrombin Time 19.2 Seconds (9.4-12.1); Sodium 146 mEq/L (136-145); Total Protein 4.1 g/dL (6.4-8.9); eGFR For African Americans > 60 (> 60); eGFR For Non-African Americans 52 (> 60)
[2021-05-11] MEDS: Octreotide 400 MCG in 0.9 % Sodium Chloride 100 ML IVC SCH ×3 (05:13→23:38)
[2021-05-11] MEDS: Pantoprazole 40 MG VIAL IVP SCH ×2 (05:14→16:52)
[2021-05-11] MEDS: Piperacillin/Tazobactam 3.375 GM in 0.9 % Sodium Chloride Mini Bag 100 ML IVPB SCH ×3 (09:24→23:39)
[2021-05-11] MEDS: Lactobacillus 1 EACH CAP.SPRINK PO SCH (09:27)
[2021-05-11] MEDS: Doxycycline 100 MG CAPSULE PO SCH (09:27)
[2021-05-11] MEDS ORDERED: *HR* LORazepam Oral Conc 2 MG/ML SL PRN (10:27)
[2021-05-11] MEDS ORDERED: Morphine Sulfate Oral CONC 10 MG/0.5 ML ORAL.SYG SL PRN (10:27)
[2021-05-11] MEDS: Doxycycline 100 MG in 0.9 % Sodium Chloride Mini Bag 100 ML IVPB SCH ×2 (11:05→23:42)
[2021-05-11 15:15] LABS: ANA HEp-2 IgG IFA <1:80 (<1:80)
[2021-05-11 15:16] LABS: Anti Fibrillarin U3 RNP NEGATIVE (Negative); Anti PM Scl EIA NEGATIVE (Negative); Anti RNA Polymerase III 4 Units (0-19)
[2021-05-12] MEDS: Pantoprazole 40 MG VIAL IVP SCH (05:31)
[2021-05-12] MEDS: Octreotide 400 MCG in 0.9 % Sodium Chloride 100 ML IVC SCH (06:26)
[2021-05-12 07:30] VITALS: BP 126/68; PULSE 107; TEMP 98.4; O2SAT 95
[2021-05-12] MEDS: Piperacillin/Tazobactam 3.375 GM in 0.9 % Sodium Chloride Mini Bag 100 ML IVPB SCH (09:38)
== END 2021-05-12 10:55 | disposition expired | DRG 698 ==
LOC: EMEROOARM 15:49 → 2ANU 15:49 → SUATTDRO 23:15
PROVIDERS: ADMIT Internal Medicine; ATTEND Student in an Organized Health Care Education/Training Program